=== PATIENT | female | born 1960 | race Caucasian/White ===

== ENCOUNTER 2024-12-27 10:45 | Outpatient (AMB) | payer BC, SELFPAY ==
--- NOTE | 2024-12-27 10:47 | A.OFFVIS_ITS ---
Vital Signs 12/27/24 10:51 Height 5 ft 3.86 in Weight 219 lb 9.286 oz BMI 37.9 BP 100/80 Blood Pressure Location Lt brachial Position Sitting Pulse 80 Pulse Source Pulse Oximeter Pulse Oximetry (%) 97 Oxygen Delivery Method Room Air Intake Visit Reasons: Pain on Rt side hip (referral scanned in) Intake Note: Patients presents today for arthritis and Pain in right hip, knee ankle and feet. Allergies semaglutide [From Rybelsus] Allergy (Intermediate, Verified 12/27/24 10:54) Nausea lisinopril Allergy (Mild, Verified 12/27/24 10:54) Cough morphine Allergy (Mild, Verified 12/27/24 10:54) vomitting perfume Allergy (Verified 12/27/24 10:54) Rash ethromycin Allergy (Mild, Uncoded 12/26/24 13:08) Nausea HPI HPI Pain on Rt side hip (referral scanned in): Details: Chronic pain localized to greater trochanter 6 months. Unable to sleep on right side. She is a side sleeper. She has a pain that radiates from right hip to posterior to IT band to knee then down christianson. Pelvic tilts helps to reduce hip pain. Changing position. Wakes up multiple times at night. In sitting position she has pain in right groin. Initially she had workup with lumbar spine MRI, which revealed mild degenerative changes of her discs without specific nerve root/nerve impingement due to concern of hip pain with radiation down right leg being referred from back. She was referred to PT. She has good function of her back. Able to arch back and touch toes. PT back helped reduce her pain but it is still affecting her function. Burning pain down side right leg reduced in frequency. She saw a early childhood associate teacher who gave her a cortisone injection right trochanteric bursa without benefit. She then did 8 weeks of physical therapy with benefit. She is unable to walk long distances and participate in leisure sports like cayaking (unable to lower herself in kayak) due to pain in right hip, knee and bilateral feet. She is now walking around the block instead of 2 miles. She has difficulty getting into car and going up and down stairs. She has reduced plantar flexion of right foot. She has pain in her ankle when she walks. Takes gabapentin 100mg AM and 200mg PM and advil 600mg qhs. PMx: DM on ozempic. CEBO PsO on Tremfya dx with scalp skin bx, HTN, HLD, hx of chronic transaminitis due to hepatic steotosis. Past surgical history; left rotator cuff repair, multiple LEEP procedures (BENNY 1, cIN2, cIN3 than normal), procedures for fertility Grandfather had arthritis. 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 Labs reviewed from patient's portal access from December 2024. She has normal creatinine with EGFR 96 and normal liver function tests. [facility] Medical History (Updated 12/27/24 @ 12:21 by Kam Barlow MD) BENSON (nonalcoholic steatohepatitis) delivery delivered FH: cholecystectomy History of endometrial biopsy Hx of mammogram Normal hysteroscopy Uterine polyp Diabetic retinopathy screening Pain of right hip joint Pain, joint, shoulder, left Lower back pain Neck pain Joint pain Seborrheic psoriasis Menometrorrhagia Steatosis of liver Chronic kidney disease Gastritis Gastro-esophageal reflux Intrinsic asthma Allergic rhinitis Hypertensive renal disease Insomnia Obesity with body mass index of 30.0-39.9 Hyperlipemia Vitamin D deficiency Type 2 diabetes mellitus Dermal mycosis Surgical History History of cervical LEEP biopsy affecting care of mother, antepartum H/O tubal ligation History of gynecologic surgery Hx of breast biopsy H/O colonoscopy History of liver biopsy History of orthopedic surgery H/O dilation and curettage Family History Paternal Grandmother ADHD (attention deficit hyperactivity disorder) Obesity Mother Liver problem Cirrhosis of liver Chronic obstructive pulmonary disease Esophageal varices Father Obesity Diabetes mellitus Sleep disorder Systemic hypertensive disorder complication AD (Alzheimer's disease) Maternal Grandmother Diabetes mellitus Arthritis Allergy Sister Malignant tumor of breast Paternal Grandfather Alcohol abuse Brother Acute Crohn's disease Review of Systems Const All systems reviewed & are unremarkable except as noted in HPI and below Physical Exam Vital Signs: Last Vital Signs Pulse 80 12/27/24 10:51 BP 100/80 12/27/24 10:51 Pulse Ox 97 12/27/24 10:51 Oxygen Delivery Method Room Air 12/27/24 10:51 BMI result Body Mass Index 37.9 Const Other: General: Comfortable CVS: RRR Respiratory: clear to auscultation bilaterally. Good respiratory effort Skin: No lesions seen MSK: No tenderness of upper joints. Hyperextension of bilateral thumbs. Normal range of motion of upper extremity. Tender to palpate right trochanteric bursa. No groin tenderness of bilateral groin region. Normal range of motion of left hip with limited full external rotation of right hip. No tenderness of knee. Normal bilateral knee flexion. She has mild valgus deformity of right knee. She has normal range of motion of bilateral ankles. Office Procedures AMB Joint Injection/Aspiration Joint Injection/Aspiration Details: Right trochanteric bursa Prep: site was prepped using aseptic technique Injected: 40 mg of, Kenalog, with 1 mL of and 1% plain lidocaine. 25 gauge 3- 1/2 inch needle was used. Procedure: The patient tolerated the procedure well. Postprocedure protocol was discussed with patient. Coding 29646 - Large joint Procedure code (CPT) selection complete Office Meds lidocaine (PF) 10 mg/mL (1 %) injection solution Performing Provider: Kam Barlow MD Performing Location: [facility] Administered by: Kam Barlow MD on 12/27/24 12:01 Dose Route Admin Location Dispensed Lot Number Expiration Date [facility] [employer] Systems Engineer 10 mg Infiltration 2 mL [id number] [facility] Kenalog 40 mg/mL suspension for injection Performing Provider: Kam Barlow MD Performing Location: [facility] [place] [facility] Administered by: Kam Barlow MD on 12/27/24 12:01 Dose Route Admin Location Dispensed Lot Number Expiration Date [facility] [employer] Systems Engineer 40 mg intrabursal 1 mL [id number] [employer] Results Reviewed Results Reviewed: 12/28/2024 CMP normal. KINJAL negative. Viewed on patient's portal. L-spine MRI results reviewed 11/27/2023. Assessment & Plan Assessment & Plan (1) Trochanteric bursitis, right hip: Comment: Chronic. She has had partial benefit with physical therapy with persistent symptoms. Right trochanteric bursa cortisone injection by early childhood associate teacher did not provide relief. We discussed conservative management. She agreed to try another cortisone injection. If pain does not improve, I will then start NSAID with continued PT exercises at home. She has had burning pain on her right side that radiates to her foot, improved with physical therapy and with gabapentin. L-spine MRI 11/2023 reviewed, which reveals multilevel mild degenerative disc disease with facet arthropathy, mild foraminal stenosis L3-L4, L4-L5 and mild spinal canal stenosis L4-L5. Lumbar Facet arthropathy, foraminal stenosis, mild spinal canal stenosis could have caused compression of nearby nerves likely contributed to her radicular symptom. Code(s): M70.61 - Trochanteric bursitis, right hip Category: Medical Plan: Patient received right trochanteric bursa cortisone injection Continue gabapentin per PCP Continue PT exercises at home daily Return to clinic 1-2 months to review results (2) Right ankle pain: Comment: With ambulation and limited subjective plantar flexion. Return to clinic in 1-2 months to review results Code(s): M25.571 - Pain in right ankle and joints of right foot Category: Medical Qualifiers: Chronicity: chronic Qualified Code(s): M25.571 - Pain in right ankle and joints of right foot; G89.29 - Other chronic pain Plan: X-ray ordered Return to clinic in 1-2 months to review results (3) Right hip pain: Comment: She has functional difficulties with her right hip joint and limited full external rotation. I am concerned she has hip joint pathology contributing to her functional difficulty. Code(s): M25.551 - Pain in right hip Category: Medical Plan: Right hip x-ray bilateral hips ordered. X-ray of left hip ordered for baseline and comparison Continued PT exercises at home Return to clinic in 1-2 months to review results (4) Right knee pain: Comment: She has mild clinical osteoarthritis on exam. Code(s): M25.561 - Pain in right knee Category: Medical Qualifiers: Chronicity: chronic Qualified Code(s): M25.561 - Pain in right knee; G89.29 - Other chronic pain Plan: X-ray bilateral knees ordered. Left knee x-ray has been ordered for baseline and comparison Return to clinic in 1-2 months to review results Orders: Orders XR ankle RT 2V Today G89.29 - Other chronic pain, M25.571 - Pain in right ankle and joints of right foot XR knee RT 2V Today M25.561 - Pain in right knee XR knee LT 1V Today M25.561 - Pain in right knee XR hips LEONORA min 3V Today M25.551 - Pain in right hip AMB Joint Injection/Aspiration Today M70.61 - Trochanteric bursitis, right hip Coding Level of Care Code New Pt Level 4 (38640) Diagnoses Trochanteric bursitis, right hip M70.61 Chronic pain of right ankle M25.571; G89.29 Chronicity: chronic Right hip pain M25.551 Chronic pain of right knee M25.561; G89.29 Chronicity: chronic CPT Codes Coding - 22232 Large joint: 06757 - Large joint ([id number])
[2024-12-27 10:51] VITALS: BP 100/80; PULSE 80; O2SAT 97; BMI 37.9
== END 2024-12-27 12:37 | disposition home or self-care (01) ==
LOC: HO.RHES 10:45
PROVIDERS: Visit Provider Internal Medicine Rheumatology
DX: M70.61 Trochanteric bursitis, right hip (principal); M25.571 Pain in right ankle and joints of right foot; G89.29 Other chronic pain; M25.551 Pain in right hip; M25.561 Pain in right knee
CPT/HCPCS: 20610; 99204

== ENCOUNTER 2024-12-27 10:45 | Outpatient (REF) | payer BC, SELFPAY ==
--- NOTE | ~2024-12-27 | XR_ITS ---
CLINICAL HISTORY: M25.571 - Pain in right ankle and joints of right foot 3 view right ankle Comparison: None Findings: There is a remote fracture of the anterior aspect of the distal tibia. Some heterotopic bone is seen along the dorsal aspect of the talus. There are significant degenerative changes at the tibiotalar and fibulotalar joints. No ankle effusion. No radiopaque foreign body. IMPRESSION: No acute abnormalities. There are significant degenerative changes at the tibiotalar and fibulotalar joints. This document has been electronically signed by: Arron Alexander MD on 12/29/2024 10:34:39
--- NOTE | ~2024-12-27 | XR_ITS ---
CLINICAL HISTORY: M25.551 - Pain in right hip 4 view bilateral hips Comparison: None Findings: No acute fracture or dislocation. There are small bilateral acetabular spurs with subchondral geodes [id number]-left. There are mild degenerative changes of the pubic symphysis. There are possible small erosions of the pubic symphysis. The soft tissues are unremarkable. IMPRESSION: Degenerative changes no acute fractures Degenerative changes of the pubic symphysis findings suspicious for osteitis pubis This document has been electronically signed by: Domingo Ewing MD on 12/29/2024 08:50:34
--- NOTE | ~2024-12-27 | XR_ITS ---
CLINICAL HISTORY: Pain in left knee. Two views of the left knee. COMPARISON: None FINDINGS: No appreciable suprapatellar joint effusion. Joint spaces are maintained. Osteophytes present along the lateral compartment. Visualized portions of the distal femur, proximal tibia and fibula and the patella appear intact. Fabella present. IMPRESSION: 1. No radiographic evidence of acute injury to the left knee. 2. Mild lateral compartment degenerative changes of the left knee. This document has been electronically signed by: Andres Valadez MD on 12/28/2024 17:00:47
--- NOTE | ~2024-12-27 | XR_ITS ---
CLINICAL HISTORY: M25.561 - Pain in right knee 2 view right knee Comparison: None Findings: No fractures or dislocations. There are small tricompartmental osteophytes. No acute fractures. There is a small suprapatellar effusion. No radiopaque foreign body. IMPRESSION: Mild tricompartmental osteoarthrosis Small suprapatellar effusion This document has been electronically signed by: Domingo Ewing MD on 12/29/2024 08:42:53
== END 2024-12-27 10:46 | disposition home or self-care (01) ==
LOC: HO.HMGCX 10:45
PROVIDERS: PCP Physician Assistant Medical; Visit Provider Internal Medicine Rheumatology
DX: M70.61 Trochanteric bursitis, right hip (principal); M25.571 Pain in right ankle and joints of right foot; G89.29 Other chronic pain; M25.561 Pain in right knee
CPT/HCPCS: 20610; 73522; 73560; 73610; J2003; J3300

== ENCOUNTER → 2024-12-27 13:03 | Outpatient (BNV) | payer BC, SELFPAY | PROVIDERS: PCP Physician Assistant Medical; Visit Provider Radiology Diagnostic Radiology | DX: M25.561 Pain in right knee (principal); M25.571 Pain in right ankle and joints of right foot; M25.551 Pain in right hip | CPT/HCPCS: 73522; 73560; 73610 ==

== ENCOUNTER 2025-01-03 09:45 | Outpatient (AMB) | payer BC, SELFPAY ==
[2025-01-03 10:03] VITALS: BP 110/58; PULSE 71; O2SAT 97; BMI 36.6
--- NOTE | 2025-01-03 10:03 | MHC.OFFVIS ---
Vital Signs 01/03/25 10:03 Height 5 ft 4.5 in Weight 216 lb 11.43 oz BMI 36.6 BP 110/58 L Blood Pressure Location Lt brachial Position Sitting Pulse 71 Pulse Source Pulse Oximeter Pulse Oximetry (%) 97 Oxygen Delivery Method Room Air Intake Visit Reasons: discuss xray results Intake Note: Patient presents for follow up on x-rays today. Allergies semaglutide [From Rybelsus] Allergy (Intermediate, Verified 01/03/25 10:08) Nausea lisinopril Allergy (Mild, Verified 01/03/25 10:08) Cough morphine Allergy (Mild, Verified 01/03/25 10:08) vomitting perfume Allergy (Verified 01/03/25 10:08) Rash ethromycin Allergy (Mild, Uncoded 01/03/25 10:08) Nausea HPI HPI discuss xray results: Details: She is accompanied with her during visit. She has had benefit with right trochanteric bursa cortisone injection. She has started walking. She is able to walk a few miles a day. [facility] Medical History (Updated 01/03/25 @ 13:33 by Kam Barlow MD) BENSON (nonalcoholic steatohepatitis) delivery delivered FH: cholecystectomy History of endometrial biopsy Hx of mammogram Normal hysteroscopy Uterine polyp Diabetic retinopathy screening Pain of right hip joint Pain, joint, shoulder, left Lower back pain Neck pain Joint pain Seborrheic psoriasis Menometrorrhagia Steatosis of liver Chronic kidney disease Gastritis Gastro-esophageal reflux Intrinsic asthma Allergic rhinitis Hypertensive renal disease Insomnia Obesity with body mass index of 30.0-39.9 Hyperlipemia Vitamin D deficiency Type 2 diabetes mellitus Dermal mycosis Surgical History History of cervical LEEP biopsy affecting care of mother, antepartum H/O tubal ligation History of gynecologic surgery Hx of breast biopsy H/O colonoscopy History of liver biopsy History of orthopedic surgery H/O dilation and curettage Family History Paternal Grandmother ADHD (attention deficit hyperactivity disorder) Obesity Mother Liver problem Cirrhosis of liver Chronic obstructive pulmonary disease Esophageal varices Father Obesity Diabetes mellitus Sleep disorder Systemic hypertensive disorder complication AD (Alzheimer's disease) Maternal Grandmother Diabetes mellitus Arthritis Allergy Sister Malignant tumor of breast Paternal Grandfather Alcohol abuse Brother Acute Crohn's disease Review of Systems Const All systems reviewed & are unremarkable except as noted in HPI and below Physical Exam Vital Signs: Last Vital Signs Pulse 71 01/03/25 10:03 BP 110/58 L 01/03/25 10:03 Pulse Ox 97 01/03/25 10:03 Oxygen Delivery Method Room Air 01/03/25 10:03 BMI result Body Mass Index 36.6 Const Other: General: Comfortable Skin: No lesions seen MSK: Tender to palpate right trochanteric bursa. No groin tenderness of bilateral groin region. Normal range of motion of left hip with limited full external rotation of right hip. No tenderness of knee. Normal bilateral knee flexion. She has mild valgus deformity of right knee. She has normal range of motion of bilateral ankles. Right ankle range of motion is little bit more restricted compared to left. Assessment & Plan Assessment & Plan (1) Osteoarthritis of right hip: Comment: Mild bilateral hip osteoarthritis right worse than left on x-ray. She is symptomatic with right groin pain. We discussed x-ray results, which also report degenerative changes of the pubic symphysis findings suspicious for osteitis pubis. At this time her pain is localized to the hip joint. We discussed conservative management. Answered patient's questions to her satisfaction. Code(s): M16.11 - Unilateral primary osteoarthritis, right hip Category: Medical Qualifiers: Osteoarthritis type: primary Qualified Code(s): M16.11 - Unilateral primary osteoarthritis, right hip Plan: PT ordered for hip strengthening. Patient prefers to have PT done local to her home. Encouraged weight loss. She is on Ozempic Return to clinic in 3 months (2) Bilateral primary osteoarthritis of knee: Comment: Mild on x-ray. Discussed diagnosis and conservative management. Answered patient's questions to her satisfaction. Code(s): M17.0 - Bilateral primary osteoarthritis of knee Category: Medical Plan: PT ordered for lower extremity strengthening. She will try TENs unit Encouraged weight loss. She is on Ozempic. Return to clinic in 3 months (3) Primary osteoarthritis, right ankle and foot: Comment: I personally reviewed x-ray results with patient, which reveal significant degenerative changes at the tibiotalar and fibulotalar joints of right ankle. We discussed diagnosis of osteoarthritis and management. Answered patient's questions to her satisfaction. Code(s): M19.071 - Primary osteoarthritis, right ankle and foot Category: Medical Plan: PT ordered for ankle strengthening Return to clinic in 3 months Orders: Orders PT Evaluation and Treatment Today M16.11 - Unilateral primary osteoarthritis, right hip, M17.0 - Bilateral primary osteoarthritis of knee, M19.071 - Primary osteoarthritis, right ankle and foot Coding Level of Care Code Est Pt Level 4 (12034) Complex EM visit Add On G2211 Diagnoses Primary osteoarthritis of right hip M16.11 Osteoarthritis type: primary Bilateral primary osteoarthritis of knee M17.0 Primary osteoarthritis, right ankle and foot M19.071
--- OUTSIDE RECORDS SUMMARY | 2025-01-03 11:13 | XMS_ITS | Encounter Summary ---
Author Organization [facility] Address [address] [place] [address] Care Team Providers Care Endocrinologist Name Role Phone Mesfin Parada Primary Care Provider + [phone] Reason for Referral * Imaging (Routine) - Pending Review Specialty Diagnoses / Procedures Referred By Contac t Referred To Contact Radiology Diagnoses Elevated liver enzymes Pancreas cyst Procedures MR Abdomen wo Contrast MRCP Von Henley MD [address] [address] Phone: tel: fax: [address] [address] Phone: tel: Referral ID Status Reason Start Date Expiration Date V isits Requested Visits Authorized [id number] Pending Review 12/21/2024 12/21/2025 1 1 Reason for Visit * Imaging (Routine) - Pending Review Specialty Diagnoses / Procedures Referred By Contac t Referred To Contact Radiology Diagnoses Elevated liver enzymes Pancreas cyst Procedures MR Abdomen wo Contrast MRCP Von Henley MD [address] [address] Phone: tel: fax: [facility] MRI [address] [place] [address] Phone: tel: Referral ID Status Reason Start Date Expiration Date V isits Requested Visits Authorized [id number] Pending Review 12/21/2024 12/21/2025 1 1 Encounter Details Date Type Department Care Team (Latest Contact Info) Description 12/31/2024 7:56 AM EDT - 12/31/2024 11:59 PM EDT Hospital Encounter [facility] MRI [address] [place] [address] Elevated liver enzymes; Pancreas cyst Discharge Disposition: Home or Self Care Social History Tobacco Use Types Packs/Day Years Used Date Smoking Tobacco: Former Cigarettes Q uit: 10/05/1989 Smokeless Tobacco: Never Alcohol Use Standard Drinks/Week Comments Yes 0 (1 standard drink = 0.6 oz pur e alcohol) 2 a month Comments Unknown Sex and Gender Information Value Date Recorded Sex Assigned at Not on file Legal Sex Female 6:24 PM EST Gender Identity Not on file Sexual Orientation Not on file documented as of this encounter Medications at Time of Discharge acetaminophen (TYLENOL) 500 mg tablet Take 1 tablet (500 mg total) by mouth every 8 (eight) hours if needed. aspirin 81 mg chewable tablet Chew 1 tablet (81 mg total) 1 (one) time each day. blood-glucose sensor (FreeStyle Becca 3 Plus Sensor) device USE DIRECTED. REPLACE EVERY 14 DAYS clobetasoL 0.05 % shampoo APPLY TO DRY, LEAVE ON FOR 15 MINUTES THEN WASH OFF IN SHOWER emollient combination no.43 (Promiseb) cream Apply 1 Dose topically 2 (two) times a day. 06/16/2019 fluconazole (DIFLUCAN) 200 mg tablet Take 1 tablet (200 mg total) by mouth 1 (one) time each day. fluocinolone and shower cap 0.01 % oil APPLY TO SCALP 3-4 TIMES WEEKLY ALTERNATING WITH CLOBETASOL SHAMPOO. gabapentin (NEURONTIN) 100 mg capsule Take 1 capsule (100 mg total) by mouth at bedtime. LEVONORGESTREL UTRN by intrauterine route. loratadine (Claritin) 10 mg tablet Take 1 tablet (10 mg total) by mouth 1 (one) time each day. losartan (COZAAR) 25 mg tablet Take 1 tablet (25 mg total) by mouth 1 (one) time each day. metFORMIN (GLUCOPHAGE) 1,000 mg tablet Take 1 tablet (1,000 mg total) by mouth 2 (two) times a day with meals. metformin HCl (METFORMIN ORAL) Take 750 mL by mouth. metoclopramide (REGLAN) 10 mg tablet Take 1 tablet (10 mg total) by mouth 1 (one) time each day if needed. milk thistle 500 mg capsule Take 2 capsules every day by oral route. ufomfjkv-hlt-mivg -FA-vit K-lut (Centrum Silver Women) 8 mg iron-400 mcg-50 mcg tablet Take 1 tablet by mouth 1 (one) time each day. olmesartan (BENICAR) 20 mg tablet Take 1 tablet (20 mg total) by mouth 1 (one) time each day. Half a tablet omeprazole (PriLOSEC) [address] capsule Take 1 capsule (40 mg total) by mouth 1 (one) time each day. Ozempic 0.25 mg or 0.5 mg (2 mg/3 mL) injection pen Inject 0.25 mg under the skin every 7 (seven) days. pantoprazole (PROTONIX) 40 mg EC tablet Take 1 tablet (40 mg total) by mouth 1 (one) time each day. 12/14/2024 rosuvastatin (CRESTOR) 20 mg tablet Take 1 tablet (20 mg total) by mouth 1 (one) time each day. ruxolitinib (Opzelura) 1.5 % cream Apply ONCE A DAY TO TWICE A DAY TO ALL LESIONS Tremfya 100 mg/mL injection Inject 1 mL (100 mg total) under the skin once every eight weeks. vitamin E mixed 400 unit capsule Take 2 capsules every day by oral route. Zoryve 0.3 % foam Apply to scalp once daily. documented as of this encounter Discharge Disposition Disposition Code Departure Means Destination Home or Self Care documented in this encounter Plan of Treatment Upcoming Encounters Date Type Department Care Team (Late st Contact Info) Description 03/01/2025 10:00 AM EDT Appointment [facility] Endoscopy [address] [place] [address] Von Henley MD [address] [facility] [address] [place] [address] Pending Results Name Type Priority Associated Diagnoses Date /Time MR Abdomen wo Contrast MRCP Imaging Routine Elevated liver enzymes Pancreas cyst 12/31/2024 9:11 AM EDT Scheduled Orders Name Type Priority Associated Diagnoses Orde r Schedule MR Abdomen wo Contrast MRCP Imaging Routine Elevated liver enzymes Pancreas cyst Once for 1 Occurrences starting 12/31/2024 until 12/31/2024 documented as of this encounter Visit Diagnoses Diagnosis Elevated liver enzymes Other nonspecific abnormal serum enzyme levels Pancreas cyst Cyst and pseudocyst of pancreas documented in this encounter Care Teams Endocrinologist Relationship Specialty Start Date End Date Mesfin Parada PA [address] [phone] PCP - General Internal Medicine 09/27/24 documented as of this encounter
--- OUTSIDE RECORDS SUMMARY | 2025-01-03 11:13 | XMS_ITS | Clinical Summary ---
Author Organization [facility] [address] Address [address] [place] [address] Phone Care Team Providers Care Risk Control Director Name Role Phone Mesfin Parada Primary Care Provider Allergies Active Allergy Reactions Criticality Noted Date Comments Erythromycin 07/19/2019 Morphine Nausea And Vomiting 07/19/2019 Medications LEVONORGESTREL UTRN by intrauterine route. Active metformin HCl (METFORMIN ORAL) Take 750 mL by mouth. Active aspirin 81 mg chewable tablet Chew 1 tablet (81 mg total) 1 (one) time each day. Active emollient combination no.43 (Promiseb) cream Apply 1 Dose topically 2 (two) times a day. 9 Active losartan (COZAAR) 25 mg tablet Take 1 tablet (25 mg total) by mouth 1 (one) time each day. Active metFORMIN (GLUCOPHAGE) 1,000 mg tablet Take 1 tablet (1,000 mg total) by mouth 2 (two) times a day with meals. Active omeprazole (PriLOSEC) [address] capsule Take 1 capsule (40 mg total) by mouth 1 (one) time each day. Active rvqusgxe-bjr-mx on-FA-vit K-lut (Centrum Silver Women) 8 mg iron-400 mcg-50 mcg tablet Take 1 tablet by mouth 1 (one) time each day. Active vitamin E mixed 400 unit capsule Take 2 capsules every day by oral route. Active clobetasoL 0.05 % shampoo APPLY TO DRY, LEAVE ON FOR 15 MINUTES THEN WASH OFF IN SHOWER Active fluocinolone and shower cap 0.01 % oil APPLY TO SCALP 3-4 TIMES WEEKLY ALTERNATING WITH CLOBETASOL SHAMPOO. Active blood-glucose sensor (FreeStyle Becca 3 Plus Sensor) device USE DIRECTED. REPLACE EVERY 14 DAYS Active milk thistle 500 mg capsule Take 2 capsules every day by oral route. Active loratadine (Claritin) 10 mg tablet Take 1 tablet (10 mg total) by mouth 1 (one) time each day. Active Tremfya 100 mg/mL injection Inject 1 mL (100 mg total) under the skin once every eight weeks. Active gabapentin (NEURONTIN) 100 mg capsule Take 1 capsule (100 mg total) by mouth at bedtime. Active fluconazole (DIFLUCAN) 200 mg tablet Take 1 tablet (200 mg total) by mouth 1 (one) time each day. Active acetaminophen (TYLENOL) 500 mg tablet Take 1 tablet (500 mg total) by mouth every 8 (eight) hours if needed. Active metoclopramide (REGLAN) 10 mg tablet Take 1 tablet (10 mg total) by mouth 1 (one) time each day if needed. Active olmesartan (BENICAR) 20 mg tablet Take 1 tablet (20 mg total) by mouth 1 (one) time each day. Half a tablet Active pantoprazole (PROTONIX) 40 mg EC tablet Take 1 tablet (40 mg total) by mouth 1 (one) time each day. Active Zoryve 0.3 % foam Apply to scalp once daily. Active rosuvastatin (CRESTOR) 20 mg tablet Take 1 tablet (20 mg total) by mouth 1 (one) time each day. Active ruxolitinib (Opzelura) 1.5 % cream Apply ONCE A DAY TO TWICE A DAY TO ALL LESIONS Active Ozempic 0.25 mg or 0.5 mg (2 mg/3 mL) injection pen Inject 0.25 mg under the skin every 7 (seven) days. Active Active Problems Problem Noted Date Diagnosed Date BENSON (nonalcoholic steatohepatitis) 12/21/2024 Elevated liver enzymes 12/21/2024 Pancreas cyst 12/21/2024 Gastroesophageal reflux disease without esophagi tis 12/21/2024 Obesity (BMI 30-39.9) 12/21/2024 Neuropathic pruritus 12/21/2024 Intrinsic asthma 12/21/2024 Low back pain 05/09/2023 Type 2 diabetes mellitus without complication Stage 2 chronic kidney disease 09/18/2022 COVID-19 09/01/2022 Seborrheic psoriasis 08/21/2022 Overview (12/21/2024): fol by derm Mixed hyperlipidemia 10/01/2019 Overview (12/21/2024): 1.20 - ascvd risk 6.7% Essential hypertension 05/01/2018 Neck pain 09/07/2012 Overview (12/21/2024): RECORDED 09/07/2012 2:03PM BY ANDRES ANGELES MA, ANNOTATION/ADDENDUM Migraine 09/07/2012 Overview (12/21/2024): RECORDED 09/07/2012 2:03PM BY ANDRES ANGELES MA, ANNOTATION/ADDENDUM Encounters Date Type Department Care Team Description 12/31/2024 7:56 AM EDT - 12/31/2024 11:59 PM EDT Hospital Encounter [facility] MRI [address] [place] [phone] Elevated liver enzymes; Pancreas cyst Discharge Disposition: Home or Self Care 12/28/2024 Telephone Gastroenterology - [address] [phone] Kayla Dickson MA Results 12/21/2024 10:20 AM EDT Office Visit Gastroenterology - [address] [phone] Von Henley MD BENSON (nonalcoholic steatohepatitis) (Primary Dx); Elevated liver enzymes; Pancreas cyst; Gastroesophageal reflux disease without esophagitis; Stage 2 chronic kidney disease 10/06/2024 Telephone Gastroenterology - [address] [phone] Von Henley MD from Last 3 Months Immunizations Name Administration Dates Next Due Moderna SARS-CoV-2 COVID-19, mRNA, LNP-S, preservative free 11/10/2020,10/09/2020 Social History Tobacco Use Types Packs/Day Years [...] on file Sexual Orientation Not on file Obstetrics History Last Filed Vital Signs Vital Sign Reading Time Taken Comments Blood Pressure - - Pulse - - Temperature - - Respiratory Rate - - Oxygen Saturation - - Inhaled Oxygen Concentration - - Weight 97.1 kg (214 lb) 12/21/2024 10:28 AM EDT Height 160 cm (5' 3 ) 12/21/2024 10:28 AM EDT Body Mass Index 37.91 12/21/2024 10:28 AM EDT Plan of Treatment Upcoming Encounters Date Type Department Care Team (Late st Contact Info) Description 03/01/2025 10:00 AM EDT Appointment [facility] Endoscopy [address] [place] [phone] Von Henley MD [address] [facility] [address] [place] [address] Health Maintenance Due Date Last Done Comments Diabetes: Annual Foot Exam 1971 Diabetes: Annual Retina Eye Exam 1971 Hepatitis A Vaccines (1 of 2 - Risk 2-dose series) 1980 Cervical Cancer Screening: Pap Smear 1982 Breast Cancer Screening 04/19/2020 04/19/2018 Cholesterol Screening (Lipid Panel) 09/06/2022 Depression Screening 09/06/2022 HIV Screening 09/06/2022 Social Influencers of Health Screening 09/06/2022 Diabetes: Annual Urine Albumin-Creatinine Ratio (uACR) 12/21/2024 Diabetes: Blood Sugar Control Test (HGBA1C) 12/21/2024 Colorectal Cancer Screening: Colonoscopy 09/21/2025 09/21/2015 Diabetes: Annual GFR (Glomerular Filtration Rate) 12/21/2025 12/21/2024 Hypertension/CHF/CAD Annual BMP Blood Test 12/21/2025 12/21/2024 DTaP,Tdap,and Td Vaccines (6 - Td or Tdap) 11/18/2032 11/18/2022, 01/01/2021, 06/30/2020, Additional history exists Varicella Vaccines Aged Out 05/15/1997 No longer eligible based on patient's age to complete this topic Hepatitis B Vaccines Completed 06/17/2009, 08/21/1993, 04/17/1993, Additional history exists MMR Vaccines Aged Out 06/16/2011, 05/28/2004 No lo nger eligible based on patient's age to complete this topic Zoster Vaccines Completed 08/16/2021, 04/2021, 05/15/1997 Pneumococcal Vaccine: 50+ Years Completed 08/22/2022 Pneumococcal Vaccine: Pediatrics (0 to 5 Years) and At-Risk Patients (6 to 64 Years) Completed 08/22/2022 RSV Immunization Patients 60+ Years Old Completed 01/31/2024 COVID-19 Vaccine Completed 07/01/2024, , 08/22/2022, Additional history exists Influenza Vaccine Completed 07/01/2024, , 08/08/2022, Additional history exists Hepatitis C Screening Completed 12/21/2024 HIB Vaccines Aged Out No longer eligi ble based on patient's age to complete this topic HPV Vaccines Aged Out No longer eligi ble based on patient's age to complete this topic IPV Vaccines Aged Out No longer eligi ble based on patient's age to complete this topic Meningococcal ACWY Vaccine Aged Out N o longer eligible based on patient's age to complete this topic Meningococcal B Vacine Aged Out No lo nger eligible based on patient's age to complete this topic RSV Immunization Patients Under 20 months Aged Out No longer eligible based on patient's age to complete this topic Procedures Procedure Name Priority Date/Time Associated Diagnosis Comments HEPATITIS A ANTIBODY TOTAL WITH REFLEX IGM Routine 12/21/2024 12:17 PM EDT Elevated liver enzymes Pancreas cyst BENSON (nonalcoholic steatohepatitis) Chronic kidney disease, stage II (mild) GERD (gastroesophageal reflux disease) ANTIMITOCHONDRIAL ANTIBODY Routine 12/21/2024 12:17 PM EDT Elevated liver enzymes Pancreas cyst BENSON (nonalcoholic steatohepatitis) Chronic kidney disease, stage II (mild) GERD (gastroesophageal reflux disease) SMOOTH MUSCLE ANTIBODY IGG Routine 12/21/2024 12:17 PM EDT Elevated liver enzymes Pancreas cyst BENSON (nonalcoholic steatohepatitis) Chronic kidney disease, stage II (mild) GERD (gastroesophageal reflux disease) C-REACTIVE PROTEIN Routine 12/21/2024 12 :17 PM EDT Elevated liver enzymes Pancreas cyst BENSON (nonalcoholic steatohepatitis) Stage 2 chronic kidney disease Gastroesophageal reflux disease without esophagitis KINJAL IFA WITH TITER AND PATTERN Routine 12/21/2024 12:17 PM EDT Elevated liver enzymes Pancreas cyst BENSON (nonalcoholic steatohepatitis) Stage 2 chronic kidney disease Gastroesophageal reflux disease without esophagitis HEPATITIS C VIRUS QUANTITATIVE PCR Routine 12/21/2024 12:17 PM EDT Elevated liver enzymes Pancreas cyst BENSON (nonalcoholic steatohepatitis) Stage 2 chronic kidney disease Gastroesophageal reflux disease without esophagitis HEPATITIS B SURFACE ANTIGEN WITH CONFIRMATION Routine 12/21/2024 12:17 PM EDT Elevated liver enzymes Pancreas cyst BENSON (nonalcoholic steatohepatitis) Stage 2 chronic kidney disease Gastroesophageal reflux disease without esophagitis HEPATITIS B SURFACE ANTIBODY Routine 12/21/2024 12:17 PM EDT Elevated liver enzymes Pancreas cyst BENSON (nonalcoholic steatohepatitis) Stage 2 chronic kidney disease Gastroesophageal reflux disease without esophagitis COMPREHENSIVE METABOLIC PANEL Routine 12/21/2024 12:17 PM EDT Elevated liver enzymes Pancreas cyst BENSON (nonalcoholic steatohepatitis) Stage 2 chronic kidney disease Gastroesophageal reflux disease without esophagitis EXTERNAL COLONOSCOPY REPORT Routine 09/21/2015 9:31 AM EST from Last 3 Months or Most Recently Relevant to Health Maintenance Results * Hepatitis B surface antigen with reflex to confirmation (12/21/2024 12:17 PM EDT) Hepatitis B Surface Ag Negative Negative LAB CHEMISTRY METHOD 12/21/2024 4:22 PM EDT [facility] Blood Venous blood specimen / Unknown Venipuncture / Unknown 12/21/2024 12:17 PM EDT 12/21/2024 1:30 PM EDT Narrative [facility] - 12/21/2024 4:22 PM EDT Over the counter supplements containing high doses of biotin may interfere with this assay. ??If interference is suspected, patients shoud be retested after refraining from biotin supplements for 72 hours. Von Henley MD LAB BLOOD ORDERABLES Final Result Performing Organization Address [facility] Co de Phone Number [facility] [address] [place] [address], * Hepatitis A antibody total with reflex IgM (12/21/2024 12:17 PM EDT) Pathologist [facility] [place] Hep A Total Ab Negative Negative LAB CHEMISTRY METHOD 12/21/2024 4:50 PM EDT [facility] Blood Venous blood specimen / Unknown Venipuncture / Unknown 12/21/2024 12:17 PM EDT 12/21/2024 1:30 PM EDT Narrative [facility] - 12/21/2024 4:50 PM EDT Over the counter supplements containing high doses of biotin may interfere with this assay. ??If interference is suspected, patients shoud be retested after refraining from biotin supplements for 72 hours. Von Henley MD LAB BLOOD ORDERABLES Final Result Performing Organization Address City/[facility]/ZIP Co de Phone Number [facility] [address] [place] [address], [place] [phone] * KINJAL IFA with titer and pattern (12/21/2024 12:17 PM EDT) KINJAL Negative Negative 12/22/2024 10:44 AM EDT [facility] Blood Venous blood specimen / Unknown Venipuncture / Unknown 12/21/2024 12:17 PM EDT 12/21/2024 1:30 PM EDT us Von Henley MD LAB BLOOD ORDERABLES Final Result [facility] [address] [place] [address], [place] [phone] * Hepatitis C virus quantitative molecular study (12/21/2024 12:17 PM EDT) [facility] HCV Qual Interp Not Detected Not Detected LAB MOLECULAR DIAGNOSTICS METHOD 12/22/2024 11:00 AM EDT [facility] Comment:HCV RNA not detected , unable to report quantitative results. Blood Venous blood specimen / Unknown Venipuncture / Unknown 12/21/2024 12:17 PM EDT 12/21/2024 1:32 PM EDT Von Henley MD LAB BLOOD ORDERABLES Final Result Performing Organization Address [facility] Co de Phone Number [facility] [address] [place] [address], [place] [phone] * Smooth muscle antibody IgG (12/21/2024 12:17 PM EDT) [facility] Smooth Muscle (F-Actin) IgG Ab 2 <20 UNITS 12/26/2024 1:12 PM EDT [facility] Comment: Interpretation: Negative Test performed at [facility], [address], [place], [place] ??[address] ? [phone] Gabriela Lancaster MD, PhD - [employer] Blood Venous blood specimen / Unknown Venipuncture / Unknown 12/21/2024 12:17 PM EDT 12/21/2024 1:32 PM EDT us Von Henley MD LAB BLOOD ORDERABLES Final Result [facility] [address] [place] [address] * Antimitochondrial antibody (12/21/2024 12:17 PM EDT) Pathologist [facility] [place] Mitochondrial Antibody Quantitative 2.0 <=20.0 units LAB CHEMISTRY METHOD 12/28/2024 1:30 PM EDT [facility] Mitochondrial Antibody Qualitative Negative Negative LAB CHEMISTRY METHOD 12/28/2024 1:30 PM EDT [facility] Blood Venous blood specimen / Unknown Venipuncture / Unknown 12/21/2024 12:17 PM EDT 12/21/2024 1:30 PM EDT Von Henley MD LAB BLOOD ORDERABLES Final Result Performing Organization Address [facility]/ZIP Co de Phone Number [facility] [address] [place] [address], [place] [phone] * (ABNORMAL) Hepatitis B surface antibody (12/21/2024 12:17 PM EDT) [facility] Hepatitis B Surface Ab Positive (A) Negative LAB CHEMISTRY METHOD 12/21/2024 4:11 PM EDT [facility] Hepatitis B Surface Ab Quantitative 51.0 mIU/mL LAB CHEMISTRY METHOD 12/21/2024 4:11 PM EDT [facility] Blood Venous blood specimen / Unknown Venipuncture / Unknown 12/21/2024 12:17 PM EDT 12/21/2024 1:30 PM EDT Narrative [facility] - 12/21/2024 4:11 PM EDT >=10 mIU/mL is considered to be consistent with immunity. us Von Henley MD LAB BLOOD ORDERABLES Final Result Performing Organization Address [facility]/ZIP Co de Phone Number [facility] [address] [place] [address], [place] [phone] * C-reactive protein (12/21/2024 12:17 PM EDT) Pathologist [facility] [place] C-Reactive Protein 0.34 <=0.50 mg/dL LAB CHEMISTRY METHOD 12/21/2024 4:02 PM [facility] Blood Venous blood specimen / Unknown Venipuncture / Unknown 12/21/2024 12:17 PM EDT 12/21/2024 1:30 PM EDT us Von Henley MD LAB BLOOD ORDERABLES Final Result [facility] [address] [place] [address], [place] [phone] * (ABNORMAL) Comprehensive metabolic panel (12/21/2024 12:17 PM EDT) [facility] Sodium 140 133 - 145 mmol/L LAB CHEMISTRY METHOD 12/21/2024 4:05 PM [facility] Potassium 4.0 3.5 - 5.5 mmol/L LAB CHEMISTRY METHOD 12/21/2024 4:05 PM [facility] Chloride 108 96 - 110 mmol/L LAB CHEMISTRY METHOD 12/21/2024 4:05 PM [facility] CO2 24 21 - 32 mmol/L LAB CHEMISTRY METHOD 12/21/2024 4:05 PM [facility] Anion Gap 8 3 - 11 LAB CHEMISTRY METHOD 12/21/2024 4:05 PM [facility] Glucose 109(H) 70 - 100 mg/dL LAB CHEMISTRY METHOD 12/21/2024 4:05 PM [facility] BUN 17 5 - 25 mg/dL LAB CHEMISTRY METHOD 12/21/2024 4:05 PM [facility] Creatinine 0.72 0.50 - 1.10 mg/dL LAB CHEMISTRY METHOD 12/21/2024 4:05 PM [facility] eGFR 94 >=60 mL/min/1. 73m2 LAB CHEMISTRY METHOD 12/21/2024 4:05 PM T [facility] Comment:Calculation based on the??Chronic Kidney Disease Epidemiology Collaboration (CKD-EPI) equation refit??without adjustment for race. BUN/Creatinine Ratio 23.6 LAB CHEMISTRY METHOD 12/21/2024 4:05 PM [facility] Calcium 9.2 8.5 - 10.5 mg/dL LAB CHEMISTRY METHOD 12/21/2024 4:05 PM [facility] AST (SGOT) 27 10 - 42 unit/L LAB CHEMISTRY METHOD 12/21/2024 4:05 PM [facility] ALT (SGPT) 43 10 - 60 unit/L LAB CHEMISTRY METHOD 12/21/2024 4:05 PM [facility] Alkaline Phosphatase 151(H) 42 - 121 unit/L LAB CHEMISTRY METHOD 12/21/2024 4:05 PM [facility] Total Protein 7.3 6.0 - 8.0 g/dL LAB CHEMISTRY METHOD 12/21/2024 4:05 PM [facility] Albumin 3.9 3.2 - 5.0 g/dL LAB CHEMISTRY METHOD 12/21/2024 4:05 PM [facility] Total Bilirubin 0.5 0.0 - 1.4 mg/dL LAB CHEMISTRY METHOD 12/21/2024 4:05 PM [facility] Blood Venous blood specimen / Unknown Venipuncture / Unknown 12/21/2024 12:17 PM EDT 12/21/2024 1:30 PM EDT us Von Henley MD LAB BLOOD ORDERABLES Final Result [facility] [address] [place] [address], * External Colonoscopy Report (09/21/2015 9:31 AM EST) Anatomical Region Laterality Modality Endoscopy us Historical Provider MD WREN~PROCEDURE ORDERABLES F inal Result from Last 3 Months or Most Recently Relevant to Health Maintenance Insurance [facility] Care Teams Risk Control Director Relationship Specialty Start Date End Date Mesfin Parada PA [address] [phone] PCP - General Internal Medicine 09/27/24
--- OUTSIDE RECORDS SUMMARY | 2025-01-03 11:13 | XMS_ITS | Data Portability ---
Author Organization [facility], Main Office Address [address] [facility] [address] [place] [address] Care Team Providers Care Political Theory Professor Name Role Phone LEELA MAHAN Packaging Sales Representative RANDI GRIER Time Piece Repairer LUX HARRIS Primary Care Provider [phone] TAHMINA MOROCHO Dean Of Student Services YUSEF HENLEY Iron Pellet Tester [phone] GISSELLE GORDON Shoe Cutter [phone] General Surgeon ASHLEY CESPEDES Porcelain Slusher [phone] MIGUEL GONZALES Orthopedic Surgeon Assessment Encounter Date Assessment Date Assessment LastModified by Organization Details LastModified Time 12/24/2024 12/24/2024 This service was provided using telemedicine. Patient consented to video & audio visit Patient was located in the [facility]. Provider was located in the office. No other persons participated in the telemedicine visit except for the patient unless otherwise indicated here. {{}} Total time of visit was 15 minutes. [email or web address] Not available 12/24/2024 11:28:24 Plan of Treatment Reminders Order Date Submit Date Provider Last Modified By Organization Details Last Modified Time Details Appointments BILLING ONLY 2024 09:15A M JUN SCHEDULE Not available Not available Not available Follow Up DM 30 2024 09:30A M Priscila Harris PACristinaC Not available Not available Not available Lab urinalysi s, complete 2024 025 [facility], [address], [address], [place], [address], 12/26/2024 12:05:49 culture, urine 2024 025 [facility], [address], [address], [place], [address], 12/26/2024 12:05:50 hemoglobi n A1C, fingersti ck 2024 025 In-Office Order, Internal Use Only DO Not Attach Compendium DO Not Attach Compendium, Do Not Delete/merge, [id number] 11/15/2024 09:23:03 Referral None recorded. Procedures None recorded. Surgeries None recorded. Imaging None recorded. Medication Orders Macrobid 100 mg capsule 2024 025 [id number], [address] [place], [address], 12/24/2024 11:20:41 Ozempic 0.25 mg or 0.5 mg (2 mg/3 mL) subcutane ous pen injector 2024 025 [email or web address], [facility] [place], [address], 12/24/2024 10:58:28 Patient TargetsNo targets recorded. Patient Instructions Encounter Date Encounter Id Patient Instructions Last Modified By Organization Details Last Modified Time 11/15/2024 [id number] medicines to avoid with kidney disease: care instructions Not available 11/15/2024 10:04:32 back care and preventing injuries: care instructions Not available 11/15/2024 10:04:31 getting back to normal after low back pain: care instructions Not available 11/15/2024 10:04:32 learning about relief for back pain Not available 11/15/2024 10:04:32 type 2 diabetes: care instructions Not available 11/15/2024 10:04:32 body mass index: care instructions Not available 11/15/2024 10:04:32 learning about healthy weight Not available 11/15/2024 10:04:32 12/24/2024 [id number] To call or retur n for worsening or concerns [email or web address] Not available 12/24/2024 11:20:58 Reason for Referral None Reported. Results Created Date Observation Date Name Description Value Unit Range Abnormal Flag Note LastModifiedBy Organization Detail LastModifiedTime 12/22/1912/21/2024 C-NELLIE CTIVE PROTE IN C-reactive protein 0.34 mg/dL <=0.50 Not Available [address], [address], 12/21/2024 16:06:34 12/22/19 25 12/21/2024 C-NELLIE CTIVE PROTE IN note See Report [facility], [address], [place], [place] [id number] Not Available [address], [address], 12/21/2024 16:06:34 12/22/19 25 12/21/2024 COMPR EHENS RIKKI METAB OLIC PANEL sodium 140 mmol/ L 133-14 5 Not Available [address], [address], 12/21/2024 16:07:58 12/22/19 25 12/21/2024 COMPR EHENS RIKKI METAB OLIC PANEL potassium 4.0 mmol/ L 3.5-5. 5 Not Available [address], [address], 12/21/2024 16:07:58 12/22/19 25 12/21/2024 COMPR EHENS RIKKI METAB OLIC PANEL chloride 108 mmol/ L 96-110 Not Available [address], [address], 12/21/2024 16:07:58 12/22/19 25 12/21/2024 COMPR EHENS RIKKI METAB OLIC PANEL CO2 24 mmol/ L 21-32 Not Available [address], [address], 12/21/2024 16:07:58 12/22/19 25 12/21/2024 COMPR EHENS RIKKI METAB OLIC PANEL anion gap 8 3-11 Not Available [address], [address], 12/21/2024 16:07:58 12/22/19 25 12/21/2024 COMPR EHENS RIKKI METAB OLIC PANEL glucose 109 mg/dL 70-100 high Not Available [address], [address], 12/21/2024 16:07:58 12/22/19 25 12/21/2024 COMPR EHENS RIKKI METAB OLIC PANEL BUN 17 mg/dL 5-25 Not Available [address], [address], 12/21/2024 16:07:58 12/22/19 25 12/21/2024 COMPR EHENS RIKKI METAB OLIC PANEL creatinine 0.72 mg/dL 0.50-1 .10 Not Available [address], [address], 12/21/2024 16:07:58 12/22/19 25 12/21/2024 COMPR EHENS RIKKI METAB OLIC PANEL eGFR 94 mL/mi n/1.7 3m2 >=60 Calcu latio n based on the?? ?Digital Operations Analyst tan Kidne y Disea se Epide miolo gy Colla borat ion (CKD- EPI) equat ion refit ???wi thout adjus tment for race. Not Available [address], [address], 12/21/2024 16:07:58 12/22/19 25 12/21/2024 COMPR EHENS RIKKI METAB OLIC PANEL BUN/creatini ne ratio 23.6 Not Available [address] [place], [address], 12/21/2024 16:07:58 12/22/19 25 12/21/2024 COMPR EHENS RIKKI METAB OLIC PANEL calcium 9.2 mg/dL 8.5-10 .5 Not Available [address], [address], 12/21/2024 16:07:58 12/22/19 25 12/21/2024 COMPR EHENS RIKKI METAB OLIC PANEL AST (SGOT) 27 unit/ L 10-42 Not Available [address], [address], 12/21/2024 16:07:58 12/22/19 25 12/21/2024 COMPR EHENS RIKKI METAB OLIC PANEL ALT (SGPT) 43 unit/ L 10-60 Not Available [address], [address], 12/21/2024 16:07:58 12/22/19 25 12/21/2024 COMPR EHENS RIKKI METAB OLIC PANEL alkaline phosphatase 151 unit/ L 42-121 high Not Available [address], [address], 12/21/2024 16:07:58 12/22/19 25 12/21/2024 COMPR EHENS RIKKI METAB OLIC PANEL total protein 7.3 g/dL 6.0-8. 0 Not Available [address], [address], 12/21/2024 16:07:58 12/22/19 25 12/21/2024 COMPR EHENS RIKKI METAB OLIC PANEL albumin 3.9 g/dL 3.2-5. 0 Not Available [address], [address], 12/21/2024 16:07:58 12/22/19 25 12/21/2024 COMPR EHENS RIKKI METAB OLIC PANEL total bilirubin 0.5 mg/dL 0.0-1. 4 Not Available [address], [address], 12/21/2024 16:07:58 12/22/19 25 12/21/2024 COMPR EHENS RIKKI METAB OLIC PANEL note See Report [facility], [address], [place], [facility] [address] Not Available [address], [address], 12/21/2024 16:07:58 12/22/19 25 12/21/2024 HEPAT ITIS B SURFA CE ANTIB KEVIN hepatitis B surface Ab Positi ve negati ve abnormal Not Available [address], [address], 12/21/2024 16:15:39 12/22/19 25 12/21/2024 HEPAT ITIS B SURFA CE ANTIB KEVIN hepatitis B surface Ab quantitative 51.0 mIU/m L Not Available [address], [address], 12/21/2024 16:15:39 12/22/19 25 12/21/2024 HEPAT ITIS B SURFA CE ANTIB KEVIN note See Report [facility], [address], [place], [facility] [address] Not Available [address], [address], 12/21/2024 16:15:39 12/22/19 25 12/21/2024 HEPAT ITIS B SURFA CE ANTIG EN WITH REFLE X TO CONFI RMATI ON hepatitis B surface Ag Negati ve negati ve Not Available [address], [address], 12/21/2024 16:24:52 12/22/19 25 12/21/2024 HEPAT ITIS B SURFA CE ANTIG EN WITH REFLE X TO CONFI RMATI ON note See Report [facility], [address], [place], [facility] [address] Not Available [address], [address], 12/21/2024 16:24:52 12/23/19 25 12/21/2024 KINJAL IFA WITH TITER AND PATTE RN KINJAL Negati ve negati ve Not Available [address], [address], 12/22/2024 10:46:20 12/23/19 25 12/21/2024 KINJAL IFA WITH TITER AND PATTE RN note See Report [facility], [address], [place], [facility] [address] Not Available [address], [address], 12/22/2024 10:46:20 12/23/19 25 12/21/2024 HEPAT ITIS C VIRUS QUANT ITATI VE MOLEC ULAR STUDY HCV qual interp Not Detect ed not detect ed HCV RNA not detec flaco, unabl e to repor t quant itati ve resul ts. Not Available [address], [address], 12/22/2024 11:05:46 12/23/19 25 12/21/2024 HEPAT ITIS C VIRUS QUANT ITATI VE MOLEC ULAR STUDY note See Report [facility], [address], [place], [facility] [address] Not Available [address], [address], 12/22/2024 11:05:46 11/15/19 25 11/15/2024 hemog lobin A1C, finge rstic k A1C 5.9 % 4-6 normal Not Available In-Office Order Internal Use Only DO Not Attach Compendium DO Not Attach Compendium, Do Not Delete/merge, [id number] 11/15/2024 09:04:51 12/22/19 25 12/21/2024 HEPAT ITIS A ANTIB KEVIN TOTAL WITH REFLE X IGM hep A total Ab Negati ve negati ve Not Available [facility] [address] [place], [address], 12/21/2024 16:51:46 12/22/19 25 12/21/2024 HEPAT ITIS A ANTIB KEVIN TOTAL WITH REFLE X IGM note See Report [facility], [address], [place], [place] [address] Not Available [address], [address], 12/21/2024 16:51:46 12/22/19 25 12/22/2024 COMP. METAB OLIC PANEL (14) glucose 98 mg/dL 70-99 normal Not Available [facility] ([facility]) [address] [place], [address], 12/22/2024 06:08:05 12/22/19 25 12/22/2024 COMP. METAB OLIC PANEL (14) BUN 17 mg/dL 8-27 normal Not Available [facility] ([facility]) [address] [place], [address], 12/22/2024 06:08:05 12/22/19 25 12/22/2024 COMP. METAB OLIC PANEL (14) creatinine 0.68 mg/dL 0.57-1 .00 normal Not Available [facility] ([facility]) [address] [place], [address], 12/22/2024 06:08:05 12/22/19 25 12/22/2024 COMP. METAB OLIC PANEL (14) eGFR 98 mL/mi n/1.7 3 >59 normal Not Available [facility] ([facility]) [address] [place], [address], 12/22/2024 06:08:05 12/22/19 25 12/22/2024 COMP. METAB OLIC PANEL (14) BUN/creatini ne ratio 25 12-28 normal Not Available [facility] ([facility]) [address] [facility] [place], [address], 12/22/2024 06:08:05 12/22/19 25 12/22/2024 COMP. METAB OLIC PANEL (14) sodium 140 mmol/ L 134-14 4 normal Not Available [facility] ([facility]) [address] [facility] [place], [address], 12/22/2024 06:08:05 12/22/19 25 12/22/2024 COMP. METAB OLIC PANEL (14) potassium 4.1 mmol/ L 3.5-5. 2 normal Not Available [facility] ([facility]) [address] [facility] [place], [address], 12/22/2024 06:08:05 12/22/19 25 12/22/2024 COMP. METAB OLIC PANEL (14) chloride 105 mmol/ L 96-106 normal Not Available [facility] ([facility]) [address] [facility] [place], [address], 12/22/2024 06:08:05 12/22/19 25 12/22/2024 COMP. METAB OLIC PANEL (14) carbon dioxide, total 20 mmol/ L 20-29 normal Not Available [facility] ([facility]) [address] [facility] [place], [address], 12/22/2024 06:08:05 12/22/19 25 12/22/2024 COMP. METAB OLIC PANEL (14) calcium 9.3 mg/dL 8.7-10 .3 normal Not Available [facility] ([facility]) [address] [facility] [place], [address], 12/22/2024 06:08:05 12/22/19 25 12/22/2024 COMP. METAB OLIC PANEL (14) protein, total 7.0 g/dL 6.0-8. 5 normal Not Available [facility] ([facility]) [address] [facility] [place], [address], 12/22/2024 06:08:05 12/22/19 25 12/22/2024 COMP. METAB OLIC PANEL (14) albumin 4.3 g/dL 3.9-4. 9 normal Not Available [facility] ([facility]) [address] [facility] [place], [address], 12/22/2024 06:08:05 12/22/19 25 12/22/2024 COMP. METAB OLIC PANEL (14) globulin, total 2.7 g/dL 1.5-4. 5 Not Available [facility] ([facility]) [address] [facility] [place], [address], 12/22/2024 06:08:05 12/22/19 25 12/22/2024 COMP. METAB OLIC PANEL (14) bilirubin, total 0.4 mg/dL 0.0-1. 2 normal Not Available [facility] ([facility]) [address] [facility] [place], [address], 12/22/2024 06:08:05 12/22/19 25 12/22/2024 COMP. METAB OLIC PANEL (14) alkaline phosphatase 149 IU/L 44-121 above high normal Not Available [facility] ([facility]) [address] [facility] [place], [address], 12/22/2024 06:08:05 12/22/19 25 12/22/2024 COMP. METAB OLIC PANEL (14) AST (SGOT) 27 IU/L 0-40 normal Not Available [facility] ([facility]) [address] [facility] [place], [address], 12/22/2024 06:08:05 12/22/19 25 12/22/2024 COMP. METAB OLIC PANEL (14) ALT (SGPT) 32 IU/L 0-32 normal Not Available [facility] ([facility]) [address] [place], [address], 12/22/2024 06:08:05 12/22/19 25 12/21/2024 ALBUM IN/CR EAT RATIO , RANDO M UR creatinine, urine COMMEN T mg/dL Test not perfo rmed. Patie nt was unabl e to provi de a self- colle cted speci men for the reque sted testi ng. The follo wing test( s) were not perfo rmed: Not Available [facility] ([facility]) [address] [place], [address], 12/22/2024 06:08:05 12/22/19 25 12/21/2024 ALBUM IN/CR EAT RATIO , RANDO M UR albumin, urine TNP Test not perfo rmed Not Available [facility] ([facility]) [address] [place], [address], 12/22/2024 06:08:05 12/22/19 25 12/21/2024 ALBUM IN/CR EAT RATIO , RANDO M UR alb/creat ratio ICT MANAGERS Not Available [facility] ([facility]) [address] [place], [address], 12/22/2024 06:08:05 12/22/19 25 12/22/2024 HEMOG LOBIN A1C hemoglobin A1C 6.1 % 4.8-5. 6 above high normal Predi abete s: 5.7 - 6.4 Diabe kirk: >6.4 Glyce elizabeth contr ol for adult s with diabe kirk: <7.0 Not Available [facility] ([facility]) [address] [place], [address], 12/22/2024 06:08:06 12/22/19 25 12/21/[address] PROBL EM request problem COMMEN T Test not perfo rmed. Patie nt was unabl e to provi de a self- colle cted speci men for the reque sted testi ng. The follo wing test( s) were not perfo rmed: TEST: [id number] 7 Album in/Cr eat Ratio , Rando m Ur Not Available [facility] ([facility]) [address] [facility] [place], [address], 12/22/2024 06:08:06 12/22/19 25 12/21/2024 DANTE H MUSCL E ANTIB KEVIN IGG smooth muscle (F-actin) IgG Ab 2 units <20 Inter preta tion: Negat rikki Test perfo rmed at [facility] , [address], [place] [address] [phone] Gabriela blanchard MD, PhD - Medic al Direc tor Not Available [address], [address], 12/26/2024 13:18:20 12/22/19 25 12/21/2024 DANTE H MUSCL E ANTIB KEVIN IGG note See Report [facility], [address], [place], [place] [address] Not Available [address], [address], 12/26/2024 13:18:20 12/29/19 25 12/27/2024 XR, knee No observ ation record ed. [facility] [address] [place], [address], 12/28/2024 17:40:56 12/30/19 25 12/27/2024 XR, knee, 1 or 2 view No observ ation record ed. [address], [address], 12/30/2024 09:48:25 12/30/19 25 12/27/2024 XR, hip, bilat eral No observ ation record ed. [address] [place], [address], 12/30/2024 09:51:37 12/30/1912/27/2024 XR, ankle , 3 or more view No observ ation record ed. [email or web address] [facility] [address] [facility], [place], [address], 12/30/2024 09:58:47 Result Notes None recorded. Problems Name Problem SNOMED Code Status Onset Date Resolution Date Notes Provider Name and Address Organization Details Recorded Time Allergic rhinitis 00241724 Active Not Available [facility] 3 12:19:24 Allergic urticari a 17480600 Completed 201104/25/2014 RECORDED 09/07/20 12 2:02PM BY ANDRES BANERJEE MA, ANNOTATI ON/ADDEN DUM Briseyda Yost, [facility] [address] [address], [place], [address] , [facility] 6 13:17:25 Joint pain 42430703 Active Not Available [facility] 3 12:19:24 Intrinsi c asthma 851684391 Active Not Available [facility] 3 12:19:23 Bleeding 043251992 Completed 201104/25/2014 RECORDED 09/07/20 12 2:03PM BY ANDRES BANERJEE MA, ANNOTATI ON/ADDEN DUM Briseyda Yost [facility] [address] [facility] [address], [place], [address] , [facility] 6 13:17:25 Screenin g for malignan t neoplasm of breast Completed 201104/25/2014 RECORDED 09/07/20 12 2:01PM BY ANDRES BANERJEE MA, ANNOTATI ON/ADDEN DUM Sandy carrillo, [facility] 8 15:18:50 Screenin g for malignan t neoplasm of breast Completed 2018 Sandy carrillo, [place] [facility] 8 15:18:50 Screenin g for malignan t neoplasm of cervix Completed 201104/25/2014 RECORDED 09/07/20 12 2:01PM BY ANDRES BANERJEE MA, URSTY ON/ADDEN YVES Yost, [facility] [address], [place], [address] , [facility] 6 13:17:26 Chest pain 15322377 Completed 201104/25/2014 RECORDED 09/07/20 12 2:02PM BY ANDRES BANERJEE MA, RUSTY JIMENEZ/ADDEN YVES Yost, [facility] [address], [place], [address] , [facility] 6 13:17:26 Contact dermatit is caused by food in contact with skin 56658775 Completed 201104/25/2014 RECORDED 09/07/20 12 2:01PM BY ANDRES BANERJEE MA, RUSTY ON/KALEIGHEN DUM [facility]da Yost, [facility] [address] [facility] [address], [place], [address] , [facility] 6 13:17:25 Risk of exposure to communic able disease 806432404 Completed 201104/25/2014 RECORDED 09/07/20 12 2:03PM BY ANDRES BANERJEE MA, RUSTY JIMENEZ/OSWALD Yost, [facility] [address] [facility] [address], [place], [address] , [facility] 6 13:17:26 Degenera tion of interver tebral disc 98880658 Completed 201104/25/2014 RECORDED 09/07/20 12 2:03PM BY ANDRES BANERJEE MA, RUSTY JIMENEZ/OSWALD Yost, [facility] [address] [facility] [address], [place], [address] , [facility] 6 13:17:26 Disorder of breast 68199953 Completed 201104/25/2014 RECORDED 09/07/20 12 2:02PM BY ANDRES BANERJEE MA, ALEXAATI ON/ADDEN YVES Yost, [facility] [address] [facility] [address], [place], [address] , [facility] 6 13:17:25 Edema 527464493 Completed 201104/25/2014 RECORDED 09/07/20 12 2:01PM BY ANDRES BANERJEE MA, ALEXAATI ON/ADDEN YVES Hastings MA null, [facility] 8 15:18:53 Elevated level of transami nase and lactic acid dehydrog enase 147930041 Completed 01/01/2021 Priscila Harris PA-C [address] [address], [place], [address] , [facility] 1 10:33:18 Pain in limb 15629579 Completed 201104/25/2014 RECORDED 09/07/20 12 2:03PM BY ANDRES BANERJEE MA, RUSTY ON/ADDCHARLOTTE Yost, [address] [address], [place], [address] , [facility] 6 13:17:25 Adult health examinat ion Completed 09/16/2016 Maria Elena Samayoa MA null, [facility] 6 14:10:36 General examinat ion of patient Completed 200804/25/2014 RECORDED 06/26/20 09 9:11AM BY RUSTY HUGHES ON/OSWALD Yost, [address] [facility] [address], [place], [address] , [facility] 6 13:17:26 Gastroes ophageal reflux disease 036247140 Active Not Available [facility] 3 12:19:23 Joint pain in ankle and foot Completed 201104/25/2014 IMPRESSI ON: DOES NOT LOOK LIKE GOUT, INFECTIO N NO TRAUMA, WILL GET XRAY AND DO ICE, REST ELEVATIO N. MAY NEED TO MISS WORK; RECORDED 09/07/20 12 2:01PM BY ANDRES BANERJEE MA, RUSTY ON/ADDEN YVES Yost, [facility] [address], [place], [address] , [facility] 6 13:17:25 Lesion of ulnar nerve 330253392 Completed 201104/25/2014 RECORDED 09/07/20 12 2:02PM BY ANDRES BANERJEE MA, RUSTY ON/ADDEN YVES Yost, [facility] [address] [facility] [address], [place], [address] , [facility] 6 13:17:25 Lumbar sprain 139826871 Completed 201104/25/2014 IMPRESSI ON: MOSTLY RESOLVED , GIVEN NOTE TO RTC WITH LIMITATI ONS-LIGH T DUTY/NO HEAVY LIFTING UNTIL RELEASED FROM PT, WILL ALSO BE SEEN BY [facility] [employer]; RECORDED 09/07/20 12 2:01PM BY ANDRES BANERJEE MA, RUSTY ON/OSWALD Yost, [facility] [address] [facility] [address], [place], [address] , [facility] 6 13:17:26 Menopaus al and postmeno pausal disorder s 297902932 Completed 201104/25/2014 RECORDED 09/07/20 12 2:03PM BY ANDRES BANERJEE MA, RUSTY ON/OSWALD Yost, [facility] [address] [facility] [address], [place], [address] , [facility] 6 13:17:25 Migraine 03418612 Completed 201104/25/2014 RECORDED 09/07/20 12 2:03PM BY ANDRES BANERJEE MA, ANNOTATI ON/ADDEN DUM Briseyda Yost, [facility] [address] [facility] [address], [place], [address] , [facility] 6 13:17:25 Neck pain 93528844 Active Not Available [facility] 3 12:19:24 Neck pain 11168963 Completed 201104/25/2014 RECORDED 09/07/20 12 2:03PM BY ANDRES BANERJEE MA, ANNOTATI ON/ADDEN DUM Briseyda Yost, [facility] [address] [facility] [address], [place], [address] , [facility] 6 13:17:25 Influenz a vaccine needed [id number] 06 Completed 201104/25/2014 RECORDED 09/07/20 12 2:01PM BY ANDRES BANERJEE MA, ANNOTATI ON/ADD Briseyda Yost, [facility] [address] [facility] [address], [place], [address] , [facility] 6 13:17:26 Infectiv e hepatiti s immuniza tion Completed 201004/25/2014 RECORDED 06/17/20 11 8:43AM BY DIOR GONGORA, MURRAYIC AL SUMMARY Briseyda Yost, [facility] [address] [facility] [address], [place], [address] , [facility] 6 13:17:26 Administ ration of bacteria l and viral vaccine Completed 201004/25/2014 RECORDED 06/17/20 11 8:45AM BY DIOR GONGORA, MURRAYIC AL SUMMARY Briseyda Yost, [facility] [address] [facility] [address], [place], [address] , [facility] 6 13:17:26 Administ ration of measles and mumps and rubella vaccine Completed 201004/25/2014 RECORDED 06/17/20 11 8:44AM BY DIOR GONGORA, HISTORIC AL SUMMARY Briseyda Yost, [facility] [address] [facility] [address], [place], [address] , [facility] 6 13:17:26 Varicell a vaccinat ion Completed 201004/25/2014 RECORDED 06/17/20 11 8:44AM BY DIOR GONGORA, HISTORIC AL SUMMARY Briseyda Yost, [facility] [address] [facility] [address], [place], [address] , [facility] 6 13:17:26 Shoulder joint pain 251715107 Completed 201104/25/2014 RECORDED 09/07/20 12 2:02PM BY ANDRES BANERJEE MA, ALEXAATI ON/ADDEN DUM Briseyda Yost, [facility] [address] [facility] [address], [place], [address] , [facility] 6 13:17:25 Eruption 692461551 Completed 200804/25/2014 RECORDED 06/26/20 09 9:11AM BY RUSTY HUGHES ON/ADDEN DUM Briseyda Yost, [facility] [address] [address], [place], [address] , [facility] 6 13:17:25 Adult health examinat ion Completed 201104/25/2014 RECORDED 09/07/20 12 2:01PM BY ANDRES BANERJEE MA, ALEXAATI ON/ADDEN DUM Maria Elena Samayoa MA [facility] 6 14:10:36 Inflamma tion of sacroili ac joint [id number] Completed 201104/25/2014 RECORDED 09/07/20 12 2:02PM BY ANDRES BANERJEE MA, ALEXAATI ON/ADDEN DUM Briseyda Yost, [facility] [address] [facility] [address], [place], [phone] , [facility] 6 13:17:25 Sleep disorder [id number] Completed 201104/25/2014 STORY: NONRESTO RATIVE SLEEP/MU LTIFACTO RIAL; RECORDED 09/07/20 12 2:02PM BY ANDRES BANERJEE MA, RUSTY ON/ADDEN YVES Yost, [facility] [address] [facility] [address], [place], [phone] , [facility] 6 13:17:25 Urticari a [id number] Completed 201104/25/2014 RECORDED 09/07/20 12 2:03PM BY ANDRES BANERJEE MA, RUSTY ON/ADDEN YVES Yost, [facility] [address] [facility] [address], [place], [address] , [facility] 6 13:17:25 Difficul ty speaking Completed 01/01/2021 Priscila Harris PA-C [address] [facility] [address], [place], [address] , [facility] 1 10:33:14 Allergic urticari a [id number] Completed 201105/15/2014 RECORDED 09/07/20 12 2:02PM BY ANDRES BANERJEE MA, RUSTY ON/ADDEN YVES Yost, [facility] [address] [facility] [address], [place], [address] , [facility] 6 13:17:25 Bleeding [id number] Completed 201105/15/2014 RECORDED 09/07/20 12 2:03PM BY ANDRES BANERJEE MA, RUSTY ON/ADDEN YVES Yost, [facility] [address] [facility] [address], [place], [address] , [facility] 6 13:17:25 Screenin g for malignan t neoplasm of breast Completed 201105/15/2014 RECORDED 09/07/20 12 2:01PM BY ANDRES BANERJEE MA, RUSTY ON/ADDEN DUM [facility] 8 15:18:50 Screenin g for malignan t neoplasm of cervix Completed 201105/15/2014 RECORDED 09/07/20 12 2:01PM BY ANDRES BANERJEE MA, RUSTY ON/ADDEN DUM Briseyda Yost, [facility] [address], [place], [address] , [facility] 6 13:17:26 Chest pain [id number] Completed 201105/15/2014 RECORDED 09/07/20 12 2:02PM BY ANDRES BANERJEE MA, RUSTY ON/ADDEN DUM Briseyda Yost, [facility] [address], [place], [address] , [facility] 6 13:17:26 Contact dermatit is caused by food in contact with skin 10087100 Completed 201105/15/2014 RECORDED 09/07/20 12 2:01PM BY ANDRES BANERJEE MA, RUSTY ON/ADDEN DUM Briseyda Yost, [facility] [address] [facility] [address], [place], [address] , [facility] 6 13:17:25 Risk of exposure to communic able disease [id number] Completed 201105/15/2014 RECORDED 09/07/20 12 2:03PM BY ANDRES BANERJEE MA, RUSTY JIMENEZ/ADDEN DUM Briseyda Yost, [facility] [address], [place], [address] , [facility] 6 13:17:26 Degenera tion of interver tebral disc [id number] Completed 201105/15/2014 RECORDED 09/07/20 12 2:03PM BY ANDRES BANERJEE MA, RUSTY ON/ADDEN DUM Briseyda Yost, [facility] [address] [facility] [address], [place], [address] , [facility] 6 13:17:26 Disorder of breast 79713596 Completed 201105/15/2014 RECORDED 09/07/20 12 2:02PM BY ANDRES BANERJEE MA, RUSTY ON/ADDEN DUM Briseyda Yost, [facility] [address] [facility] [address], [place], [address] , [facility] 6 13:17:25 Edema [id number] Completed 201105/15/2014 RECORDED 09/07/20 12 2:01PM BY ANDRES BANERJEE MA, RUSTY ON/ADDEN DUM Sandy Hastings [facility] 8 15:18:53 Pain in limb 27599323 Completed 201105/15/2014 RECORDED 09/07/20 12 2:03PM BY ANDRES BANERJEE MA, RUSTY ON/ADDEN DUM Briseyda Yost, [facility] [address] [facility] [address] [facility], [place], [address] , [facility] 6 13:17:25 General examinat ion of patient Completed 200805/15/2014 RECORDED 06/26/20 09 9:11AM BY RUSTY HUGHES ON/ADDEN DUM Briseyda Yost, [facility] [address] [facility] [address], [place], [address] , [facility] 6 13:17:26 Joint pain in ankle and foot Completed 201105/15/2014 IMPRESSI ON: DOES NOT LOOK LIKE GOUT, INFECTIO N NO TRAUMA, WILL GET XRAY AND DO ICE, REST ELEVATIO N. MAY NEED TO MISS WORK; RECORDED 09/07/20 12 2:01PM BY ANDRES BANERJEE MA, RUSTY ON/ADDEN DUM Briseyda Yost, [facility] [address], [place], [address] , [facility] 6 13:17:25 Lesion of ulnar nerve 585085335 Completed 201105/15/2014 RECORDED 09/07/20 12 2:02PM BY ANDRES BANERJEE MA, RUSTY ON/ADDEN DUM Briseyda Yost, [facility] [address] [facility] [address], [place], [address] , [facility] 6 13:17:25 Lumbar sprain [id number] Completed 201105/15/2014 IMPRESSI ON: MOSTLY RESOLVED , GIVEN NOTE TO RTC WITH LIMITATI ONS-LIGH T DUTY/NO HEAVY LIFTING UNTIL RELEASED FROM PT, WILL ALSO BE SEEN BY [facility] [employer]; RECORDED 09/07/20 12 2:01PM BY ANDRES BANERJEE MA, RUSTY ON/ADDEN DUM Briseyda Yost, [facility] [address] [facility] [address], [place], [address] , [facility] 6 13:17:26 Menopaus al and postmeno pausal disorder s [id number] Completed 201105/15/2014 RECORDED 09/07/20 12 2:03PM BY ANDRES BANERJEE MA, RUSTY ON/ADDEN DUM Briseyda Yost, [facility] [address] [facility] [address], [place], [address] , [facility] 6 13:17:25 Migraine [id number] Completed 201105/15/2014 RECORDED 09/07/20 12 2:03PM BY ANDRES BANERJEE MA, RUSTY ON/ADDEN DUM Briseyda Yost, [facility] [address] [facility] [address], [place], [address] , [facility] 6 13:17:25 Influenz a vaccine needed [id number] 06 Completed 201105/15/2014 RECORDED 09/07/20 12 2:01PM BY ANDRES BANERJEE MA, ANNOTATI ON/ADDEN YVES Yost, [facility] [address] [facility] [address], [place], [address] , [facility] 6 13:17:26 Infectiv e hepatiti s immuniza tion Completed 201005/15/2014 RECORDED 06/17/20 11 8:43AM BY DIOR GONGORA, HISTORIC AL SUMMARY Briseyda Yost, [facility] [address] [facility] [address], [place], [address] , [facility] 6 13:17:26 Administ ration of bacteria l and viral vaccine Completed 201005/15/2014 RECORDED 06/17/20 11 8:45AM BY DIOR GONGORA, HISTORIC AL SUMMARY Briseyda Yost, [facility] [address] [facility] [address], [place], [address] , [facility] 6 13:17:26 Administ ration of measles and mumps and rubella vaccine Completed 201005/15/2014 RECORDED 06/17/20 11 8:44AM BY DIOR GONGORA, HISTORIC AL SUMMARY [facility]iseyda Yost, [facility] [address] [facility] [address], [place], [address] , [facility] 6 13:17:26 Varicell a vaccinat ion Completed 201005/15/2014 RECORDED 06/17/20 11 8:44AM BY DIOR GONGORA, HISTORIC AL SUMMARY Briseyda Yost, [facility] [address] [facility] [address], [place], [address] , [facility] 6 13:17:26 Shoulder joint pain 684141035 Completed 201105/15/2014 RECORDED 09/07/20 12 2:02PM BY ANDRES BANERJEE MA, RUSTY ON/ADDEN DUM Briseyda Yost, [facility] [address] [address], [place], [address] , [facility] 6 13:17:25 Eruption [id number] Completed 200805/15/2014 RECORDED 06/26/20 09 9:11AM BY RUSTY HUGHES ON/ADDEN DUM Briseyda Yost, [facility] [address] [address], [place], [address] , [facility] 6 13:17:25 Adult health examinat ion Completed 201105/15/2014 RECORDED 09/07/20 12 2:01PM BY ANDRES BANERJEE MA, RUSTY ON/ADDEN DUM Maria Elena Samayoa MA [facility], [facility] 6 14:10:36 Inflamma tion of sacroili ac joint 55672049 Completed 201105/15/2014 RECORDED 09/07/20 12 2:02PM BY ANDRES BANERJEE MA, RUSTY ON/ADDEN DUM Briseyda Yost, [facility] [address] [address], [place], [address] , [facility] 6 13:17:25 Sleep disorder 08443141 Completed 201105/15/2014 STORY: NONRESTO RATIVE SLEEP/MU LTIFACTO RIAL; RECORDED 09/07/20 12 2:02PM BY ANDRES BANERJEE MA, RUSTY ON/ADDEN DUM Briseyda Yost, [facility] [address] [address], [place], [address] , [facility] 6 13:17:25 Urticari a [id number] Completed 201105/15/2014 RECORDED 09/07/20 12 2:03PM BY ANDRES BANERJEE MA, [facility] [address], [place], [address] , [facility] 6 13:17:25 Respirat ory symptom 781011486 Completed 09/16/2016 JUN Hughes, [facility] 6 14:10:28 Edema 436649125 Completed 2018 Sandy carrillo, [facility] 8 15:18:53 Cough 42353589 Completed 09/16/2016 JUN Hughes, [facility] 6 14:10:53 Acute pharyngi tis 416931340 Completed 09/16/2016 JUN Hughes, [facility] 6 14:10:43 Anemia 070828917 Completed 01/01/2021 Priscila Harris PA-C [address], [place], [address] , [facility] 1 10:33:08 Menorrha anna [id number] Active Not Available [facility] 3 12:19:24 Acute sinusiti s 64617625 Completed 09/16/2016 JUN Hughes, [facility] 6 14:10:24 Iron deficien cy anemia 95687543 Completed 06/19/2022 Lux Harris PA-C [address] [facility] [address], [place], [address] , [facility] 2 13:33:32 Body mass index 30+ - obesity 124756488 Completed 08/30/2019 [facility] 5 09:50:24 Hypergly cemia 87115232 Completed 01/01/2021 Priscila Harris PA-C [address], [place], [address] , [facility] 1 10:33:28 Increase d liver function 16312141 Active Not Available [facility] 3 12:19:24 Dyspnea 957142534 Completed 10/27/2019 JUN Vernon, [facility] 0 09:33:10 Essgrant l hyperten sari 89733407 Completed 201709/18/2022 Lux Harris PA-C [address], [place], [address] , [facility] 2 11:02:33 Uncontro lled type 2 diabetes mellitus 641871364 Completed 201811/06/2020 Ying carrillo, [facility] 5 16:46:15 Liver function tests outside referenc e range 181404854 Completed 201806/19/2022 Lux Harris PA-C [address], [place], [address] , [facility] 2 13:34:32 Diarrhea 41962370 Completed 201810/27/2019 JUN Vernon, [facility] 0 09:33:12 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 2018 Not Available [facility] 3 12:19:23 Mixed hyperlip idemia 646748473 Completed 201801/01/2021 1.20 - ascvd risk 6.7% Priscila Harris PA-C [address], [place], [address] , [facility] 1 10:30:48 Bereavem ent 37138310 Completed 201906/19/2022 Lux Harris PA-C [address], [place], [address] , [facility] 2 13:37:20 Pain of left shoulder joint 05254914668 384973 Active 2019 Not Available [facility] 3 12:19:23 Liver enzymes level above referenc e range 237376071 Completed 201906/19/2022 Lux Harris PA-C [address] [facility] [address], [place], [address] , [facility] 2 13:37:55 Exposure to SARS-CoV -2 Completed 11/15/2020 Removal Reason: Problem added by user shantel taylor from the COVID-19 watch flag JUN Vernon, [facility] 1 15:37:10 Steatosi s of liver 478966620 Active 2020 Not Available [facility] 3 12:19:23 Vitamin D deficien cy 52817001 Active 2020 Not Available [facility] 3 12:19:23 Hyperlip idemia 12538641 Active 2020 Not Available [facility] 3 12:19:24 Insomnia 587974986 Active 2021 Not Available [facility] 3 12:19:23 Seborrhe ic psoriasi s 86005063 Active 2021 fol by derm Not Available [facility] 3 12:19:23 COVID-19 778691068 Completed 202111/17/2023 JUN Vernon, [facility] 4 14:16:58 Hyperten sive renal disease 92802869 Active 2021 Not Available [facility] 3 12:19:24 Chronic kidney disease stage 2 952523684 Active 2021 Not Available [facility] 3 12:19:24 Low back pain 521942169 Active 2022 Not Available [facility] 3 12:19:23 Pain in right hip joint 27340696309 9102 Active 2022 Not Available [facility] 3 12:19:23 Gastriti s 5730492 Active 2023 Priscila Harris PA-C [address] [facility] [address], [place], [address] , [facility] 4 15:43:07 Body mass index 30+ - obesity 787945841 Active 2024 Guera Pritchett lorena, [facility] 5 09:50:24 Uncontro lled type 2 diabetes mellitus 798558825 Active 2018 Ying Bell lorena, [facility] 5 16:46:15 Urinary tract infectio us disease 73571762 Active 2024 KELSEY Kim [address] [facility] [address], [facility] [place], [address] , [facility] 5 11:20:11 Dysuria 65940088 Active 2024 KELSEY Kim [address] [address], [facility] [place], [address] , [facility] 5 11:26:28 Problem Notes None recorded. Procedures Surgical History Date Name Laterality Status Provider Name and Address Organization Details Recorded Time 024 diabetic retinopathy screening completed Patricia Walker [facility] 09/21/2024 08:41:44 024 Diabetic Foot Exam (Monofilament) completed Lux Harris PA-C [address] [address], [place], [address], [facility] 07/04/2024 11:18:30 023 Hysteroscopy completed Patricia Walker [facility] 09/30/2023 10:46:59 023 excision of uterine polyp completed Patricia Walker [facility] 09/30/2023 10:47:17 023 Dilation and Curettage completed Patricia Walker [facility] 09/30/2023 10:47:26 023 Date of Last Pap Smear completed Patricia Walker [facility] 06/01/2023 12:33:22 022 repair of musculotendinous cuff of shoulder completed Tiffany Gongora [facility] 02/13/2022 14:01:22 022 Orthopedic Surgery completed Ashley Earl MA [facility] 06/19/2022 09:40:33 021 Diabetic Foot Exam (Monofilament) completed Priscila Harris PA-C [address] [facility], [place], [address], [facility] 01/01/2021 13:06:23 019 biopsy of liver completed Ana Luisa woods MA [facility] 10/27/2019 09:36:27 019 Diabetic Foot Exam (Monofilament) completed Lux Harris PA-C [address], [place], [address], [facility] 08/29/2019 16:57:47 018 Most Recent Mammogram completed Rhoda Kendrick [facility] 04/20/2018 09:37:45 018 Mammogram screening completed Rhoda Kendrick [facility] 04/20/2018 09:38:27 018 endometrial biopsy completed Ana Luisa woods MA [facility] 12/13/2020 09:29:43 016 Cholecystectomy completed Enedina Donis [facility] 06/25/2017 10:21:04 015 Date of Last Colonoscopy completed Enedina Donis [facility] 05/22/2016 16:09:56 015 Colonoscopy completed Lux THAO-C [address] [facility] [place], [address], [facility] 10/20/2018 09:21:03 015 Most Recent Bone Density completed Sandy Hastings MA [facility] 02/15/2015 09:07:01 011 Breast Biopsy completed Ashley Earl MA [facility] 06/19/2022 09:40:33 007 Egd diagnostic brush wash completed Sandy Hastings MA [facility] 07/07/2017 16:02:55 992 Caesarean Section completed Ashley Earl MA [facility] 06/19/2022 09:40:33 992 Staffing Administrator Surgery completed Ashley Earl MA [facility] 06/19/2022 09:40:33 992 Tubal Ligation completed Ashley Earl MA [facility] 06/19/2022 09:40:33 987 loop electrosurgical excision procedure of cervix completed Ana Luisa woods MA [facility] 12/13/2020 09:30:54 Imaging Results Imaging Date Name Status LastModified by Organiz ation Details LastModified Time 12/27/2024 XR, knee completed [facility] [address] [place], [address], 12/28/2024 17:40:56 12/27/2024 XR, knee, 1 or [address], [address], 12/30/2024 09:48:25 12/27/2024 XR, hip, bilateral completed [address], [address], 12/30/2024 09:51:37 12/27/2024 XR, ankle, 3 or more view completed [address] [place], [address], 12/30/2024 09:58:47 Procedure Notes None recorded. Medical Equipment None Reported. Allergies Allergen ID Allergen Name Allergen Category Reaction Reaction Severity Criticality Documentation Date Start Date Code Code System Note Provider Name and Address Organization Details Recorded Time 42577 lisinopri l medicatio n cough moderate Not available 05/01/2018 80923 RxNorm Lux Tal SHANE [address], [place], [address], [facility] 8 22:06:09 58945 morphine medicatio n vomiting Not available Not available 02/13/2022 7052 RxNorm Not Available [facility] 2 13:14:06 86589 perfume environme nt rash Not available Not available 09/18/[address] derma titis Ana Luisa ascencio [place] null, [facility] 2 10:20:00 94174 Rybelsus medicatio n nausea moderate Not available 10/29/2022 38142 45 RxNorm Priscilabernard Harris PA-C [address], [place], [address], [facility] 3 13:28:09 9774 erythromy stephanie medicatio n nausea Not available Not available 04/18/2014 4053 RxNorm Not Available [facility] 3 12:19:25 Medications Name Sig Start Date Stop Date Status Note LastModified by Organization Details LastModified Time Prescript ion - Clarifica tion 12/24 completed Not Available Not Available Not Available Prescript ion - New 12/24 completed Not Available Not Available Not Available Prescript ion - Prior Authoriza tion Request 05/17 completed Not Available Not Available Not Available celecoxib 200 mg capsule QD 08/29 completed Not Available Not Available Not Available cyclobenz aprine 10 mg tablet AT BEDTIME 06/16 completed RECORDED 07/26/20 12 1:09PM BY ANDRES BANERJEE MA, MEDICATI ON AUTO-EULA CTIVATIO N; Not Available Not Available Not Available fluconazo le 100 mg tablet Take 1 tablet every week by oral route as directed . 11/01 completed to prevent yeast infectio ns Not Available Not Available Not Available metformin 500 mg tablet TAKE 1 TABLET DAILY (DOSE ADJUSTME NT) active Not Available Not Available No t Available potassium chloride ER 10 mEq capsule,e xtended release 01/06 completed Not Available Not Available Not Available ketoconaz ole 2 % shampoo USE A SHAMPOO 2-3 X WEEKLY active Not Available Not Available No t Available Klor-Con 10 mEq tablet,ex tended release 01/06 completed Not Available Not Available Not Available azithromy stephanie 250 mg tablet TAKE 2 TABLETS (500 MG) BY ORAL ROUTE ONCE DAILY FOR 1 DAY THEN 1 TABLET (250 MG) BY ORAL ROUTE ONCE DAILY FOR 4 DAYS 05/15 completed Not Available Not Available Not Available fluconazo le 150 mg tablet TAKE 1 TABLET BY MOUTH EVERY DAY FOR 7 DAYS *INSURAN CE ONLY ALLOW 2 TABS PER FILL 12/27 completed Not Available Not Available Not Available benzonata te 200 mg capsule Take 1 capsule 3 times a day by oral route as directed for 10 days. 05/22 completed Not Available Not Available Not Available milk thistle 500 mg capsule Take 2 capsules every day by oral route. active Not Available Not Available No t Available sumatript an 100 mg tablet BID/PRN 07/20 completed RECORDED 09/03/20 10 11:02AM BY FRIDA KENT ON AUTO-EULA CTIVATIO N; Not Available Not Available Not Available fluticaso ne propionat e 0.05 % topical cream Apply 1 applicat ion twice a day by topical route as needed for 30 days. 09/16 completed Not Available Not Available Not Available Claritin 10 mg tablet Take 1 tablet every other day by oral route. active alternat es with Zyrtec Not Available Not Available Not Available Kike Mora 28 gauge 12/12 completed Not Available Not Available Not Available prednison e 20 mg tablet TAKE 4 TABS IN AM X 3 DAYS , 3 TABS X 4 DAYS, 2 TABS X 4 DAYS THEN 1 TAB X 4 DAYS 06/19 completed Not Available Not Available Not Available alclometa sone 0.05 % topical cream APPLY TO AFFECTED AREA TWICE A DAY FOR 3-5 DAYS 01/06 completed prn Not Available Not Available Not Available clobetaso l 0.05 % topical cream APPLY TWICE DAILY TO RASH UP TO 2 WEEKS/MO NTH NEEDED. 06/19 completed Not Available Not Available Not Available Zyrtec 10 mg tablet Take 1 tablet every other day by oral route. active alternat es with Claritin Not Available Not Available Not Available chlorthal idone 25 mg tablet Take by oral route for 30 days. 01/06 completed Not Available Not Available Not Available ciproflox acin 250 mg tablet Take 1 tablet every 12 hours by oral route for 7 days. 10/20 completed Not Available Not Available Not Available Westcort 0.2 % topical cream BID 09/05 completed RECORDED 09/07/20 07 3:59PM BY LIT Yañez NP, MEDICATI ON AUTO-EULA CTIVATIO N; Not Available Not Available Not Available omeprazol e 40 mg capsule,d elayed release TAKE 1 CAPSULE BY MOUTH EVERY DAY 01/06 completed Not Available Not Available Not Available aspirin 81 mg tablet,de layed release Take 1 tablet every day by oral route as directed for 30 days. active Not Available Not Available No t Available acetamino phen 500 mg tablet Take 2 tablets every 8 hours by oral route as needed. active Not Available Not Available No t Available triamcino lone acetonide 0.1 % topical cream APPLY TO AFFECTED AREA TWICE A DAY FOR 2 WEEKS 06/19 completed Not Available Not Available Not Available oxycodone -acetamin ophen 5 mg-325 mg tablet 06/25 completed Not Available Not Available Not Available milk thistle 150 mg capsule Take 3 capsules every day by oral route. 05/17 completed Not Available Not Available Not Available Fluticaso ne Propionat e (Inhal) 50 mcg/BLIST inhl powd DAILY 2010 active RECORDED 06/27/20 11 5:25PM BY HOA KING MD, REFILL REQUEST; Not Available Not Available Not Available aspirin 325 mg tablet,de layed release TAKE 1 TABLET BY MOUTH EVERY DAY FOR 14 DAYS STARTING THE DAY AFTER SURGERY DIRECTED 02/13 completed Not Available Not Available Not Available amitripty line 10 mg tablet TAKE 2 TABLETS EVERY DAY BY ORAL ROUTE DIRECTED FOR 30 DAYS. active Not Available Not Available No t Available deslorata dine 5 mg tablet DAILY 05/17 completed RECORDED 05/17/20 12 2:31PM BY MARIA ELENA SAMAYOA, OFFICE VISIT; Not Available Not Available Not Available econazole nitrate 1 % topical cream APPLY 1 APPLICAT ION EVERY DAY BY TOPICAL ROUTE FOR 14 DAYS. 06/19 completed Not Available Not Available Not Available cephalexi n 500 mg capsule TAKE 1 CAPSULE BY MOUTH THREE TIMES A DAY 12/12 completed Not Available Not Available Not Available pantopraz ole 40 mg tablet,de layed release TAKE 1 TABLET DAILY 2024 active Not Available Not Available Not Avai lable erythromy stephanie 5 mg/gram (0.5 %) eye ointment APPLY LIBERALL Y TO BOTH EYES AT BEDTIME 06/19 completed Not Available Not Available Not Available ranitidin e 150 mg tablet TWO TIMES DAILY 2010 active RECORDED 09/07/20 12 2:04PM BY ANDRES BANERJEE MA, OFFICE VISIT;CO N Not Available Not Available Not Available clotrimaz ole-betam ethasone 1 %-0.05 % topical cream Apply 1 applicat ion twice a day by topical route as needed for 10 days. 06/25 completed Not Available Not Available Not Available indometha stephanie 50 mg capsule TAKE 1 CAPSULE 3 TIMES A DAY BY ORAL ROUTE DIRECTED FOR 5 DAYS. 01/01 completed Not Available Not Available Not Available hydrochlo rothiazid e 12.5 mg capsule daily as directed 2014 active Not Available Not Available Not Avai lable betametha sone dipropion ate 0.05 % topical cream TWO TIMES DAILY 01/07 completed RECORDED 06/06/20 09 11:17AM BY LIT Yañez NP, MEDICATI ON AUTO-EULA CTIVATIO N; Not Available Not Available Not Available docusate sodium 100 mg capsule TAKE 1 CAPSULE BY MOUTH UP TO TWO TIMES A DAY NEEDED FOR CONSTIPA TION WHILE TAKING NARCOTIC MEDICATI ONS DIRECTED 06/19 completed Not Available Not Available Not Available omeprazol e 20 mg capsule,d elayed release TAKE ONE CAPSULE BY MOUTH TWICE A DAY 06/01 completed Not Available Not Available Not Available mont[address] st 10 mg tablet DAILY 10/07 completed RECORDED 04/24/20 13 7:58AM BY HOA KING MD, MEDICATI ON AUTO-EULA CTIVATIO N; Not Available Not Available Not Available hydroxyzi ne HCl 25 mg tablet TAKE 1-2 TABS BY MOUTH EVERY 4-6 HOURS FOR ITCH 09/01 completed Not Available Not Available Not Available hydrocodo ne 5 mg-acetam inophen 500 mg tablet FOUR TIMES DAILY, NEEDED 2011 active RECORDED 09/07/20 12 2:04PM BY ANDRES BANERJEE MA, OFFICE VISIT; Not Available Not Available Not Available lisinopri l 5 mg tablet Take 1 tablet every day by oral route for 30 days. 05/01 completed Not Available Not Available Not Available hydrochlo rothiazid e 25 mg tablet QD 06/20 completed RECORDED 06/20/20 10 11:52AM BY JAVED MUHAMMAD, ANNOTATI ON/OSWALD MARINELLI; Not Available Not Available Not Available mupirocin 2 % topical ointment APPLY TO AFFECTED AREA TWICE A DAY 05/17 completed Not Available Not Available Not Available gabapenti n 100 mg capsule Take 1 capsule 3 times a day by oral route as directed for 90 days. active Not Available Not Available No t Available Diflucan 200 mg tablet Take 1 tablet every week by oral route. active Not Available Not Available No t Available doxycycli ne hyclate 100 mg tablet Take 1 tablet every day by oral route for 30 days. 05/22 completed Not Available Not Available Not Available naproxen 500 mg tablet TAKE 1 TABLET BY MOUTH TWICE A DAY FOR 5 DAYS BEGINNIN G THE AFTERNOO N/HANNAH G YOU GET HOME FROM SURGERY. TAKE WITH FOOD, STOP IF STOMACH DISCOMFO RT. 06/19 completed Not Available Not Available Not Available mometason e 0.1 % topical cream 01/06 completed Not Available Not Available Not Available metoclopr amide 10 mg tablet Take 1 tablet as needed by oral route as directed for 30 days. active prn nausea Not Available Not Available Not Available amoxicill in 875 mg-potass ium clavulana te 125 mg tablet TAKE 1 TABLET EVERY 12 HOURS BY ORAL ROUTE FOR 10 DAYS. 12/12 completed Not Available Not Available Not Available oxycodone 5 mg tablet TAKE 1 TABLET BY MOUTH EVERY 4 HOURS NEEDED FOR PAIN DIRECTED (DO NOT DRIVE WHILE ON THIS MEDICATI ON) 02/13 completed Not Available Not Available Not Available Bactrim DS 800 mg-160 mg tablet Take 1 tablet twice a day by oral route for 7 days. 06/27 completed Not Available Not Available Not Available olmesarta n 20 mg tablet Take 0.5 tablets every day by oral route for 90 days. active Not Available Not Available No t Available glipizide 2.5 mg-metfor min 500 mg tablet TAKE 1 TABLET BY MOUTH TWICE A DAY 08/29 completed Not Available Not Available Not Available cyclobenz aprine 5 mg tablet Take 1 tablet as needed by oral route at bedtime for 10 days. 05/26 completed Not Available Not Available Not Available ciclopiro x 1 % shampoo USE A SHAMPOO. 3 X WEEKLY AND A FACE WASH EVERY DAY 09/01 completed Not Available Not Available Not Available metformin ER 750 mg tablet,ex tended release 24 hr TAKE 1 TABLET BY MOUTH EVERY DAY FOR 30 DAYS active Not Available Not Available No t Available rosuvasta tin 20 mg tablet TAKE 1 TABLET DAILY active Not Available Not Available No t Available topiramat e 50 mg tablet Take 1 tablet twice a day by oral route. 02/13 completed Not Available Not Available Not Available clobetaso l 0.05 % shampoo APPLY TO DRY, LEAVE ON FOR 15 MINUTES THEN WASH OFF IN SHOWER active Not Available Not Available No t Available nitrofura ntoin monohydra te/macroc rystals 100 mg capsule TAKE 1 CAPSULE BY MOUTH TWICE A DAY DIRECTED FOR 7 DAYS active Not Available Not Available No t Available fluocinol one 0.01 % scalp oil and shower cap APPLY TO SCALP 3-4 TIMES WEEKLY ALTERNAT ING WITH CLOBETAS OL SHAMPOO. active Not Available Not Available No t Available Lyrica 50 mg capsule Take 1 capsule twice a day by oral route for 30 days. 09/03 completed Not Available Not Available Not Available omeprazol e TWO TIMES DAILY 2012 active RECORDED 04/24/20 13 7:58AM BY HOA KING MD, REFILL REQUEST; Not Available Not Available Not Available Nasonex 11/01 completed Not Available Not Available Not Available Vitamin D take 1 tab daily po 05/26 completed Not Available Not Available Not Available Zyrtec take 1 tab twice a day po 05/26 completed Not Available Not Available Not Available Larue 3 1 capsule po daily 01/06 completed Not Available Not Available Not Available ProAir HFA 90 mcg/actua tion aerosol inhaler TAKE 2 PUFFS BY MOUTH EVERY 4 HOURS NEEDED 12/12 completed Not Available Not Available Not Available MoviPrep 100 gram-7.5 gram-2.69 1 gram oral powder packet active Not Available Not Available Not Available hydrochlo rothiazid e 12.5 mg tablet Take 1 tablet as needed by oral route as directed . 01/06 completed for edema Not Available Not Available Not Available Promiseb topical cream Apply 1 g every day by topical route as needed for 30 days. 05/15 completed Not Available Not Available Not Available krill oil qd 11/15 completed Not Available Not Available Not Available vitamin E mixed 400 unit capsule Take 2 capsules every day by oral route. active Not Available Not Available No t Available Agnes Chewable Low Dose Aspirin 81 mg tablet 1 tab po qd 11/17 completed Not Available Not Available Not Available Otezla 30 mg tablet Take 1 tablet twice a day by oral route for 30 days. 11/17 completed not as efficien t Not Available Not Available Not Available Centrum Silver Women 8 mg iron-400 mcg-50 mcg tablet Take 1 tablet every day by oral route. active Not Available Not Available No t Available FreeStyle Precision Gilles Strips Take 1 strip twice a day by miscell. route for 30 days. 2018 active Not Available Not Available Not Avai lable Ozempic 0.25 mg or 0.5 mg (2 mg/1.5 mL) subcutane ous pen injector INJECT 0.25 MG EVERY WEEK BY SUBCUTAN EOUS ROUTE FOR 30 DAYS. 01/06 completed Not Available Not Available Not Available Dexcom G6 Sheriff Officer 09/01 completed Not Available Not Available Not Available Dexcom G6 Transmitt er device USE WITH SENSORS, REPLACE EVERY 90 DAYS 09/01 completed Not Available Not Available Not Available Dexcom G6 Transmitt er change every 90 days 09/01 completed Not Available Not Available Not Available Dexcom G6 Sensor change every 10 days 09/01 completed reaction to adhesive Not Available Not Available Not Available FreeStyle Romeo 14 Day [place] USE DIRECTED . 06/19 completed Not Available Not Available Not Available FreeStyle Romeo 14 Day Sensor kit USE DIRECTED TO CHECK BLOOD SUGAR. REPLACE EVERY 14 DAYS. 06/19 completed Not Available Not Available Not Available Tremfya 100 mg/mL subcutane ous auto-inje ctor Inject 1 mL every 2 months by subcutan eous route. active Not Available Not Available No t Available Rybelsus 3 mg tablet TAKE 1 TABLET BY MOUTH EVERY DAY FOR 30 DAYS 07/28 completed gi side effects Not Available Not Available Not Available Ozempic 1 mg/dose (4 mg/3 mL) subcutane ous pen injector INJECT 1 MG UNDER THE SKIN EVERY WEEK active Not Available Not Available No t Available Opzelura 1.5 % topical cream Apply ONCE A DAY TO TWICE A DAY TO ALL LESIONS active Not Available Not Available No t Available Flowflex COVID-19 Antigen Home Test kit 07/04 completed Not Available Not Available Not Available Paxlovid 300 mg (150 mg x 2)-100 mg tablets in a dose pack TAKE 3 TABLETS TWICE A DAY BY ORAL ROUTE FOR 5 DAYS. 09/18 completed Not Available Not Available Not Available Ozempic 0.25 mg or 0.5 mg (2 mg/3 mL) subcutane ous pen injector INJECT 0.5 MG UNDER THE SKIN EVERY WEEK 12/24 completed Not Available Not Available Not Available Zoryve 0.3 % topical foam Apply to scalp once daily. active Not Available Not Available No t Available FreeStyle Romeo 3 Plus Sensor device USE DIRECTED . REPLACE EVERY 14 DAYS active Not Available Not Available No t Available Vitals Date Recorded Body height Body mass index (BMI) Body weight Heart rate Oxygen saturation Oxygen saturation in Arterial blood by Pulse oximetry Systolic blood pressure Diastolic blood pressure Provider Name and Address Organization Details Last Updated DateTime 5 163.83 cm 36.7 kg/m2 45377.5 4 g 75 /min 96 % 96 % 97 mm[Hg] 64 mm[Hg] Erica pop MA [facility] 5 09:13:00 Date Recorded Body height Provider Name an d Address Organization Details Last Updated DateTime 12/24/2024 163.83 cm Ana Luisa Archer MA [facility] 12/24/2024 10:54:36 Date Recorded Body height Body mass index (BMI) Body weight Heart rate Oxygen saturation Oxygen saturation in Arterial blood by Pulse oximetry Body temperature Systolic blood pressure Diastolic blood pressure Provider Name and Address Organization Details Last Updated DateTime 163.83 cm 37 kg/m2 72137.7 3 g 73 /min 96 % 96 % 98.3 [degF] 102 mm[Hg] 68 mm[Hg] Erica pop MA [facility] 5 10:11:58 Social History Question Answer Notes LastModified by Organizat ion Details LastModified Time Tobacco Smoking Status Former Smoker quit in 1989 Ana Luisa Archer MA [facility] 10/27/2019 09:34:43 Do You Have An Advance Directive? Yes Information not available 06/19/2022 What Is Your Level Of Alcohol Consumption? Occasional Approx.. 3 Drinks Monthly Information not available 06/19/2022 Animal Exposure? Yes Information not available 06/19/2022 Do You Wear A Helmet When Biking? Yes Information not available 06/19/2022 Is Blood Transfusion Acceptable In An Emergency? Yes Information not available 02/15/2015 What Is Your Level Of Caffeine Consumption? Occasional Information not available 02/15/2015 How Much Tobacco Do You Chew? None Information not available 06/19/2022 Are You Currently Employed? Yes Information not available 02/15/2015 What Type Of Diet Are You Following? REGULAR Information not available 02/15/2015 Which Illicit Or Recreational Drugs Have You Used? None Information not available 11/08/2015 Do You Or Have You Ever Used E-cigarettes Or Vape? 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 No Information not available 06/19/2022 When Did You Quit Smoking? 16+yearssincel ofeette Information not available 11/15/2020 How Many Days In The Past Year Have You Had A Heavy Drinking Consumption (4+ Female, 5+ Male)? 0 Information not available 02/15/2015 Are There Any Guns Present In Your Home? No Information not available 06/19/2022 What Is Your Home Situation? Other Information not available 06/19/2022 Legally Blind In One Or Both Eyes? No Information not available 06/19/2022 Live Alone Or With Others? With Others (Nitin) Information not available 06/19/2022 Do You Take Precautions To Prevent Distracted Driving? Yes Information not available 11/08/2015 How Often Do You Need To Have Someone Help You When You Read Instructions, Pamphlets, Or Other Written Material From Your Doctor Or Pharmacy? Never Information not available 11/08/2015 Have You Served In The ? No Information not available 06/25/2017 *[facility] ONLY* Are You Presently Prescribed Opioid Medication By PCP Or Specialist? If YES -Provider Assess The Benefit For Other, Non-opioid Pain Therapies Instead, Even If The Patient Does Not Have OUD But Is Possibly At Risk. No Information not available 11/15/2020 Marital Status Informa tion not available 06/19/2022 What Was The Date Of Your Most Recent Tobacco Screening? 12/24/2024 Information not available 12/24/2024 Total Number Of Stairs In Home 15 Information not available 06/19/2022 How Many Children Do You Have? 4 Daughter In 2019 Information not available 11/06/2020 What Is Your Current Pack Years? 10-19packyears Information not available 06/19/2022 Do You Use Protection During Sex? No Information not available 02/15/2015 Difficulty Reading? No Information not available 06/19/2022 What Is Your Relationship Status? Information not available 06/19/2022 Do You Use Your Seat Belt Or Car Seat Routinely? Yes Information not available 06/19/2022 Seat Belts Used Routinely Yes Information not available 06/19/2022 Are You Sexually Active? Yes Information not available 02/15/2015 Smoke Alarm In Home Yes Information not available 06/19/2022 Do You Have Smoke And Carbon Monoxide Detectors In Your Home? Yes Information not available 06/19/2022 At What Age Did You Start Smoking Tobacco? 14 Started In 1973 Information not available 10/27/2019 Are You Passively Exposed To Smoke? No Information not available 06/25/2017 Do You Or Have You Ever Used Smokeless Tobacco? Never Used Smokeless Tobacco Information not available 10/27/2019 How Much Tobacco Do You Smoke? 1 PPD Information not available 01/15/2023 Do You Use Any Illicit Or Recreational Drugs? No Information not available 06/19/2022 Do You Use Sunscreen Routinely? Yes Information not available 02/15/2015 How Many Years Have You Smoked Tobacco? 16 Information not available 10/27/2019 Do You Or Have You Ever Used Any Other Forms Of Tobacco Or Nicotine? No Information not available 01/15/2023 Sex: Unknown Functional Status Question Answer Note LastModified by Organizat ion Details LastModified Time Do you have difficulty walking or climbing stairs? No Information not available 06/19/2022 [address]iculty driving at night? No Information no t available 06/19/2022 Are you able to walk? YESWOREST Information not available 06/19/2022 Are you able to care for yourself? Yes Information not available 02/15/2015 Do you have difficulty dressing or bathing? No Information not available 06/19/2022 What is your exercise level? Occasional Information not available 02/15/2015 Mental Status Question Answer Note LastModified by Organization D etails LastModified Time Do you have difficulty concentrating, remembering or making decisions? No Information no t available 06/19/2022 Family History Relationship Description Onset Age of this Age Resolved Age Notes LastModified by Organization Details LastModified Time Paternal Grandmother Depressive disorder [email or web address] Not available 2015 17:05:59 Paternal Grandmother Malignant tumor of breast [email or web address] Not available 07/04 10:38:37 Son Attention deficit hyperactivit y disorder [email or web address] Not available 05/22 17:05:59 Mother Obesity [email or web address] Not available 0 05/22/2016 17:05:59 Mother Cirrhosis of liver d/t fatty liver dz [email or web address] Not available 06/19/2022 09:40:04 Mother Liver problem [email or web address] Not available 01/01 09:37:03 Mother Disease of liver [email or web address] Not available 01/01 09:37:03 Mother Chronic obstructive pulmonary disease [email or web address] Not available 01/01 09:37:03 Mother Esophageal varices 83 [email or web address] Not available 07/04 10:38:13 Father Obesity [email or web address] Not available 0 05/22/2016 17:05:59 Father Diabetes mellitus [email or web address] Not available 2015 17:05:59 Father Sleep disorder [email or web address] Not available 01/01 09:37:03 Father Hypertensive disorder [email or web address] Not available 01/01 09:37:03 Father Alzheimer's disease 76 [email or web address] Not available 2022 09:55:31 Maternal Grandfather Diabetes mellitus [email or web address] Not available 09:40:04 Maternal Grandfather Arthritis pmadden Not available 05/05 17:05:59 Sister Malignant tumor of breast [email or web address] Not available 09:40:04 Paternal Grandfather Alcohol abuse [email or web address] Not available 09:40:04 Unspecified Relation Allergy [email or web address] Not available 09:40:04 Brother Crohn's disease 38 [email or web address] Not available 07/04 10:39:06 Medical History Condition Response Gout N Other N Kidney Stones N Blood Diseases N Hyperthyroidism N Breast Cancer N Hypothyroidism N Lung Disease N Depression N COPD N Defects or Inherited Disease N Anesthesia Complications N Headaches/Migraines Y Anxiety Disorder N Varicose Veins Y Obesity Y Vision or Eye Problems N Arthritis N Head Injury/Concussion N Infertility Y Polyps N Congenital Anomalies N Acid Reflux (GERD) Y Cancer N Stroke N ADHD N Endometriosis N High Cholesterol N Liver Disease N Fibromyalgia N Kidney Disease N Heart Problems N Ear or Hearing Problems N Hospitalizations Y Thyroid Problems N GI Problems N Acne N Eating Disorder N Skin Problems Y Anemia Y Constipation N Bladder Problems N Mental Illness N Diabetes Y Ovarian Cancer N Blood Transfusions Y Seizures/Epilepsy N Tuberculosis N AIDS/HIV N Congestive Heart Failure (CHF) N Eczema N Abuse/Domestic Violence N Diverticulitis N Asthma N Allergies Y Reflux/GERD Y Hepatitis N Pulmonary Embolism N Hypertension Y Chicken Pox N Autism Spectrum Disorder (ASD) N Osteoporosis N Gynecological History Statement/Question Response Abnormal Pap N Flow Moderate 01/29/2015 STIs/STDs N HPV Vaccine N Duration of Flow (days) 7 Age at Menarche 16 Current Control Method IUD Most Recent Mammogram 04/19/2018 Age at First Child 19 Date of Last Colonoscopy 09/21/2015 Most Recent Bone Density 10/18/2014 Sexually Active? Y Menses Monthly Yes Date of Last Pap Smear 05/19/2023 Sexual Problems? N LMP Approximate Obstetrics History GPAL:G 7 P 4 0 0 0 Type Value Full Term 4 Total 7 Immunizations Vaccine Type Date Status Note Provider Nam e and Address Organization Details Recorded Time TST-PPD wilson test 5 completed Not Available [facility] 11/20/2023 09:46:52 Influenza, split virus, trivalent, preservative 4 completed Patricia Walker null, [facility] 07/24/2023 12:41:34 Influenza, split virus, quadrivalent, preservative 6 completed Patricia L Walker null, [facility] 07/24/2023 12:41:34 COVID-19, mRNA, LNP-S, PF, 100 mcg/0.5mL dose or 50 mcg/0.25mL dose 1 completed Patricia Shanda EdouardWalker null, [facility] 07/24/2023 12:41:34 zoster recombinant 1 completed Patricia L Walker null, [facility] 07/24/2023 12:41:34 Influenza, split virus, quadrivalent, PF 7 completed Patricia L Walker null, [facility] 07/24/2023 12:41:34 Influenza, split virus, quadrivalent, PF 8 completed Patricia Edouardnett null, [facility] 07/24/2023 12:41:34 COVID-19, mRNA, LNP-S, PF, 100 mcg/0.5mL dose or 50 mcg/0.25mL dose 1 completed Patricia Edouardnett null, [facility] 07/24/2023 12:41:34 Td (adult), 2 Lf tetanus toxoid, preservative free, adsorbed 0 completed Patricia Shanda EdouardWalker null, [facility] 07/24/2023 12:41:34 zoster recombinant 1 completed Patricia L Walker null, [facility] 07/24/2023 12:41:34 Influenza, split virus, quadrivalent, PF 1 completed Patricia L Walker null, [facility] 07/24/2023 12:41:34 Influenza, split virus, quadrivalent, PF 9 completed Patricia L Walker null, [facility] 07/24/2023 12:41:34 Tdap 1 completed Patricia L Walker null, [facility] 07/24/2023 12:41:34 COVID-19, mRNA, LNP-S, bivalent, PF, 50 mcg/0.5 mL or 25mcg/0.25 mL dose 2 completed Patricia Walker null, [facility] 07/24/2023 12:41:34 Pneumococcal conjugate PCV20, polysaccharide [id number] conjugate, adjuvant, PF 2 completed Patricia Walker null, [facility] 07/24/2023 12:41:34 Influenza, split virus, quadrivalent, preservative 2 completed Patricia Walker null, [facility] 07/24/2023 12:41:34 Tdap 3 completed Patricia carrillo, [facility] 07/24/2023 12:41:34 COVID-19, mRNA, LNP-S, PF, 50 mcg/0.5 mL 3 completed Patricia Walker null, [facility] 07/24/2023 12:41:34 Influenza, split virus, quadrivalent, PF 3 completed JUN Stewart, [facility] 11/17/2023 14:13:46 RSV, recombinant, protein subunit RSVpreF, adjuvant reconstituted, 0.5 mL, PF 4 completed JUN Stewart, [facility] 12/24/2024 10:54:46 COVID-19, mRNA, LNP-S, PF, 50 mcg/0.5 mL 4 completed JUN Stewart, [facility] 12/24/2024 10:54:46 Influenza, split virus, trivalent, PF 4 completed JUN Stewart, [facility] 12/24/2024 10:54:47 MMR 4 completed Patricia carrillo, [facility] 07/24/2023 12:41:34 Td (adult), 2 Lf tetanus toxoid, preservative free, adsorbed 7 completed Patricia L Walker null, [facility] 07/24/2023 12:41:34 Influenza, split virus, trivalent, preservative 7 completed Patricia L Walker null, [facility] 07/24/2023 12:41:34 Influenza, split virus, trivalent, preservative 0 completed Patricia L Walker null, [facility] 07/24/2023 12:41:34 Hep B, adult 3 completed Patricia L Walker null, [facility] 07/24/2023 12:41:34 Hep B, adult 3 completed Patricia L Walker null, [facility] 07/24/2023 12:41:34 Hep B, adult 3 completed Patricia L Walker null, [facility] 07/24/2023 12:41:34 MMR 1 completed Patricia L Walker null, [facility] 07/24/2023 12:41:34 varicella 7 completed Patricia L Walker null, [facility] 07/24/2023 12:41:34 Tdap 1 completed Patricia L Walker null, [facility] 07/24/2023 12:41:34 Influenza, split virus, trivalent, preservative 2 completed Patricia L Walker null, [facility] 07/24/2023 12:41:34 Past Encounters Encounter ID Performer Location Encounter Start Date Encounter Closed Date Diagnosis/Indication Diagnosis SNOMED-CT Code Diagnosis ICD10 Code Diagnosis [id number] [address] [facility] [address] [facility] [place] [address] 02/11/2007 00:00:00 [id number] [facility] [address] [place] [address] 05/29/2004 00:00:00 [id number] [facility] er[facility] [address] [place] [address] 03/01/2004 00:00:00 [id number] [facility] [address] [place] [address] 05/01/2003 00:00:00 [id number] [facility] er[facility] [address] [place] [address] 04/16/2007 00:00:00 [id number] [facility] [address] [place] [address] 05/04/2007 00:00:00 [id number] [facility] er[facility] [address] [facility],[address] [place] [address] 06/09/2007 00:00:00 [id number] [facility] [address] [facility],[address] [place] [address] 07/09/2007 00:00:00 [id number] [facility] [address] [facility],[address] [place] [address] 08/06/2007 00:00:00 [id number] [facility] [address] [facility],[address] [place] [address] 12/08/2008 00:00:00 [id number] [facility] [address] [facility] [place] [address] 06/26/2009 00:00:00 [id number] [facility] er[facility] [address] [facility],[address] [place] [address] 07/01/2010 00:00:00 [id number] [facility] er[facility] [address] [facility] [place] [address] 10/01/2010 00:00:00 [id number] [facility] er[facility] [address] [facility] [address] [place] [address] 06/28/2011 00:00:00 [id number] [facility] [address] [place] [address] 10/14/2011 00:00:00 [id number] [facility] [address] [place] [address] 05/17/2012 00:00:00 [id number] [facility] [address] [place] [address] 05/27/2012 00:00:00 [id number] [facility] er[facility] [address] [place] [address] 09/07/2012 00:00:00 [id number] Hoa marcos Main [address] [place] [address] 02/15/2015 08:57:33 02/15/2015 10:06:58 Adult health examination [id number] Will update immunizati on status and screen based on risk factors. Regular dental care, periodic eye examinatio ns, and safety measures advised. Distracted driving discussed. Has colonoscop y scheduled in March with Dr. Henley Gastroesop hageal reflux disease [id number] Followed by Dr. Henley, on omeprazole and reglan. Allergic rhinitis [id number] treating symptomati bekah as needed. Intrinsic asthma [id number] Edema [id number] C/O melo ma to lower extremitie s, non- pitting, she has been sitting a lot for school. Likely sx are due to poor venous return/ combinatio n of hot weather, sitting for long periods, weight and varicose veins. She is also concerned about her BP and is interested in starting something to help with swelling/ BP. Recommend lots of fluids, frequent breaks for walking/ moving legs, compressio n stockings when sitting for long periods. Hyperlipid emia screening 211865191 Anemia screening 012865964 [id number] Geneva Hudson Main Office [address] [place] [address] 11/01/2015 11:26:44 11/01/2015 13:20:56 Acute pharyngitis 349385848 J02.9 Edema 926345771 R60.9 pt has HCTZ to use from past PE/see record. 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 [id number] Jv Braga MD Main Office [address] [facility] [address] [place] [address] 11/08/2015 12:46:32 11/08/2015 13:31:44 Acute sinusitis 65844069 J01.90 Symptomati c treatment- lots of fluids, rest, tea with honey, OTC cough drops/ cough med as needed, humidifier , nasal sinus rinses as needed. Augmentin BID as prescribed , tessalon perles as needed for cough [id number] Hoa marcos Main Office [address] [place] [address] 05/22/2016 15:42:55 05/23/2016 09:29:29 Adult health examination 352026270 Z00.00 sister dx'd c breast ca, pt is overdue for mammogram - next biomedical engineering aide apptmt not until 09/19 Examinatio n for suspected mental disorder 062122956 Z00.00 Edema 238601742 R60.9 chronic ? CVI vs other (chf) -- cont comp stockings Iron defic iency anemia 49122909 D50.9 no heavy menses - technicall y not anemic but clearly is iron deficient, no use of iron supp, apparently NL egd/colon x gerd -- rec. f/u c GI - ? needs pillcam study Gastroesop hageal reflux disease 995269248 K21.9 pt uses reglan infrequent ly Body mass index 30+ - obesity 598089512 Z68.39 Hyperglycemia 15206886 R 73.9 Increased liver function 34994031 R94.5 ? d/t fatty liver vs other Dyspnea 482736267 R06.00 normal spirometry , no cp/palp - has been chronic, can exercise okay - r/o chf - ? d/t body habitus/en durance [id number] Marylou ackerman Main Office [address] [facility] [address] [place] [address] 06/25/2016 09:04:12 06/25/2016 10:23:52 Edema 181066487 R60.9 better lately - chronic ? CVI vs other (chf - less likely) -- cont comp stockings prn Gastroesop hageal reflux disease 591366332 K21.9 pt uses reglan infrequent ly Steatosis of liver 1007 K76.0 encouraged continued wt loss, has pending labs to r/o other etiology, encouraged f/u c GI Cholelithi asis without obstruction 64862730 K80.20 Dyspnea 920225536 R06.[address] Mahan on 07.10 -- normal spirometry , no cp/palp - has been chronic, can exercise okay - r/o chf (has pending BNP) - ? d/t body habitus/en durance Iron defic iency anemia 92771186 D50.9 no heavy menses - technicall y not anemic but clearly is iron deficient, no use of iron supp, apparently NL egd/colon x gerd -- rec. f/u c GI - ? needs pillcam study Body mass index 30+ - obesity 778184188 Z68.37 pt has lost 7 lbs and bp is down - congrats! [id number] Hoa marcos Main Office [address] [facility] [address] [place] [address] 09/16/2016 14:07:15 09/16/2016 14:59:16 Pre-surgery evaluation 035466133 Z01.818 Patient is ASA classifica tion 1 and low risk based on Curry risk calculator from cardiac stand point. Her EKG has no acute changes. I will order basic labs. send clearance forms back to the surgeon. Anemia 495032069 D64.9 Impaired f asting glycemia 703300496 R73.01 Iron defic iency anemia 11140587 D50.9 [id number] Hoa marcos Main Office [address] [facility] [address] [place] [address] 06/25/2017 10:03:14 06/25/2017 10:53:50 Adult health examination 338576561 Z00.00 Screening for malignant neoplasm of breast 497459309 Z12.39 Impaired f asting glycemia 116747171 R73.01 Tachycardia 8983210 R00. 0 [id number] Jv Braga MD Main Office [address] [place] [address] 01/06/2018 08:41:51 01/06/2018 09:43:44 Essential hypertension 01758862 I10 stable, cont med as dir Type 2 augusta betes mellitus without complication 431761441 E11.9 last a1c 6.6 back in 06.21 - will recheck - strongly encouraged pt to lose more wt and to dramatical ly reduce chocolate intake and stop drinking soda - rather drink more water Body mass index 30+ - obesity 845603719 Z68.38 Gastroesop hageal reflux disease 892040413 K21.9 cont ppi as dir, pt uses reglan infrequent ly -- cont f/u c gi Pruritus of vulva 551841 00 L29.2 cont f/u c derm, cont lyrica as dir [id number] Jv Braga MD Main Office [address] [place] [address] 2018 15:12:50 2018 16:08:15 Essential hypertension 82129286 I10 stable, cont med as dir, cr stable in january, recheck again in a few mos does use prn hctz 12.5 if edema gets too much, wears comp stockings, prn elevation has pe in 18 Acute cystitis 97752437 N30.00 finish abx as dir, consider probiotics Prediabetes 450500175 R7 3.03 last A1c 6.0 - rec cont avoid concentrat ed sweets / soda, rec increase aerobic ex to help decrease wt. Edema of l ower extremity 831206767 R60.0 no h/o chf, nl probnp 9.16 does use prn hctz 12.5 if edema gets too much, wears comp stockings, prn elevation Body mass index 30+ - obesity 559073514 Z68.39 [id number] Donell Hanna MD Main Office [address] [place] [address] 09/03/2018 10:49:13 09/03/2018 12:01:47 Dysuria 41845988 R30.0 Possible recurrence vs inadequate ly treated. Will use a different abx. Also could be interstiti al cystitis. She was given a urology referral and will make an appointmen t if her culture is negative or if she doesn't improve or gets more symptoms after treatment. [id number] Lux Harris PA-C Main Office [address] [address] [place] [address] 10/20/2018 08:54:19 10/20/2018 09:56:43 Adult health examination 807690615 Z00.00 encouraged pt to call biomedical engineering aide for pap Body mass index 30+ - obesity 493591057 Z68.39 Intrinsic asthma 7531213 08 J45.20 on no inhalers - seen by pulm in past Gastroesop hageal reflux disease 219682809 K21.9 cont ppi as dir, pt uses reglan infrequent ly -- cont f/u c gi Essential hypertension 74575776 I10 stable, cont med as dir, cr stable in january, recheck again in a few mos does use prn hctz 12.5 if edema gets too much, wears comp stockings, prn elevation Vitamin D deficiency 347 83592 E55.9 Seasonal a llergic rhinitis 017825833 J30.2 Prediabetes 798504040 R7 3.03 last A1c 6.0 - rec cont avoid concentrat ed sweets / soda, rec increase aerobic ex to help decrease wt. [id number] Ying Bell Main Office [address] [address] [place] [address] 03/31/2019 15:46:50 03/31/2019 16:44:44 Lesion of tongue 209599891 K14.9 Low back strain 93597232 1 S39.012A R lower thoracic/u pper lumbar strain - cont nsaids, hep/massag er ball, consider prn m. relaxer Body mass index 30+ - obesity 988896295 Z68.37 pt has lost 8 lbs - congratula flaco pt - encouraged to continue Essential hypertension 59720876 I10 mildly elevated today, but has been having back pain and pt admits to not taking hctz regularly ----- does use prn hctz 12.5 if edema gets too much, wears comp stockings, prn elevation -- wants to avoid daily hctz since dehydrates her too much/dry mouth trial c arb Obesity 628313495 E66.9 [id number] Ying Deshpandevedo Main Office [address] [place] [address] 05/26/2019 16:00:23 05/27/2019 12:58:08 Hyperglycemia 11814864 R73.9 pt requested recheck of sugars, wonders if had false elevations --- fsbs 301, a1c again 11.8 - confirmed - see below Dysuria 04854104 R30.0 see below Uncontroll ed type 2 diabetes mellitus 847221944 E11.65 new dx - see below rec low carb diet, cont plenty of aerobic ex., and eat less sugar - cookies, soda, juice - which overall does not appear to be a daily occurence c her rec titrate up med as gi zack Liver func tion tests outside reference range 807410406 R94.5 likely d/t fatty liver dz - rec wt loss as above - will check labs, u/s r/o PBC, celiac Diarrhea 85066480 R19.7 rec add citrucel check for celiac and check stool studies no recent abx and not 100% watery Body mass index 30+ - obesity 662585671 Z68.[address] eval Urinary tr act infectious disease 98994202 N39.0 rec probiotic supplement while on abx Obesity 962600075 E66.9 [id number] Lux Harris PA-C Main Office [address] [place] [address] 06/27/2019 08:56:11 06/27/2019 09:52:43 Uncontrolled type 2 diabetes mellitus 144131871 E11.65 congratula flaco pt a1c down to 8.3 from 11.8!!! rec cont low carb diet, cont plenty of aerobic ex., and eat less sugar - cookies, soda, juice - which overall does not appear to be a daily occurence c her (she admits to a lot of pepsi and chocolate in the past) rec titrate up med as gi zack fsbs 108 - congrats - stopped pepsi & chocolate, cont meds as dir will get glucometer - try for romeo seen by eye - had exam - cont f/u c eye Obesity 937671939 E66.9 pt interested in seeing nutritioni [facility] Body mass index 30+ - obesity 909986855 Z68.34 Liver func tion tests outside reference range 437001424 R94.5 had ruq u/s - likely d/t fatty liver dz - rec wt loss as above r/o PBC, and recheck lft's Essential hypertension 89608905 I10 stable bp today, cont arb as dir - does use prn hctz 12.5 if edema gets too much, wears comp stockings, prn elevation -- wants to avoid daily hctz since dehydrates her too much/dry mouth [id number] Ying Bell Main Office [address] [facility] [address] [place] [address] 08/29/2019 16:04:03 08/29/2019 17:11:34 Uncontrolled type 2 diabetes mellitus 154804905 E11.65 see below - under much better control now Essential hypertension 99424470 I10 bp a little low today, but she admits to accidental ly taking 2 tabs today - no orthostasi s - if get dizzy then rec cut 20mg olmesartan in 1/2 Needs infl uenza immunization 333942218 Z23 Type 2 augusta betes mellitus without complication 963070669 E11.9 congratula flaco pt a1c down to 6.0 rec cont low carb diet, cont plenty of aerobic ex. -- pt stopped pepsi!!! 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 - managed ok lately c powder 1-2x/day Body mass index 30+ - obesity 524529910 Z68.32 has lost ~30 lbs eating ~1200 inna diet, walking 10K steps / qd, dances wkly -- continue, consider strength training as well Liver func tion tests outside reference range 666107608 R94.5 had ruq u/s - likely d/t fatty liver dz - rec wt loss as above cont f/u c GI - pending liver bx to r/o PBC Cervical radiculitis 110 22409 M54.12 BUE - C7-C8 distributi on int x yrs, a little worse past few wks - will get cspine - used to take gabapentin & lyrica in past for neuropathi c pruritus as per derm - pt defers at this time, if worse then consider PSSP Chronic low back pain 27 1014332 M54.5 int x yrs - see above rec HEP Obesity 665188028 E66.9 pt interested in seeing nutritioni [facility] [id number] Lux Harris PA-C Main Office [address] [facility] [address] [place] [address] 09/27/2019 14:00:22 09/27/2019 15:12:05 Type 2 diabetes mellitus 03957169 E11.649 pt has had hypoglycem ia but has essentiall y been asymptomat ic, recently lowered metformin 1000mg bid to 500mg bid, and low sugars persist she has been averaging ~ 1500 calories / day, and is exercising daily advised her to stop metformin now she is a diet & exercise controlled diabetic - will cont. to monitor her bs via romeo system and will check her a1c before PE next month pt requested strips to verify her blood sugars when romeo records low readings (to confirm) - pt acknowledg es this may not be covered by her health insurance Hypoglycemia 252141000 E 16.2 fsbs 108 now [id number] Lux Harris PA-C Main Office [address] [facility] [address] [place] [address] 10/27/2019 09:09:49 10/27/2019 11:03:55 Adult health examination 950094425 Z00.00 Up to date on vaccinatio ns-needs pneumococc al. Essential hypertension 84771400 I10 Stable.con t meds as dir Mixed hyperlipidemia 267 222688 E78.2 Last lipid panel 05/20/19 with elevated triglyceri raj at 168. Will recheck lipid panel. Type 2 augusta betes mellitus without complication 261930119 E11.9 Hemoglobin A1C 5.5% today. Stable - diet / ex control Persistent cough 7557159 02 R05 Question of pneumonia in R lower lobe. Will obtain chest x-ray. Low back pain 178609078 M54.5 F/u with lumbar x-rays as planned. Bilateral tinnitus 10390 52418 102 H93.13 Discussed option of ENT referral. Patient declined. Will continue to monitor if worsens or develops any hearing loss. Pneumonia 554459614 J18. 9 suspect early pna - abx, probiotics , f/u prn Wheezing 18077274 R06.2 Diffuse wheezing-w ill initiate albuterol inhaler 2 puffs Q4 hrs PRN. [id number] Lux Harris PA-C Telehe[facility] [address] [facility] [address] [place] [address] 05/15/2020 06:16:15 05/15/2020 12:07:01 Type 2 diabetes mellitus without complication 143285974 E11.9 typically diet / ex control, but has gained wt d/t grief, recent junk food, etc Essential hypertension 06543461 I10 mild bp elevation likely d/t stress/gri ef and that she has forgotten them occ - but had nl bp earlier today - cont meds as dir, check bmp, cont monitor bp's Mixed hyperlipidemia 267 130636 E78.2 Will recheck lipid panel. Bereavement 96387504 Z63 .4 pt declines medication , but somewhat reluctantl y agreed to trial of counsellin g - will arrange bhn eval Pain of le ft shoulder joint 1650894861 7936905 M25.512 s/p injury 1.20, got better now worse - concerned about possible RTC injury, and affecting sleep too - see above, will get ortho eval Counseling 219751695 Z71 .9 Referral for counseling with N / YANY Hernandez. 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 check a1c and microalbum in ac pe in 1.21 Liver enzy mes level above reference range 379618774 R74.8 + FH cirrhosis d/t fatty liver dz, had recent mrcp, cont f/u c gi - ? annual surveillan ce ruq u/s? cont vit e as per gi cc: cmp to gi Mixed hyperlipidemia 267 023022 E78.2 stable [id number] [facility] [address] [facility] [address] [place] [address] 11/06/2020 14:01:42 11/07/2020 10:58:20 Counseling 375189150 Z71.9 Health advice, education or counseling done for COVID 19 pt just went for covid test earlier this afternoon - results pending Essential hypertension 84886297 I10 cont arb as dir - bp did come down to wnl earlier today - if bp rises again she does have prn hctz available to help c this (and edema as well) - call if bp persists elevated - consider add ccb Bereavement 97503709 Z63 .4 cont f/u c bhn pt declines meds she had returned to work 3 days /wk (advised her to stay oow pending covid results) Acute sinusitis 42084949 J01.90 recommend probiotics while on abx [id number] Y[facility] Bell [facility] [address] [facility] [address] [place] [address] 11/15/2020 14:50:41 11/16/2020 11:45:09 Adverse reaction to viral vaccine 979426572 T50.B95A had SEs from 2nd covid vaccine - they have resolved - able to rtw in person tomorrow - see below Muscle pain 87201542 M79 .10 [id number] [facility] [facility] [address] [place] [address] 12/13/2020 08:20:02 12/13/2020 10:32:18 Prolonged grief disorder 218034718 F43.29 Her 26 yo daughter last March- was a violent deemed a suicide and police could not find evidence otherwise. Migraine 66029363 G43.90 9 amitriptyl ine daily at bedtime to help with sleep and headaches. take 1 hour before bed. may take 20mg if needed. F/U at PE 01/01. Headache 50426881 R51.9 will rx indomethac in to try to break VERDUZCO. tid x 5 days. [id number] Ying Bell Main Office [address] [facility] [address] [place] [address] 01/01/2021 09:33:58 01/01/2021 10:50:52 Adult health examination 735084952 Z00.00 update Tdap. refer for mammogram. Essential hypertension 14719562 I10 stable on meds. Screening for malignant neoplasm of breast 800610753 Z12.39 Administra tion of viral vaccine 86592550 Z23 Bereavement 02437504 Z63 .4 continue counseling . Pt. has mild depression by PHQ score. SSRI was offered , but pt. declined trial. Type 2 augusta betes mellitus without complication 769857323 E11.9 Repeat all labs. Continue diabetic diet. Due to sign. weight gain,. pt. might need to be restarted on metformin. Steatosis of liver 1007 K76.0 abnormal LFTs. WE will repeat labs . PT. is followed by the GI. Weight gain 8593302 R63. 5 check for hypothyroi d. Pt. is encouraged to lower total calories and carbs, lower processed foods and exercise as tolerated daily. Vitamin D deficiency 347 64990 E55.9 Headache 85537886 R51.9 continue amitripyli ne and f/u with PCP in the next couple of weeks. Hyperlipidemia 83693264 E78.5 recheck lipids Intrinsic asthma 3415767 08 J45.909 Body mass index 30+ - obesity 083123940 E66.01 Z68.35 [id number] Lux Harris PA-C [facility] [address] [facility] [address] [place] [address] 01/08/2021 09:15:40 01/08/2021 14:27:59 Headache 99410402 R51.9 no sig help c elavil - ? has migraine variant - trial of topamax, may help c wt loss too - if no sig help then consider neuro eval Chronic insomnia 2155930 04 F51.04 pt states has had home sleep study in past - negative result? - but she declines inpt sleep study at this time - will revisit in near future, states is not likely to wear cpap anyways (her wears it) Pain in left knee 521555 0409 36493 M25.562 x one month - walks ~ 2 miles/day - no direct trauma - no sig help c advil, cannot kneel on it, aggrav by going downstairs /bending > slow paced walking, no pain to touch ? PFS - advised pt to consider neoprene sleeve or prn ice, and will get ortho eval [id number] Lux Harris PA-C Main Office [address] [facility] [address] [place] [address] 02/13/2022 13:30:36 02/13/2022 14:59:30 Type 2 diabetes mellitus without complication 346427298 E11.9 typically diet / ex control, but has gained wt d/t grief, recent junk food, etc check A1c now and ac PE in a few months Essential hypertension 58023591 I10 stable, cont meds as dir Pain of le ft shoulder joint 1026628034 6906878 M25.512 s/p L sh sx 4.28.22 - pending f/u c neos tomorrow, cont oow/fmla/s td thru ortho Contact de rmatitis caused by urushiol from [employer] poison rishabh 689737745 L25.5 fol by derm - better lately, cont pred taper as dir, hydroxyzin e prn, consider use prn calamine, trial c zyrtec -- if no better and insomnia persists, then trial of gbn - see below Insomnia 618503275 G47.0 0 gbn hs as dir Hyperlipidemia 71744989 E78.5 Tinea corporis 08794072 B35.4 [id number] Lux Harris PA-C Main Office [address] 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 Cespedes to schedule appt. Essential hypertension 85030519 I10 stable, cont meds as dir (arb qd)pt states she only takes Hydrochlor othiazide prn only for edema (rarely uses) Gastroesop hageal reflux disease 692323621 K21.9 cont ppi as dir, pt uses reglan infrequent ly -- cont f/u c gi Hyperlipidemia 58340697 E78.5 D/t elevated Triglyceri de - recommend patient Statin but she wants to defer it for now. Would like to work on behavioral and life style changes first. She has started walking and eating better since she receive the lab results. when run out of omega 3, consider changing to krill oil to lower trigs Pain of le ft shoulder joint 6610304413 5116865 M25.512 Improved s/p surgery -- Follow up with Ortho at the end of this month. Go to PT twice a week. Type 2 augusta betes mellitus without complication 932592556 E11.9 Patient does not want to see DM specialist (ESTEPHANIE) at the moment. Eye exam with Edson Morocho - yearly - will attempt get last DM eye exam from Dr. Morocho Self check feet regularly 9.22 - see below - A1c elevated to 9.5 - cont metformin, baby asa as dir - pt requests trial of rybelsus and change to dexcom since romeo falls off too easily - trial of 3mg qd x 1 month - notify us if wish to cont this dose vs increase to 7mg (depending on gi tolerance and fsbs response), and pt states is motivated to exercise more and eat better to lose weight Screening for malignant neoplasm of breast 420729071 Z12.39 Mammo- Needs referral to [facility] at [address] [place] Insomnia 377954893 G47.0 0 She snores.Wou ld like to consider Sleep Study Screening for malignant neoplasm of cervix 227960863 Z12.4 Body mass index 30+ - obesity 663720170 E66.9 Z68.38 has lost ~30 lbs eating ~1200 inna diet, walking 10K steps / qd, dances wkly -- continue, consider strength training as well Uncontroll ed type 2 diabetes mellitus 869273268 E11.65 see above - cannot change icd-10 p orders put in Steatosis of liver 1007 K76.0 cont f/u c GI - had liver bx, rec wt loss, cont vit E as dir, pending surveillan ce mrcp to r/o psc [id number] Priscila Harris PA-C [facility] [address] [facility] [place] [address] 09/01/2022 10:19:05 09/05/2022 11:28:46 COVID-19 501779602 U07.1 Type 2 augusta betes mellitus without complication 974372802 E11.9 Repeat all labs. Continue diabetic diet. Due to sign. weight gain,. pt. might need to be restarted on metformin. Essential hypertension 84042761 I10 stable on meds. [id number] Lux Harris PA-C Main Office [address] [facility] [address] [facility] [place] [address] 09/18/2022 10:06:30 09/18/2022 11:16:43 Type 2 diabetes mellitus without complication 949101235 E11.9 Eye exam with Edson Morocho - yearly - will attempt get last DM eye exam from Dr. Morocho Self check feet regularly 9.22 - see below - A1c elevated to 9.5 - cont metformin, baby asa as dir - pt requests trial of rybelsus and change to dexcom since romeo falls off too easily - trial of 3mg qd x 1 month - notify us if wish to cont this dose vs increase to 7mg (depending on gi tolerance and fsbs response), and pt states is motivated to exercise more and eat better to lose weight 12.22 - a1c down to 6.4, doing better c freestyle 3 (it's staying on better) - but considerin g using mounjaro - f/u c VM Body mass index 30+ - obesity 754790402 E66.01 Z68.35 has lost ~30 lbs eating low inna diet, walking 10K steps / qd, dances wkly -- continue, consider strength training as well Hypertensi ve renal disease 73231917 I12.9 stable, cont meds as dir (arb qd)pt states she only takes Hydrochlor othiazide prn only for edema (rarely uses)asymp tomatic - if get orthostati c, then rec cut arb in 1/2 Hyperlipidemia 06850858 E78.5 D/t elevated Triglyceri de - recommend patient Statin but she wants to defer it for now. Would like to work on behavioral and life style changes first. She has started walking and eating better since she receive the lab results. when run out of omega 3, consider changing to krill oil to lower trigs Pain of le ft shoulder joint 7341663880 8524829 M25.512 Improved s/p surgery -- Follow up with Ortho at the end of this month. finished > 6 months of PT Chronic ki dney disease stage 2 927725874 N18.2 [id number] Priscila Harris PA-C Main Office [address] [address] [place] [address] 10/29/2022 12:40:29 10/29/2022 13:50:43 Type 2 diabetes mellitus without complication [id number] E11.9 Stable diabetic control but BMI is 0ver 35 and pt. has difficulty loosing weight. WE will try GLP-1 Ozempic at 0.25 mg weekly for 4 weeks. If tolerated well after 4 weeks pt. will increase to 0.5 mg weekly. F/u 2 m. [id number] Tiffany Gongora Main Office [address] [address] [place] [address] 12/10/2022 11:51:23 12/10/2022 11:53:43 [id number] Priscila Harris PA-C Main Office [address] [place] [address] [place] [address] 01/06/2023 09:54:31 01/06/2023 10:32:39 Type 2 diabetes mellitus without complication 710720952 E11.9 Excellent diabetic control currently. Recommend to reduce metfromin to 500 mg daily. Continue ozempic 0.5 mg weekly, diet and exercise. Replace omeprazole with pantoprazo le 40. Gastroesop hageal reflux disease 637460339 K21.9 [id number] Ying Bell Main Office [address] [address] [place] [address] 01/15/2023 09:33:22 01/15/2023 10:29:20 Hypertensive renal disease 50047877 I12.9 stable, cont meds as dir (arb qd)pt states she only takes Hydrochlor othiazide prn only for edema (rarely uses) - taken off med listasympt omatic - but to prevent orthostasi s - cut arb in 1/2, and rec increase water intake Body mass index 30+ - obesity 740260887 E66.01 Z68.33 has lost ~30 lbs eating low inna diet, walking 10K steps / qd, consider strength training as well and resuming dance lessons again Hyperlipidemia 87283216 E78.5 D/t elevated Triglyceri de - recommend patient Statin but she wants to defer it for now. Would like to work on behavioral and life style changes first. She has started walking and eating better since she receive the lab results. when run out of omega 3, consider changing to krill oil to lower trigs 4.23 - last lipids done yesterday weren't fasting - will recheck fasting Chronic ki dney disease stage 2 577086982 N18.2 stable Renal diso rder due to type 2 diabetes mellitus 073963897 E11.22 Eye exam with Edson Morocho - yearly - will attempt get last DM eye exam from Dr. Morocho Self check feet regularly 9.22 - see below - A1c elevated to 9.5 - cont metformin, baby asa as dir - pt requests trial of rybelsus and change to dexcom since romeo falls off too easily - trial of 3mg qd x 1 month - notify us if wish to cont this dose vs increase to 7mg (depending on gi tolerance and fsbs response), and pt states is motivated to exercise more and eat better to lose weight 12.22 - a1c down to 6.4, doing better c freestyle 3 (it's staying on better) - but considerin g using mounjaro - f/u c VM 4.23 - a1c down to 5.6 - congratula flaco pt! - f/u c VM prn if a1c sig increases [id number] Tiffany Gongora Main Office [address] [facility] [address] [place] [address] 01/21/2023 11:39:26 01/21/2023 11:48:39 [id number] Tiffany Gongora Main Office [address] [facility] [address] [place] [address] 03/11/2023 13:14:54 03/11/2023 13:18:01 [id number] Lux Harris PA-C Main Office [address] [address] [place] [address] 05/07/2023 13:37:40 05/07/2023 14:30:37 Pain in right hip joint [id number] 61458 M25.551 believe her hip pain is radiating from her back, but will check xray to r/o advanced djd - consider ortho eval if advanced djd Low back pain 873194516 M54.50 lbp c ? radiculopa thy RLE (L3/L4?) - check xrayis already on gbn for insomnia - 200mg hs, consider slowly uptitrate if need be (see below)cons ider alt ice/heatwi ll get PMR Type 2 augusta betes mellitus without complication 837665604 E11.9 Eye exam with Edson Morocho - yearly - will attempt get last DM eye exam from Dr. Morocho Self check feet regularly 9.22 - see below - A1c elevated to 9.5 - cont metformin, baby asa as dir - pt requests trial of rybelsus and change to dexcom since romeo falls off too easily - trial of 3mg qd x 1 month - notify us if wish to cont this dose vs increase to 7mg (depending on gi tolerance and fsbs response), and pt states is motivated to exercise more and eat better to lose weight 12.22 - a1c down to 6.4, doing better c freestyle 3 (it's staying on better) - but considerin g using mounjaro - f/u c VM Hyperlipidemia 15321997 E78.5 D/t elevated Triglyceri de - recommend patient Statin but she wants to defer it for now. Would like to work on behavioral and life style changes first. She has started walking and eating better since she receive the lab results. when run out of omega 3, consider changing to krill oil to lower trigs 4.23 - last lipids done yesterday weren't fasting - will recheck fasting [id number] Lux Harris PA-C Main Office [address] [address] [place] [address] 06/25/2023 09:41:21 06/25/2023 10:42:01 Adult health examination [id number] Z00.00 Up to date on vaccinatio ns-needs pneumococc al, defers for now Last colonoscop y in 2014 - due in 2024 pap utd Pain in ri ght hip joint [id number] 43790 M25.551 believe her hip pain is radiating from her back, but will check xray to r/o advanced djd - consider ortho eval if advanced djd 9. - mild degenerati ve changes R hip - likely referred pain, see below Low back pain 709504155 M54.50 lbp c ? radiculopa thy RLE (L3/L4?) - check xrayis already on gbn for insomnia - 200mg hs, consider slowly uptitrate if need be (see below)cons ider alt ice/heatwi ll get PMR eval 9. - rec increase gbn a little, encouraged pt to call PMR, cont yoga (just started recently) Type 2 augusta betes mellitus without complication 436357004 E11.9 Eye exam with Edson Morocho - yearly - will attempt get last DM eye exam from Dr. Morocho Self check feet regularly 9. - see below - A1c elevated to 9.5 - cont metformin, baby asa as dir - pt requests trial of rybelsus and change to dexcom since romeo falls off too easily - trial of 3mg qd x 1 month - notify us if wish to cont this dose vs increase to 7mg (depending on gi tolerance and fsbs response), and pt states is motivated to exercise more and eat better to lose weight 12.22 - a1c down to 6.4, doing better c freestyle 3 (it's staying on better) - but considerin g using mounjaro - f/u c VM 9.23 - pending A1c, but has not been losing wt - so rec increase ozempic - has been on 0.5mg x several months - just got a 3 month shipment, so rec slowly titrate up to 1mg Hyperlipidemia 90017281 E78.5 D/t elevated Triglyceri de - recommend patient Statin but she wants to defer it for now. Would like to work on behavioral and life style changes first. She has started walking and eating better since she receive the lab results. when run out of omega 3, consider changing to krill oil to lower trigs 4.23 - last lipids done yesterday weren't fasting - will recheck fasting 9.23 - encouraged pt to check outstandin g labs as directed Screening for malignant neoplasm of breast 868025671 Z12.39 Mammo- Needs referral to [facility] at [address] in [facility] Body mass index 30+ - obesity 754228883 E66.9 Z68.32 had lost ~30 lbs eating low inna diet, walking 10K steps / qd, consider strength training as well and resuming dance lessons again Seborrheic psoriasis 258 92813 L40.8 stable, cont med, f/u c derm Vitamin D deficiency 347 44919 E55.9 Chronic ki dney disease stage 2 465153258 N18.2 stable Hypertensi ve renal disease 96994704 I12.9 stable, cont meds as dir (arb qd)pt states she only takes Hydrochlor othiazide prn only for edema (rarely uses) - taken off med listasympt omatic - but to prevent orthostasi s - cut arb in 1/2, and rec increase water intake 9.23 - bp stable Steatosis of liver 1007 K76.0 cont f/u c GI - had liver bx, rec wt loss, cont vit E as dir, pending surveillan ce liver [place]ri from gi [id number] Tiffany Gongora Main Office [address] [address] [place] [address] 07/15/2023 13:31:14 07/15/2023 13:32:51 [id number] Priscila Harris PA-C Main Office [address] [facility] [address] [place] [address] 08/28/2023 08:51:10 08/28/2023 09:05:13 [id number] Tiffany Gongora Main Office [address] [address] [place] [address] 10/09/2023 09:14:11 10/09/2023 09:16:27 [id number] Priscila Harris PA-C Main Office [address] [address] [place] [address] 11/17/2023 13:53:54 11/17/2023 14:59:05 Type 2 diabetes mellitus without complication 697540890 E11.9 Excellent diabetic control currently. Continue ozempic 1 mg, pt did not want to decrease the dose despite having GERD symptoms. Will stop fluids and food 2 hrs before bed , continue PPI and reduce chocolate. F/u 6 m. Gastritis 7058277 K29.70 continue PPI and Tums Gastroesop hageal reflux disease 345776366 K21.9 [id number] Tiffany Gongora Main Office [address] [address] [place] [address] 11/20/2023 09:45:41 11/20/2023 09:53:31 [id number] Priscila Harris PA-C Main Office [address] [address] [place] [address] 01/01/2024 09:42:29 01/01/2024 09:44:53 [id number] Priscila Harris PA-C Main Office [address] [address] [place] [address] 02/15/2024 08:48:08 02/15/2024 08:52:40 [id number] Priscila Garciaden PA-C Main Office [address] [address] [place] [address] 05/10/2024 08:42:03 05/10/2024 08:48:50 [id number] Priscila Harris PA-C Main Office [address] [address] [place] [address] 05/17/2024 08:49:23 05/17/2024 09:44:28 Type 2 diabetes mellitus without complication 803759495 E11.9 Excellent diabetic control currently, but side effects of constipati on and reflux with 1 mg dose of Ozempic. WE will lower to 0.5 mg weekly and pt agrees to lower calories by eliminatin g sweets and snacking and beginning to exercise. WE will repeat fasting labs. F/u 3 m. Chronic ki dney disease stage 2 389005236 N18.2 continue ARB. repeat microalbum in. Hypertensi ve renal disease 36703211 I12.9 stable hypertensi on control. Continue low sodium diet adn current medication s. Hyperlipidemia 07175735 E78.5 Begin rosuvastat in 20 mg daily and repeat lipids in 6-8 weeks. [id number] Lux Harris PA-C Main Office [address] [facility] [address] [facility] [place] [address] 07/04/2024 10:25:14 07/04/2024 11:44:04 Adult health examination 585136721 Z00.00 Up to date on vaccinatio ns-needs pneumococc al, defers for now Last colonoscop y in 2014 - due in 2024 pap, mammo - seeing biomedical engineering aide next month for both Chronic ki dney disease stage 2 194150132 N18.2 stable Hyperlipidemia 20014151 E78.5 D/t elevated Triglyceri de - recommend patient Statin but she wants to defer it for now. Would like to work on behavioral and life style changes first. She has started walking and eating better since she receive the lab results. when run out of omega 3, consider changing to krill oil to lower trigs 4.23 - last lipids done yesterday weren't fasting - will recheck fasting 9. - encouraged pt to check outstandin g labs as directed 9.24 - sig reduction in ldl on crestor, cont med as dir Hypertensi ve renal disease 74952252 I12.9 stable, cont meds as dir (arb qd)pt states she only takes Hydrochlor othiazide prn only for edema (rarely uses) - taken off med listasympt omatic - but to prevent orthostasi s - cut arb in 1/2, and rec increase water intake 9.24 - bp stable Increased liver function 07251131 R94.5 ? d/t fatty liver vs other 9.24 - seen by [facility] in past, has had liver bx, mri - rec f/u c [facility] Type 2 augusta betes mellitus without complication 396508804 E11.9 Eye exam with Edson Morocho - yearly - will attempt get last DM eye exam from Dr. Morocho Self check feet regularly . - see below - A1c elevated to 9.5 - cont metformin, baby asa as dir - pt requests trial of rybelsus and change to dexcom since romeo falls off too easily - trial of 3mg qd x 1 month - notify us if wish to cont this dose vs increase to 7mg (depending on gi tolerance and fsbs response), and pt states is motivated to exercise more and eat better to lose weight 12.22 - a1c down to 6.4, doing better c freestyle 3 (it's staying on better) - but considerlois g using mounjaro - f/u c VM 9.23 - pending A1c, but has not been losing wt - so rec increase ozempic - has been on 0.5mg x several months - just got a 3 month shipment, so rec slowly titrate up to 1mg 9.24 - a1c down to 5.7, cont meds, f/u c VM as dir Body mass index 30+ - obesity 254650682 E66.9 Z68.35 had lost ~30 lbs eating low inna diet, walking 10K steps / qd, consider strength training as well and resuming dance lessons again 9.24 - on ozempic - cont as dir Seborrheic psoriasis 258 77262 L40.8 stable, cont med, f/u c derm Gastroesop hageal reflux disease 294421141 K21.9 cont ppi as dir, pt uses reglan infrequent ly -- cont f/u c gi Low back pain 314954472 M54.50 lbp c ? radiculopa thy RLE (L3/L4?) - check xrayis already on gbn for insomnia - 200mg hs, consider slowly uptitrate if need be (see below)cons ider alt ice/heatwi ll get PMR eval 9.23 - rec increase gbn a little, encouraged pt to call PMR, cont yoga (just started recently) 9.24 - better lately, but occ gets RLE radicular sxs - cont gbn as dir - 3 tabs qhs, but consider increasing by day, consider f/u c pmr, cont hep - see above - ? related to psoriasis --- if persists/w orse, then consider rheum eval (pending see them 09.29.24 - set up by elham) [id number] Priscila Harris PA-C Main Office [address] [place] [address] 09/21/2024 12:51:10 09/21/2024 12:55:12 [id number] Priscila Harris PA-C Main Office [address] [place] [address] 11/02/2024 08:56:19 11/02/2024 09:10:23 [id number] Priscila Harris PA-C Main Office [address] [address] [place] [address] 11/15/2024 08:53:38 11/15/2024 10:09:46 Type 2 diabetes mellitus without complication 567855361 E11.9 Excellent diabetic control currently, but side effects of constipati on and reflux with 1 mg dose of Ozempic. Still taking 1 mg Sub Q weekly, we will adjust dose to 0.5 mg Sub Q, and pt agrees to lower calories by eliminatin g sweets and snacking and beginning to exercise. WE will repeat fasting labs. F/u 3 m. Chronic ki dney disease stage 2 530763741 N18.2 continue ARB. repeat microalbum in. Low back pain 696692940 M54.50 states that she is has been in PT/seeing Ortho for treatment of multiple bulging discs. Had MRI done previously . Body mass index 30+ - obesity 394065001 E66.01 Z68.35 Current BMI 36.7. Patient was educated to decrease her sugar intake and implement healthier snack options to satisfy her cravings. [id number] Priscila Harris PA-C Main Office [address] [place] [address] 12/14/2024 09:42:06 12/14/2024 09:45:33 [id number] KELSEY Kim Main Office [address] [place] [address] 12/24/2024 09:21:23 12/24/2024 11:31:52 Dysuria 29247236 R30.0 SYMPTOMS:b urning with urination? {{yes* no} }frequency ? {{yes no*} }hematuria ? {{yes no*} }lower abdominal pain? {{yes no*} }symptoms similar to previous UTI? {{yes* no NA}} POSSIBLE CONTRAINDI CATIONS TO TELEPHONE TREATMENT: > 65 years of age? {{yes no*} }fevers? {{yes no*} }recent UTI (within 1 month)? {{yes no*} }new low back pain? {{yes no*} }nausea or vomiting? {{yes no*} }? {{yes no*} }history of interstiti al cystitis? {{yes no*} } PROVIDER ACTION: Reviewed nursing notes? {{yes* no} }Recommend ed action {{appropri ate for telephone treatment needs appointmen t must drop off urine for culture*}} Antibiotic treatment {{Bactrim DS x 3 days Bactr im DS x 7 days Macro bid x 7 days* Cipr o x 3 days Cipro x 7days anot her medication (provider will prescribe) NA}} Urinary tr act infectious disease 98006333 N39.0 Push fluids, wipe front to back, do not hold urine for extended periods of time, urinate before and after intercours e. Pyridium 3 times daily as needed for the next day or so, abx as directed twice daily for 7 days. If sx not better or if any worsening, fever, chills, N/V please call/ return. Health Concerns Section Related Observation LastModified by Organization Detai ls LastModified Time None Recorded Concern Status LastModified by Organization Details LastModified Time None Recorded Advance Directives Directive Y: Payers Encounter Date Sequence Insurance Name Policy Number Policy Linn Covered Member ID Linn Member ID Guarantor Name 09/21/2024 1 [place] [id number] Nitin Duarte [id number] Claudia Duarte 11/02/2024 1 [place] [id number] Nitin Duarte [id number] Claudia Duarte 11/15/2024 1 [place] [id number] Nitin Duarte [id number] Claudia Duarte 12/14/2024 1 [place] [id number] Nitin Duarte [id number] Claudia Duarte 12/24/2024 1 [place] [id number] Nitin Duarte [id number] Claudia Duarte Notes Date Note Type Note Provider Name and Address Organization Details Recorded Time 5 text/html Diabetes F/UReported bypatient.Context:normal range of home blood sugars (in the low 100s); seeing eye doctor regularly; checking feet regularly; not missing doses of medications;side effects from medications; acid reflux Associated Symptoms:no dizziness; no sweats; no headaches; no confusion; no increased thirst; no increased appetite; no increased urination; no blurred vision; no numbness of feet; no calluses on feet;weight gain (10 lbs); reports increased craving for sweats and more reflux particularly at night despite the PPI.Notes:A1c is 5.9%. today, last appointment 5.7%. CGM upload on 11/02 showed 97% of readings on target w/o hypoglycemia episode. Average glucose is 132 over the last 90 days; data is inaccurate due to Romeo falling off often (37/90 days) Weight: 10 lb gain since last visit last year 06/2024. Pt. reports increased cravings for sweets and pm snacks. No regular exercise activity. Current BMI is 36.7. CKD stg 2. Last LDL was 165 in June of 2023. Pt. is not on statin. NO microalbuminuria. Not exercising regularly due to recent low back pain radiating down her right leg. Currently seeing ortho and has been in 8 weeks of PT with minimal relief. No other concerns at this time. UTD on diabetic eye exam - 09-19-24; no retinopathyNo neuropathy - does not see a podiatristHypertension F/UReported bypatient.Associated Symptoms:no dizziness; no lightheadedness; no chest pain; no shortness of breath; no palpitations; no edema; no calf pain with exertion Lifestyle:regular exercise; limiting/avoiding salt Medications:taking medications as directed; no side effects from medicationNotes:BP is low in office today; 97/64. Not measuring at home, stable. Taking 0.5 of 20 mg olmesartan. Priscila Harris PA-C [address] [address], [place], [address], [facility] 11/15/2024 12:58:49 5 text/html Generic HPI TemplateReported bypatient.Notes:Video visit:2-3 days of urgency with urination- this mornign woke up with urgency, foul odor, painful urination. is emptying completely- large amounts, no blood in urine, no back pain, no fever, chills, N/V/D. Briseyda Yost [address] [address], [place], [address], [facility] 12/24/2024 11:29:05 OBGyn Episode No OBEpisode recorded.
--- OUTSIDE RECORDS SUMMARY | 2025-01-03 11:14 | XMS_ITS | Clinical Summary ---
Author Organization [facility] Address [address] [place] [address] Care Team Providers Care Police Dispatcher Name Role Phone Mesfin Parada PA-C Primary Care Provider [phone] Immunizations Name Administration Dates Next Due Covid-19 (Moderna 12+) 100mcg/0.5mL dosage 11/10,10/09/2020 Social History Tobacco Use Types Packs/Day Years Used Date Smoking Tobacco: Never Assessed Sex and Gender Information Value Date Recorded Sex Assigned at Female 10/09/2020 8:46 AM EST Gender Identity Not on file Sexual Orientation Not on file Plan of Treatment Health Maintenance Due Date Last Done Comments Hepatitis C Screening 1961 Depression Screening 1973 Preventative Health Evaluation 1979 DTap / Tdap / Td (1 - Tdap) 1980 Cervical Cancer Screening (Pap Smear) 1982 Colon Cancer Screening (Colonoscopy) 2006 Breast Cancer Screening (Mammogram) 2011 Shingrix-Zoster Vaccine (1 o f 2) 2011 COVID-19 Vaccine (2023-2 5 season) 2024 11/10/2020, 10/09/2020 Influenza Vaccine (#1) 2024 RSV Adult > 60+ Yrs or (1 - 1-dose 75+ series) 2036 Hepatitis B Vaccines Aged Out No long er eligible based on patient's age to complete this topic Pneumococcal Vaccine Aged Out No long er eligible based on patient's age to complete this topic RSV Ped < 20 months Aged Out No longe r eligible based on patient's age to complete this topic Care Teams Police Dispatcher Relationship Specialty Start Date End Date Mesfin Parada PA-C [address] [phone] PCP - General Medical Services 11/10/20
== END 2025-01-03 11:04 | disposition home or self-care (01) ==
LOC: HO.RHES 09:46
PROVIDERS: PCP Physician Assistant Medical; Visit Provider Internal Medicine Rheumatology
DX: M16.11 Unilateral primary osteoarthritis, right hip (principal); M17.0 Bilateral primary osteoarthritis of knee; M19.071 Primary osteoarthritis, right ankle and foot
CPT/HCPCS: 99214

== ENCOUNTER 2025-04-18 09:35 | Outpatient (AMB) | payer BC, SELFPAY ==
--- NOTE | 2025-04-18 09:38 | MHC.OFFVIS ---
Vital Signs 04/18/25 09:49 Height 5 ft 4.5 in Weight 221 lb BMI 37.3 BP 100/64 Blood Pressure Location Lt brachial Position Sitting Pulse 71 Pulse Source Pulse Oximeter Pulse Oximetry (%) 98 Oxygen Delivery Method Room Air Intake Visit Reasons: 3 Months Intake Note: Patients presents today for arthritis and Pain in right hip, knee ankle and feet. Allergies semaglutide (From Rybelsus) Allergy (Intermediate, Verified 04/18/25 09:54) Nausea lisinopril Allergy (Mild, Verified 04/18/25 09:54) Cough morphine Allergy (Mild, Verified 04/18/25 09:54) vomitting perfume Allergy (Verified 04/18/25 09:54) Rash ethromycin Allergy (Mild, Uncoded 01/03/25 10:08) Nausea HPI HPI 3 Months: Details: She was unable to go to . She received gym membership from near her home. Gained weight. R hip pain is tolerable. She has sleep on right side after 12/2024 cortisone injection. A1c 5.9. off of ozempic. She is seeing ortho for back pain. Right radicular pain resolved with cortisone injection from yesterday. She recieved L4-L5 cortisone injeciton. She continues to have right groin pain. [facility] Medical History BENSON (nonalcoholic steatohepatitis) delivery delivered FH: cholecystectomy History of endometrial biopsy Hx of mammogram Normal hysteroscopy Uterine polyp Diabetic retinopathy screening Pain of right hip joint Pain, joint, shoulder, left Lower back pain Neck pain Joint pain Seborrheic psoriasis Menometrorrhagia Steatosis of liver Chronic kidney disease Gastritis Gastro-esophageal reflux Intrinsic asthma Allergic rhinitis Hypertensive renal disease Insomnia Obesity with body mass index of 30.0-39.9 Hyperlipemia Vitamin D deficiency Type 2 diabetes mellitus Dermal mycosis Surgical History History of cervical LEEP biopsy affecting care of mother, antepartum H/O tubal ligation History of gynecologic surgery Hx of breast biopsy H/O colonoscopy History of liver biopsy History of orthopedic surgery H/O dilation and curettage Family History Paternal Grandmother ADHD (attention deficit hyperactivity disorder) Obesity Mother Liver problem Cirrhosis of liver Chronic obstructive pulmonary disease Esophageal varices Father Obesity Diabetes mellitus Sleep disorder Systemic hypertensive disorder complication AD (Alzheimer's disease) Maternal Grandmother Diabetes mellitus Arthritis Allergy Sister Malignant tumor of breast Paternal Grandfather Alcohol abuse Brother Acute Crohn's disease Physical Exam Vital Signs: Last Vital Signs Pulse 71 04/18/25 09:49 BP 100/64 04/18/25 09:49 Pulse Ox 98 04/18/25 09:49 Oxygen Delivery Method Room Air 04/18/25 09:49 BMI result Body Mass Index 37.3 Const Other: General: Comfortable Skin: No lesions seen MSK: Tender to palpate right trochanteric bursa. No groin tenderness of bilateral groin region. Normal range of motion of left hip with limited full external rotation of right hip. No tenderness of knee. Normal bilateral knee flexion. She has mild valgus deformity of right knee. She has normal range of motion of bilateral ankles. Right ankle range of motion is little bit more restricted compared to left. Right ankle clicks right with [id number] testing (rotation). Assessment & Plan Assessment & Plan (1) Osteoarthritis of right hip: Comment: Mild bilateral hip osteoarthritis right worse than left on x-ray. She is symptomatic with right groin pain. We discussed x-ray results, which also report degenerative changes of the pubic symphysis findings suspicious for osteitis pubis. Groin pain is tolerable. We discussed conservative management. Answered patient's questions to her satisfaction. Code(s): M16.11 - Unilateral primary osteoarthritis, right hip Category: Medical Qualifiers: Osteoarthritis type: primary Qualified Code(s): M16.11 - Unilateral primary osteoarthritis, right hip Plan: PT ordered for hip strengthening. Patient prefers to have PT done local to her home. Encouraged weight loss. She is on Manjaro. Return to clinic in 3 months (2) Bilateral primary osteoarthritis of knee: Comment: Mild on x-ray. Discussed diagnosis and conservative management. Answered patient's questions to her satisfaction. Code(s): M17.0 - Bilateral primary osteoarthritis of knee Category: Medical Plan: PT ordered for lower extremity strengthening. Encouraged weight loss. Return to clinic in 3 months (3) Primary osteoarthritis, right ankle and foot: Comment: Right ankle x-ray reveal significant degenerative changes at the tibiotalar and fibulotalar joints of right ankle. We discussed diagnosis of osteoarthritis and management. Exacerbated with recent activity. Code(s): M19.071 - Primary osteoarthritis, right ankle and foot Category: Medical Plan: PT ordered for ankle strengthening Return to clinic in 3 months (4) Trochanteric bursitis, right hip: Comment: Chronic. She has had partial benefit with physical therapy with persistent symptoms. Right trochanteric bursa cortisone injection 12/2024 provided benefit.. We discussed conservative management. Her pain is tolerable. She recently received lumbar spine cortisone injection yesterday. If pain does not improve or progresses, she will call office for an appointment for right trochanteric bursa cortisone injection. Code(s): M70.61 - Trochanteric bursitis, right hip Category: Medical Plan: Monitor clinically. (5) Right ankle pain: Comment: With ambulation and limited subjective plantar flexion. Due to osteoarthritis Code(s): M25.571 - Pain in right ankle and joints of right foot Category: Medical Qualifiers: Chronicity: chronic Qualified Code(s): M25.571 - Pain in right ankle and joints of right foot; G89.29 - Other chronic pain Plan: PT ordered for strengthening Coding Level of Care Code Est Pt Level 3 (42131) Complex EM visit Add On G2211 Diagnoses Primary osteoarthritis of right hip M16.11 Osteoarthritis type: primary Bilateral primary osteoarthritis of knee M17.0 Primary osteoarthritis, right ankle and foot M19.071 Trochanteric bursitis, right hip M70.61 Chronic pain of right ankle M25.571; G89.29 Chronicity: chronic
[2025-04-18 09:49] VITALS: BP 100/64; PULSE 71; O2SAT 98; BMI 37.3
--- OUTSIDE RECORDS SUMMARY | 2025-04-18 10:13 | XMS_ITS | Clinical Summary ---
Author Organization [facility] Address [address] [place] [address] Care Team Providers Care Horse Identifier Name Role Phone Mesfin Parada PA-C Primary Care Provider [phone]- [phone] Immunizations Name Administration Dates Next Due Covid-19 [...] (1 o f 2) 2011 COVID-19 Vaccine (3 - 2023-2 5 season) 2024 11/10/2020, 10/09/2020 Influenza Vaccine (#1) 2025 Pneumococcal Vaccine (1 of 1 - PCV) 2026 RSV Adult > 60+ Yrs or (1 [...] age to complete this topic Care Teams Horse Identifier Relationship Specialty Start Date End Date Mesfin Parada PA-C [id number] [id number] PCP - General Medical Services 11/10/20
--- OUTSIDE RECORDS SUMMARY | 2025-04-18 10:14 | XMS_ITS | Data Portability ---
Author Organization [facility], Main Office Address [address] [facility] [address] [place] [id number] Care Team Providers Care Supervisor Painting Department Name Role Phone LEELA MAHAN Public Health Staff Nurse RANDI GRIER Lime Plant Operator LUX HARRIS Primary Care Provider TAHMINA GONZALEZ Menswear Salesperson YUSEF MENDOZA Pneumatic Tube Fitter [phone] [address] Sister [address] General Surgeon ASHLEY CESPEDES Drag Sawyer MIGUEL GONZALES Orthopedic Surgeon Assessment Encounter Date Assessment Date Assessment LastModified by Organization Details LastModified Time 12/24/2024 12/24/2024 This service was provided using telemedicine. Patient consented to video & audio visit Patient was located in the [facility]. Provider was located in the office. No other persons participated in the telemedicine visit except for the patient unless otherwise indicated here. Total time of visit was 15 minutes. [email or web address] Not available 12/24/2024 11:28:24 Plan of Treatment Reminders Order Date Submit Date Provider Last Modified By Organization Details Last Modified Time Details Appointments BILLING ONLY 2024 09:45A M JUN SCHEDULE Not available Not available Not available FOLLOW UP 2024 10:45A M Priscila Harris PA-C Not available Not available Not available PE EST 2024 11:00A M Lux Harris PA-C Not available Not available Not available Lab hemoglobi n A1C, fingersti ck 2024 025 In-Office Order, Internal Use Only DO Not Attach Compendium DO Not Attach Compendium, Do Not Delete/merge, [id number] 03/21/2025 11:22:33 microalbu min/creat inine, mass ratio, urine 2024 025 [facility] (Centralized Electronic Ordering - All Locations), Patient Can Go To The Location Of Their Choice, [id number] 03/22/2025 20:05:49 urinalysi s, complete 2024 025 [facility], [address], [address], [place], [address], 12/26/2024 12:05:49 culture, urine 2024 025 [facility], [address], [address], [place], [address], 12/26/2024 12:05:50 Referral sleep medicine referral - Snoring and apneas, BMI 37.7. 2024 025 [facility], [address] [place], [address], 04/13/2025 13:38:32 Procedures None recorded. Surgeries None recorded. Imaging None recorded. Medication Orders Mounjaro 5 mg/0.5 mL subcutane ous pen injector 2024 025 [email or web address] [facility]acy #[id number], [address] [place], [address], 03/21/2025 12:51:37 Macrobid 100 mg capsule 2024 025 [facility]acy #[id number], [address] [place], [address], 01/07/2025 05:01:14 Patient TargetsNo targets recorded. Patient Instructions Encounter Date Encounter Id Patient Instructions Last Modified By Organization Details Last Modified Time 12/24/2024 [id number] To call or retur n for worsening or concerns [email or web address] Not available 12/24/2024 11:20:58 03/21/2025 [id number] learning about type 2 diabetes Not available 03/21/2025 11:22:31 type 2 diabetes: care instructions Not available 03/21/2025 11:22:31 snoring: care instructions Not available 03/21/2025 11:22:32 high blood pressure: care instructions Not available 03/21/2025 11:22:32 learning about high blood pressure Not available 03/21/2025 11:22:32 Reason for Referral Sleep Medicine Referral for Snoring Snoring and apneas, BMI 37.7. Referring Physician: Priscila Harris, Internal Medicine, Encounter Date: 03/21/2025 Results Created Date Observation Date Name Description Value Unit Range Abnormal Flag Note LastModifiedBy Organization Detail LastModifiedTime 12/22/19 25 12/21/2024 C-NELLIE CTIVE PROTE IN C-reactive protein 0.34 mg/dL <=0.50 Not Available [address], [address], 12/21/2024 16:06:34 12/22/19 25 12/21/2024 C-NELLIE CTIVE PROTE IN note See Report [facility], [address], [place], [facility] [place] [address] Not Available [address], [address], 12/21/2024 16:06:34 12/22/19 25 12/21/2024 COMPR EHENS RIKKI METAB OLIC PANEL sodium 140 mmol/ L 133-14 5 Not Available [address], [address], 12/21/2024 16:07:58 12/22/19 25 12/21/2024 COMPR EHENS RIKKI METAB OLIC PANEL potassium 4.0 mmol/ L 3.5-5. 5 Not Available [address] [place], [address], 12/21/2024 16:07:58 12/22/19 25 12/21/2024 COMPR EHENS RIKKI METAB OLIC PANEL chloride 108 mmol/ L 96-110 Not Available [address], [address], 12/21/2024 16:07:58 12/22/19 25 12/21/2024 COMPR EHENS RIKKI METAB OLIC PANEL CO2 24 mmol/ L 21-32 Not Available [address], [address], 12/21/2024 16:07:58 12/22/19 25 12/21/2024 COMPR EHENS RIKKI METAB OLIC PANEL anion gap 8 3-11 Not Available [address], [address], 12/21/2024 16:07:58 12/22/19 25 12/21/2024 COMPR EHENS RIKKI METAB OLIC PANEL glucose 109 mg/dL 70-100 high Not Available [address], [address], 12/21/2024 16:07:58 12/22/19 25 12/21/2024 COMPR EHENS RIKKI METAB OLIC PANEL BUN 17 mg/dL 5-25 Not Available [address], [address], 12/21/2024 16:07:58 12/22/19 25 12/21/2024 COMPR EHENS RIKKI METAB OLIC PANEL creatinine 0.72 mg/dL 0.50-1 .10 Not Available [address], [address], 12/21/2024 16:07:58 12/22/19 25 12/21/2024 COMPR EHENS RIKKI METAB OLIC PANEL eGFR 94 mL/mi n/1.7 3m2 >=60 Calcu latio n based on the Chron ic Kidne y Disea se Epide miolo gy Colla borat ion (CKD- EPI) equat ion refit witho ut adjus tment for race. Not Available [address], [address], 12/21/2024 16:07:58 12/22/19 25 12/21/2024 COMPR EHENS RIKKI METAB OLIC PANEL BUN/creatini ne ratio 23.6 Not Available [address], [address], 12/21/2024 16:07:58 12/22/19 25 12/21/2024 COMPR EHENS RIKKI METAB OLIC PANEL calcium 9.2 mg/dL 8.5-10 .5 Not Available [address], [address], 12/21/2024 16:07:58 12/22/19 25 12/21/2024 COMPR EHENS RIKKI METAB OLIC PANEL AST (SGOT) 27 unit/ L 10-42 Not Available [address], [address], 12/21/2024 16:07:58 12/22/19 25 12/21/2024 COMPR EHENS RIKKI METAB OLIC PANEL ALT (SGPT) 43 unit/ L 10-60 Not Available [address], [address], 12/21/2024 16:07:58 12/22/19 25 12/21/2024 COMPR EHENS RIKKI METAB OLIC PANEL alkaline phosphatase 151 unit/ L 42-121 high Not Available [address], [address], 12/21/2024 16:07:58 12/22/19 25 12/21/2024 COMPR EHENS RIKKI METAB OLIC PANEL total protein 7.3 g/dL 6.0-8. 0 Not Available [address], [address], 12/21/2024 16:07:58 12/22/19 25 12/21/2024 COMPR EHENS RIKKI METAB OLIC PANEL albumin 3.9 g/dL 3.2-5. 0 Not Available [address], [address], 12/21/2024 16:07:58 12/22/19 25 12/21/2024 COMPR EHENS RIKKI METAB OLIC PANEL total bilirubin 0.5 mg/dL 0.0-1. 4 Not Available [address], [address], 12/21/2024 16:07:58 12/22/19 25 12/21/2024 COMPR EHENS RIKKI METAB OLIC PANEL note See Report [facility], [address], [place], [facility] [place] [address] Not Available [address], [address], 12/21/2024 16:07:58 12/22/19 25 12/21/2024 HEPAT ITIS B SURFA CE ANTIB KEVIN hepatitis B surface Ab Positi ve negati ve abnormal Not Available [address], [address], 12/21/2024 16:15:39 12/22/19 25 12/21/2024 HEPAT ITIS B SURFA CE ANTIB KEVIN hepatitis B surface Ab quantitative 51.0 mIU/m L Not Available [address], [address], 12/21/2024 16:15:39 12/22/19 25 12/21/2024 HEPAT ITIS B SURFA CE ANTIB KEVIN note See Report [facility], [address], [place], [place] [address] Not Available [address], [address], 12/21/2024 16:15:39 12/22/19 25 12/21/2024 HEPAT ITIS B SURFA CE ANTIG EN WITH REFLE X TO CONFI RMATI ON hepatitis B surface Ag Negati ve negati ve Not Available [address], [address], 12/21/2024 16:24:52 12/22/19 25 12/21/2024 HEPAT ITIS B SURFA CE ANTIG EN WITH REFLE X TO CONFI RMATI ON note See Report [facility], [address], [place], [facility] [place] [address] Not Available [address], [address], 12/21/2024 16:24:52 12/23/19 25 12/21/2024 KINJAL IFA WITH TITER AND PATTE RN KINJAL Negati ve negati ve Not Available [address], [address], 12/22/2024 10:46:20 12/23/19 25 12/21/2024 KINJAL IFA WITH TITER AND PATTE RN note See Report [facility], [address], [place], [facility] [place] [address] Not Available [address], [address], 12/22/2024 10:46:20 12/23/19 25 12/21/2024 HEPAT ITIS C VIRUS QUANT ITATI VE MOLEC ULAR STUDY HCV qual interp Not Detect ed not detect ed HCV RNA not detec flaco, unabl e to repor t quant itati ve resul ts. Not Available [address], [address], 12/22/2024 11:05:46 12/23/19 25 12/21/2024 HEPAT ITIS C VIRUS QUANT ITATI VE MOLEC ULAR STUDY note See Report [facility], [address], [place], [facility] [place] [address] Not Available [address], [address], 12/22/2024 11:05:46 12/22/19 25 12/21/2024 HEPAT ITIS A ANTIB KEVIN TOTAL WITH REFLE X IGM hep A total Ab Negati ve negati ve Not Available [address], [address], 12/21/2024 16:51:46 12/22/19 25 12/21/2024 HEPAT ITIS A ANTIB KEVIN TOTAL WITH REFLE X IGM note See Report [facility], [address] [facility], [place], [facility] [place] [address] Not Available [address], [address], 12/21/2024 16:51:46 12/22/19 25 12/22/2024 COMP. METAB OLIC PANEL (14) glucose 98 mg/dL 70-99 normal Not Available [facility] ([facility]) [address] [place], [address], 12/22/2024 06:08:05 12/22/19 25 12/22/2024 COMP. METAB OLIC PANEL (14) BUN 17 mg/dL 8-27 normal Not Available [facility] ([facility]) [address] [place], [address], 12/22/2024 06:08:05 12/22/19 25 12/22/2024 COMP. METAB OLIC PANEL (14) creatinine 0.68 mg/dL 0.57-1 .00 normal Not Available [facility] ([facility]) [address] [place], [address], 12/22/2024 06:08:05 12/22/19 25 12/22/2024 COMP. METAB OLIC PANEL (14) eGFR 98 mL/mi n/1.7 3 >59 normal Not Available [facility] ([facility]) [address] [place], [address], 12/22/2024 06:08:05 12/22/19 25 12/22/2024 COMP. METAB OLIC PANEL (14) BUN/creatini ne ratio 25 12-28 normal Not Available [facility] ([facility]) [address] [place], [address], 12/22/2024 06:08:05 12/22/19 25 12/22/2024 COMP. METAB OLIC PANEL (14) sodium 140 mmol/ L 134-14 4 normal Not Available [facility] ([facility]) [address] [place], [address], 12/22/2024 06:08:05 12/22/19 25 12/22/2024 COMP. METAB OLIC PANEL (14) potassium 4.1 mmol/ L 3.5-5. 2 normal Not Available [facility] ([facility]) [address] [facility] [place], [address], 12/22/2024 06:08:05 12/22/19 25 12/22/2024 COMP. METAB OLIC PANEL (14) chloride 105 mmol/ L 96-106 normal Not Available [facility] ([facility]) [address] [facility] [place], [address], 12/22/2024 06:08:05 12/22/19 25 12/22/2024 COMP. METAB OLIC PANEL (14) carbon dioxide, total 20 mmol/ L 20-29 normal Not Available [facility] ([facility]) [address] [facility] [place], [address], 12/22/2024 06:08:05 12/22/19 25 12/22/2024 COMP. METAB OLIC PANEL (14) calcium 9.3 mg/dL 8.7-10 .3 normal Not Available [facility] ([place] [facility]) [address] [facility] [place], [address], 12/22/2024 06:08:05 12/22/19 25 12/22/2024 COMP. METAB OLIC PANEL (14) protein, total 7.0 g/dL 6.0-8. 5 normal Not Available [facility] ([facility]) [address] [place], [address], 12/22/2024 06:08:05 12/22/19 25 12/22/2024 COMP. METAB OLIC PANEL (14) albumin 4.3 g/dL 3.9-4. 9 normal Not Available [facility] ([facility]) [address] [place], [address], 12/22/2024 06:08:05 12/22/19 25 12/22/2024 COMP. METAB OLIC PANEL (14) globulin, total 2.7 g/dL 1.5-4. 5 Not Available [facility] ([facility]) [address] [place], [address], 12/22/2024 06:08:05 12/22/19 25 12/22/2024 COMP. METAB OLIC PANEL (14) bilirubin, total 0.4 mg/dL 0.0-1. 2 normal Not Available [facility] ([facility]) [address] [place], [address], 12/22/2024 06:08:05 12/22/19 25 12/22/2024 COMP. METAB OLIC PANEL (14) alkaline phosphatase 149 IU/L 44-121 above high normal Not Available [facility] ([facility]) [address] [facility] [place], [address], 12/22/2024 06:08:05 12/22/19 25 12/22/2024 COMP. METAB OLIC PANEL (14) AST (SGOT) 27 IU/L 0-40 normal Not Available [facility] ([facility]) [address] [facility] [place], [address], 12/22/2024 06:08:05 12/22/19 25 12/22/2024 COMP. METAB OLIC PANEL (14) ALT (SGPT) 32 IU/L 0-32 normal Not Available [facility] ([facility]) [address] [place], [address], 12/22/2024 06:08:05 12/22/19 25 12/21/2024 ALBUM IN/CR EAT RATIO , RANDO M UR creatinine, urine COMMEN T mg/dL Test not perfo rmed. Patie nt was unabl e to provi de a self- colle cted speci men for the reque sted testi ng. The follo wing test( s) were not perfo rmed: Not Available [facility] ([facility]) [address] [place], [address], 12/22/2024 06:08:05 12/22/19 25 12/21/2024 ALBUM IN/CR EAT RATIO , RANDO M UR albumin, urine TNP Test not perfo rmed Not Available [facility] ([facility]) [address] [place], [address], 12/22/2024 06:08:05 12/22/19 25 12/21/2024 ALBUM IN/CR EAT RATIO , RANDO M UR alb/creat ratio FLAKE CUTTER OPERATOR Not Available [facility] ([facility]) [address] [place], [address], 12/22/2024 06:08:05 12/22/19 25 12/22/2024 HEMOG LOBIN A1C hemoglobin A1C 6.1 % 4.8-5. 6 above high normal Predi abete s: 5.7 - 6.4 Diabe kirk: >6.4 Glyce juan contr ol for adult s with diabe kirk: <7.0 Not Available [facility] ([facility]) [address] [place], [address], 12/22/2024 06:08:06 12/22/19 25 12/21/[address] PROBL EM request problem COMMEN T Test not perfo rmed. Patie nt was unabl e to provi de a self- colle cted speci men for the reque sted testi ng. The follo wing test( s) were not perfo rmed: TEST: 31131 7 Album in/Cr eat Ratio , Rando m Ur Not Available [facility] ([facility]) [address] [facility], [place], [address], 12/22/2024 06:08:06 12/22/19 25 12/21/2024 DANTE H MUSCL E ANTIB KEVIN IGG smooth muscle (F-actin) IgG Ab 2 units <20 Inter preta tion: Negat rikki Test perfo rmed at [facility] , [address], [place] [address] [phone] Gabriela blanchard MD, PhD - Medic al Dire tor Not Available [address], [address], 12/26/2024 13:18:20 12/22/19 25 12/21/2024 DANTE H MUSCL E ANTIB KEVIN IGG note See Report [facility], [address], [place], [facility] [place] [address] Not Available [address], [address], 12/26/2024 13:18:20 12/22/19 25 12/21/2024 ANTIM ITOCH ONDRI AL ANTIB KEVIN mitochondria l antibody quantitative 2.0 units <=20.0 Not Available Jose R [address], [address], 12/28/2024 13:32:19 12/22/19 25 12/21/2024 ANTIM ITOCH ONDRI AL ANTIB KEVIN mitochondria l antibody qualitative Negati ve negati ve Not Available [address], [address], 12/28/2024 13:32:19 12/22/19 25 12/21/2024 ANTIM ITOCH ONDRI AL ANTIB KEVIN note See Report [facility], [address], [place], [place] [address] Not Available [facility] [address] [facility], [place], [address], 12/28/2024 13:32:19 12/25/19 25 12/25/2024 URINA LYSIS , COMPL ETE specific gravity >=1.03 0 1.005- 1.030 abnormal Not Available [facility] ([facility]) [address] [place], [address], 12/26/2024 12:05:49 12/25/19 25 12/25/2024 URINA LYSIS , COMPL ETE pH 5.5 5.0-7. 5 normal Not Available [facility] ([facility]) [address] [place], [address], 12/26/2024 12:05:49 12/25/19 25 12/25/2024 URINA LYSIS , COMPL ETE urine-color Yellow yellow Not Available [facility] ([facility]) [address] [place], [address], 12/26/2024 12:05:49 12/25/19 25 12/25/2024 URINA LYSIS , COMPL ETE appearance Cloudy clear abnormal Not Available [facility] ([facility]) [address] [place], [address], 12/26/2024 12:05:49 12/25/19 25 12/25/2024 URINA LYSIS , COMPL ETE WBC esterase 2+ negati ve abnormal Not Available [facility] ([facility]) [address] [place], [address], 12/26/2024 12:05:49 12/25/19 25 12/25/2024 URINA LYSIS , COMPL ETE protein Trace negati ve/tra ce Not Available [facility] ([facility]) [address] [place], [address], 12/26/2024 12:05:49 12/25/19 25 12/25/2024 URINA LYSIS , COMPL ETE glucose Negati ve negati ve Not Available [facility] ([facility]) [address] [place], [address], 12/26/2024 12:05:49 12/25/19 25 12/25/2024 URINA LYSIS , COMPL ETE ketones Negati ve negati ve Not Available [facility] ([facility]) [address] [place], [address], 12/26/2024 12:05:49 12/25/19 25 12/25/2024 URINA LYSIS , COMPL ETE occult blood Trace negati ve abnormal Not Available [facility] ([facility]) [address] [place], [address], 12/26/2024 12:05:49 12/25/19 25 12/25/2024 URINA LYSIS , COMPL ETE bilirubin Negati ve negati ve Not Available [facility] ([facility]) [address] [place], [address], 12/26/2024 12:05:49 12/25/19 25 12/25/2024 URINA LYSIS , COMPL ETE urobilinogen ,semi-qn 0.2 mg/dL 0.2-1. 0 normal Not Available [facility] ([facility]) [address] [place], [address], 12/26/2024 12:05:49 12/25/19 25 12/25/2024 URINA LYSIS , COMPL ETE nitrite, urine Positi ve negati ve abnormal Not Available [facility] ([facility]) [address] [place], [address], 12/26/2024 12:05:49 12/25/19 12/25/2024 URINA LYSIS , COMPL ETE microscopic examination See below: Micro scopi c was indic ated and was perfo rmed. Not Available [facility] ([facility]) [address] [facility], [place], [address], 12/26/2024 12:05:49 12/25/19 25 12/25/2024 URINA LYSIS , COMPL ETE WBC >30 /hpf 0 - 5 abnormal Not Available [facility] ([facility]) [address] [facility], [place], [address], 12/26/2024 12:05:49 12/25/19 25 12/25/2024 URINA LYSIS , COMPL ETE RBC 3-10 /hpf 0 - 2 abnormal Not Available [facility] ([facility]) [address] [facility], [place], [address], 12/26/2024 12:05:49 12/25/19 25 12/25/2024 URINA LYSIS , COMPL ETE epithelial cells (non renal) >10 /hpf 0 - 10 abnormal Not Available [facility] ([facility]) [address] [facility], [place], [address], 12/26/2024 12:05:49 12/25/19 25 12/25/2024 URINA LYSIS , COMPL ETE epithelial cells (renal) FLAKE CUTTER OPERATOR Not Available [facility] ([facility]) [address] [facility], [place], [address], 12/26/2024 12:05:49 12/25/19 25 12/25/2024 URINA LYSIS , COMPL ETE casts None seen /lpf none seen Not Available [facility] ([facility]) [address] [place], [address], 12/26/2024 12:05:49 12/25/19 25 12/25/2024 URINA LYSIS , COMPL ETE cast type FLAKE CUTTER OPERATOR Not Available [facility] ([facility]) [address] [place], [address], 12/26/2024 12:05:49 12/25/19 25 12/25/2024 URINA LYSIS , COMPL ETE crystals Presen t n/a abnormal Not Available [facility] ([facility]) [address] [facility], [place], [address], 12/26/2024 12:05:49 12/25/19 25 12/25/2024 URINA LYSIS , COMPL ETE crystal type Calciu m Oxalat e n/a Not Available [facility] ([facility]) [address] [facility], [place], [address], 12/26/2024 12:05:49 12/25/19 25 12/25/2024 URINA LYSIS , COMPL ETE mucus threads FLAKE CUTTER OPERATOR Not Available [facility] ([facility]) [address] [facility], [place], [address], 12/26/2024 12:05:49 12/25/19 25 12/25/2024 URINA LYSIS , COMPL ETE bacteria Many none seen/f ew abnormal Not Available [facility] ([facility]) [address] [facility], [place], [address], 12/26/2024 12:05:49 12/25/19 25 12/25/2024 URINA LYSIS , COMPL ETE yeast FLAKE CUTTER OPERATOR Not Available [facility] ([facility]) [address] [place], [address], 12/26/2024 12:05:49 12/25/19 25 12/25/2024 URINA LYSIS , COMPL ETE trichomonas FLAKE CUTTER OPERATOR Not Available [facility] ([facility]) [address] [place], [address], 12/26/2024 12:05:49 12/25/19 25 12/25/2024 URINA LYSIS , COMPL ETE comment FLAKE CUTTER OPERATOR Not Available [facility] ([facility]) [address] [place], [address], 12/26/2024 12:05:49 12/25/19 25 12/25/2024 URINA LYSIS , COMPL ETE microscopic examination FLAKE CUTTER OPERATOR Not Available [facility]) [address] [facility], [place], [address], 12/26/2024 12:05:49 12/25/19 25 12/26/2024 URINE CULTU RE,CO MPREH ENSIV E urine culture,comp rehensive Final report abnormal Not Available [facility] ([facility]) [address] [facility], [place], [address], 12/26/2024 12:05:50 12/25/1912/26/2024 URINE CULTU RE,CO MPREH ENSIV E result 1 Escher ichia coli abnormal Cefaz clem with an JUAN <=16 predi cts susce ptibi lity to the oral agent s cefac hemalatha, cefdi duy, cefpo doxim e, cefpr ozil, cefur oxime , cepha lexin , and lorac arbef when used for thera py of uncom plica flaco urina ry tract infec tions due to E. coli, Klebs iella pneum oniae , and Prote us mirab ilis. Great er than 100,0 00 colon y formi ng units per mL Not Available [facility] ([facility]) [address] [facility], [place], [address], 12/26/2024 12:05:50 12/25/19 25 12/26/2024 URINE CULTU RE,CO MPREH ENSIV E antimicrobia l susceptibili ty Commen t S = Susce ptibl e; I = Inter media te; R = Resis tant P = Posit rikki; N = Negat rikki MICS are expre ssed in micro grams per mL Antib iotic RSLT# 1 RSLT# 2 RSLT# 3 RSLT# 4 Amoxi cilli n/Cla vulan ic Acid S Ampic illin S Cefaz clem S Cefep rocio S Cefox itin S Cefpo doxim e S Ceftr iaxon e S Cipro floxa stephanie S Ertap enem S Genta micin S Levof loxac in S Merop enem S Nitro furan toin S Piper acill in/Ta zobac gupta S Tetra cycli ne S Tobra mycin S Trime thopr im/Moulton lfa S Not Available [facility] ([facility]) [address] [facility], [place], [address], 12/26/2024 12:05:50 03/21/20 25 03/22/2025 ALBUM IN/CR EAT RATIO , RANDO M UR creatinine, urine 243.8 mg/dL not estab. normal Not Available [facility] ([facility]) [address] [facility], [place], [address], 03/22/2025 20:05:48 03/21/20 25 03/22/2025 ALBUM IN/CR EAT RATIO , RANDO M UR albumin, urine 17.7 ug/mL not estab. Not Available [facility] ([facility]) [address] [facility], [place], [address], 03/22/2025 20:05:48 03/21/20 25 03/22/2025 ALBUM IN/CR EAT RATIO , RANDO M UR alb/creat ratio 7 mg/g_ creat 0-29 Sarah l: 0 - 29 Moder ately incre ased: 30 - 300 Sever bethany incre ased: >300 Not Available [facility] ([facility]) [address] [facility], [place], [address], 03/22/2025 20:05:48 03/21/20 25 03/21/2025 hemog lobin A1C, finge rstic k A1C 5.9 % 4-6 normal Not Available In-Office Order Internal Use Only DO Not Attach Compendium DO Not Attach Compendium, Do Not Delete/merge, [id number] 03/21/2025 09:31:38 12/29/19 25 12/27/2024 XR, knee No observ [facility]ion [facility] ed[facility] [address] [place], [address], 12/28/2024 17:40:56 12/30/1912/27/2024 XR, knee, 1 or 2 view No observ ation record ed. [address], [address], 12/30/2024 09:48:25 12/30/1912/27/2024 XR, hip, bilat eral No observ ation record ed. [address], [address], 12/30/2024 09:51:37 12/30/1912/27/2024 XR, ankle , 3 or more view No observ ation record ed. [address], [address], 12/30/2024 09:58:47 01/05/2012/31/2024 MR abdom en wo contr ast MRCP See Note [facility] , a member of [employer] [facility] Name: CLAUDIA RAY Date of : 1959 Reason for Exam: Pancre atic cyst/p seudoc yst Exam Date: 2024 [id number] EST Report Status : Final Orderi ng Provid er: YUSEF CASTRO PCP: EVY HARRIS PROCED URE: MRI abdome n with MRCP. 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 TECHNI QUE: Multip lanar multis equenc e MRI of the abdome n withou t intrav enous contra st admini strati on. MRCP was also perfor med, with multip le reform ats. COMPAR HARRISON: None availa ble. FINDIN GS: Liver: Normal size and contou r. No focal lesion . No eviden ce of steato sis on out of phase imagin g. Biliar y: Cholec ystect darius. No biliar y ductal dilata tion or fillin g defect . Pancre as: There are severa l fluid signal lesion s in the pancre as. The 2 larges t lesion s are locate d in the pancre atic head and are best visual ized on the MRCP images . These measur e 11 and 8 mm in wilfrido l diamet er. None of the lesion s demons trates an apprec iable commun icatio n with the main duct. Spleen : Normal . Kidney s: Normal . Visibl e portio ns of the ureter s are normal . Adrena l glands : Normal . Retrop eriton eum: No mass or lympha denopa thy. Bowel/ mesent diann: Visual ized bowel and mesent idann are normal . Abdomi nal wall: Visual ized portio ns of the abdomi nal wall are normal . Bones: Mild degene rative change s of the spine. No suspic ious bony lesion . Pressi on: 1. No biliar y ductal strict ure is eviden t. 2. Severa l small fluid signal lesion s in the pancre as, measur ing up to 11 mm in diamet er. These are probab ly small IPMNs. None demons trates an apprec iable commun icatio n with the main pancre atic duct. Guidel araceli recomm end annual follow -up of these lesion s for 5 years, follow ed by digna ramirez follow up for four additi onal years. ------ -- FINAL REPORT ------ -- Dictat ed By: Brian Wheat Dictat ed Date: 2024 13:27 ET Assign ed Physic seble: Brian Wheat Review ed and Electr onical ly Signed By: Brian Wheat Signed Date: 2024 13:37 ET Workst ation ID: [id number] Transc ribed By: Self Edit Transc ribed Date: 2024 13:27 ET [facility] [address] [facility], [place], [address], 01/04/2025 17:20:01 03/01/20 25 colon oscop y scree elena (PROC ) No observ ation record ed. [email or web address] [facility] [address] [place], [address], 03/01/2025 13:01:42 03/01/20 25 EGD No observ ation record ed. [email or web address] [facility] [address] [place], [address], 03/01/2025 13:01:41 Result Notes None recorded. Problems Name Problem SNOMED Code Status Onset Date Resolution Date Notes Provider Name and Address Organization Details Recorded Time Allergic rhinitis 06593388 Active Not Available [facility] 3 12:19:24 Allergic urticari a 88546787 Completed 201104/25/2014 RECORDED 09/07/20 12 2:02PM BY ANDRES BANERJEE MA, ANNOTATI ON/ADDEN YVES Yost, [facility] [address] [facility] [address], [place], [address] , [facility] [place] 6 13:17:25 Pain of joint 08092429 Active Not Available [facility] 3 12:19:24 Intrinsi c asthma 394598285 Active CLARITA Sharma, [facility] [place] 5 09:41:42 Bleeding 392689280 Completed 201104/25/2014 RECORDED 09/07/20 12 2:03PM BY ANDRES BANERJEE MA, ALEXAATI ON/ADDEN YVES Yost, [facility] [address], [place], [address] , [facility] [place] 6 13:17:25 Screenin g for malignan t neoplasm of breast Completed 201104/25/2014 RECORDED 09/07/20 12 2:01PM BY ANDRES BANERJEE MA, ANNOTATI ON/ADDEN DUM Sandy carrillo, [facility] [place] 8 15:18:50 Screenin g for malignan t neoplasm of breast Completed 2018 [facility] 8 15:18:50 Screenin g for malignan t neoplasm of cervix Completed 201104/25/2014 RECORDED 09/07/20 12 2:01PM BY ANDRES BANERJEE MA, RUSTY ON/ADDEN YVES Yost, [facility] [address], [place], [address] , [facility] 6 13:17:26 Chest pain 98586505 Completed 201104/25/2014 RECORDED 09/07/20 12 2:02PM BY ANDRES BANERJEE MA, RUSTY ON/ADDEN DUM Briseyda Yost, [facility] [address] [facility] [address], [place], [address] , [facility] 6 13:17:26 Contact dermatit is caused by food in contact with skin 03041214 Completed 201104/25/2014 RECORDED 09/07/20 12 2:01PM BY ANDRES BANERJEE MA, RUSTY JIMENEZ/KALEIGHEN YVES Yost, [facility] [address] [facility] [address], [place], [address] , [facility] 6 13:17:25 Risk of exposure to communic able disease 784387152 Completed 201104/25/2014 RECORDED 09/07/20 12 2:03PM BY ANDRES BANERJEE MA, RUSTY ON/ADDEN YVES Yost, [facility] [address] [facility] [address], [place], [address] , [facility] 6 13:17:26 Degenera tion of interver tebral disc 49446220 Completed 201104/25/2014 RECORDED 09/07/20 12 2:03PM BY ANDRES BANERJEE MA, RUSTY ON/ADDCHARLOTTE Yost, [facility] [address], [place], [address] , [facility] 6 13:17:26 Disorder of breast 29733292 Completed 201104/25/2014 RECORDED 09/07/20 12 2:02PM BY ANDRES BANERJEE MA, ANNOTATI ON/ADDEN YVES Yost, [facility] [address] [facility] [address], [place], [address] , [facility] 6 13:17:25 Edema 218175991 Completed 201104/25/2014 RECORDED 09/07/20 12 2:01PM BY ANDRES BANERJEE MA, ALEXAATI ON/ADDEN YVES carrillo, [facility] 8 15:18:53 Elevated level of transami nase and lactic acid dehydrog enase 669534983 Completed 01/01/2021 Priscila Harris PA-C [address] [facility] [address], [place], [address] , [facility] 1 10:33:18 Pain in limb 26777066 Completed 201104/25/2014 RECORDED 09/07/20 12 2:03PM BY ANDRES BANERJEE MA, ANNOTRITIKA ON/OSWALD Yost, [facility] [address] [facility] [address], [place], [address] , [facility] 6 13:17:25 Adult health examinat ion Completed 09/16/2016 Maria Elena Samayoa MA null, [facility] 6 14:10:36 General examinat ion of patient Completed 200804/25/2014 RECORDED 06/26/20 09 9:11AM BY RUSTY HUGHES ON/OSWALD Yost, [facility] [address] [facility] [address], [place], [address] , [facility] 6 13:17:26 Gastroes ophageal reflux disease 106174546 Active Not Available [facility] 3 12:19:23 Joint pain in ankle and foot Completed 201104/25/2014 IMPRESSI ON: DOES NOT LOOK LIKE GOUT, INFECTIO N NO TRAUMA, WILL GET XRAY AND DO ICE, REST ELEVATIO N. MAY NEED TO MISS WORK; RECORDED 09/07/20 12 2:01PM BY ANDRES BANERJEE MA, ALEXAATI ON/ADDEN YVES Yost, [facility] [address], [place], [address] , [facility] 6 13:17:25 Lesion of ulnar nerve 587669437 Completed 201104/25/2014 RECORDED 09/07/20 12 2:02PM BY ANDRES BANERJEE MA, RUSTY ON/OSWALD Yost, [facility] [address], [place], [address] , [facility] 6 13:17:25 Lumbar sprain 873309071 Completed 201104/25/2014 IMPRESSI ON: MOSTLY RESOLVED , GIVEN NOTE TO RTC WITH LIMITATI ONS-LIGH T DUTY/NO HEAVY LIFTING UNTIL RELEASED FROM PT, WILL ALSO BE SEEN BY [facility] [employer]; RECORDED 09/07/20 12 2:01PM BY ANDRES BANERJEE MA, RUSTY ON/OSWALD Yost, [facility] [address], [place], [address] , [facility] 6 13:17:26 Menopaus al and postmeno pausal disorder s 761068983 Completed 201104/25/2014 RECORDED 09/07/20 12 2:03PM BY ANDRES BANERJEE MA, RUSTY ON/OSWALD Yost, [facility] [address], [place], [address] , [facility] 6 13:17:25 Migraine 94337712 Completed 201104/25/2014 RECORDED 09/07/20 12 2:03PM BY ANDRES BANERJEE MA, ANNOTATI ON/ADDEN DUM Briseyda Yost, [facility] [address] [facility] [address], [place], [address] , [facility] 6 13:17:25 Neck pain 08407913 Active Nancy Adrian LPN null, [facility] 5 09:41:42 Neck pain 76439095 Completed 201104/25/2014 RECORDED 09/07/20 12 2:03PM BY ANDRES BANERJEE MA, ANNOTATI ON/ADDEN DUM Briseyda Yost, [facility] [address] [facility] [address], [place], [address] , [facility] 6 13:17:25 Influenz a vaccine needed [id number] 06 Completed 201104/25/2014 RECORDED 09/07/20 12 2:01PM BY ANDRES BANERJEE MA, ANNOTATI ON/ADD DUM Briseyda Yost, [facility] [address] [facility] [address], [place], [address] , [facility] 6 13:17:26 Infectiv e hepatiti s immuniza tion Completed 201004/25/2014 RECORDED 06/17/20 11 8:43AM BY DIOR GONGORA, HISTORIC AL SUMMARY Briseyda Yost, [facility] [address] [facility] [address], [place], [address] , [facility] 6 13:17:26 Administ ration of bacteria l and viral vaccine Completed 201004/25/2014 RECORDED 06/17/20 11 8:45AM BY DIOR GONGORA, HISTORIC AL SUMMARY Briseyda Yost, [facility] [address] [facility] [address], [place], [address] , [facility] 6 13:17:26 Administ ration of measles and mumps and rubella vaccine Completed 201004/25/2014 RECORDED 06/17/20 11 8:44AM BY DIOR GONGORA, HISTORIC AL SUMMARY Briseyda Yost, [facility] [address] [facility] [address], [place], [address] , [facility] 6 13:17:26 Varicell a vaccinat ion Completed 201004/25/2014 RECORDED 06/17/20 11 8:44AM BY DIOR GONGORA, HISTORIC AL SUMMARY Briseyda Yost, [place] [address] [facility] [address], [place], [address] , [facility] 6 13:17:26 Shoulder joint pain 688205511 Completed 201104/25/2014 RECORDED 09/07/20 12 2:02PM BY ANDRES BANERJEE MA, ALEXAATI ON/ADDEN DUM Briseyda Yost, [address] [address], [place], [address] , [facility] 6 13:17:25 Eruption 677217010 Completed 200804/25/2014 RECORDED 06/26/20 09 9:11AM BY RUSTY HUGHES ON/ADDEN DUM Briseyda Yost, [address] [place] [address], [place], [address] , [facility] 6 13:17:25 Adult health examinat ion Completed 201104/25/2014 RECORDED 09/07/20 12 2:01PM BY ANDRES BANERJEE MA, ANNOTATI ON/ADDEN DUM Maria Elena Samayoa MA [facility] 6 14:10:36 Inflamma tion of sacroili ac joint 02585460 Completed 201104/25/2014 RECORDED 09/07/20 12 2:02PM BY ANDRES BANERJEE MA, ANNOTATI ON/ADDEN DUM Briseyda Yost, [facility] [address] [facility] [address], [place], [address] , [facility] 6 13:17:25 Sleep disorder 92479426 Completed 201104/25/2014 STORY: NONRESTO RATIVE SLEEP/MU LTIFACTO RIAL; RECORDED 09/07/20 12 2:02PM BY ANDRES BANERJEE MA, RUSTY ON/ADDEN DUM Briseyda Yost, [facility] [address] [facility] [address], [place], [address] , [facility] 6 13:17:25 Urticari a 710714886 Completed 201104/25/2014 RECORDED 09/07/20 12 2:03PM BY ANDRES BANERJEE MA, RUSTY ON/ADDEN DUM Briseyda Yost, [facility] [address] [facility] [address], [place], [address] , [facility] 6 13:17:25 Difficul ty speaking Completed 01/01/2021 Priscila Harris PA-C [address] [facility] [address], [place], [address] , [facility] 1 10:33:14 Allergic urticari a 81264802 Completed 201105/15/2014 RECORDED 09/07/20 12 2:02PM BY ANDRES BANERJEE MA, RUSTY ON/ADDEN DUM Briseyda Yost, [facility] [address] [facility] [address], [place], [address] , [facility] 6 13:17:25 Bleeding 754451289 Completed 201105/15/2014 RECORDED 09/07/20 12 2:03PM BY ANDRES BANERJEE MA, ANNOTRITIKA ON/ADDEN DUM Briseyda Yost, [facility] [address] [facility] [address], [place], [address] , [facility] 6 13:17:25 Screenin g for malignan t neoplasm of breast Completed 201105/15/2014 RECORDED 09/07/20 12 2:01PM BY ANDRES BANERJEE MA, ALEXAATI ON/ADDEN DUM Sandy Hastings [facility] 8 15:18:50 Screenin g for malignan t neoplasm of cervix Completed 201105/15/2014 RECORDED 09/07/20 12 2:01PM BY ANDRES BANERJEE MA, RUSTY ON/ADDEN DUM Briseyda Yost, [facility] [address] [facility] [address], [place], [address] , [facility] 6 13:17:26 Chest pain 05353205 Completed 201105/15/2014 RECORDED 09/07/20 12 2:02PM BY ANDRES BANERJEE MA, RUSTY ON/ADDEN DUM Briseyda Yost, [facility] [address] [facility] [address], [place], [address] , [facility] 6 13:17:26 Contact dermatit is caused by food in contact with skin 02410762 Completed 201105/15/2014 RECORDED 09/07/20 12 2:01PM BY ANDRES BANERJEE MA, RUSTY ON/ADDEN DUM Briseyda Yost, [facility] [address] [facility] [address], [place], [address] , [facility] 6 13:17:25 Risk of exposure to communic able disease 902103314 Completed 201105/15/2014 RECORDED 09/07/20 12 2:03PM BY ANDRES BANERJEE MA, RUSTY JIMENEZ/ADDEN DUM Briseyda Yost, [facility] [address] [facility] [address], [place], [address] , [facility] 6 13:17:26 Degenera tion of interver tebral disc 86207823 Completed 201105/15/2014 RECORDED 09/07/20 12 2:03PM BY ANDRES BANERJEE MA, RUSTY ON/ADDEN DUM Briseyda Yost, [facility] [address] [address], [place], [address] , [facility] 6 13:17:26 Disorder of breast 00283432 Completed 201105/15/2014 RECORDED 09/07/20 12 2:02PM BY ANDRES BANERJEE MA, RUSTY ON/ADDEN DUM Briseyda Yost, [facility] [address] [address], [place], [address] , [facility] 6 13:17:25 Edema 484920579 Completed 201105/15/2014 RECORDED 09/07/20 12 2:01PM BY ANDRES BANERJEE MA, RUSTY ON/ADDEN DUM Sandy Hastings MA [facility] 8 15:18:53 Pain in limb 07960743 Completed 201105/15/2014 RECORDED 09/07/20 12 2:03PM BY ANDRES BANERJEE MA, RUSTY ON/ADDEN DUM Briseyda Yost, [facility] [address] [address], [place], [address] , [facility] 6 13:17:25 General examinat ion of patient Completed 200805/15/2014 RECORDED 06/26/20 09 9:11AM BY RUSTY HUGHES ON/ADDEN DUM Briseyda Yost, [facility] [address] [address], [place], [address] , [facility] 6 13:17:26 Joint pain in ankle and foot Completed 201105/15/2014 IMPRESSI ON: DOES NOT LOOK LIKE GOUT, INFECTIO N NO TRAUMA, WILL GET XRAY AND DO ICE, REST ELEVATIO N. MAY NEED TO MISS WORK; RECORDED 09/07/20 12 2:01PM BY ANDRES BANERJEE MA, RUSTY ON/ADDEN DUM Briseyda Yost, [facility] [address], [place], [address] , [facility] 6 13:17:25 Lesion of ulnar nerve 458162903 Completed 201105/15/2014 RECORDED 09/07/20 12 2:02PM BY ANDRES BANERJEE MA, RUSTY ON/ADDEN DUM Briseyda Yost, [facility] [address] [facility] [address], [place], [address] , [facility] 6 13:17:25 Lumbar sprain 760111673 Completed 201105/15/2014 IMPRESSI ON: MOSTLY RESOLVED , GIVEN NOTE TO RTC WITH LIMITATI ONS-LIGH T DUTY/NO HEAVY LIFTING UNTIL RELEASED FROM PT, WILL ALSO BE SEEN BY [facility]; RECORDED 09/07/20 12 2:01PM BY ANDRES BANERJEE MA, RUSTY ON/ADDEN DUM Briseyda Yost, [facility] [address] [facility] [address], [place], [address] , [facility] 6 13:17:26 Menopaus al and postmeno pausal disorder s 449858520 Completed 201105/15/2014 RECORDED 09/07/20 12 2:03PM BY ANDRES BANERJEE MA, RUSTY ON/KALEIGHEN DUM Briseyda Yost, [facility] [address], [place], [address] , [facility] 6 13:17:25 Migraine 02127026 Completed 201105/15/2014 RECORDED 09/07/20 12 2:03PM BY ANDRES BANERJEE MA, RUSTY ON/ADDEN DUM Briseyda Yost, [facility] [address], [place], [address] , [facility] 6 13:17:25 Influenz a vaccine needed 87066045134 06 Completed 201105/15/2014 RECORDED 09/07/20 12 2:01PM BY ANDRES BANERJEE MA, ANNOTATI ON/ADDEN DUM Briseyda Yost, [facility] [address] [facility] [address], [place], [address] , [facility] 6 13:17:26 Infectiv e hepatiti s immuniza tion Completed 201005/15/2014 RECORDED 06/17/20 11 8:43AM BY DIOR GONGORA, HISTORIC AL SUMMARY Briseyda Yost, [facility] [address] [facility] [address], [place], [address] , [facility] 6 13:17:26 Administ ration of bacteria l and viral vaccine Completed 201005/15/2014 RECORDED 06/17/20 11 8:45AM BY DIOR GONGORA, HISTORIC AL SUMMARY Briseyda Yost, [facility] [address] [facility] [address], [place], [address] , [facility] 6 13:17:26 Administ ration of measles and mumps and rubella vaccine Completed 201005/15/2014 RECORDED 06/17/20 11 8:44AM BY DIOR GONGORA, HISTORIC AL SUMMARY Briseyda Yost, [facility] [address] [facility] [address], [place], [address] , [facility] 6 13:17:26 Varicell a vaccinat ion Completed 201005/15/2014 RECORDED 06/17/20 11 8:44AM BY DIOR GONGORA, HISTORIC AL SUMMARY Briseyda Yost, [facility] [address] [address], [place], [address] , [facility] 6 13:17:26 Shoulder joint pain 718404187 Completed 201105/15/2014 RECORDED 09/07/20 12 2:02PM BY ANDRES BANERJEE MA, ALEXAATI ON/ADDEN DUM Briseyda Yost, [facility] [address] [address], [place], [address] , [facility] 6 13:17:25 Eruption 325443760 Completed 200805/15/2014 RECORDED 06/26/20 09 9:11AM BY RUSTY HUGHES ON/ADDEN DUM Briseyda Yost, [facility] [address] [address], [place], [address] , [facility] 6 13:17:25 Adult health examinat ion Completed 201105/15/2014 RECORDED 09/07/20 12 2:01PM BY ANDRES BANERJEE MA, RUSTY ON/ADDEN DUM Maria Elena Samayoa MA [facility] 6 14:10:36 Inflamma tion of sacroili ac joint 26100734 Completed 201105/15/2014 RECORDED 09/07/20 12 2:02PM BY ANDRES BANERJEE MA, RUSTY ON/ADDEN DUM Briseyda Yost, [facility] [address] [address], [place], [address] , [facility] 6 13:17:25 Sleep disorder 90228638 Completed 201105/15/2014 STORY: NONRESTO RATIVE SLEEP/MU LTIFACTO RIAL; RECORDED 09/07/20 12 2:02PM BY ANDRES BANERJEE MA, RUSTY ON/ADDEN DUM Briseyda Yost, [facility] [address] [address], [place], [address] , [facility] 6 13:17:25 Urticari a 399367020 Completed 201105/15/2014 RECORDED 09/07/20 12 2:03PM BY ANDRES BANERJEE MA, ANNOTATI ON/KELSEY Vallejo [address] [facility] [address], [place], [address] , [facility] 6 13:17:25 Respirat ory symptom 835401180 Completed 09/16/2016 JUN Hughes, [facility] 6 14:10:28 Edema 385945170 Completed 2018 Sandy carrillo, [facility] 8 15:18:53 Cough 73873410 Completed 09/16/2016 JUN Hughes, [facility] 6 14:10:53 Acute pharyngi tis 976048184 Completed 09/16/2016 JUN Hughes, [facility] 6 14:10:43 Anemia 493683960 Completed 01/01/2021 Priscila Harris PA-C [address] [facility] [address], [place], [address] , [facility] 1 10:33:08 Menorrha anna 098045005 Active Not Available [facility] 3 12:19:24 Acute sinusiti s 50140916 Completed 09/16/2016 JUN Hughes, [facility] 6 14:10:24 Iron deficien cy anemia 82488833 Completed 06/19/2022 Lux Harris PA-C [address] [facility] [address], [place], [address] , [facility] 2 13:33:32 Body mass index 30+ - obesity 641869174 Completed 08/30/2019 Guera carrillo, [facility] 5 09:50:24 Hypergly cemia 95275940 Completed 01/01/2021 Priscila Harris PA-C [address], [place], [address] , [facility] 1 10:33:28 Increase d liver function 10993319 Active Not Available [facility] 3 12:19:24 Dyspnea 176937487 Completed 10/27/2019 JUN Vernon, [facility] 0 09:33:10 Essentia l hyperten sari 31032338 Completed 201709/18/2022 Priscila THAO-Clover [address], [place], [address] , [facility] 5 11:23:00 Uncontro lled type 2 diabetes mellitus 198673187 Completed 201811/06/2020 Priscila Harris PA-C [address], [place], [address] , [facility] 5 09:55:16 Liver function tests outside referenc e range 453455683 Completed 201806/19/2022 Lux Harris PA-C [address], [place], [address] , [facility] 2 13:34:32 Diarrhea 63291289 Completed 201810/27/2019 JUN Vernon, 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 2018 Not Available [facility] 3 12:19:23 Mixed hyperlip idemia 904721186 Completed 201801/01/2021 1.20 - ascvd risk 6.7% Priscila Harris PA-C [address], [place], [address] , [facility] 1 10:30:48 Bereavem ent 19819892 Completed 201906/19/2022 Lux Harris PA-C [address], [place], [address] , [facility] 2 13:37:20 Pain of left shoulder joint 39926164348 345766 Active 2019 Not Available [facility] 3 12:19:23 Liver enzymes level above referenc e range 595579003 Completed 201906/19/2022 Lux Harris PA-C [address], [place], [address] , [facility] 2 13:37:55 Exposure to SARS-CoV -2 Completed 11/15/2020 Removal Reason: Problem added by user shantel taylor from the COVID-19 watch flag JUN Vernon, [facility] 1 15:37:10 Steatoti c liver disease 179751635 Active 2020 Not Available [facility] 3 12:19:23 Vitamin D deficien cy 94528021 Active 2020 Not Available [facility] 3 12:19:23 Hyperlip idemia 33651730 Active 2020 Not Available [facility] 3 12:19:24 Insomnia 810691975 Active 2021 Not Available [facility] 3 12:19:23 Seborrhe ic psoriasi s 99372845 Active 2021 fol by derm Not Available [facility] 3 12:19:23 COVID-19 [id number] Completed 202111/17/2023 JUN Vernon, [facility] 4 14:16:58 Low back pain 946372876 Active 2022 Not Available [facility] 3 12:19:23 Pain of right hip joint [id number] 9102 Active 2022 Not Available [facility] 3 12:19:23 Gastriti s 0962628 Active 2023 Priscila Harris PA-C [address], [place], [address] , [facility] 4 15:43:07 Body mass index 30+ - obesity 843030610 Active 2024 Nancy Nguyễn, PANEL INSTALLER null, [facility] 5 09:41:42 Dysuria 00514657 Active 2024 KELSEY Kim [address], [place], [address] , [facility] 5 11:26:28 Snoring 69739517 Active 2024 Priscila Harris PA-C [address] [facility] [address], [place], [address] , [facility] 5 10:19:27 Type 2 diabetes mellitus 63971534 Active 2024 Priscila Harris PA-C [address], [place], [address] , [facility] 5 10:23:49 [place] l hyperten sari 74001988 Active 2024 Priscila Harris PA-C [address] [facility] [address], [place], [address] , [facility] 5 11:23:00 Problem Notes None recorded. Procedures Surgical History Date Name Laterality Status Provider Name and Address Organization Details Recorded Time 525 Date of Last Colonoscopy completed Ely Mcdermott [facility] 03/01/2025 13:01:22 025 Diabetic Foot Exam (Monofilament) completed Priscila Harris PA-C [address] [facility] [address], [place], [address], [facility] 03/21/2025 11:21:30 025 Colonoscopy completed Ely Mcdermott [facility] 03/01/2025 12:59:07 025 Endoscopic us exam esoph completed Patricia Walker [facility] 03/01/2025 13:01:37 024 diabetic retinopathy screening completed Patricia Walker [facility] 09/21/2024 08:41:44 024 Diabetic Foot Exam (Monofilament) completed Lux Harris PA-C [address] [facility], [place], [address], [facility] 07/04/2024 11:18:30 023 Hysteroscopy completed Patricia Walker [facility] 09/30/2023 10:46:59 023 excision of uterine polyp completed Patricia Walker [facility] 09/30/2023 10:47:17 023 Dilation and Curettage completed Patricia Walker [facility] 09/30/2023 10:47:26 023 Date of Last Pap Smear completed Patricia Walker [facility] 06/01/2023 12:33:22 022 repair of musculotendinous cuff of shoulder completed Tiffany Gongora [facility] 02/13/2022 14:01:22 022 Orthopedic Surgery completed Ashley Earl [facility] 06/19/2022 09:40:33 021 Diabetic Foot Exam (Monofilament) completed Priscila Harris PA-C [address] [facility] [address] [facility], [place], [address], [facility] 01/01/2021 13:06:23 019 biopsy of liver completed Ana Luisa woods [facility] 10/27/2019 09:36:27 019 Diabetic Foot Exam (Monofilament) completed Lux Harris PA-C [address] [facility], [place], [address], [facility] 08/29/2019 16:57:47 07/16/2 018 Most Recent Mammogram completed Rhoda Kendrick [facility] 04/20/2018 09:37:45 018 Mammogram screening completed Rhoda Kendrick [facility] 04/20/2018 09:38:27 018 endometrial biopsy completed Ana Luisa woods [place] [facility] 12/13/2020 09:29:43 016 Cholecystectomy completed Enedina Donis [facility] 06/25/2017 10:21:04 015 Most Recent Bone Density completed Sandy Hastings MA [facility] 02/15/2015 09:07:01 011 Breast Biopsy completed Ashley Earl MA [facility] 06/19/2022 09:40:33 007 Egd diagnostic brush wash completed Sandy Hastings MA [facility] 07/07/2017 16:02:55 992 Caesarean Section completed Ashley Earl MA [facility] 06/19/2022 09:40:33 992 A P Supervisor Surgery completed Ashley Earl MA [facility] 06/19/2022 09:40:33 992 Tubal Ligation completed Ashley Earl MA [facility] 06/19/2022 09:40:33 987 loop electrosurgical excision procedure of cervix completed Ana Luisa woods [place] [facility] 12/13/2020 09:30:54 Imaging Results None recorded. Procedure Notes None recorded. Medical Equipment None Reported. Allergies Allergen ID Allergen Name Allergen Category Reaction Reaction Severity Criticality Documentation Date Start Date Code Code System Note Provider Name and Address Organization Details Recorded Time 21194 lisinopri l medicatio n cough moderate Not available 05/01/2018 22103 RxNorm Lux Harris PA-C [address] [facility] [address], [facility] [place], [address], [facility] 8 22:06:09 72996 morphine medicatio n vomiting Not available Not available 02/13/2022 7052 RxNorm Not Available [facility] 2 13:14:06 28313 perfume environme nt rash Not available Not available 09/18/[address] derma titis Ana Luisa Ant ascencio [place] null, [facility] 2 10:20:00 67194 Rybelsus medicatio n nausea moderate Not available 10/29/2022 01315 45 RxNorm Priscila Tal SHANE [address] [facility] [address], [facility] [place], [address], [facility] 3 13:28:09 9774 erythromy stephanie medicatio n nausea Not available Not available 04/18/2014 4053 RxNorm Not Available [facility] 3 12:19:25 Medications Name Sig Start [...] shampoo USE A SHAMPOO 2-3 X WEEKLY 03/21 completed Not Available Not Available Not Available Klor-Con 10 mEq tablet,ex tended release [...] 07/20 completed RECORDED 09/03/20 10 11:02AM BY OSWALDO KENTATI ON AUTO-EULA CTIVATIO N; Not Available Not [...] Zyrtec Not Available Not Available Not Available FreeStyle Lancets 28 gauge 12/12 completed Not Available Not [...] Available aspirin 81 mg tablet,de layed release TAKE 1 TABLET DAILY DIRECTED 2024 active Not Available Not Available Not Avai lable acetamino phen 500 mg tablet Take 2 tablets every 8 hours by oral route as needed. active Not Available Not Available No t Available triamcino lone acetonide 0.1 % topical cream APPLY TO AFFECTED AREA TWICE A DAY FOR 2 WEEKS 06/19 completed Not Available Not Available Not Available Macrobid 100 mg capsule Take 1 capsule twice a day by oral route as directed for 7 days. 01/07 completed Not Available Not Available Not Available oxycodone -acetamin ophen 5 mg-325 mg tablet 06/25 completed Not Available Not Available Not Available milk thistle 150 mg capsule Take 3 capsules every day by oral route. 05/17 completed Not Available Not Available Not Available Fluticaso ne Propionat e (Inhal) 50 mcg/BLIST inhl powd DAILY 2010 active RECORDED 06/27/20 11 5:25PM BY HOA IKNG MD, REFILL REQUEST; Not Available Not Available [...] 12 2:04PM BY ANDRES BANERJEE MA, OFFICE VISIT;SC N Not Available Not Available Not Available [...] Available Not Available Not Available gabapenti n 300 mg capsule Take 1 capsule every day by oral route at bedtime for 90 days. 02/14 completed 02/14/25 d/c by Dr. Hoa Zamorano changed to Lyrica Not Available Not Available Not Available omeprazol [...] VISIT; Not Available Not Available Not Available bisacodyl 5 mg tablet,de layed release TAKE 2 TABLETS BY MOUTH RIGHT BEFORE BEGINNIN G BOWEL PREP. SEE INSTRUCT IONS PROVIDED BY THE OFFICE 03/21 completed Not Available Not Available Not Available lisinopri [...] oral route as directed for 90 days. 02/14 completed 02/14/25 d/c by Dr. Hoa Zamorano changed to Lyrica Not Available Not Available Not Available Diflucan 200 mg tablet Take 1 [...] FOR 5 DAYS BEGINNIN G THE AFTERNOO N/EVENIN G YOU GET HOME FROM SURGERY. TAKE [...] completed Not Available Not Available Not Available moxifloxa stephanie 0.5 % eye drops INSTILL 1 DROP INTO BOTH EYES 3 TIMES A DAY FOR 5 DAYS 03/21 completed Not Available Not Available Not Available metformin ER 750 mg tablet,ex tended release 24 hr TAKE 1 TABLET BY MOUTH EVERY DAY 06/19 completed Not Available Not Available Not Available rosuvasta tin 20 mg tablet TAKE 1 TABLET DAILY 2024 active Not Available Not Available Not Avai lable topiramat e 50 mg tablet Take 1 tablet twice a day by oral route. 02/13 completed Not Available Not Available Not Available clobetaso l 0.05 % shampoo APPLY TO DRY, LEAVE ON FOR 15 MINUTES THEN WASH OFF IN SHOWER 06/17 /2025 completed Not Available Not Available Not Available fluocinol one 0.01 % scalp oil and shower cap APPLY TO SCALP 3-4 TIMES WEEKLY ALTERNAT ING WITH CLOBETAS OL SHAMPOO. 03/21 completed Not Available Not Available Not Available pregabali n 75 mg capsule Take 2 capsules twice a day by oral route. active Not Available [...] completed Not Available Not Available Not Available [place] 3 1 capsule po daily 01/06 completed [...] completed Not Available Not Available Not Available GaviLyte- G 236 gram-22.7 4 gram-6.74 gram-5.86 gram oral solution PLEASE SEE ATTACHED FOR DETAILED DIRECTIO NS 03/21 completed Not Available Not Available Not Available [...] Available Not Available Not Available Dexcom G6 Wig Sales Consultant use as directed 09/01 completed Not Available Not Available Not [...] Available Not Available FreeStyle Romeo 14 Day [place] USE DIRECTED . 06/19 completed Not Available [...] 1 MG UNDER THE SKIN EVERY WEEK 03/21 completed Not Available Not Available Not Available Opzelura 1.5 % topical cream Apply [...] completed Not Available Not Available Not Available Mounjaro 5 mg/0.5 mL subcutane ous pen injector INJECT 5 MG SUBCUTAN EOUSLY WEEKLY active Not Available Not Available No t Available Zoryve 0.3 % topical cream APPLY TO THE AFFECTED AREA(S) BY TOPICAL ROUTE ONCE DAILY active Not Available Not Available No t Available Ozempic 0.25 mg or 0.5 mg (2 mg/3 mL) subcutane ous pen injector Inject 0.5 mg every week by subcutan eous route. 03/21 completed Not Available Not Available Not Available Zoryve 0.3 % topical foam Apply to scalp once daily. 03/21 completed Not Available Not Available Not Available Seva Search Romeo 3 Plus Sensor device USE DIRECTED . REPLACE EVERY 14 DAYS active Not Available Not Available No t Available Vitals Date Recorded Body height Provider Name an d Address Organization Details Last Updated DateTime 12/24/2024 163.83 cm Ana Luisa Archer MA [facility] 12/24/2024 10:54:36 Date Recorded Body height Body mass index (BMI) Body weight Heart rate Oxygen saturation Oxygen saturation in Arterial blood by Pulse oximetry Body temperature Systolic And Diastolic Provider Name and Address Organization Details Last Updated DateTime 5 163.83 cm 37 kg/m2 27549.7 3 g 73 /min 96 % 96 % 98.3 [degF] 102/68 mm[Hg] Erica pop MA [facility] 5 10:11:58 Date Recorded Body height Body mass index (BMI) Body weight Heart rate Oxygen saturation Oxygen saturation in Arterial blood by Pulse oximetry Body temperature Systolic And Diastolic Provider Name and Address Organization Details Last Updated DateTime 5 163.83 cm 37.7 kg/m2 968442. 2 g 68 /min 97 % 97 % 98 [degF] 100/64 mm[Hg] Nancy Adrian LPN [facility] 5 09:41:09 Social History Question Answer Notes LastModified by Organizat ion Details LastModified Time Tobacco Smoking Status Former Smoker quit in 1989 Ana Luisa Concepcion-Fawad, [place] null, [facility] 10/27/2019 09:34:43 Do You Have An Advance Directive? Yes Information not available 06/19/2022 Animal Exposure? Yes Information not available 06/19/2022 Do You Wear A Helmet When Biking? Yes Information not available 06/19/2022 Is Blood Transfusion Acceptable In An Emergency? Yes Information not available 02/15/2015 What Is Your Level Of Caffeine Consumption? Occasional Information not available 02/15/2015 How Much Tobacco Do You Chew? None Information not available 06/19/2022 What Type Of Diet Are You Following? REGULAR Information not available 02/15/2015 Which Illicit Or Recreational Drugs Have You Used? None Information not available 11/08/2015 Education 4 Year College Information not available 06/19/2022 Have There Been Any Changes To Your Family Or Social Situation? No Information not available 06/19/2022 When Did You Quit Smoking? 16+yearssince lastcigarette Information not available 11/15/2020 How Many Days [...] No Information not available 11/15/2020 Marital Status [email or web address] Informa tion not available 06/19/2022 What Was The Date Of Your Most Recent Tobacco Screening? 12/24/2024 Information not available 12/24/2024 Total Number Of Stairs In Home 15 Information not available 06/19/2022 How Many Children Do You Have? 4 Daughter In 2019 Information not available 11/06/2020 What Is Your Current Pack Years? 10-19packyear s Information not available 06/19/2022 Do You Use [...] You Start Smoking Tobacco? 13 Started In 1974 Information not available 10/27/2019 Are You Passively Exposed To Smoke? No Information not available 06/25/2017 How Much Tobacco Do You Smoke? 1 PPD Information not available 01/15/2023 Do You Use Sunscreen Routinely? Yes Information not available 02/15/2015 How Many Years Have You Smoked Tobacco? 16 Information not available 10/27/2019 Do You Have Difficulty Walking Or Climbing Stairs? No Information not available 06/19/2022 Sex: Unknown Functional Status Question Answer Note LastModified by Organizat ion Details LastModified Time Do you use any illicit or recreational drugs? No Information not available 06/19/2022 Do you or have you ever used any other forms of tobacco or nicotine? No Information not available 01/15/2023 What is your level of alcohol consumption? Occasional approx.. 3 drinks monthly Information not available 06/19/2022 Do you or have you ever used smokeless tobacco? Never used smokeless tobacco Information not available 10/27/2019 Are you currently employed? Yes Information not available 02/15/2015 [address]iculty [address] at night? No Information not available 06/19/2022 Are you able to walk? YESWOREST Information not available 06/19/2022 Are you able to care for yourself? 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 No Information not available 06/19/2022 Do you or have you ever used e-cigarettes or vape? Never used electronic cigarettes Information not available 06/19/2022 What is your [...] Not available 06/19/2022 09:40:04 Mother Liver problem [email or web address] Not available 01/01 09:37:03 Mother Disease of liver Not available 01/01 09:37:03 Mother Chronic obstructive pulmonary disease Not available 01/01 09:37:03 Mother Esophageal varices 83 [email or web address] Not available 07/04 10:38:13 Father Obesity [email or web address] Not available 0 05/22/2016 17:05:59 Father Diabetes mellitus [email or web address] Not available 2015 17:05:59 Father Sleep disorder [email or web address] Not available 01/01 09:37:03 Father Hypertensive disorder [email or web address] Not available 01/01 09:37:03 Father Alzheimer's disease 76 [email or web address] Not available 2022 09:55:31 Maternal Grandfather Diabetes mellitus [email or web address] Not available 09:40:04 Maternal Grandfather Arthritis pmadden Not available 05/05 17:05:59 Sister Malignant tumor of breast [email or web address] Not available 09:40:04 Paternal Grandfather Harmful pattern of use of alcohol [email or web address] Not available 09:40:04 Unspecified Relation Allergy [email or web address] Not available 09:40:04 Brother Crohn's disease 38 [email or web address] Not available 07/04 10:39:06 Medical History Condition Response Other N Gout N Blood Diseases N Kidney Stones N Hyperthyroidism N Breast Cancer N Lung Disease N COPD N Depression N Hypothyroidism N Defects or Inherited Disease N Anesthesia Complications N Headaches/Migraines Y Varicose Veins Y Anxiety Disorder N Obesity Y Vision or Eye Problems N Arthritis N Head Injury/Concussion N Polyps N Infertility Y Congenital Anomalies N Acid Reflux (GERD) Y Cancer N Stroke N ADHD N Endometriosis N High Cholesterol N Liver Disease N Fibromyalgia N Kidney Disease N Heart Problems N Ear or Hearing Problems N Hospitalizations Y Thyroid Problems N GI Problems N Acne N Skin Problems Y Eating Disorder N Anemia Y Constipation N Bladder Problems N Mental Illness N Ovarian Cancer N Diabetes Y Blood Transfusions Y Seizures/Epilepsy N Tuberculosis N AIDS/HIV N Congestive Heart Failure (CHF) N Eczema N Diverticulitis N Abuse/Domestic Violence N Allergies Y Asthma N Reflux/GERD Y Hepatitis N Pulmonary Embolism N Hypertension Y Osteoporosis N Chicken Pox N Autism Spectrum Disorder (ASD) N Gynecological History Statement/Question Response Abnormal Pap N Flow Moderate 01/29/2015 STIs/STDs N HPV Vaccine N Duration of Flow (days) 7 Age at Menarche 16 Current Control Method IUD Most Recent Mammogram 04/19/2018 Age at First Child 19 Date of Last Colonoscopy 03/01/2525 Most Recent Bone Density 10/18/2014 Sexually Active? Y Menses Monthly Yes Date of Last Pap Smear 05/19/2023 Sexual Problems? N LMP Approximate Obstetrics History GPAL:G 7 P 4 0 0 0 Type Value Full Term 4 Total 7 Immunizations Vaccine Type Date Status Note Provider Nam e and Address Organization Details Recorded Time TST-PPD wilson test 5 completed Not Available [facility] 11/20/2023 09:46:52 Influenza, split virus, trivalent, preservative [address] [facility] 07/24/2023 12:41:34 Influenza, split virus, quadrivalent, preservative [address] [facility] 07/24/2023 12:41:34 COVID-19, mRNA, LNP-S, PF, 100 mcg/0.5mL dose or 50 mcg/0.25mL dose [address] [facility] 07/24/2023 12:41:34 zoster recombinant [address] [facility] 07/24/2023 12:41:34 Influenza, split virus, quadrivalent, PF [address] [facility] 07/24/2023 12:41:34 Influenza, split virus, quadrivalent, PF [address] [facility] 07/24/2023 12:41:34 COVID-19, mRNA, LNP-S, PF, 100 mcg/0.5mL dose or 50 mcg/0.25mL dose 1 completed Patriciasamuel Edouardnett null, [facility] 07/24/2023 12:41:34 Td (adult), 2 Lf tetanus toxoid, preservative free, adsorbed 0 completed Patriciasamuel Edouardnett null, [facility] 07/24/2023 12:41:34 zoster recombinant 1 completed Patricia Walker null, [facility] 07/24/2023 12:41:34 Influenza, split virus, quadrivalent, PF 1 completed Patriciasamuel Edouardnett null, [facility] 07/24/2023 12:41:34 Influenza, split virus, quadrivalent, PF 9 completed Patricia Walker null, [facility] 07/24/2023 12:41:34 Tdap 1 completed Patriciasamuel Edouardnett null, [facility] 07/24/2023 12:41:34 COVID-19, mRNA, LNP-S, bivalent, PF, 50 mcg/0.5 mL or 25mcg/0.25 mL dose 2 completed Patricia Walker null, [facility] 07/24/2023 12:41:34 Pneumococcal conjugate PCV20, polysaccharide HDO025 conjugate, adjuvant, PF 2 completed Patricia Walker null, [facility] 07/24/2023 12:41:34 Influenza, split virus, quadrivalent, preservative 2 completed Patriciasamuel Edouardnett null, [facility] 07/24/2023 12:41:34 Tdap 3 completed Patricia Walker null, [facility] 07/24/2023 12:41:34 COVID-19, mRNA, LNP-S, PF, 50 mcg/0.5 mL 3 completed Patriciasamuel Edouardnett null, [facility] 07/24/2023 12:41:34 Influenza, split virus, quadrivalent, PF 3 completed JUN Stewart, [facility] 11/17/2023 14:13:46 RSV, recombinant, protein subunit RSVpreF, adjuvant reconstituted, 0.5 mL, PF 4 completed JUN Stewart, [facility] 12/24/2024 10:54:46 COVID-19, mRNA, LNP-S, PF, 50 mcg/0.5 mL 4 completed JUN Stewart, [facility] 12/24/2024 10:54:46 Influenza, split virus, trivalent, PF 4 completed JUN Stewart, [facility] 12/24/2024 10:54:47 MMR 4 completed Patricia carrillo, [facility] 07/24/2023 12:41:34 Td (adult), 2 Lf tetanus toxoid, preservative free, adsorbed 7 completed Patricia carrillo, [facility] 07/24/2023 12:41:34 Influenza, split virus, trivalent, preservative 7 completed Patricia carrillo, [facility] 07/24/2023 12:41:34 Influenza, split virus, trivalent, preservative 0 completed Patricia carrillo, [facility] 07/24/2023 12:41:34 Hep B, adult 3 completed Patricia carrillo, [facility] 07/24/2023 12:41:34 Hep B, adult 3 completed Patricia carrillo, [facility] 07/24/2023 12:41:34 Hep B, adult 3 completed Patricia carrillo, [facility] 07/24/2023 12:41:34 MMR 1 completed Patricia Walker lorena, [facility] 07/24/2023 12:41:34 varicella 7 completed Patricia Walker lorena, [facility] 07/24/2023 12:41:34 Tdap 1 completed Patricia Walker lorena, [facility] 07/24/2023 12:41:34 Influenza, split virus, trivalent, preservative 2 completed Patricia Walker lorena, [facility] 07/24/2023 12:41:34 Past Encounters Encounter ID Performer Location Encounter Start Date Encounter Closed Date Diagnosis/Indication Diagnosis SNOMED-CT Code Diagnosis ICD10 Code Diagnosis Note [id number] autoEComm erce [address] [facility] [place] [address] 02/11/2007 00:00:00 [id number] autoEComm erce [address] [facility] [place] [address] 05/29/2004 00:00:00 [id number] autoEComm erce [address] [facility] [place] [address] 03/01/2004 00:00:00 [id number] autoEComm erce [address] [facility] [place] [address] 05/01/2003 00:00:00 [id number] autoEComm erce [address] [facility] [place] [address] 04/16/2007 00:00:00 [id number] autoEComm erce [address] [facility] [place] [address] 05/04/2007 00:00:00 [id number] autoEComm erce [address] [facility] [place] [address] 06/09/2007 00:00:00 [id number] autoEComm erce [address] [facility] [place] [address] 07/09/2007 00:00:00 [id number] autoEComm erce [address] [place] [address] 08/06/2007 00:00:00 [id number] autoEComm erce [address] [place] [address] 12/08/2008 00:00:00 [id number] autoEComm erce [address] [place] [address] 06/26/2009 00:00:00 [id number] autoEComm erce [address] [place] [address] 07/01/2010 00:00:00 [id number] autoEComm erce [address] [place] [address] 10/01/2010 00:00:00 [id number] autoEComm erce [address] [place] [address] 06/28/2011 00:00:00 [id number] autoEComm erce [address] [place] [address] 10/14/2011 00:00:00 [id number] autoEComm erce [address] [place] [address] 05/17/2012 00:00:00 [id number] autoEComm erce [address] [place] [address] 05/27/2012 00:00:00 [id number] autoEComm erce [address] [place] [address] 09/07/2012 00:00:00 [id number] KELSEY Kim Main Office [address] [place] [address] 02/15/2015 08:57:33 02/15/2015 10:06:58 Adult health examination [id number] Will update immunizati on status and screen based on risk factors. Regular dental care, periodic eye examinatio ns, and safety measures advised. Distracted driving discussed. Has colonoscop y scheduled in March with Dr. Mendoza Gastroesop hageal reflux disease [id number] Followed by Dr. Mendoza, on omeprazole and reglan. Allergic rhinitis [id number] treating symptomati bekah as needed. Intrinsic asthma [id number] Edema [id number] C/O melo ma to lower extremitie s, [...] sitting for long periods. Hyperlipid emia screening [id number] Anemia screening [id number] Hoa marcos MD Main Office [address] [place] [address] 11/01/2015 11:26:44 11/01/2015 13:20:56 Acute pharyngitis 668582154 J02.9 Edema 536927890 R60.9 pt has HCTZ to use from past PE/see record. she admits she is NOT using it at this time due to the success she has had w/ elevation/ wearing stockings etc...(she will work on low salt diet) Anemia 573436055 D64.9 Menorrhagia [address]9 [address]0 [address] Cespedes is obstetrics gynecology md/BOGG/ pt now on IUD which reduces menses until pt in menopause is plan that seems to be working. [id number] KELSEY Kim Main Office [address] [place] [address] 11/08/2015 12:46:32 11/08/2015 13:31:44 Acute sinusitis 55642528 J01.90 Symptomati c treatment- lots of fluids, rest, tea with honey, OTC cough drops/ cough med as needed, humidifier , nasal sinus rinses as needed. Augmentin BID as prescribed , tessalon perles as needed for cough [id number] Lux Harris PA-C Main Office [address] [place] [address] 05/22/2016 15:42:55 05/23/2016 09:29:29 Adult health examination 952131894 Z00.00 sister dx'd c breast ca, pt is overdue for mammogram - next obstetrics gynecology md apptmt not until 09/19 Examinatio n for suspected mental disorder 570198681 Z00.00 Edema 256822388 R60.9 chronic ? CVI vs other (chf) -- cont comp stockings Iron defic iency anemia 38427260 D50.9 no heavy menses - technicall y not anemic but clearly is iron deficient, no use of iron supp, apparently NL egd/colon x gerd -- rec. f/u c GI - ? needs pillcam study Gastroesop hageal reflux disease 370650989 K21.9 pt uses reglan infrequent ly Body mass index 30+ - obesity 633172873 Z68.39 Hyperglycemia 57994297 R 73.9 Increased liver function 57801052 R94.5 ? d/t fatty liver vs other Dyspnea 072973951 R06.00 normal spirometry , no cp/palp - has been chronic, can exercise okay - r/o chf - ? d/t body habitus/en durance [id number] Lux Harris PA-C Main Office [address] [facility] [address] [place] [address] 06/25/2016 09:04:12 06/25/2016 10:23:52 Edema 295145466 R60.9 better lately - chronic ? CVI vs other (chf - less likely) -- cont comp stockings prn Gastroesop hageal reflux disease 037556253 K21.9 pt uses reglan infrequent ly Steatotic liver disease 837109207 K76.0 encouraged continued wt loss, has pending labs to r/o other etiology, encouraged f/u c GI Cholelithi asis without obstruction 71682287 K80.20 Dyspnea 137094802 R06.[address] Mahan on .6 -- normal spirometry , no cp/palp - has been chronic, can exercise okay - r/o chf (has pending BNP) - ? d/t body habitus/en durance Iron defic iency anemia 75908066 D50.9 no heavy menses - technicall y not anemic but clearly is iron deficient, no use of iron supp, apparently NL egd/colon x gerd -- rec. f/u c GI - ? needs pillcam study Body mass index 30+ - obesity 002776422 Z68.37 pt has lost 7 lbs and bp is down - congrats! [id number] Priscila Harris PA-C Main Office [address] [place] [address] 09/16/2016 14:07:15 09/16/2016 14:59:16 Pre-surgery evaluation 250150035 Z01.818 Patient is ASA classifica tion 1 and low risk based on Curry risk calculator from cardiac stand point. Her EKG has no acute changes. I will order basic labs. send clearance forms back to the surgeon. Anemia 373584949 D64.9 Impaired f asting glycemia 074544036 R73.01 Iron defic iency anemia 48845098 D50.9 [id number] Hoa marcos MD Main Office [address] [place] [address] 06/25/2017 10:03:14 06/25/2017 10:53:50 Adult health examination 962523957 Z00.00 Screening for malignant neoplasm of breast 040780246 Z12.39 Impaired f asting glycemia 599168040 R73.01 Tachycardia 0054389 R00. 0 [id number] Lux Harris PA-C Main Office [address] [place] [address] 01/06/2018 08:41:51 01/06/2018 09:43:44 Essential hypertension 13032908 I10 stable, cont med as dir Type 2 augusta betes mellitus without complication 832822204 E11.9 last a1c 6.6 back in 06.21 - will recheck - strongly encouraged pt to lose more wt and to dramatical ly reduce chocolate intake and stop drinking soda - rather drink more water Body mass index 30+ - obesity 832915934 Z68.38 Gastroesop hageal reflux disease 612418798 K21.9 cont ppi as dir, pt uses reglan infrequent ly -- cont f/u c gi Pruritus of vulva 933670 00 L29.2 cont f/u c derm, cont lyrica as dir [id number] Lux Harris PA-C Main Office [address] [place] [address] 2018 15:12:50 2018 16:08:15 Essential hypertension 42588698 I10 stable, cont med as dir, cr stable in january, recheck again in a few mos does use prn hctz 12.5 if edema gets too much, wears comp stockings, prn elevation has pe in 9.18 Acute cystitis 56445591 N30.00 finish abx as dir, consider probiotics Prediabetes 590746753 R7 3.03 last A1c 6.0 - rec cont avoid concentrat ed sweets / soda, rec increase aerobic ex to help decrease wt. Edema of l ower extremity 549717889 R60.0 no h/o chf, nl probnp 9.16 does use prn hctz 12.5 if edema gets too much, wears comp stockings, prn elevation Body mass index 30+ - obesity 740105844 Z68.39 [id number] Donell Hanna MD Main Office [address] [place] [address] 09/03/2018 10:49:13 09/03/2018 12:01:47 Dysuria 17083051 R30.0 Possible recurrence vs inadequate ly treated. Will use a different abx. Also could be interstiti al cystitis. She was given a urology referral and will make an appointmen t if her culture is negative or if she doesn't improve or gets more symptoms after treatment. [id number] Lux Harris PA-C Main Office [address] [place] [address] 10/20/2018 08:54:19 10/20/2018 09:56:43 Adult health examination 492953071 Z00.00 encouraged pt to call obstetrics gynecology md for pap Body mass index 30+ - obesity 557012596 Z68.39 Intrinsic asthma 5518016 08 J45.20 on no inhalers - seen by pulm in past Gastroesop hageal reflux disease 000040979 K21.9 cont ppi as dir, pt uses reglan infrequent ly -- cont f/u c gi Essential hypertension 16443802 I10 stable, cont med as dir, cr stable in january, recheck again in a few mos does use prn hctz 12.5 if edema gets too much, wears comp stockings, prn elevation Vitamin D deficiency 347 78303 E55.9 Seasonal a llergic rhinitis 241267962 J30.2 Prediabetes 501510317 R7 3.03 last A1c 6.0 - rec cont avoid concentrat ed sweets / soda, rec increase aerobic ex to help decrease wt. [id number] Jv Braga MD Main Office [address] [facility] [address] [place] [address] 03/31/2019 15:46:50 03/31/2019 16:44:44 Lesion of tongue 064231940 K14.9 Low back strain 62179744 1 S39.012A R lower thoracic/u pper lumbar strain - cont nsaids, hep/massag er ball, consider prn m. relaxer Body mass index 30+ - obesity 764882324 Z68.37 pt has lost 8 lbs - congratula flaco pt - encouraged to continue Essential hypertension 65033551 I10 mildly elevated today, but has been having back pain and pt admits to not taking hctz regularly ----- does use prn hctz 12.5 if edema gets too much, wears comp stockings, prn elevation -- wants to avoid daily hctz since dehydrates her too much/dry mouth trial c arb Obesity 957310643 E66.9 [id number] Jv Braga MD Main Office [address] [place] [address] 05/26/2019 16:00:23 05/27/2019 12:58:08 Hyperglycemia 25522774 R73.9 pt requested recheck of sugars, wonders if had false elevations --- fsbs 301, a1c again 11.8 - confirmed - see below Dysuria 35547063 R30.0 see below Uncontroll ed type 2 diabetes mellitus 035785792 E11.65 new dx - see below rec low carb diet, cont plenty of aerobic ex., and eat less sugar - cookies, soda, juice - which overall does not appear to be a daily occurence c her rec titrate up med as gi zack Liver func tion tests outside reference range 364822018 R94.5 likely d/t fatty liver dz - rec wt loss as above - will check labs, u/s r/o PBC, celiac Diarrhea 33943540 R19.7 rec add citrucel check for celiac and check stool studies no recent abx and not 100% watery Body mass index 30+ - obesity 299183708 Z68.[address] bartal Urinary tr act infectious disease 01861741 N39.0 rec probiotic supplement while on abx Obesity 139127379 E66.9 [id number] Randolph Louie MD Main Office [address] [facility] [address] [facility] [place] [place] [address] 06/27/2019 08:56:11 06/27/2019 09:52:43 Uncontrolled type 2 diabetes mellitus 284498218 E11.65 congratula flaco pt a1c down to [...] - try for romeo seen by eye md - had exam - cont f/u c eye md Obesity 190607072 E66.9 pt interested in seeing nutritioni st bartal Body mass index 30+ - obesity 910855294 Z68.34 Liver func tion tests outside reference range 441939079 R94.5 had ruq u/s - likely d/t fatty liver dz - rec wt loss as above r/o PBC, and recheck lft's Essential hypertension 92355623 I10 stable bp today, cont arb as dir - does use prn hctz 12.5 if edema gets too much, wears comp stockings, prn elevation -- wants to avoid daily hctz since dehydrates her too much/dry mouth [id number] Jv Braga MD Main Office [address] [place] [address] 08/29/2019 16:04:03 08/29/2019 17:11:34 Uncontrolled type 2 diabetes mellitus 194299602 E11.65 see below - under much better control now Essential hypertension 55835863 I10 bp a little low today, but she admits to accidental ly taking 2 tabs today - no orthostasi s - if get dizzy then rec cut 20mg olmesartan in 1/2 Needs infl uenza immunization 600730743 Z23 Type 2 augusta betes mellitus without complication 352935992 E11.9 congratula flaco pt a1c down to 6.0 rec cont low carb diet, cont plenty of aerobic ex. -- pt stopped pepsi!!! 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 - managed ok lately c powder 1-2x/day Body mass index 30+ - obesity 576743155 Z68.32 has lost ~30 lbs eating ~1200 inna diet, walking 10K steps / qd, dances wkly -- continue, consider strength training as well Liver func tion tests outside reference range 969003009 R94.5 had ruq u/s - likely d/t fatty liver dz - rec wt loss as above cont f/u c GI - pending liver bx to r/o PBC Cervical radiculitis 110 33837 M54.12 BUE - C7-C8 distributi on int x yrs, a little worse past few wks - will get cspine - used to take gabapentin & lyrica in past for neuropathi c pruritus as per derm - pt defers at this time, if worse then consider PSSP Chronic low back pain 27 2713977 M54.5 int x yrs - see above rec HEP Obesity 291637935 E66.9 pt interested in seeing nutritioni [facility] [id number] Jv Braga MD Main Office [address] [facility] [address] [facility] [place] [address] 09/27/2019 14:00:22 09/27/2019 15:12:05 Type 2 diabetes mellitus 39978438 E11.649 pt has had hypoglycem ia but [...] be covered by her health insurance Hypoglycemia 026711250 E 16.2 fsbs 108 now [id number] Jv Braga MD Main Office 36[address] [facility] [address] [place] [address] 10/27/2019 09:09:49 10/27/2019 11:03:55 Adult health examination 153873237 Z00.00 Up to date on vaccinatio ns-needs pneumococc al. Essential hypertension 79745478 I10 Stable.con t meds as dir Mixed hyperlipidemia 267 609292 E78.2 Last lipid panel 05/20/19 with elevated triglyceri raj at 168. Will recheck lipid panel. Type 2 augusta betes mellitus without complication 551188949 E11.9 Hemoglobin A1C 5.5% today. Stable - diet / ex control Persistent cough 4438320 02 R05 Question of pneumonia in R lower lobe. Will obtain chest x-ray. Low back pain 800288515 M54.5 F/u with lumbar x-rays as planned. Bilateral tinnitus 76324 07333 102 H93.13 Discussed option of ENT referral. Patient declined. Will continue to monitor if worsens or develops any hearing loss. Pneumonia 430232117 J18. 9 suspect early pna - abx, probiotics , f/u prn Wheezing 24512729 R06.2 Diffuse wheezing-w ill initiate albuterol inhaler 2 puffs Q4 hrs PRN. [id number] Jv Braga MD Telehealt h 36[address] [facility] [address] [place] [address] 05/15/2020 06:16:15 05/15/2020 12:07:01 Type 2 diabetes mellitus without complication 683422328 E11.9 typically diet / ex control, but has gained wt d/t grief, recent junk food, etc Essential hypertension 05920311 I10 mild bp elevation likely d/t stress/gri ef and that she has forgotten them occ - but had nl bp earlier today - cont meds as dir, check bmp, cont monitor bp's Mixed hyperlipidemia 267 760180 E78.2 Will recheck lipid panel. Bereavement 98911728 Z63 .4 pt declines medication , but somewhat reluctantl y agreed to trial of counsellin g - will arrange bhn eval Pain of le ft shoulder joint 5029567067 4575516 M25.512 s/p injury 1.20, got better now worse - concerned about possible RTC injury, and affecting sleep too - see above, will get ortho eval Counseling 898894214 Z71 .9 Referral for counseling with [facility] / YANY Hernandez. 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 check a1c and microalbum in ac pe in 1.21 Liver enzy mes level above reference range 001860057 R74.8 + FH cirrhosis d/t fatty liver dz, had recent mrcp, cont f/u c gi - ? annual surveillan ce ruq u/s? cont vit e as per gi cc: cmp to gi Mixed hyperlipidemia 267 427432 E78.2 stable [id number] Jv Braga MD Telehealt h [address] [place] [address] 11/06/2020 14:01:42 11/07/2020 10:58:20 Counseling 895488858 Z71.9 Health advice, education or counseling done for COVID 19 pt just went for covid test earlier this afternoon - results pending Essential hypertension 31897317 I10 cont arb as dir - bp did come down to wnl earlier today - if bp rises again she does have prn hctz available to help c this (and edema as well) - call if bp persists elevated - consider add ccb Bereavement 06807444 Z63 .4 cont f/u c bhn pt declines meds she had returned to work 3 days /wk (advised her to stay oow pending covid results) Acute sinusitis 51569988 J01.90 recommend probiotics while on abx [id number] [facility] 3640 [facility] 207 [facility] [address] 11/15/2020 14:50:41 11/16/2020 11:45:09 Adverse reaction to viral vaccine 518293074 T50.B95A had SEs from 2nd covid vaccine - they have resolved - able to rtw in person tomorrow - see below Muscle pain 25775855 M79 .10 [id number] Donell Hanna MD [facility] 3640 [facility] 207 [facility] [address] 12/13/2020 08:20:02 12/13/2020 10:32:18 Prolonged grief disorder 796371935 F43.29 Her 26 yo daughter last March- was a violent deemed a suicide and police could not find evidence otherwise. Migraine 23606615 G43.90 9 amitriptyl ine daily at bedtime to help with sleep and headaches. take 1 hour before bed. may take 20mg if needed. F/U at PE 01/01. Headache 99079282 R51.9 will rx indomethac in to try to break VERDUZCO. tid x 5 days. [id number] Priscila Harris PA-C Main Office 36[address] [facility] [address] [place] [address] 01/01/2021 09:33:58 01/01/2021 10:50:52 Adult health examination 238280590 Z00.00 update Tdap. refer for mammogram. Essential hypertension 65387124 I10 stable on meds. Screening for malignant neoplasm of breast 034738730 Z12.39 Administra tion of viral vaccine 61080680 Z23 Bereavement 78184584 Z63 .4 continue counseling . Pt. has mild depression by PHQ score. SSRI was offered , but pt. declined trial. Type 2 augusta betes mellitus without complication 486974800 E11.9 Repeat all labs. Continue diabetic diet. Due to sign. weight gain,. pt. might need to be restarted on metformin. Steatotic liver disease 512198999 K76.0 abnormal LFTs. WE will repeat labs . PT. is followed by the GI. Weight gain 9949360 R63. 5 check for hypothyroi d. Pt. is encouraged to lower total calories and carbs, lower processed foods and exercise as tolerated daily. Vitamin D deficiency 347 53772 E55.9 Headache 51812725 R51.9 continue amitripyli ne and f/u with PCP in the next couple of weeks. Hyperlipidemia 23696957 E78.5 recheck lipids Intrinsic asthma 7956545 08 J45.909 Body mass index 30+ - obesity 886624538 E66.01 Z68.35 [id number] Jv Braga MD Telehealt h 36[address] [facility] 207 [facility] [place] [address] 01/08/2021 09:15:40 01/08/2021 14:27:59 Headache 90809884 R51.9 no sig help c elavil - ? has migraine variant - trial of topamax, may help c wt loss too - if no sig help then consider neuro eval Chronic insomnia 0060269 04 F51.04 pt states has had home sleep study in past - negative result? - but she declines inpt sleep study at this time - will revisit in near future, states is not likely to wear cpap anyways (her wears it) Pain in left knee 542563 3817 12387 M25.562 x one month - walks ~ 2 miles/day - no direct trauma - no sig help c advil, cannot kneel on it, aggrav by going downstairs /bending > slow paced walking, no pain to touch ? PFS - advised pt to consider neoprene sleeve or prn ice, and will get ortho eval [id number] Jv Braga MD Main Office 36[address] [facility] [address] [facility] [place] [address] 02/13/2022 13:30:36 02/13/2022 14:59:30 Type 2 diabetes mellitus without complication 668752019 E11.9 typically diet / ex control, but has gained wt d/t grief, recent junk food, etc check A1c now and ac PE in a few months Essential hypertension 61549806 I10 stable, cont meds as dir Pain of le ft shoulder joint 0893339996 5837724 M25.512 s/p L sh sx 4.22 - pending f/u c neos tomorrow, cont oow/fmla/s td thru ortho Contact de rmatitis caused by urushiol from [employer] poison rishabh 411213595 L25.5 fol by derm - better lately, cont pred taper as dir, hydroxyzin e prn, consider use prn calamine, trial c zyrtec -- if no better and insomnia persists, then trial of gbn - see below Insomnia 866284064 G47.0 0 gbn hs as dir Hyperlipidemia 50624541 E78.5 Tinea corporis 38147477 B35.4 [id number] Jv Braga MD Main Office [address] [place] [address] 06/19/2022 09:37:34 06/19/2022 11:27:11 Adult health examination 149919159 Z00.00 Up to date on vaccinatio ns-needs pneumococc al, defers for now Last colonoscop y in 2014 - due in 2024 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 Cespedes to schedule appt. Essential hypertension 90205726 I10 stable, cont meds as dir (arb qd)pt states she only takes Hydrochlor othiazide prn only for edema (rarely uses) Gastroesop hageal reflux disease 977919512 K21.9 cont ppi as dir, pt uses reglan infrequent ly -- cont f/u c gi Hyperlipidemia 69605950 E78.5 D/t elevated Triglyceri de - recommend patient Statin but she wants to defer it for now. Would like to work on behavioral and life style changes first. She has started walking and eating better since she receive the lab results. when run out of omega 3, consider changing to krill oil to lower trigs Pain of le ft shoulder joint 6369551896 0701399 M25.512 Improved s/p surgery -- Follow up with Ortho at the end of this month. Go to PT twice a week. Type 2 augusta betes mellitus without complication 752353347 E11.9 Patient does not want to see DM specialist () at the moment. Eye exam with Edson Gonzalez - yearly - will attempt get last DM eye exam from Dr. Gonzalez Self check feet regularly 9. - see [...] weight Screening for malignant neoplasm of breast 726833777 Z12.39 Mammo- Needs referral to [facility] at [address] [place] [address] rd. in [facility] Insomnia 411708835 G47.0 0 She snores.Wou ld like to consider Sleep Study Screening for malignant neoplasm of cervix 316607094 Z12.4 Body mass index 30+ - obesity 257000627 E66.9 Z68.38 has lost ~30 lbs eating ~1200 inna diet, walking 10K steps / qd, dances wkly -- continue, consider strength training as well Uncontroll ed type 2 diabetes mellitus 934357339 E11.65 see above - cannot change icd-10 p orders put in Steatotic liver disease 854288210 K76.0 cont f/u c GI - had liver bx, rec wt loss, cont vit E as dir, pending surveillan ce mrcp to r/o psc [id number] Trista Brown MD Telehealt h 3640 [facility] 207 [facility] [place] [address] 09/01/2022 10:19:05 09/05/2022 11:28:46 COVID-19 614908068 U07.1 Type 2 augusta betes mellitus without complication 321343485 E11.9 Repeat all labs. Continue diabetic diet. Due to sign. weight gain,. pt. might need to be restarted on metformin. Essential hypertension 05933489 I10 stable on meds. [id number] Jv Braga MD Main Office 3640 [facility] [address] [place] [address] 09/18/2022 10:06:30 09/18/2022 11:16:43 Type 2 diabetes mellitus without complication 895384353 E11.9 Eye exam with Edson Gonzalez - yearly - will attempt get last DM eye exam from Dr. Gonzalez Self check feet regularly 9.22 - see [...] VM Body mass index 30+ - obesity 057733723 E66.01 Z68.35 has lost ~30 lbs eating low inna diet, walking 10K steps / qd, dances wkly -- continue, consider strength training as well Hypertensi ve renal disease 66573533 I12.9 stable, cont meds as dir (arb qd)pt states she only takes Hydrochlor othiazide prn only for edema (rarely uses)asymp tomatic - if get orthostati c, then rec cut arb in 1/2 Hyperlipidemia 79507157 E78.5 D/t elevated Triglyceri de - recommend patient Statin but she wants to defer it for now. Would like to work on behavioral and life style changes first. She has started walking and eating better since she receive the lab results. when run out of omega 3, consider changing to krill oil to lower trigs Pain of le ft shoulder joint 9699415303 2380620 M25.512 Improved s/p surgery -- Follow up with Ortho at the end of this month. finished > 6 months of PT Chronic ki dney disease stage 2 023087917 N18.2 [id number] Trista Brown MD Main Office 36[address] [facility] [address] [facility] [place] [address] 10/29/2022 12:40:29 10/29/2022 13:50:43 Type 2 diabetes mellitus without complication 230644883 E11.9 Stable diabetic control but BMI is 0ver 35 and pt. has difficulty loosing weight. WE will try GLP-1 Ozempic at 0.25 mg weekly for 4 weeks. If tolerated well after 4 weeks pt. will increase to 0.5 mg weekly. F/u 2 m. [id number] Trista Brown MD Main Office [address] [place] [address] [place] [address] 12/10/2022 11:51:23 12/10/2022 11:53:43 [id number] Trista Brown MD Main Office [address] [place] [address] [place] [address] 01/06/2023 09:54:31 01/06/2023 10:32:39 Type 2 diabetes mellitus without complication 345162080 E11.9 Excellent diabetic control currently. Recommend to reduce metfromin to 500 mg daily. Continue ozempic 0.5 mg weekly, diet and exercise. Replace omeprazole with pantoprazo le 40. Gastroesop hageal reflux disease 698832101 K21.9 601343 Jv Braga MD Main Office [address] [place] [address] 01/15/2023 09:33:22 01/15/2023 10:29:20 Hypertensive renal disease 52369831 I12.9 stable, cont meds as dir (arb qd)pt states she only takes Hydrochlor othiazide prn only for edema (rarely uses) - taken off med listasympt omatic - but to prevent orthostasi s - cut arb in 1/2, and rec increase water intake Body mass index 30+ - obesity 228266391 E66.01 Z68.33 has lost ~30 lbs eating low inna diet, walking 10K steps / qd, consider strength training as well and resuming dance lessons again Hyperlipidemia 82441714 E78.5 D/t elevated Triglyceri de - recommend [...] fasting Chronic ki dney disease stage 2 360740425 N18.2 stable Renal diso rder due to type 2 diabetes mellitus 763031082 E11.22 Eye exam with Edson Gonzalez - yearly - will attempt get last DM eye exam from Dr. Rashawn Mcdonald check feet regularly 9.22 - see below [...] c VM prn if a1c sig increases [id number] Trista Brown MD Main Office [address] [place] [address] 01/21/2023 11:39:26 01/21/2023 11:48:39 [id number] Trista Brown MD Main Office [address] [facility] [address] [facility] [address] 03/11/2023 13:14:54 03/11/2023 13:18:01 [id number] Jv Braga MD Main Office [address] [facility] [address] [facility] [address] 05/07/2023 13:37:40 05/07/2023 14:30:37 Pain of right hip joint [id number] 94730 M25.551 believe her hip pain is radiating from her back, but will check xray to r/o advanced djd - consider ortho eval if advanced djd Low back pain 406849321 M54.50 lbp c ? radiculopa thy RLE (L3/L4?) - check xrayis already on gbn for insomnia - 200mg hs, consider slowly uptitrate if need be (see below)cons ider alt ice/heatwi ll get PMR Type 2 augusta betes mellitus without complication [id number] E11.9 Eye exam with Edson Gonzalez - yearly - will attempt get last DM eye exam from Dr. Rashawn Self check feet regularly . - see [...] more and eat better to lose weight 12. - a1c down to 6.4, doing better c freestyle 3 (it's staying on better) - but considerin g using mounjaro - f/u c VM Hyperlipidemia 36582260 E78.5 D/t elevated Triglyceri de - recommend [...] yesterday weren't fasting - will recheck fasting [id number] Jv Braga MD Main Office [address] [place] [address] 06/25/2023 09:41:21 06/25/2023 10:42:01 Adult health examination [id number] Z00.00 Up to date on vaccinatio ns-needs pneumococc al, defers for now Last colonoscop y in 2014 - due in 2024 pap utd Pain of ri ght hip joint [id number] 51912 M25.551 believe her hip pain is radiating from her back, but will check xray to r/o advanced djd - consider ortho eval if advanced djd 9. - mild degenerati ve changes R hip - likely referred pain, see below Low back pain 101658716 M54.50 lbp c ? radiculopa thy RLE (L3/L4?) - check xrayis already on gbn for insomnia - 200mg hs, consider slowly uptitrate if need be (see below)cons ider alt ice/heatwi ll get PMR eval 9. - rec increase gbn a little, encouraged pt to call PMR, cont yoga (just started recently) Type 2 augusta betes mellitus without complication 346332264 E11.9 Eye exam with Edson Gonzalez - yearly - will attempt get last DM eye exam from Dr. Gonzalez Self check feet regularly 9. - see [...] g using mounjaro - f/u c VM 9. - pending A1c, but has not been losing wt - so rec increase ozempic - has been on 0.5mg x several months - just got a 3 month shipment, so rec slowly titrate up to 1mg Hyperlipidemia 81546472 E78.5 D/t elevated Triglyceri de - recommend [...] directed Screening for malignant neoplasm of breast 320530741 Z12.39 Mammo- Needs referral to [facility] at [address] [place] [address] rd. in [facility] Body mass index 30+ - obesity 812689199 E66.9 Z68.32 had lost ~30 lbs eating low inna diet, walking 10K steps / qd, consider strength training as well and resuming dance lessons again Seborrheic psoriasis 258 82603 L40.8 stable, cont med, f/u c derm Vitamin D deficiency 347 31130 E55.9 Chronic ki dney disease stage 2 074450969 N18.2 stable Hypertensi ve renal disease 92927491 I12.9 stable, cont meds as dir (arb qd)pt states she only takes Hydrochlor othiazide prn only for edema (rarely uses) - taken off med listasympt omatic - but to prevent orthostasi s - cut arb in 1/2, and rec increase water intake 9.23 - bp stable Steatotic liver disease 748838323 K76.0 cont f/u c GI - had liver bx, rec wt loss, cont vit E as dir, pending surveillan ce liver mri from gi [id number] Trista Brown MD Main Office [address] [address] [place] [address] 07/15/2023 13:31:14 07/15/2023 13:32:51 [id number] Trista Brown MD Main Office [address] [address] [place] [address] 08/28/2023 08:51:10 08/28/2023 09:05:13 [id number] Trista Brown MD Main Office [address] [address] [place] [address] 10/09/2023 09:14:11 10/09/2023 09:16:27 [id number] Trista Brown MD Main Office [address] [address] [place] [address] 11/17/2023 13:53:54 11/17/2023 14:59:05 Type 2 diabetes mellitus without complication 339826205 E11.9 Excellent diabetic control currently. Continue ozempic 1 mg, pt did not want to decrease the dose despite having GERD symptoms. Will stop fluids and food 2 hrs before bed , continue PPI and reduce chocolate. F/u 6 m. Gastritis 4941408 K29.70 continue PPI and Tums Gastroesop hageal reflux disease 400000767 K21.9 [id number] Trista Brown MD Main Office [address] [address] [place] [address] 11/20/2023 09:45:41 11/20/2023 09:53:31 [id number] ANGEL LUO MD Main Office [address] [address] [place] [address] 01/01/2024 09:42:29 01/01/2024 09:44:53 [id number] Trista Brown MD Main Office [facility] [address] [place] [address] 02/15/2024 08:48:08 02/15/2024 08:52:40 [id number] Jv Braga MD Main Office [address] [address] [place] [address] 05/10/2024 08:42:03 05/10/2024 08:48:50 [id number] Jv Braga MD Main Office [address] [address] [place] [address] 05/17/2024 08:49:23 05/17/2024 09:44:28 Type 2 diabetes mellitus without complication 902011128 E11.9 Excellent diabetic control currently, but side effects of constipati on and reflux with 1 mg dose of Ozempic. WE will lower to 0.5 mg weekly and pt agrees to lower calories by eliminatin g sweets and snacking and beginning to exercise. WE will repeat fasting labs. F/u 3 m. Chronic ki dney disease stage 2 292973929 N18.2 continue ARB. repeat microalbum in. Hypertensi ve renal disease 17816445 I12.9 stable hypertensi on control. Continue low sodium diet adn current medication s. Hyperlipidemia 18095285 E78.5 Begin rosuvastat in 20 mg daily and repeat lipids in 6-8 weeks. [id number] Jv Braga MD Main Office [address] [address] [place] [address] 07/04/2024 10:25:14 07/04/2024 11:44:04 Adult health examination 533859599 Z00.00 Up to date on vaccinatio ns-needs pneumococc al, defers for now Last colonoscop y in 2014 - due in 2024 pap, mammo - seeing obstetrics gynecology md next month for both Chronic ki dney disease stage 2 858406939 N18.2 stable Hyperlipidemia 39471852 E78.5 D/t elevated Triglyceri de - recommend [...] med as dir Hypertensi ve renal disease 79544388 I12.9 stable, cont meds as dir (arb qd)pt states she only takes Hydrochlor othiazide prn only for edema (rarely uses) - taken off med listasympt omatic - but to prevent orthostasi s - cut arb in 1/2, and rec increase water intake 9.24 - bp stable Increased liver function 08158151 R94.5 ? d/t fatty liver vs other 9.24 - seen by [facility] in past, has had liver bx, mri - rec f/u c [facility] Type 2 augusta betes mellitus without complication 434946618 E11.9 Eye exam with Edson Gonzalez - yearly - will attempt get last DM eye exam from Dr. Gonzalez Self check feet regularly 9.22 - see [...] dir Body mass index 30+ - obesity 059507887 E66.9 Z68.35 had lost ~30 lbs eating low inna diet, walking 10K steps / qd, consider strength training as well and resuming dance lessons again 9.24 - on ozempic - cont as dir Seborrheic psoriasis 258 77456 L40.8 stable, cont med, f/u c derm Gastroesop hageal reflux disease 420731470 K21.9 cont ppi as dir, pt uses reglan infrequent ly -- cont f/u c gi Low back pain 842577460 M54.50 lbp c ? radiculopa thy RLE [...] see them 09.29.24 - set up by derm) [id number] Jv Braga MD Main Office [address] [place] [address] 09/21/2024 12:51:10 09/21/2024 12:55:12 [id number] Donell Hanna MD Main Office [address] [place], [place] [address] [address] 11/02/2024 08:56:19 11/02/2024 09:10:23 [id number] Donell Hanna MD Main Office [address] [place] [address] [place] [address] 11/15/2024 08:53:38 11/15/2024 10:09:46 Type 2 diabetes mellitus without complication 700863442 E11.9 Excellent diabetic control currently, but side [...] m. Chronic ki dney disease stage 2 721150288 N18.2 continue ARB. repeat microalbum in. Low back pain 602062296 M54.50 states that she is has been in PT/seeing Ortho for treatment of multiple bulging discs. Had MRI done previously . Body mass index 30+ - obesity 544829471 E66.01 Z68.35 Current BMI 36.7. Patient was educated to decrease her sugar intake and implement healthier snack options to satisfy her cravings. [id number] Donell Hanna MD Main Office [address] [address] [place] [address] 12/14/2024 09:42:06 12/14/2024 09:45:33 [id number] Donell Hanna MD Main Office [address] [address] [place] [address] 12/24/2024 09:21:23 12/24/2024 11:31:52 Dysuria 25320697 R30.0 SYMPTOMS:b urning with urination? yesfrequen cy? nohematuri a? nolower abdominal pain? nosymptoms similar to previous UTI? yes POSSIBLE CONTRAINDI CATIONS TO TELEPHONE TREATMENT: > 65 years of age? nofevers? norecent UTI (within 1 month)? nonew low back pain? nonausea or vomiting? no ? nohistory of interstiti al cystitis? no PROVIDER ACTION: Reviewed nursing notes? yesRecomme nded action must drop off urine for culture Antibiotic treatment Macrobid x 7 days Urinary tr act infectious disease 57390759 N39.0 Push fluids, wipe front to back, do not hold urine for extended periods of time, urinate before and after intercours e. Pyridium 3 times daily as needed for the next day or so, abx as directed twice daily for 7 days. If sx not better or if any worsening, fever, chills, N/V please call/ return. [id number] Donell Hanna MD Main Office [address] [address] [place] [address] 01/25/2025 14:51:52 01/25/2025 14:52:49 [id number] Donell Hanna MD Main Office [address] [address] [place] [address] 03/08/2025 14:07:56 03/08/2025 14:09:18 [id number] Jv Braga MD Main Office [address] [facility] [address] [facility] [place] [address] 03/21/2025 09:27:06 03/21/2025 10:42:03 Type 2 diabetes mellitus 58541754 E11.9 Excellent diabetic control currently, but side effects of constipati on and reflux with 1 mg dose of Ozempic. Now on 0.5 mg dose and better o GERD but gained weight. Current BMI is 37.7 with worsening demonstrat ed in her R. hip OA.recomme nd to try mounjaro in place of Ozempic. It has better GI tolerance and also better outcomes with weight loss. WE will start at 2.5 mg weekly for 4 weeks, then 5 mg weekly. F/u 2 m. Continue working on improving diet . Physical activity daily, but time as tolerated. Total time with pt teaching , counseling , coordinati ng care 45 minutes. CGM reviewed and discussed as well as recent labs. Snoring 97574073 R06.83 recommend referral to sleep medicine. Pt agreed. Essential hypertension 36568156 I10 stable on meds. continue olmesartan 20 mg and DASH diet. F/u 4 m. Health Concerns Section Related Observation LastModified by Organization Detai ls LastModified Time None Recorded Concern Status LastModified by Organization Details LastModified Time None Recorded Advance Directives Directive Y: Payers Insurance Date Sequence Insurance Name Policy Number Policy Linn Covered Member ID Linn Member ID Guarantor Name 09/06/2018 1 [employer] [id number] Nitin Ray [id number] Claudia Ray 04/18/2025 1 [place] [id number] Nitin Ray [id number] Claudia Ray 01/05/2018 1 [facility] [id number] Nitin Ray [id number] Claudia Ray 02/15/2015 1 [facility] Nitin Ray [id number] Claudia Ray Notes Date Note Type Note Provider Name and Address Organization Details Recorded Time 5 text/html Generic HPI TemplateReported bypatient.Notes:Video visit:2-3 days of urgency with urination- this mornign woke up with urgency, foul odor, painful urination. is emptying completely- large amounts, no blood in urine, no back pain, no fever, chills, N/V/D. [facility] [address] [address], [place], [address], [facility] 12/24/2024 11:29:05 5 text/html Diabetes F/UReported bypatient.Associated Symptoms:no dizziness; no sweats; no headaches; no confusion; no increased thirst; no increased appetite; no increased urination; no blurred vision; no numbness of feet; no calluses on feet;weight gain (6 lbs)Notes:A1c is 5.9%. today.CGM upload on 03/08 showed 96% of readings on target w/o hypoglycemia.Weight: Pt. reports increased cravings for sweets and pm snacks. No regular exercise activity. Current BMI is 37.7.CKD stg 2.Last LDL was 73 in June of 2024.Not exercising regularly due to low back pain radiating down her right leg. Currently seeing ortho and scheduled for cortisone shots in April. UTD on diabetic eye exam - 09-19-24; no retinopathyNo neuropathy - does not see a podiatristHypertension F/UReported bypatient.Associated Symptoms:no dizziness; no chest pain; no shortness of breath; no palpitations; no edema; no calf pain with exertion;lightheadedness(in termittent 2-3x month when turning quickly) Lifestyle:limiting/avoiding salt;not exercising regularly(musculoskeletal and joint pain) Medications:taking medications as directed; no side effects from medicationNotes:BP is low in office today; 100/64. Not measuring at home, stable. Taking 0.5 of 20 mg olmesartan.ObesityReported bypatient.Diagnosis Summary:diagnosis: obesity; additional diagnosis: metabolic syndrome; MASH, DM type II, hyperlipidemia. Context:no inhaled steroids; no oral steroids Associated Symptoms:no depression; no Prader-Willi Syndrome; no hypothyroidism; chronic R hip arthritis followed by allocation analyst. Co-morbidities:obstructive sleep symptoms; never tested in the past due to refusal. Now interested in being tested. Lifestyle changes:few constitutional symptoms related to diagnosis; snoring, hip pain Nutrition:doesn't follow any kind of diet plan Physical Activity:reported frequency of moderate level of physical activity per week: sedentary Medication Education:understands potential side effects; understands administration; understands role of diet as primary therapyNotes:Currently on Ozempic at smaller dose of 0.5 mg. 1 mg dose caused worsening of GERD symptoms. Current BMI is 37.7 with 4 lb weight gain in the last 4 m. Priscila Harris PA-C [address], [address], [facility] 03/21/2025 11:26:50 OBGyn Episode No OBEpisode recorded.
--- OUTSIDE RECORDS SUMMARY | 2025-04-18 10:15 | XMS_ITS | Clinical Summary ---
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 Active aspirin 81 mg chewable tablet Chew 1 tablet (81 mg total) 1 (one) time each day. Active emollient combination no.43 (Promiseb) cream Apply 1 Dose topically 2 (two) times a day. 9 Active losartan (COZAAR) 25 mg tablet Take 1 tablet (25 mg total) by mouth 1 (one) time each day. Active vxupnams-dhe-dg on-FA-vit K-lut (Centrum Silver Women) 8 mg [...] by mouth 1 (one) time each day. 5 Active Zoryve 0.3 % foam Apply to [...] the skin every 7 (seven) days. Active bisacodyL (DULCOLAX) 5 mg EC tablet Take 2 tablets by mouth right before beginning bowel prep. See instructions provided by the office 2 tablet 5 Active aqvwctzp-dtx-it on-FA-vit K-lut (Centrum Silver Women) 8 mg iron-400 mcg-50 mcg tablet Take 1 tablet by mouth 1 (one) time each day. Active Active Problems Problem Noted Date Diagnosed Date BENSON (nonalcoholic steatohepatitis) 12/21/2024 Elevated liver enzymes 12/21/2024 Pancreas cyst 12/21/2024 Gastroesophageal reflux disease without esophagi tis 12/21/2024 Obesity (BMI 30-39.9) 12/21/2024 Neuropathic pruritus 12/21/2024 Intrinsic asthma 12/21/2024 Low back pain 05/09/2023 Type 2 diabetes mellitus wit hout complication ([facility]/HCC V24, [facility] V28) 02/13/2023 Stage 2 chronic kidney disease 09/18/2022 COVID-19 09/01/2022 Seborrheic psoriasis 08/21/2022 Overview (12/21/2024): fol by derm Mixed hyperlipidemia 10/01/2019 Overview (12/21/2024): 1.20 - ascvd risk 6.7% Essential hypertension 05/01/2018 Neck pain 09/07/2012 Overview (12/21/2024): RECORDED 09/07/2012 2:03PM BY ANDRES ANGELES MA, ANNOTATION/ADDENDUM Migraine 09/07/2012 Overview (12/21/2024): RECORDED 09/07/2012 2:03PM BY ANDRES ANGELES MA, ANNOTATION/ADDENDUM Encounters Date Type Department Care Team Description 03/01/2025 10:47 AM EDT Anesthesia Event [facility] Endoscopy [address] [place] [address] Carlos Lozada DO 03/01/2025 9:26 AM EDT - 03/01/2025 11:59 PM EDT Hospital Encounter [facility] Endoscopy [address] [place] [address] Von Henley MD Elliott, Barbara J, CRNA BENSON (nonalcoholic steatohepatitis); Elevated liver enzymes; Gastroesophageal reflux disease without esophagitis; Colon cancer screening Discharge Disposition: Home or Self Care from Last 3 Months Immunizations Name Administration Dates Next Due Moderna SARS-CoV-2 COVID-19, mRNA, LNP-S, preservative free 11/10/2020,10/09/2020 Surgical History Surgery Date Site/Laterality Comments CHOLECYSTECTOMY SECTION, LOW TRANSVERSE ESOPHAGOGASTRODUODENOSCOPY LIVER BIOPSY Medical History Medical History Date Comments Diabetes mellitus ([facility]/HCC V24, [facility]/HCC V28) Hypertension Hyperlipidemia GERD (gastroesophageal reflux disease) Family History Medical History Relation Name Comments colectomy Brother No Known Problems Daughter Skin cancer Father No Known Problems Father's Brother No Known Problems Father's Sister No Known Problems Maternal Grandfather No Known Problems Maternal Grandmother No Known Problems Mother No Known Problems Mother's Brother No Known Problems Mother's Sister No Known Problems Other No Known Problems Paternal Grandfather No Known Problems Paternal Grandmother Breast cancer Sister No Known Problems Son Relation Name Status Comments Brother Daughter Father Father's Brother Father's Sister Maternal Grandfather Maternal Grandmother Mother Mother's Brother Mother's Sister Other Paternal Grandfather Paternal Grandmother Sister Son Social History Tobacco Use Types Packs/Day Years Used Date Smoking Tobacco: Former Cigarettes Q uit: 10/05/1989 Smokeless Tobacco: Never Alcohol Use Standard Drinks/Week Comments Yes 0 (1 standard drink = 0.6 oz pur e alcohol) 2 a month Interpersonal Safety Answer Date Record ed Physical Abuse 03/01/2025 Verbal Abuse 03/01/2025 Comments Unknown Sex and Gender Information Value Date Recorded Sex Assigned at Not on file Legal Sex Female 6:24 PM EST Gender Identity Not on file Sexual Orientation Not on file Obstetrics History Last Filed Vital Signs Vital Sign Reading Time Taken Comments Blood Pressure 111/74 03/01/2025 11:33 AM EDT Pulse 65 03/01/2025 11:33 AM EDT Temperature 36.8 C (98.2 F) 03/01/2025 11:13 AM EDT Respiratory Rate 17 03/01/2025 11:33 AM EDT Oxygen Saturation 96% 03/01/2025 11:33 AM EDT Inhaled Oxygen Concentration - - Weight 98.4 kg (217 lb) 03/01/2025 9:51 AM EDT Height 162.6 cm (5' 4 ) 03/01/2025 9:51 AM EDT Body Mass Index 37.25 03/01/2025 9:51 AM EDT Plan of Treatment Health Maintenance Due Date [...] Diabetes: Blood Sugar Control Test (HGBA1C) 12/21/2024 COVID-19 Vaccine (7 - Moderna risk season) 2024 07/01/2024, 07/22/2023, 08/22/2022, Additional history exists Influenza Vaccine (#1) 2025 , 07/22/2023, 08/08/2022, Additional history exists Diabetes: Annual GFR (Glomerular Filtration Rate) 12/21/2025 12/21/2024 Hypertension/CHF/CAD Annual BMP Blood Test 12/21/2025 12/21/2024 DTaP,Tdap,and Td Vaccines (6 - Td or Tdap) 11/18/2032 11/18/2022, 01/01/2021, 06/30/2020, Additional history exists Colorectal Cancer Screening: Colonoscopy 03/01/2035 03/01/2025, 09/21/2015 Varicella Vaccines Aged Out 05/15/1997 No longer eligible based on patient's age to complete this topic Hepatitis B Vaccines Completed 06/17/2009, 08/21/1993, 04/17/1993, Additional history exists MMR Vaccines Aged Out 06/16/2011, 05/28/2004 No lo nger eligible based on patient's age to complete this topic Zoster Vaccines Completed 08/16/2021, 04/2021, 05/15/1997 Pneumococcal Vaccine: 50+ Years Completed 08/22/2022 RSV Immunization Adult Patients Completed 01/31/2024 Hepatitis C Screening Completed 12/21/2024 HIB Vaccines [...] age to complete this topic Meningococcal B Vaccine Aged Out No l onger eligible based on patient's age to complete this topic RSV Immunization Patients Under 20 months Aged Out No longer eligible based on patient's age to complete this topic Procedures Procedure Name Priority Date/Time Associated Diagnosis Comments COLONOSCOPY Routine 03/01/2025 11:12 AM EDT BENSON (nonalcoholic steatohepatitis) Elevated liver enzymes Gastroesophageal reflux disease without esophagitis Colon cancer screening EGD Routine 03/01/2025 11:12 AM EDT BENSON (nonalcoholic steatohepatitis) Elevated liver enzymes Gastroesophageal reflux disease without esophagitis Colon cancer screening HEPATITIS C VIRUS QUANTITATIVE PCR Routine 12/21/2024 12:17 PM EDT Elevated liver enzymes Pancreas cyst BENSON (nonalcoholic steatohepatitis) Stage 2 chronic kidney disease Gastroesophageal reflux disease without esophagitis COMPREHENSIVE METABOLIC PANEL Routine 12/21/2024 12:17 PM EDT Elevated liver enzymes Pancreas cyst BENSON (nonalcoholic steatohepatitis) Stage 2 chronic kidney disease Gastroesophageal reflux disease without esophagitis from Last 3 Months or Most Recently Relevant to Health Maintenance Results * COLONOSCOPY Anesthesia - MAC; [facility] ENDOSCOPY (03/01/2025 11:12 AM EDT) Anatomical Region Laterality Modality Endoscopy 03/01/2025 11:0 5 AM EDT Impressions 03/01/2025 11:07 AM EDT - Diverticulosis in the sigmoid colon. - The examination was otherwise normal on direct and retroflexion views. - No specimens collected. Recommendation: - Repeat colonoscopy in 10 years for screening purposes. Narrative 03/01/2025 11:07 AM EDT [facility] GI Patient Name: Claudia Duarte Procedure Date: 03/01/2025 11:05 AM Date of : 1960 Age: 64 Room: ROOM 15 Gender: Female Note Status: Finalized Attending MD: Von Henley MD, Procedure Date No Time: 03/01/2025 Procedure: Colonoscopy Indications: Screening for colorectal malignant neoplasm Providers: Von Henley MD Referring MD: Von Henley MD Medicines: Propofol per Anesthesia Complications: No immediate complications. Estimated Blood Loss: Estimated blood loss: none. Procedure: Pre-Anesthesia Assessment: - ASA Grade Assessment: II - A patient with mild systemic disease. After I obtained informed consent, the scope was passed under direct vision. Throughout the procedure, the patient's blood pressure, pulse, and oxygen saturations were monitored continuously. The Olympus Pediatric Colonosocpe was introduced through the anus and advanced to the cecum, identified by appendiceal orifice and ileocecal valve. The colonoscopy was performed without difficulty. The patient tolerated the procedure well. The quality of the bowel preparation was good. Findings: The perianal and digital rectal examinations were normal. Multiple small-mouthed diverticula were found in the sigmoid colon. The exam was otherwise without abnormality on direct and retroflexion views. Procedure Code(s): --- Professional --- G0121, Colorectal cancer screening; colonoscopy on individual not meeting criteria for high risk Diagnosis Code(s): --- Professional --- Z12.11, Encounter for screening for malignant neoplasm of colon K57.30, Diverticulosis of large intestine without perforation or abscess without bleeding CPT copyright 2021 [employer]. All rights reserved. The codes documented in this report are preliminary and upon area director of home health sales review may be revised to meet current compliance requirements. Von Henley MD 03/01/2025 11:07:24 AM This report has been signed electronically.Von Henley MD Number of Addenda: 0 Note Initiated On: 03/01/2025 11:05 AM Endoscopy Department at [facility] - [address] [place] [id number] Procedure Note Von Henley MD - 03/01/2025 [facility] GI Patient Name: Claudia Duarte Procedure Date: 03/01/2025 11:05 AM Date of : 1960 Age: 64 Room: ROOM 15 Gender: Female Note Status: Finalized Attending MD: Von Henley MD, Procedure Date No Time: 03/01/2025 Procedure: Colonoscopy Indications: Screening for colorectal malignant neoplasm Providers: Von Henley MD Referring MD: Von Henley MD Medicines: Propofol per Anesthesia Complications: No immediate complications. Estimated Blood Loss: Estimated blood loss: none. Procedure: Pre-Anesthesia Assessment: - ASA Grade Assessment: II - A patient with mild systemic disease. After I obtained informed consent, the scope was passed under direct vision. Throughout theprocedure, the patient's blood pressure, pulse, and oxygen saturations were monitored continuously. TheOlympus Pediatric Colonosocpe was introduced through theanus and advanced to the cecum, identified byappendiceal orifice and ileocecal valve. The colonoscopy was performed without difficulty. The patient tolerated the procedure well. The quality of the bowel preparation was good. Findings: The perianal and digital rectal examinations were normal. Multiple small-mouthed diverticula were found inthe sigmoid colon. The exam was otherwise without abnormality ondirect and retroflexion views. Procedure Code(s): --- Professional --- G0121, Colorectal cancer screening; colonoscopy on individual not meeting criteria for high risk Diagnosis Code(s): --- Professional --- Z12.11, Encounter for screening for malignantneoplasm of colon K57.30, Diverticulosis of large intestine without perforation or abscess without bleeding CPT copyright 2020 [employer]. All rights reserved. The codes documented in this report are preliminary and upon area director of home health sales reviewmay be revised to meet current compliance requirements. Von Henley MD 03/01/2025 11:07:24 AM This report has been signed electronically.Von Henley MD Number of Addenda: 0 Note Initiated On: 03/01/2025 11:05 AM Endoscopy Department at [facility] - [address] [place] [phone] IMPRESSION: - Diverticulosis in the sigmoid colon. - The examination was otherwise normal on directand retroflexion views. - No specimens collected. Recommendation: - Repeat colonoscopy in 10 years for screening purposes. us Von Henley MD GI~PROCEDURE ORDERABLES Fin al Result * EGD Anesthesia - MAC; [facility] ENDOSCOPY (03/01/2025 11:12 AM EDT) Anatomical Region Laterality Modality Endoscopy 03/01/2025 10:5 2 AM EDT Impressions 03/01/2025 11:12 AM EDT - Normal esophagus. - Small hiatal hernia. - Normal examined duodenum. - No specimens collected. Recommendation: - Continue present medications. Narrative 03/01/2025 11:12 AM EDT [facility] GI Patient Name: Claudia Duarte Procedure Date: 03/01/2025 10:52 AM Date of : 1960 Age: 64 Room: ROOM 15 Gender: Female Note Status: Finalized Attending MD: Von Henley MD, Procedure Date No Time: 03/01/2025 Procedure: Upper GI endoscopy Indications: Heartburn, Gastro-esophageal reflux disease Providers: Von Henley MD Referring MD: Von Henley MD Medicines: Propofol per Anesthesia Complications: No immediate complications. Estimated Blood Loss: Estimated blood loss: none. Procedure: Pre-Anesthesia Assessment: - ASA Grade Assessment: II - A patient with mild systemic disease. After obtaining informed consent, the endoscope was passed under direct vision. Throughout the procedure, the patient's blood pressure, pulse, and oxygen saturations were monitored continuously.The Endoscope was introduced through the mouth, and advanced to the second part of duodenum. The upper GI endoscopy was accomplished without difficulty. The patient tolerated the procedure well. Findings: The esophagus was normal. A small hiatal hernia was present. The exam of the stomach was otherwise normal. The examined duodenum was normal. Procedure Code(s): --- Professional --- 63251, Esophagogastroduodenoscopy, flexible, transoral; diagnostic, including collection of specimen(s) by brushing or washing, when performed (separate procedure) Diagnosis Code(s): --- Professional --- K44.9, Diaphragmatic hernia without obstruction or gangrene R12, Heartburn K21.9, Gastro-esophageal reflux disease without esophagitis CPT copyright 2020 [employer]. All rights reserved. The codes documented in this report are preliminary and upon area director of home health sales review may be revised to meet current compliance requirements. Von Henley MD 03/01/2025 11:12:24 AM This report has been signed electronically.Von Henley MD Number of Addenda: 0 Note Initiated On: 03/01/2025 10:52 AM Scope In: Scope Out: Endoscopy Department at [facility] - [address] [place] [phone] Procedure Note Von Henley MD - 03/01/2025 [facility] GI Patient Name: Claudia Duarte Procedure Date: 03/01/2025 10:52 AM Date of : 1960 Age: 64 Room: ROOM 15 Gender: Female Note Status: Finalized Attending MD: Von Henley MD, Procedure Date No Time: 03/01/2025 Procedure: Upper GI endoscopy Indications: Heartburn, Gastro-esophageal reflux disease Providers: oVn Henley MD Referring MD: Von Henley MD Medicines: Propofol per Anesthesia Complications: No immediate complications. Estimated Blood Loss: Estimated blood loss: none. Procedure: Pre-Anesthesia Assessment: - ASA Grade Assessment: II - A patient with mild systemic disease. After obtaining informed consent, the endoscope was passed under direct vision. Throughout theprocedure, the patient's blood pressure, pulse, and oxygen saturations were monitored continuously.TheEndoscope was introduced through the mouth, and advanced tothe second part of duodenum. The upper GI endoscopy was accomplished without difficulty. The patienttolerated the procedure well. Findings: The esophagus was normal. A small hiatal hernia was present. The exam of the stomach was otherwise normal. The examined duodenum was normal. Procedure Code(s): --- Professional --- 49289, Esophagogastroduodenoscopy, flexible, transoral; diagnostic, including collection of specimen(s) by brushing or washing, when performed (separate procedure) Diagnosis Code(s): --- Professional --- K44.9, Diaphragmatic hernia without obstruction or gangrene R12, Heartburn K21.9, Gastro-esophageal reflux disease without esophagitis CPT copyright 2020 [employer]. All rights reserved. The codes documented in this report are preliminary and upon area director of home health sales reviewmay be revised to meet current compliance requirements. Von Henley MD 03/01/2025 11:12:24 AM This report has been signed electronically.Von Henley MD Number of Addenda: 0 Note Initiated On: 03/01/2025 10:52 AM Scope In: Scope Out: Endoscopy Department at [facility] - [address] [place] [phone] IMPRESSION: - Normal esophagus. - Small hiatal hernia. - Normal examined duodenum. - No specimens collected. Recommendation: - Continue present medications. Von Henley MD GI~PROCEDURE ORDERABLES Fin al Result * Hepatitis C virus quantitative molecular study (12/21/2024 12:17 PM EDT) [facility] HCV Qual Interp Not Detected Not Detected LAB MOLECULAR DIAGNOSTICS METHOD 12/22/2024 11:00 AM EDT [facility] Comment:HCV RNA not detected , unable to report quantitative results. Blood Venous blood specimen / Unknown Venipuncture / Unknown 12/21/2024 12:17 PM EDT 12/21/2024 1:32 PM EDT Von Henley MD LAB BLOOD ORDERABLES Final Result [facility] [address] [place] [address], [place] [phone] * (ABNORMAL) Comprehensive metabolic panel (12/21/2024 12:17 PM EDT) [facility] Sodium 140 133 - 145 mmol/L LAB CHEMISTRY METHOD 12/21/2024 4:05 PM EDT [facility] Potassium 4.0 3.5 - 5.5 mmol/L LAB CHEMISTRY METHOD 12/21/2024 4:05 PM EDT [facility] Chloride 108 96 - 110 mmol/L LAB CHEMISTRY METHOD 12/21/2024 4:05 PM EDT [facility] CO2 24 21 - 32 mmol/L LAB CHEMISTRY METHOD 12/21/2024 4:05 PM EDT [facility] Anion Gap 8 3 - 11 LAB CHEMISTRY METHOD 12/21/2024 4:05 PM EDT [facility] Glucose 109(H) 70 - 100 mg/dL LAB CHEMISTRY METHOD 12/21/2024 4:05 PM [facility] BUN 17 5 - 25 mg/dL LAB CHEMISTRY METHOD 12/21/2024 4:05 PM [facility] Creatinine 0.72 0.50 - 1.10 mg/dL LAB CHEMISTRY METHOD 12/21/2024 4:05 PM [facility] eGFR 94 >=60 mL/min/1. 73m2 LAB CHEMISTRY METHOD 12/21/2024 4:05 PM [facility] Comment:Calculation based on the Chronic Kidney Disease Epidemiology Collaboration (CKD-EPI) equation refit without adjustment for race. BUN/Creatinine Ratio 23.6 LAB CHEMISTRY METHOD 12/21/2024 4:05 PM [facility] Calcium 9.2 8.5 - 10.5 mg/dL LAB CHEMISTRY METHOD 12/21/2024 4:05 PM [facility] AST (SGOT) 27 10 - 42 unit/L LAB CHEMISTRY METHOD 12/21/2024 4:05 PM [facility] ALT (SGPT) 43 10 - 60 unit/L LAB CHEMISTRY METHOD 12/21/2024 4:05 PM [facility] Alkaline Phosphatase 151(H) 42 - 121 unit/L LAB CHEMISTRY METHOD 12/21/2024 4:05 PM [facility] Total Protein 7.3 6.0 - 8.0 g/dL LAB CHEMISTRY METHOD 12/21/2024 4:05 PM [facility] Albumin 3.9 3.2 - 5.0 g/dL LAB CHEMISTRY METHOD 12/21/2024 4:05 PM [facility] Total Bilirubin 0.5 0.0 - 1.4 mg/dL LAB CHEMISTRY METHOD 12/21/2024 4:05 PM [facility] Blood Venous blood specimen / Unknown Venipuncture / Unknown 12/21/2024 12:17 PM EDT 12/21/2024 1:30 PM EDT us Von Henley MD LAB BLOOD ORDERABLES Final Result [facility] [address] [place] [address], from Last 3 Months or Most Recently Relevant to Health Maintenance Insurance [facility] Care Teams 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
== END 2025-04-18 10:47 | disposition home or self-care (01) ==
PROVIDERS: PCP Physician Assistant Medical; Visit Provider Internal Medicine Rheumatology
DX: M16.11 Unilateral primary osteoarthritis, right hip (principal); M17.0 Bilateral primary osteoarthritis of knee; M19.071 Primary osteoarthritis, right ankle and foot; M70.61 Trochanteric bursitis, right hip; M25.571 Pain in right ankle and joints of right foot; G89.29 Other chronic pain
CPT/HCPCS: 99213

== ENCOUNTER 2025-05-11 11:35 | Emergency (ER) | payer BC, SELFPAY ==
--- NOTE | ~2025-05-11 | XR_ITS ---
EXAMINATION: XR CHEST 2 VIEWS HISTORY: chest pain COMPARISON: There are no prior studies available for comparison. FINDINGS: PA and lateral views of the chest are submitted. The lungs are expanded and clear. There is no pleural effusion, pneumothorax, or pulmonary vascular congestion. The heart is normal in size. There is degenerative disc disease of the spine. XR/XR chest 2V IMPRESSION: Clear lungs. Electronically signed by: Domingo Romo MD 05/11/2025 12:36 PM EDT
--- NOTE | 2025-05-11 11:38 | ECG_ITS ---
Test Reason : CP Blood Pressure : */* mmHG Vent. Rate : 68 BPM Atrial Rate : 68 BPM P-R Int : 174 ms QRS Dur : 82 ms QT Int : 390 ms P-R-T Axes : 29 39 40 degrees QTcB Int : 414 ms Normal sinus rhythm Cannot rule out Anterior infarct , age undetermined Abnormal ECG No previous ECGs available Referred By: Generic ED Physician Electronically Signed By: BECK KEATING
[2025-05-11 11:44] VITALS: BP 117/64; PULSE 72; RESP 16; TEMP 36.1; O2SAT 97; BMI 38.1
--- NOTE | 2025-05-11 11:44 | ED.GENADULT ---
HPI - General Adult General Chief complaint: Chest Pain Stated complaint: chest pain Related Data Home Medications ?Medication ?Instructions ?Recorded ?Confirmed acetaminophen 500 mg tablet 500 mg PO Q6H PRN 12/26/24 aspirin 81 mg tablet,delayed 81 mg PO DAILY 12/26/24 release cetirizine 10 mg tablet (Zyrtec) 10 mg PO DAILY PRN 12/26/24 clobetasol 0.05 % shampoo 1 appl topical BEDTIME 12/26/24 fluocinolone 0.01 % scalp oil and 1 appl topical BEDTIME 12/26/24 shower cap gabapentin 100 mg capsule 100 mg PO TID 12/26/24 guselkumab 100 mg/mL subcutaneous 100 mg subcut Q8W 12/26/24 auto-injector (Fermin) ketoconazole 2 % topical cream 1 appl topical DAILY 12/26/24 loratadine 10 mg tablet (Claritin) 10 mg PO DAILY 12/26/24 metoclopramide HCl 10 mg tablet 10 mg PO Q6H PRN 12/26/24 milk thistle 500 mg capsule 1,000 mg PO DAILY 12/26/24 avnezxcd-adal-bxit 8 mg-folic 400 1 tab PO DAILY 12/26/24 mcg-K 50 mcg-lutein 300 mcg tablet (Centrum Silver Women) pantoprazole 40 mg tablet,delayed 40 mg PO DAILY 12/26/24 release roflumilast 0.3 % topical foam 1 appl topical DAILY 12/26/24 (Zoryve) rosuvastatin 20 mg tablet 20 mg PO DAILY 12/26/24 ruxolitinib 1.5 % topical cream 1 appl topical BID 12/26/24 (Opzelura) vitamin E mixed 400 unit tablet unit PO 12/26/24 ibuprofen 200 mg tablet (Advil) 400 mg PO Q6H 01/03/25 fluconazole 150 mg tablet 200 mg PO QWEEK 04/18/25 olmesartan 20 mg tablet 10 mg PO DAILY 04/18/25 pregabalin 75 mg capsule 150 mg PO BID 04/18/25 tirzepatide 5 mg/0.5 mL 5 mg subcut QWEEK 04/18/25 subcutaneous pen injector (Oscar) Allergies Allergy/AdvReac Type Severity Reaction Status Date / Time semaglutide (From [facility]) Allergy Intermediate Nausea Verified 05/11/25 11:46 lisinopril Allergy Mild Cough Verified 05/11/25 11:46 morphine Allergy Mild vomitting Verified 05/11/25 11:46 perfume Allergy Rash Verified 05/11/25 11:46 ethromycin Allergy Mild Nausea Uncoded 05/11/25 11:46 PMFSH Past Medical History Medical History BENSON (nonalcoholic steatohepatitis) delivery delivered FH: cholecystectomy History of endometrial biopsy Hx of mammogram Normal hysteroscopy Uterine polyp Diabetic retinopathy screening Pain of right hip joint Pain, joint, shoulder, left Lower back pain Neck pain Joint pain Seborrheic psoriasis Menometrorrhagia Steatosis of liver Chronic kidney disease Gastritis Gastro-esophageal reflux Intrinsic asthma Allergic rhinitis Hypertensive renal disease Insomnia Obesity with body mass index of 30.0-39.9 Hyperlipemia Vitamin D deficiency Type 2 diabetes mellitus Dermal mycosis Surgical History History of cervical LEEP biopsy affecting care of mother, antepartum H/O tubal ligation History of gynecologic surgery Hx of breast biopsy H/O colonoscopy History of liver biopsy History of orthopedic surgery H/O dilation and curettage Family History Family History Paternal Grandmother ADHD (attention deficit hyperactivity disorder) Obesity Mother Liver problem Cirrhosis of liver Chronic obstructive pulmonary disease Esophageal varices Father Obesity Diabetes mellitus Sleep disorder Systemic hypertensive disorder complication AD (Alzheimer's disease) Maternal Grandmother Diabetes mellitus Arthritis Allergy Sister Malignant tumor of breast Paternal Grandfather Alcohol abuse Brother Acute Crohn's disease Social History Social History Advance Directives: No Advance Directives Information Provided: No Physical Exam ED Vital Signs: BMI result Body Mass Index 38.1 Course Course Course Narrative: This is a rapid medical exam performed by Johnnie Nelson NP: Additional HPI, ROS, PE not included below will be deferred to primary provider. Patient is a 65-year-old female presenting with complaining of sharp, tight sternal pain which began while sitting in her car and lasted about 15 minutes. Associated tightness to neck and left side of jaw. States pain is gone but still has a slight tightness to chest/jaw area. Denies diaphoresis, nausea, vomiting. Plan: EKG, labs, CXR Patient left the emergency department before myself or any of the other clinicians could review or explain physical exam findings, test results, need or lack there of for additional testing, treatment options, or a treatment plan. Medical Decision Making Lab Data 05/11/25 13:25 05/11/25 13:25 Labs: Lab Results 05/11/25 Range/Units 13:25 WBC 7.2 (4.8-10.8) X10*3/uL RBC 4.13 L (4.20-5.50) X10*6/uL Hgb 13.2 (12.0-16.0) g/dl Hct 37.8 (37.0-47.0) % MCV 91.5 (80.0-98.0) fL MCH 32.0 (27.0-33.0) pg MCHC 34.9 (31.0-35.0) g/dl RDW 13.3 (11.0-16.0) % Plt Count 174 (160-400) X10*3/uL MPV 10.2 (9.4-12.3) fL Immature Gran % (Auto) 0.1 (0.0-0.4) % Neut % (Auto) 57.8 (45-73) % Lymph % (Auto) 30.5 (20-40) % [place] % (Auto) 7.9 (2-11) % Eos % (Auto) 3.1 (0-4) % Baso % (Auto) 0.6 (0-2) % Lymph # (Auto) 2.2 (1.2-4.9) X10*3/uL [place] # (Auto) 0.6 (0.1-1.2) X10*3/uL Eos # (Auto) 0.2 (0.0-0.4) X10*3/uL Baso # (Auto) 0.0 (0.0-0.2) X10*3/uL Abs Immat Gran (auto) 0.01 (0.00-0.03) X10*3/uL Absolute Neuts (auto) 4.2 (2.0-8.3) x10*3/uL Absolute Nucleated RBC 0.000 (0.0-0.012) X10*3/uL Nucleated RBC % (auto) 0.0 (0.0-0.2) /100WBC Sodium 142 (135-145) mmol/L Potassium 4.0 (3.3-5.1) mmol/L Chloride 107 (96-108) mmol/L Carbon Dioxide 28 (22-29) mmol/L Anion Gap 11 L (12-20) BUN 22 H (9-16) mg/dL Creatinine 0.75 (0.5-1.4) mg/dL Estim Creat Clear Calc 87.5 Estimated GFR > 60 Random Glucose 110 (60-115) mg/dL Calcium 9.1 (8.4-10.2) mg/dL Total Bilirubin 0.3 (0.0-1.0) mg/dL AST 28 (5-31) U/L ALT 34 H (0-31) U/L Alkaline Phosphatase 124 H (39-117) U/L Troponin I High Sens < 2.7 (<3.5-17.0) ng/L Total Protein 7.2 (6.5-8.0) g/dL Albumin 4.3 (3.5-5.0) g/dL Discharge Plan Discharge Clinical Impression: Diagnosis unknown Patient Disposition: Left W/O Completing Treatment Prescriptions: No Action ibuprofen [Advil] 200 mg tablet 400 mg PO Q6H pregabalin 75 mg capsule 150 mg PO BID Mounjaro 5 mg/0.5 mL pen injector 5 mg subcut QWEEK acetaminophen 500 mg tablet 500 mg PO Q6H PRN aspirin 81 mg tablet,delayed release (DR/EC) 81 mg PO DAILY Centrum Silver Women 8 mg iron-400 mcg-50 mcg tablet 1 tab PO DAILY loratadine [Claritin] 10 mg tablet 10 mg PO DAILY clobetasol 0.05 % shampoo 1 appl topical BEDTIME fluocinolone and shower cap 0.01 % oil 1 appl topical BEDTIME Rx Instructions: apply a thin film onto wet scalp and massage in, cover with shower cap, leave in overnight or a minimum of 4 hours before washing off with shampoo gabapentin 100 mg capsule 100 mg PO TID ketoconazole 2 % cream 1 appl topical DAILY metoclopramide HCl 10 mg tablet 10 mg PO Q6H PRN milk thistle 500 mg capsule 1,000 mg PO DAILY Rx Instructions: give with meal/snack Opzelura 1.5 % cream 1 appl topical BID pantoprazole 40 mg tablet,delayed release (DR/EC) 40 mg PO DAILY rosuvastatin 20 mg tablet 20 mg PO DAILY Tremfya 100 mg/mL auto-injector 100 mg subcut Q8W vitamin E mixed 400 unit tablet PO Zoryve 0.3 % foam 1 appl topical DAILY cetirizine [Zyrtec] 10 mg tablet 10 mg PO DAILY PRN fluconazole 150 mg tablet 200 mg PO QWEEK olmesartan 20 mg tablet 10 mg PO DAILY Discharge Date/Time: 05/11/25 15:15
[2025-05-11 13:29] LABS: MANUAL DIFF FLAG NO
[2025-05-11 13:35] LABS: Hematocrit 37.8 % (37.0-47.0); Hemoglobin 13.2 g/dl (12.0-16.0); Imm Gran Abs Auto 0.01 X10*3/uL (0.00-0.03); Imm Gran Pct Auto 0.1 % (0.0-0.4); Lymphocytes Absolute Auto 2.2 X10*3/uL (1.2-4.9); Mean Corpuscular HGB Conc 34.9 g/dl (31.0-35.0); Mean Corpuscular Hemoglobin 32.0 pg (27.0-33.0); Mean Corpuscular Volume 91.5 fL (80.0-98.0); NRBC Abs Auto 0.000 X10*3/uL (0.0-0.012); NRBC Pct Auto 0.0 /100WBC (0.0-0.2); Platelet Count 174 X10*3/uL (160-400); Red Blood Count 4.13 X10*6/uL (4.20-5.50); White Blood Count 7.2 X10*3/uL (4.8-10.8)
[2025-05-11 13:45] LABS: Alanine Aminotransferase 34 U/L (0-31); Albumin Level 4.3 g/dL (3.5-5.0); Alkaline Phosphatase 124 U/L (39-117); Anion Gap 11 (12-20); Aspartate Amino Transferase 28 U/L (5-31); Blood Urea Nitrogen 22 mg/dL (9-16); Calcium 9.1 mg/dL (8.4-10.2); Carbon Dioxide 28 mmol/L (22-29); Chloride 107 mmol/L (96-108); Creatinine Clr Calc Pharmacy 87.5; Estimated Glomerular Filt Rate > 60; Potassium 4.0 mmol/L (3.3-5.1); Sodium 142 mmol/L (135-145); Total Protein 7.2 g/dL (6.5-8.0)
[2025-05-11 13:58] LABS: Troponin-I High Sensitivity < 2.7 ng/L (<3.5-17.0)
--- OUTSIDE RECORDS SUMMARY | 2025-05-11 14:34 | XMS_ITS | Clinical Summary ---
Author Organization [facility] Address [address] [place] [address] Care Team Providers Care Fish Bait Picker Name Role Phone Mesfin Parada PA-C Primary Care Provider [phone]- [phone] Immunizations Name Administration Dates Next Due Covid-19 [...] age to complete this topic Care Teams Fish Bait Picker Relationship Specialty Start Date End Date Mesfin Parada PA-C [address] [id number] PCP - General Medical Services 11/10/20
--- OUTSIDE RECORDS SUMMARY | 2025-05-11 14:34 | XMS_ITS | Clinical Summary ---
Author Organization [facility] Address [address] [place] [address] Phone Care Team Providers Care Asphalt Distributor Operator Name Role Phone Mesfin Parada Primary Care [...] mouth 1 (one) time each day. Active ysdoyjrc-syh-bp on-FA-vit K-lut (Centrum Silver Women) 8 mg [...] by the office 2 tablet 5 Active cevrupke-hxi-gk on-FA-vit K-lut (Centrum Silver Women) 8 mg [...] Type 2 diabetes mellitus wit hout complication ([facility]/HCC V24, [facility] V28) 02/13/2023 Stage 2 chronic kidney disease [...] Description 03/01/2025 10:47 AM EDT Anesthesia Event [facility] [address] [place] [address] Carlos Lozada DO 03/01/2025 9:26 AM EDT - 03/01/2025 11:59 PM EDT Hospital Encounter [facility] [address] [place] [address] Von Henley MD Elliott, Barbara J, CRNA [...] History Medical History Date Comments Diabetes mellitus ([facility]/HCC V24, [facility]/HCC V28) Hypertension Hyperlipidemia GERD (gastroesophageal reflux disease) [...] 04/19/2020 04/19/2018 Cholesterol Screening (Lipid Panel) 09/06/2022 HIV Screening 09/06/2022 Social Influencers of Health Screening 09/06/2022 Depression Screening 10/05/2024 Diabetes: Annual Urine Albumin-Creatinine Ratio (uACR) 12/21/2024 [...] Maintenance Results * COLONOSCOPY Anesthesia - MAC; [facility] ENDOSCOPY (03/01/2025 11:12 AM EDT) Anatomical Region Laterality Modality Endoscopy 03/01/2025 11:0 5 AM EDT Impressions 03/01/2025 11:07 AM EDT - Diverticulosis in the sigmoid colon. - The examination was otherwise normal on direct and retroflexion views. - No specimens collected. Recommendation: - Repeat colonoscopy in 10 years for screening purposes. Narrative 03/01/2025 11:07 AM EDT [facility] Patient Name: Claudia Duarte Procedure Date: [...] or abscess without bleeding CPT copyright 2021 [employer]. All rights reserved. The codes documented in this report are preliminary and upon powdered metal supervisor review may be revised to meet current compliance requirements. Von Henley MD 03/01/2025 11:07:24 AM This report has been signed electronically.Von Henley MD Number of Addenda: 0 Note Initiated On: 03/01/2025 11:05 AM Endoscopy Department at [facility] - [address] [place] [phone] Procedure Note Von Henley MD - 03/01/2025 [facility] Patient Name: Claudia Duarte Procedure Date: [...] or abscess without bleeding CPT copyright 2020 [employer]. All rights reserved. The codes documented in this report are preliminary and upon powdered metal supervisor reviewmay be revised to meet current compliance requirements. Von eHnley MD 03/01/2025 11:07:24 AM This report has been signed electronically.Von Henley MD Number of Addenda: 0 Note Initiated On: 03/01/2025 11:05 AM Endoscopy Department at [facility] - [address] [place] [phone] IMPRESSION: - Diverticulosis in the sigmoid colon. - The examination was otherwise normal on directand retroflexion views. - No specimens collected. Recommendation: - Repeat colonoscopy in 10 years for screening purposes. us Von Henley MD GI~PROCEDURE ORDERABLES Fin al Result * EGD Anesthesia - MAC; [facility] ENDOSCOPY (03/01/2025 11:12 AM EDT) Anatomical Region Laterality Modality Endoscopy 03/01/2025 10:5 2 AM EDT Impressions 03/01/2025 11:12 AM EDT - Normal esophagus. - Small hiatal hernia. - Normal examined duodenum. - No specimens collected. Recommendation: - Continue present medications. Narrative 03/01/2025 11:12 AM EDT [facility] Patient Name: Claudia Duarte Procedure Date: [...] was normal. Procedure Code(s): --- Professional --- 14326, Esophagogastroduodenoscopy, flexible, transoral; diagnostic, including collection of specimen(s) by brushing or washing, when performed (separate procedure) Diagnosis Code(s): --- Professional --- K44.9, Diaphragmatic hernia without obstruction or gangrene R12, Heartburn K21.9, Gastro-esophageal reflux disease without esophagitis CPT copyright 2020 [employer]. All rights reserved. The codes documented in this report are preliminary and upon powdered metal supervisor review may be revised to meet current compliance requirements. Von Henley MD 03/01/2025 11:12:24 AM This report has been signed electronically.Von Henley MD Number of Addenda: 0 Note Initiated On: 03/01/2025 10:52 AM Scope In: Scope Out: Endoscopy Department at [facility] - [address] [place] [phone] Procedure Note Von Henley MD - 03/01/2025 [facility] Patient Name: Claudia Duarte Procedure Date: [...] was normal. Procedure Code(s): --- Professional --- 54582, Esophagogastroduodenoscopy, flexible, transoral; diagnostic, including collection of specimen(s) by brushing or washing, when performed (separate procedure) Diagnosis Code(s): --- Professional --- K44.9, Diaphragmatic hernia without obstruction or gangrene R12, Heartburn K21.9, Gastro-esophageal reflux disease without esophagitis CPT copyright 2020 [employer]. All rights reserved. The codes documented in this report are preliminary and upon powdered metal supervisor reviewmay be revised to meet current compliance requirements. Von Henley MD 03/01/2025 11:12:24 AM This report has been signed electronically.Von Henley MD Number of Addenda: 0 Note Initiated On: 03/01/2025 10:52 AM Scope In: Scope Out: Endoscopy Department at [facility] - [address] [place] [phone] IMPRESSION: - Normal esophagus. - Small hiatal hernia. - Normal examined duodenum. - No specimens collected. Recommendation: - Continue present medications. Von Henley MD GI~PROCEDURE ORDERABLES Fin al Result * Hepatitis C virus quantitative molecular study (12/21/2024 12:17 PM EDT) [facility] HCV Qual Interp Not Detected Not Detected LAB MOLECULAR DIAGNOSTICS METHOD 12/22/2024 11:00 AM EDT [facility] Comment:HCV RNA not detected , unable to report quantitative results. Blood Venous blood specimen / Unknown Venipuncture / Unknown 12/21/2024 12:17 PM EDT 12/21/2024 1:32 PM EDT Von Henley MD LAB BLOOD ORDERABLES Final Result [facility] [address] [place] [address], [place] [phone] * (ABNORMAL) Comprehensive metabolic panel (12/21/2024 12:17 PM EDT) [facility] Sodium 140 133 - 145 mmol/L [...] mg/dL LAB CHEMISTRY METHOD 12/21/2024 4:05 PM [facility] BUN 17 5 - 25 mg/dL LAB CHEMISTRY METHOD 12/21/2024 4:05 PM [facility] Creatinine 0.72 0.50 - 1.10 mg/dL LAB CHEMISTRY METHOD 12/21/2024 4:05 PM [facility] eGFR 94 >=60 mL/min/1. 73m2 LAB CHEMISTRY METHOD 12/21/2024 4:05 PM [facility] Comment:Calculation based on the Chronic Kidney Disease Epidemiology Collaboration (CKD-EPI) equation refit without adjustment for race. BUN/Creatinine Ratio 23.6 LAB CHEMISTRY METHOD 12/21/2024 4:05 PM [facility] Calcium 9.2 8.5 - 10.5 mg/dL LAB CHEMISTRY METHOD 12/21/2024 4:05 PM [facility] AST (SGOT) 27 10 - 42 unit/L LAB CHEMISTRY METHOD 12/21/2024 4:05 PM [facility] ALT (SGPT) 43 10 - 60 unit/L LAB CHEMISTRY METHOD 12/21/2024 4:05 PM [facility] Alkaline Phosphatase 151(H) 42 - 121 unit/L LAB CHEMISTRY METHOD 12/21/2024 4:05 PM [facility] Total Protein 7.3 6.0 - 8.0 g/dL LAB CHEMISTRY METHOD 12/21/2024 4:05 PM [facility] Albumin 3.9 3.2 - 5.0 g/dL LAB CHEMISTRY METHOD 12/21/2024 4:05 PM [facility] Total Bilirubin 0.5 0.0 - 1.4 mg/dL LAB CHEMISTRY METHOD 12/21/2024 4:05 PM [facility] Blood Venous blood specimen / Unknown Venipuncture / Unknown 12/21/2024 12:17 PM EDT 12/21/2024 1:30 PM EDT us Von Henley MD LAB BLOOD ORDERABLES Final Result [facility] [address] [place] [address], from Last 3 Months or Most Recently Relevant to Health Maintenance Insurance [facility] Care Teams Asphalt Distributor Operator Relationship Specialty Start Date End Date Mesfin Parada PA [address] [phone] PCP - General Internal Medicine 09/27/24
== END 2025-05-11 15:15 | disposition left against medical advice (07) ==
PROVIDERS: Registered Nurse Emergency; Emergency Provider Emergency Medicine; PCP Physician Assistant Medical
DX: R07.9 Chest pain, unspecified (principal); Z53.21 Procedure and treatment not carried out due to patient leaving prior to being seen by health care provider
CPT/HCPCS: 36415; 71046; 80053; 84484; 85025; 93005; 99283

== ENCOUNTER → 2025-05-11 11:38 | Outpatient (BNV) | payer BC, SELFPAY | PROVIDERS: Emergency Provider Emergency Medicine; PCP Physician Assistant Medical; Visit Provider Internal Medicine | DX: R07.9 Chest pain, unspecified (principal) | CPT/HCPCS: 93010 ==

== ENCOUNTER → 2025-05-11 11:46 | Outpatient (BNV) | payer BC, SELFPAY | PROVIDERS: PCP Physician Assistant Medical; Visit Provider Radiology Diagnostic Radiology | DX: R07.9 Chest pain, unspecified (principal) | CPT/HCPCS: 71046 ==

== ENCOUNTER 2025-08-23 10:24 | Outpatient (AMB) | payer BC, SELFPAY ==
--- NOTE | 2025-08-23 10:34 | A.OFFVIS_ITS ---
Vital Signs 08/23/25 10:35 Height 5 ft 4 in Weight 214 lb 11.684 oz BMI 36.9 BP 100/80 Blood Pressure Location Rt brachial Position Sitting Pulse 80 Pulse Source Pulse Oximeter Pulse Oximetry (%) 98 Oxygen Delivery Method Room Air Intake Visit Reasons: rt hip Pain/cortisone inj Intake Note: Rihgt hip pain and cortisone inj Accompanied by: Self / Same As Patient Allergies semaglutide (From [facility]) Allergy (Intermediate, Verified 08/23/25 10:35) Nausea lisinopril Allergy (Mild, Verified 08/23/25 10:35) Cough morphine Allergy (Mild, Verified 08/23/25 10:35) vomitting perfume Allergy (Verified 08/23/25 10:35) Rash ethromycin Allergy (Mild, Uncoded 05/11/25 11:46) Nausea HPI HPI rt hip Pain/cortisone inj: Details: She saw orthopedic surgery and reports that right hip osteoarthritis is severe. She had x-rays done. She also had x-rays performed at an urgent care that was concerned about potential fracture. The 2nd x-ray performed at the orthopedic surgeon's office did not show any fracture. She has been experiencing right trochanteric bursa pain for a few weeks. She had a fall prior to worsening hip pain. She is also experiencing groin pain. She has been using ibuprofen, Lyrica and Tylenol. She continues with PT with 1 last session next week. She recently had an x-ray of her right echo and was told she had severe arthritis in her ankle. [facility] Medical History BENSON (nonalcoholic steatohepatitis) delivery delivered FH: cholecystectomy Hx of mammogram Normal hysteroscopy Uterine polyp Diabetic retinopathy screening Pain of right hip joint Pain, joint, shoulder, left Lower back pain Neck pain Joint pain Seborrheic psoriasis Menometrorrhagia Steatosis of liver Chronic kidney disease Gastritis Gastro-esophageal reflux Intrinsic asthma Allergic rhinitis Hypertensive renal disease Insomnia Obesity with body mass index of 30.0-39.9 Hyperlipemia Vitamin D deficiency Type 2 diabetes mellitus Dermal mycosis Surgical History History of endometrial biopsy History of cervical LEEP biopsy affecting care of mother, antepartum H/O tubal ligation History of gynecologic surgery Hx of breast biopsy H/O colonoscopy History of liver biopsy History of orthopedic surgery H/O dilation and curettage Family History Paternal Grandmother ADHD (attention deficit hyperactivity disorder) Obesity Mother Liver problem Cirrhosis of liver Chronic obstructive pulmonary disease Esophageal varices Father Obesity Diabetes mellitus Sleep disorder Systemic hypertensive disorder complication AD (Alzheimer's disease) Maternal Grandmother Diabetes mellitus Arthritis Allergy Sister Malignant tumor of breast Paternal Grandfather Alcohol abuse Brother Acute Crohn's disease Physical Exam Vital Signs: Last Vital Signs Pulse 80 08/23/25 10:35 BP 100/80 08/23/25 10:35 Pulse Ox 98 08/23/25 10:35 Oxygen Delivery Method Room Air 08/23/25 10:35 BMI result Body Mass Index 36.9 Const Other: General: Comfortable Skin: No lesions seen MSK: Tender to palpate right trochanteric bursa. Tender right groin region. Normal range of motion of bilateral hips. Office Procedures AMB Joint Injection/Aspiration Joint Injection/Aspiration Details: Right trochanteric bursa Prep: site was prepped using aseptic technique Injected: 40 mg of, Kenalog, with 1 mL of and 1% plain lidocaine Procedure: Informed verbal consent was obtained. The patient tolerated the procedure well. Postprocedure protocol was discussed with patient. Coding 07961 - Large joint Procedure code (CPT) selection complete Office Meds lidocaine (PF) 10 mg/mL (1 %) injection solution Performing Provider: Kam Barlow MD Performing Location: [facility] Administered by: Kam Barlow MD on 08/23/25 11:10 Dose Route Admin Location Dispensed Lot Number Expiration Date [facility] Soakers Supervisor 1 mL Infiltration 2 mL [id number] 01/02/27 37577-071-42 [facility] Total Dispensed Waste 2 mL 50 % Kenalog 40 mg/mL suspension for injection Performing Provider: Kam Barlow MD Performing Location: [facility] Administered by: Kam Barlow MD on 08/23/25 11:10 Dose Route Admin Location Dispensed Lot Number Expiration Date [facility] Soakers Supervisor 40 mg intrabursal 1 mL [id number] 04/03/27 [id number] [employer] Total Dispensed Waste 1 mL 0 % Assessment & Plan Assessment & Plan (1) Osteoarthritis of right hip: Comment: Mild bilateral hip osteoarthritis right worse than left on x-ray 12/2024. She was recently told that she has severe osteoarthritis of right hip by orthopedic surgery when x-ray was repeated. She is symptomatic with right groin pain. She had initial benefit with PT. Code(s): M16.11 - Unilateral primary osteoarthritis, right hip Category: Medical Qualifiers: Osteoarthritis type: primary Qualified Code(s): M16.11 - Unilateral primary osteoarthritis, right hip Plan: Follow up with orthopedic surgery. Consider intra-articular hip cortisone injection Encouraged weight loss. She is on Manjaro. Return to clinic in 3 months (2) Trochanteric bursitis, right hip: Comment: Chronic. Recurrent Rheumatology history: She has had partial benefit with physical therapy with persistent symptoms. Right trochanteric bursa cortisone injection 12/2024 provided benefit. Code(s): M70.61 - Trochanteric bursitis, right hip Category: Medical Plan: Patient received right trochanteric bursa cortisone injection this visit Return to clinic in 3 months (3) Right ankle pain: Comment: With ambulation and limited subjective plantar flexion. Due to osteoarthritis. She was referred to PT last visit. Code(s): M25.571 - Pain in right ankle and joints of right foot Category: Medical Qualifiers: Chronicity: chronic Qualified Code(s): M25.571 - Pain in right ankle and joints of right foot; G89.29 - Other chronic pain Plan: Continue home exercise program Orders: Orders AMB Joint Injection/Aspiration Today M70.61 - Trochanteric bursitis, right hip Coding Level of Care Code Est Pt Level 4 (58111) Complex EM visit Add On G2211 Diagnoses Primary osteoarthritis of right hip M16.11 Osteoarthritis type: primary Trochanteric bursitis, right hip M70.61 Chronic pain of right ankle M25.571; G89.29 Chronicity: chronic CPT Codes Coding - 74164 Large joint: 71526 - Large joint ([id number])
[2025-08-23 10:35] VITALS: BP 100/80; PULSE 80; O2SAT 98; BMI 36.9
--- OUTSIDE RECORDS SUMMARY | 2025-08-23 20:01 | XMS_ITS | Data Portability ---
Author Organization [facility], Main Office Address [address] [facility] [address] [place] [id number] Care Team Providers Care Liability Claims Adjuster Name Role Phone LEELA MAHAN Pharmacy Clinical Specialist RANDI GRIER Hospitalist Medical Director LUX HARRIS Primary Care Provider TAHMINA MOROCHO Commodities Clerk YUSEF HENLEY Chief Of Harbor Patrol [phone] GISSELLE GORDON Commercial Coordinator [phone] General Surgeon ASHLEY CESPEDES Administrative Liaison MIGUEL GONZALES Orthopedic Surgeon [phone] Assessment No assessment recorded. Plan of Treatment Reminders Order Date Submit Date Provider Last Modified By Organization Details Last Modified Time Details Appointments BILLING ONLY 2024 10:00A M JUN SCHEDULE Not available Not available Not available Follow Up DM 30 2025 09:30A M Priscila Harris PA-C Not available Not available Not available FOLLOW UP 30MIN 2025 10:00A M Lux [facility]AO-[facility] Not available Not available Not available Lab vitamin D, 25-hydrox y, total, serum 2024 025 LOUISE [facility], [address], [place], [address], 07/10/2025 12:08:43 HbA1c (hemoglob in A1c), blood 2024 025 LOUISE [facility] (Centralized Electronic Ordering - All Locations), Patient Can Go To The Location Of Their Choice, [id number] 07/10/2025 12:08:44 microalbu min/creat inine, mass ratio, urine 2024 026 pmadden [facility] (Centralized Electronic Ordering - All Locations), Patient Can Go To The Location Of Their Choice, [id number] 07/10/2025 12:08:34 lipid panel, serum 2024 025 LOUISE [facility] (Centralized Electronic Ordering - All Locations), Patient Can Go To The Location Of Their Choice, [id number] 07/10/2025 12:08:44 CK (creatine kinase), total, serum 2024 025 LOUISE [facility] (Centralized Electronic Ordering - All Locations), Patient Can Go To The Location Of Their Choice, 07/10/2025 12:08:44 CMP, serum or plasma 2024 025 LOUISE [facility] (Centralized Electronic Ordering - All Locations), Patient Can Go To The Location Of Their Choice, [id number] 07/10/2025 12:08:44 hemoglobi n A1C, fingersti ck 2024 025 In-Office Order, Internal Use Only DO Not Attach Compendium DO Not Attach Compendium, Do Not Delete/merge, [id number] 03/21/2025 11:22:33 microalbu min/creat inine, mass ratio, urine 2024 025 LOUISE [facility] (Centralized Electronic Ordering - All Locations), Patient Can Go To The Location Of Their Choice, [id number] 03/22/2025 20:05:49 Referral nutrition ist/dieti yakelin referral 2024 025 [email or web address] [facility], [address], [place], [address], 07/10/2025 12:19:20 sleep medicine referral - Snoring and apneas, BMI 37.7. 2024 025 [facility], [address] [place], [address], 04/13/2025 13:38:32 Procedures None recorded. Surgeries None recorded. Imaging None recorded. Medication Orders Mounjaro 7.5 mg/0.5 mL subcutane ous pen injector 2024 025 [email or web address]/Pharmacy #[id number], [address] [place], [address], 07/10/2025 11:35:32 Mounjaro 5 mg/0.5 mL subcutane ous pen injector [address]/Pharmacy #[id number], [address] [place], [address], 07/10/2025 11:35:27 Patient Targets Encounter Date Encounter Id Patient Goals Patient Target Last Modified By Organization Details Last Modified Time 07/10/2025 [id number] Ongoing of Microalbumin/Cre atinine Ratio yearly Not available Not available Not available Ongoing of Blood Pressure 130 / 80 Not available Not available Not available Ongoing of Hemoglobin A1C 2 times per yr Not available Not available Not available Ongoing of Hemoglobin A1C <7 Not available Not available Not available 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 Patient preferences and goals incorporated in plan and updated/modified as needed to reflect progress toward goal. Pt advised and agrees to work on self-monitoring behaviors; begin an appropriate diet for weight loss (such as a low carbohydrate diet), to do moderate exercise (such as walking) for approximately 150 minutes per week; and to identify desirable and timely rewards that will reinforce achievement of specific weight loss goals. [email or web address] Not available 07/10/2025 12:08:15 Patient Instructions Encounter Date Encounter Id Patient Instructions Last Modified By Organization Details Last Modified Time 03/21/2025 [id number] learning about type 2 diabetes Not available 03/21/2025 11:22:31 type 2 diabetes: care instructions Not available 03/21/2025 11:22:31 snoring: care instructions Not available 03/21/2025 11:22:32 high blood pressure: care instructions Not available 03/21/2025 11:22:32 learning about high blood pressure Not available 03/21/2025 11:22:32 05/16/2025 [id number] learning about type 2 diabetes Not available 05/16/2025 11:12:46 type 2 diabetes: care instructions Not available 05/16/2025 11:12:46 body mass index: care instructions Not available 05/16/2025 11:12:45 learning about healthy weight Not available 05/16/2025 11:12:46 Medications (OTC, herbal therapies, supplements) reviewed and reconciled with patient and or caregiver, including potential side effects, drug interactions, instructions, and the consequences of not taking medication. Reviewed potential barriers to medication adherence, such as side effects from medication or cost of medication. [email or web address] Not available 05/16/2025 10:53:56 07/10/2025 [id number] Medications (OTC, herbal therapies, supplements) reviewed and reconciled with patient and or caregiver, including potential side effects, drug interactions, instructions, and the consequences of not taking medication. Reviewed potential barriers to medication adherence, such as side effects from medication or cost of medication. pmadden Not available 07/10/2025 11:46:09 Reason for Referral Sleep Medicine Referral for Snoring Snoring and apneas, BMI 37.7. Referring Physician: Priscila Harris, Internal Medicine, Encounter Date: 03/21/2025 Microfilm Operator/dietitian Refer ral for Body mass index 30+ - obesity Referring Physician: Lux Harris, Internal Medicine, Encounter Date: 07/10/2025 Results Created Date Observation Date Name Description Value Unit Range Abnormal Flag Note LastModifiedBy Organization Detail LastModifiedTime 03/21/20 25 03/22/2025 ALBUM IN/CR EAT RATIO , RANDO M UR creatinine, urine 243.8 mg/dL not estab. normal Not Available [facility] ([facility]) [address] [facility], [place], [address], 03/22/2025 20:05:48 03/21/20 25 03/22/2025 ALBUM IN/CR EAT RATIO , KYLER Chavis UR albumin, urine 17.7 ug/mL not estab. Not Available [facility] ([facility]) [address] [facility], [place], [address], 03/22/2025 20:05:48 03/21/20 25 03/22/2025 ALBUM IN/CR EAT RATIO , RANDO Partha UR alb/creat ratio 7 mg/g_ creat 0-29 Sarah l: 0 - 29 Moder ately incre ased: 30 - 300 Sever bethany incre ased: >300 Not Available [facility] ([facility]) [address] [facility], [place], [address], 03/22/2025 20:05:48 03/21/20 25 03/21/2025 hemog lobin A1C, finge rstic k A1C 5.9 % 4-6 normal Not Available In-Office Order Internal Use Only DO Not Attach Compendium DO Not Attach Compendium, Do Not Delete/merge, [id number] 03/21/2025 09:31:38 03/01/20 25 colon oscop y scree elena (PROC ) No observ ation record ed. [facility]S Dept [address] [place], [address], 03/01/2025 13:01:42 03/01/20 25 EGD No observ ation record ed. [email or web address] [facility] [address] [place], [address], 03/01/2025 13:01:41 05/11/20 25 05/11/2025 XR, chest , 2 view No observ [facility]ion [facility] [address] [place] [address], [address], 05/13/2025 21:15:56 Result Notes None recorded. Problems Name Problem SNOMED Code Status Onset Date Resolution Date Notes Provider Name and Address Organization Details Recorded Time Allergic rhinitis 44169959 Active Not Available [facility] 3 12:19:24 Pain of joint 77323785 Active Not Available [facility] 3 12:19:24 Intrinsi c asthma 247635560 Active CLARITA Sharma, [facility] 5 09:41:42 Screenin g for malignan t neoplasm of breast Completed 2018 Sandy carrillo [facility] 8 15:18:50 Elevated level of transami nase and lactic acid dehydrog enase 267151615 Completed 01/01/2021 Priscila Harris PA-C [address], [place], [address] , [facility] 1 10:33:18 Adult health examinat ion Completed 09/16/2016 JUN Hughes, [facility] 6 14:10:36 Gastroes ophageal reflux disease 432537378 Active Not Available [facility] 3 12:19:23 Neck pain 03021043 Active CLARITA Sharma [facility] 5 09:41:42 Difficul ty speaking Completed 01/01/2021 Priscila Harris PA-C [address], [place], [address] , [facility] 1 10:33:14 Respirat ory symptom 690891401 Completed 09/16/2016 JUN Hughes, [facility] 6 14:10:28 Edema 133891185 Completed 2018 Sandy carrillo, [facility] 8 15:18:53 Cough 20410024 Completed 09/16/2016 JUN Hughes, [facility] 6 14:10:53 Acute pharyngi tis 385351992 Completed 09/16/2016 JUN Hughes, [facility] 6 14:10:43 Anemia 552658923 Completed 01/01/2021 Priscila Harris PA-C [address], [place], [address] , [facility] 1 10:33:08 Menorrha anna 942918839 Active Not Available [facility] 3 12:19:24 Acute sinusiti s 58177024 Completed 09/16/2016 JUN Hughes, [facility] 6 14:10:24 Iron deficien cy anemia 33267036 Completed 06/19/2022 Lux Harris PA-C [address], [place], [address] , [facility] 2 13:33:32 Body mass index 30+ - obesity 696616762 Completed 08/30/2019 [facility] 5 09:50:24 Hypergly cemia 90032659 Completed 01/01/2021 Priscila Harris PA-C [address], [place], [address] , [facility] 1 10:33:28 Increase d liver function 80537744 Active Not Available [facility] 3 12:19:24 Dyspnea 948686789 Completed 10/27/2019 [facility] 0 09:33:10 Exposure to SARS-CoV -2 Completed 11/15/2020 Removal Reason: Problem added by user shantel taylor from the COVID-19 watch flag [facility] 1 15:37:10 General examinat ion of patient Completed 200804/25/2014 RECORDED 06/26/20 09 9:11AM BY RUSTY HUGHES ON/ADDEN YVES Yost, [facility] [address], [place], [address] , [facility] 6 13:17:26 Eruption 747942083 Completed 200804/25/2014 RECORDED 06/26/20 09 9:11AM BY RUSTY HUGHES ON/ADDEN YVES Yost, [facility] [address], [place], [address] , [facility] 6 13:17:25 General examinat ion of patient Completed 200805/15/2014 RECORDED 06/26/20 09 9:11AM BY RUSTY HUGHES ON/OSWALD Yost, [facility] [address], [place], [address] , [facility] 6 13:17:26 Eruption 858636015 Completed 200805/15/2014 RECORDED 06/26/20 09 9:11AM BY RUSTY HUGHES ON/OSWALD [facility], [facility] [address] [facility] [address], [place], [address] , [facility] 6 13:17:25 Infectiv e hepatiti s immuniza tion Completed 201004/25/2014 RECORDED 06/17/20 11 8:43AM BY DIOR GONGORA, HISTORIC AL SUMMARY Briseyda Yost, [facility] [address], [place], [address] , [facility] 6 13:17:26 Administ ration of bacteria l and viral vaccine Completed 201004/25/2014 RECORDED 06/17/20 11 8:45AM BY DIOR GONGORA, HISTORIC AL SUMMARY Briseyda Yost, [facility] [address] [facility] [address], [place], [address] , [facility] 6 13:17:26 Administ ration of measles and mumps and rubella vaccine Completed 201004/25/2014 RECORDED 06/17/20 11 8:44AM BY DIOR GONGORA, HISTORIC AL SUMMARY Briseyda Yost, [facility] [address] [facility] [address], [place], [address] , [facility] 6 13:17:26 Varicell a vaccinat ion Completed 201004/25/2014 RECORDED 06/17/20 11 8:44AM BY DIOR GONGORA, HISTORIC AL SUMMARY Briseyda Yost, [facility] [address] [facility] [address], [place], [address] , [facility] 6 13:17:26 Infectiv e hepatiti s immuniza tion Completed 201005/15/2014 RECORDED 06/17/20 11 8:43AM BY DIOR GONGORA, HISTORIC AL SUMMARY Briseyda Yost, [facility] [address] [facility] [address], [place], [address] , [facility] 6 13:17:26 Administ ration of bacteria l and viral vaccine Completed 201005/15/2014 RECORDED 06/17/20 11 8:45AM BY DIOR GONGORA, HISTORIC AL SUMMARY Briseyda Yost, [facility] [address] [facility] [address], [place], [address] , [facility] 6 13:17:26 Administ ration of measles and mumps and rubella vaccine Completed 201005/15/2014 RECORDED 06/17/20 11 8:44AM BY DIOR GONGORA, HISTORIC AL SUMMARY Briseyda Yost, [facility] [address], [place], [address] , [facility] 6 13:17:26 Varicell a vaccinat ion Completed 201005/15/2014 RECORDED 06/17/20 11 8:44AM BY DIOR GONGORA, MURRAYIC AL SUMMARY Briseyda Yost, [facility] [address], [place], [address] , [facility] 6 13:17:26 Allergic urticari a 36684883 Completed 201104/25/2014 RECORDED 09/07/20 12 2:02PM BY ANDRES BANERJEE MA, ANNOTATI ON/ADDEN DUM Briseyda Yost, [facility] [address], [place], [address] , [facility] 6 13:17:25 Bleeding 855065454 Completed 201104/25/2014 RECORDED 09/07/20 12 2:03PM BY ANDRES BANERJEE MA, ANNOTATI ON/ADDEN DUM Briseyda Yost, [facility] [address], [place], [address] , [facility] 6 13:17:25 Screenin g for malignan t neoplasm of breast Completed 201104/25/2014 RECORDED 09/07/20 12 2:01PM BY ANDRES BANERJEE MA, ANNOTATI ON/ADDEN DUM Sandy Hastings MA [facility] 8 15:18:50 Screenin g for malignan t neoplasm of cervix Completed 201104/25/2014 RECORDED 09/07/20 12 2:01PM BY ANDRES BANERJEE MA, ANNOTATI ON/ADDEN DUM Briseyda Yost, [facility] [address], [place], [address] , [facility] 6 13:17:26 Chest pain 54636600 Completed 201104/25/2014 RECORDED 09/07/20 12 2:02PM BY ANDRES BANERJEE MA, RUSTY ON/OSWALD Yost, [facility] [address], [place], [address] , [facility] 6 13:17:26 Contact dermatit is caused by food in contact with skin 20974382 Completed 201104/25/2014 RECORDED 09/07/20 12 2:01PM BY ANDRES BANERJEE MA, RUSTY ON/OSWALD Yost, [facility] [address], [place], [address] , [facility] 6 13:17:25 Risk of exposure to communic able disease 573958284 Completed 201104/25/2014 RECORDED 09/07/20 12 2:03PM BY ANDRES BANERJEE MA, RUSTY ON/OSWALD Yost, [facility] [address], [place], [address] , [facility] 6 13:17:26 Degenera tion of interver tebral disc Completed 201104/25/2014 RECORDED 09/07/20 12 2:03PM BY ANDRES BANERJEE MA, RUSTY JIMENEZ/OSWALD Yost, [facility] [address], [place], [address] , [facility] 6 13:17:26 Disorder of breast 10554614 Completed 201104/25/2014 RECORDED 09/07/20 12 2:02PM BY ANDRES BANERJEE MA, RUSTY ON/OSWALD Yost, [facility] [address], [place], [address] , [facility] 6 13:17:25 Edema 811890151 Completed 201104/25/2014 RECORDED 09/07/20 12 2:01PM BY ANDRES BANERJEE MA, ALEXAATI ON/ADDEN DUM [facility] 8 15:18:53 Pain in limb 22856810 Completed 201104/25/2014 RECORDED 09/07/20 12 2:03PM BY ANDRES BANERJEE MA, ALEXAATI ON/ADDEN DUM Briseyda Yost, [facility] [address], [place], [address] , [facility] 6 13:17:25 Joint pain in ankle and foot Completed 201104/25/2014 IMPRESSI ON: DOES NOT LOOK LIKE GOUT, INFECTIO N NO TRAUMA, WILL GET XRAY AND DO ICE, REST ELEVATIO N. MAY NEED TO MISS WORK; RECORDED 09/07/20 12 2:01PM BY ANDRES BANERJEE MA, RUSTY ON/ADDEN DUM Briseyda Yost, [facility] [address], [place], [address] , [facility] 6 13:17:25 Lesion of ulnar nerve 498750577 Completed 201104/25/2014 RECORDED 09/07/20 12 2:02PM BY ANDRES BANERJEE MA, ALEXAATI ON/ADDEN DUM Briseyda Yost, [facility] [address], [place], [address] , [facility] 6 13:17:25 Lumbar sprain 910784891 Completed 201104/25/2014 IMPRESSI ON: MOSTLY RESOLVED , GIVEN NOTE TO RTC WITH LIMITATI ONS-LIGH T DUTY/NO HEAVY LIFTING UNTIL RELEASED FROM PT, WILL ALSO BE SEEN BY [facility]; RECORDED 09/07/20 12 2:01PM BY ANDRES BANERJEE MA, RUSTY ON/ADDEN DUM Briseyda Yost, [facility] [address], [place], [address] , [facility] 6 13:17:26 Menopaus al and postmeno pausal disorder s 991608710 Completed 201104/25/2014 RECORDED 09/07/20 12 2:03PM BY ANDRES BANERJEE MA, ANNOTATI ON/ADDEN YVES Yost, [facility] [address], [place], [address] , [facility] 6 13:17:25 Migraine 11075559 Completed 201104/25/2014 RECORDED 09/07/20 12 2:03PM BY ANDRES BANERJEE MA, RUSTY ON/ADDEN YVES Yost, [facility] [address], [place], [address] , [facility] 6 13:17:25 Neck pain 79399594 Completed 201104/25/2014 RECORDED 09/07/20 12 2:03PM BY ANDRES BANERJEE MA, ANNOTRITIKA ON/ADDEN DUM Briseyda Yost, [facility] [address], [place], [address] , [facility] 6 13:17:25 Influenz a vaccine needed 55725850982 06 Completed 201104/25/2014 RECORDED 09/07/20 12 2:01PM BY ANDRES BANERJEE MA, RUSTY ON/KALEIGHEN YVES Yost, [facility] [address], [place], [address] , [facility] 6 13:17:26 Shoulder joint pain 363974193 Completed 201104/25/2014 RECORDED 09/07/20 12 2:02PM BY ANDRES BANERJEE MA, ANNOTRITIKA ON/ADDEN YVES Yost, [facility] [address], [place], [address] , [facility] 6 13:17:25 Adult health examinat ion Completed 201104/25/2014 RECORDED 09/07/20 12 2:01PM BY ANDRES BANERJEE MA, ALEXAATI ON/ADDEN DUM Maria Elena Samayoa MA [facility] 6 14:10:36 Inflamma tion of sacroili ac joint 34050372 Completed 201104/25/2014 RECORDED 09/07/20 12 2:02PM BY ANDRES BANERJEE MA, RUSTY ON/ADDEN DUM Briseyda Yost, [facility] [address] [facility] [address], [place], [address] , [facility] 6 13:17:25 Sleep disorder 89481832 Completed 201104/25/2014 STORY: NONRESTO RATIVE SLEEP/MU LTIFACTO RIAL; RECORDED 09/07/20 12 2:02PM BY ANDRES BANERJEE MA, RUSTY ON/ADDEN DUM Briseyda Yost, [facility] [address], [place], [address] , [facility] 6 13:17:25 Urticari a 014449485 Completed 201104/25/2014 RECORDED 09/07/20 12 2:03PM BY ANDRES BANERJEE MA, RUSTY ON/ADDEN DUM Briseyda Yost, [facility] [address], [place], [address] , [facility] 6 13:17:25 Allergic urticari a 85277664 Completed 201105/15/2014 RECORDED 09/07/20 12 2:02PM BY ANDRES BANERJEE MA, RUSTY ON/ADDEN DUM Briseyda Yost, [facility] [address], [place], [address] , [facility] 6 13:17:25 Bleeding 917207421 Completed 201105/15/2014 RECORDED 09/07/20 12 2:03PM BY ANDRES BANERJEE MA, ANNOTATI ON/ADDEN DUM Briseyda Yost, [facility] [address], [place], [address] , [facility] 6 13:17:25 Screenin g for malignan t neoplasm of breast Completed 201105/15/2014 RECORDED 09/07/20 12 2:01PM BY ANDRES BANERJEE MA, ALEXAATI ON/ADDEN DUM [facility] 8 15:18:50 Screenin g for malignan t neoplasm of cervix Completed 201105/15/2014 RECORDED 09/07/20 12 2:01PM BY ANDRES BANERJEE MA, RUSTY ON/ADDEN DUM Briseyda Yost, [facility] [address], [place], [address] , [facility] 6 13:17:26 Chest pain 25145168 Completed 201105/15/2014 RECORDED 09/07/20 12 2:02PM BY ANDRES BANERJEE MA, RUSTY ON/ADDEN DUM Briseyda Yost, [facility] [address], [place], [address] , [facility] 6 13:17:26 Contact dermatit is caused by food in contact with skin 52187234 Completed 201105/15/2014 RECORDED 09/07/20 12 2:01PM BY ANDRES BANERJEE MA, RUSTY ON/ADDEN DUM Briseyda Yost, [facility] [address], [place], [address] , [facility] 6 13:17:25 Risk of exposure to communic able disease 094871293 Completed 201105/15/2014 RECORDED 09/07/20 12 2:03PM BY ANDRES BANERJEE MA, RUSTY ON/ADDEN DUM Br[facility]yda Yost, [facility] [address], [place], [address] , [facility] 6 13:17:26 Degenera tion of interver tebral disc Completed 201105/15/2014 RECORDED 09/07/20 12 2:03PM BY ANDRES BANERJEE MA, RUSTY ON/ADDEN DUM Briseyda Yost, [facility] [address], [place], [address] , [facility] 6 13:17:26 Disorder of breast 66603586 Completed 201105/15/2014 RECORDED 09/07/20 12 2:02PM BY ANDRES BANERJEE MA, RUSTY ON/ADDEN DUM Briseyda Yost, [facility] [address], [place], [address] , [facility] 6 13:17:25 Edema 831385463 Completed 201105/15/2014 RECORDED 09/07/20 12 2:01PM BY ANDRES BANERJEE MA, ALEXAATI ON/ADDEN DUM Sandy Hastings MA [facility] 8 15:18:53 Pain in limb 24876754 Completed 201105/15/2014 RECORDED 09/07/20 12 2:03PM BY ANDRES BANERJEE MA, ANNOTATI ON/ADDEN DUM Briseyda Yost, [facility] [address], [place], [address] , [facility] 6 13:17:25 Joint pain in ankle and foot Completed 201105/15/2014 IMPRESSI ON: DOES NOT LOOK LIKE GOUT, INFECTIO N NO TRAUMA, WILL GET XRAY AND DO ICE, REST ELEVATIO N. MAY NEED TO MISS WORK; RECORDED 09/07/20 12 2:01PM BY ANDRES BANERJEE MA, RUSTY ON/ADDEN DUM Briseyda Yost, [facility] [address], [place], [address] , [facility] 6 13:17:25 Lesion of ulnar nerve 253723363 Completed 201105/15/2014 RECORDED 09/07/20 12 2:02PM BY ANDRES BANERJEE MA, RUSTY ON/ADDEN DUM Briseyda Yost, [facility] [address], [place], [address] , [facility] 6 13:17:25 Lumbar sprain 734818706 Completed 201105/15/2014 IMPRESSI ON: MOSTLY RESOLVED , GIVEN NOTE TO RTC WITH LIMITATI ONS-LIGH T DUTY/NO HEAVY LIFTING UNTIL RELEASED FROM PT, WILL ALSO BE SEEN BY [facility]; RECORDED 09/07/20 12 2:01PM BY ANDRES BANERJEE MA, RUSTY ON/ADDEN DUM Briseyda Yost, [facility] [address], [place], [address] , [facility] 6 13:17:26 Menopaus al and postmeno pausal disorder s [id number] Completed 201105/15/2014 RECORDED 09/07/20 12 2:03PM BY ANDRES BANERJEE MA, RUSTY ON/OSWALD Yost, [facility] [address], [place], [address] , [facility] 6 13:17:25 Migraine [id number] Completed 201105/15/2014 RECORDED 09/07/20 12 2:03PM BY ANDRES BANERJEE MA, RUSTY ON/ADDEN DUM Briseyda Yost, [place] [address], [place], [address] , [facility] 6 13:17:25 Influenz a vaccine needed [id number] 06 Completed 201105/15/2014 RECORDED 09/07/20 12 2:01PM BY ANDRES BANERJEE MA, RUSTY ON/ADDEN DUM Briseyda Yost, [facility] [address] [facility] [address], [place], [address] , [facility] 6 13:17:26 Shoulder joint pain 709189699 Completed 201105/15/2014 RECORDED 09/07/20 12 2:02PM BY ANDRES BANERJEE MA, RUSTY ON/ADDEN DUM Briseyda Yost, [address], [place], [address] , [facility] 6 13:17:25 Adult health examinat ion Completed 201105/15/2014 RECORDED 09/07/20 12 2:01PM BY ANDRES BANERJEE MA, RUSTY ON/ADDEN DUM Maria Elena Samayoa MA [facility] 6 14:10:36 Inflamma tion of sacroili ac joint 76555183 Completed 201105/15/2014 RECORDED 09/07/20 12 2:02PM BY ANDRES BANERJEE MA, RUSTY ON/ADDEN DUM Briseyda Yost, [address] [address], [place], [address] , [facility] 6 13:17:25 Sleep disorder 75336765 Completed 201105/15/2014 STORY: NONRESTO RATIVE SLEEP/MU LTIFACTO RIAL; RECORDED 09/07/20 12 2:02PM BY ANDRES BANERJEE MA, RUSTY ON/ADDEN DUM Briseyda Yost, [place] [place] [address] [facility] [address], [place], [address] , [facility] 6 13:17:25 Urticari a 315640489 Completed 201105/15/2014 RECORDED 09/07/20 12 2:03PM BY ANDRES BANERJEE MA, ANNOTATI ON/KELSEY Vallejo [address], [place], [address] , [facility] 6 13:17:25 Godwin lange hyperten sari 43014573 Completed 201709/18/2022 Priscila Harris PA-C [address], [place], [address] , [facility] 5 11:23:00 Uncontro lled type 2 diabetes mellitus 450954335 Completed 201811/06/2020 Priscila Harris PA-C [address], [place], [address] , [facility] 5 09:55:16 Liver function tests outside referenc e range 613460292 Completed 201806/19/2022 Lux Harris PA-C [address], [place], [address] , [facility] 2 13:34:32 Diarrhea 32525527 Completed 201810/27/2019 Ana Luisa shepard MA null, [facility] 0 09:33:12 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 Not Available [facility] 3 12:19:23 Mixed hyperlip idemia 038800032 Completed 201801/01/2021 1.20 - ascvd risk 6.7% Priscila Harris PA-C [address] [facility] [address], [place], [address] , [facility] 1 10:30:48 Bereavem ent 07720761 Completed 201906/19/2022 Lux Harris PA-C [address] [facility] [address], [place], [address] , [facility] 2 13:37:20 Pain of left shoulder joint 66228580869 123285 Active 2019 Not Available [facility] 3 12:19:23 Liver enzymes level above referenc e range 825412373 Completed 201906/19/2022 Lux Harris PA-C [address], [place], [address] , [facility] 2 13:37:55 Steatoti c liver disease 771046541 Active 2020 Not Available [facility] 3 12:19:23 Vitamin D deficien cy 20021451 Active 2020 Not Available [facility] 3 12:19:23 Hyperlip idemia 86310823 Active 2020 Not Available [facility] 3 12:19:24 Insomnia 331620015 Active 2021 Not Available [facility] 3 12:19:23 Seborrhe ic psoriasi s 99441662 Active 2021 fol by derm Not Available [facility] 3 12:19:23 COVID-19 262711483 Completed 202111/17/2023 Ana Luisa shepard MA null, [facility] 4 14:16:58 Low back pain 476124542 Active 2022 Not Available [facility] 3 12:19:23 Pain of right hip joint 76520526282 9102 Active 2022 Not Available [facility] 3 12:19:23 Gastriti s 4305779 Active 2023 Priscila Harris PA-C [address], [place], [address] , [facility] 4 15:43:07 Body mass index 30+ - obesity 120965044 Active 2024 Nancy Adrian LPN null, [facility] 5 09:41:42 Dysuria 07753978 Active 2024 Briseyda Yost, [facility] [address], [place], [address] , [facility] 5 11:26:28 Snoring 91722761 Active 2024 Priscila THAO-C [address], [place], [address] , [facility] 5 10:19:27 Type 2 diabetes mellitus 35279101 Active 2024 Priscila THAO-C [address], [place], [address] , [facility] 5 10:23:49 Essentia l hyperten sari 52916257 Active 2024 Priscila THAO-C [address], [place], [address] , [facility] 5 11:23:00 Problem Notes None recorded. Procedures Surgical History Date Name Laterality Status Provider Name and Address Organization Details Recorded Time 525 Date of Last Colonoscopy completed Ely Mcdermott [facility] 03/01/2025 13:01:22 025 injection into lumbar epidural space completed Patricia Walker [facility] 05/02/2025 10:49:11 025 Diabetic Foot Exam (Monofilament) completed rPiscila JOSÉC [address], [place], [address], [facility] 03/21/2025 11:21:30 025 Colonoscopy completed Ely Mcdermott [facility] 03/01/2025 12:59:07 025 Endoscopic us exam esoph completed Patricia Walker [facility] 03/01/2025 13:01:37 024 diabetic retinopathy screening completed Patricia Walker [facility] 09/21/2024 08:41:44 024 Diabetic Foot Exam (Monofilament) completed Lux Harris PA-C [address] [facility] [place], [place], [address], [facility] 07/04/2024 11:18:30 023 Hysteroscopy completed Patricia Walker [facility] 09/30/2023 10:46:59 023 excision of uterine polyp completed Patricia Walker [facility] 09/30/2023 10:47:17 023 Dilation and Curettage completed Patricia Walker [facility] 09/30/2023 10:47:26 023 Date of Last Pap Smear completed Patricia Walker [facility] 06/01/2023 12:33:22 022 repair of musculotendinous cuff of shoulder completed Tiffany Gongora [facility] 02/13/2022 14:01:22 022 Orthopedic Surgery completed Ashley Earl [facility] 06/19/2022 09:40:33 021 Diabetic Foot Exam (Monofilament) completed Priscila Harris PA-C [address] [facility] [place] [facility] [place], [place], [address], [facility] 01/01/2021 13:06:23 019 biopsy of liver completed Ana Luisa woods [facility] 10/27/2019 09:36:27 019 Diabetic Foot Exam (Monofilament) completed Lux Harris PA-C [address] [facility] [place] [facility] [place], [place], [address], [facility] 08/29/2019 16:57:47 018 Most Recent Mammogram completed Rhoda Kendrick [facility] 04/20/2018 09:37:45 018 Mammogram screening completed Rhoda Kendrick [facility] 04/20/2018 09:38:27 018 endometrial biopsy completed Ana Luisa woods MA [facility] 12/13/2020 09:29:43 016 Cholecystectomy completed Jrkristenwon Donis [facility] 06/25/2017 10:21:04 015 Most Recent Bone Density completed Sandy Hastings MA [facility] 02/15/2015 09:07:01 011 Breast Biopsy completed Ashley Earl MA [facility] 06/19/2022 09:40:33 007 Egd diagnostic brush wash completed Sandy Hastings MA [facility] 07/07/2017 16:02:55 992 Caesarean Section completed Ashley Earl MA [facility] 06/19/2022 09:40:33 992 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 Procedure Notes None recorded. Medical Equipment None Reported. Allergies Allergen ID Allergen Name Allergen Category Reaction Reaction Severity Criticality Documentation Date Start Date Code Code System Note Provider Name and Address Organization Details Recorded Time 45078 lisinopri l medicatio n cough moderate Not available 05/01/2018 47547 RxNorm Lux Harris PA-C [address], [facility] [place], [address], [facility] 8 22:06:09 06730 morphine medicatio n vomiting Not available Not available 02/13/2022 7052 RxNorm Not Available [facility] 13:14:06 97861 perfume environme nt rash Not available Not available 09/18/[address] derma titis Ana Luisa Ant ascencio MA null, [facility] 2 10:20:00 65669 Rybelsus medicatio n nausea moderate Not available 10/29/2022 73806 45 RxNorm Priscila Tal SHANE [address], [facility], [place], [address], [facility] 3 13:28:09 50814 erythromy stephanie medicatio n Not available Not available Not available 08/18/2025 4053 RxNorm Not Available louise - [employer] - prod 5 08:54:06 94359 Product containin g angiotens in-conver ting enzyme inhibitor (product) medicatio n Not available Not available Not available 08/18/2025 70247 009 SNOMED Not Available louise - [employer] - prod 5 08:54:06 02171 semagluti de medicatio n nausea Not available [facility] 08/18/20252023 04076 02 RxNorm Not Available louise - External Data [employer] - prod 5 08:54:12 80180 latex environme nt,medica tion rash Not available Not available 08/18/20252024 54006 91 RxNorm Not Available louise [employer] External Data Service - prod 5 08:54:19 9774 erythromy stephanie medicatio n nausea Not available Not available 04/18/2014 4053 RxNorm Not Available [facility] 3 12:19:25 Medications Name Sig Start Date [...] Not Available cyclobenz aprine 10 mg tablet TAKE 1 TABLET BY MOUTH ONCE EVERY DAY AT BEDTIME FOR 7 DAYS NEEDED FOR MUSCLE SPASM active Not Available Not Available No t Available fluconazo le 100 mg tablet Take [...] Zyrtec Not Available Not Available Not Available fluconazo le 200 mg tablet TAKE 1 TABLET BY MOUTH EVERY THURSDAY active Not Available Not Available No t Available FreeStyle Lancets 28 gauge 12/12 completed [...] 12 2:04PM BY ANDRES BANERJEE MA, OFFICE VISIT;[place] Not Available Not Available Not Available [...] 06/20 completed RECORDED 06/20/20 10 11:52AM BY RUSTY CHERY ON/OSWALD MARINELLI; Not Available Not Available Not [...] Lyrica Not Available Not Available Not Available doxycycli ne hyclate 100 mg tablet [...] Not Available olmesarta n 20 mg tablet TAKE ONE-HALF (1/2) TABLET DAILY 2024 active Not Available Not Available Not Avai lable glipizide 2.5 mg-metfor min 500 mg tablet [...] 15 MINUTES THEN WASH OFF IN SHOWER 03/21 completed Not Available Not Available Not Available fluocinol one 0.01 % scalp oil and shower cap APPLY THIN LAYER TO SCALP EVERY DAY active Not Available Not Available No t Available pregabali n 75 mg capsule TAKE 2 BY MOUTH TWICE A DAY active Not Available Not Available No t [...] completed Not Available Not Available Not Available [place] 3 1 capsule po daily 01/06 completed [...] Available Not Available Not Available Dexcom G6 Sybase Developer use as directed 09/01 completed Not Available [...] Available Not Available FreeStyle Romeo 14 Day [place] USE DIRECTED . 06/19 completed Not Available [...] Not Available Not Available Not Available Mounjaro 7.5 mg/0.5 mL subcutane ous pen injector INJECT 7.5 MG SUBCUTAN EOUSLY WEEKLY 07/10 completed Not Available Not Available Not Available Mounjaro 5 mg/0.5 mL subcutane ous pen injector INJECT 5 MG SUBCUTAN EOUSLY WEEKLY 07/10 completed Not Available Not Available Not Available Mounjaro 10 mg/0.5 mL subcutane ous pen injector INJECT 10 MG SUBCUTAN EOUSLY WEEKLY active Not Available [...] completed Not Available Not Available Not Available Chemcline 3 Plus Sensor device USE DIRECTED . REPLACE EVERY 15 DAYS active Not Available Not Available No t Available Vitals Date Recorded Body height Body mass index (BMI) Body weight Heart rate Oxygen saturation Oxygen saturation in Arterial blood by Pulse oximetry Body temperature Systolic And Diastolic Provider Name and Address Organization Details Last Updated DateTime 5 163.83 cm 37.7 kg/m2 259101. 2 g 68 /min 97 % 97 % 98 [degF] 100/64 mm[Hg] Nancy Adrian LPN [facility] [place] 5 09:41:09 Date Recorded Body height Body mass index (BMI) Body weight Heart rate Oxygen saturation Oxygen saturation in Arterial blood by Pulse oximetry Body temperature Systolic And Diastolic Provider Name and Address Organization Details Last Updated DateTime 5 163.83 cm 37.2 kg/m2 79203.3 2 g 74 /min 95 % 95 % 98.2 [degF] 111/69 mm[Hg] Ana Luisa ascencio MA [facility] 5 10:55:03 Date Recorded Body height Body mass index (BMI) Body weight Heart rate Oxygen saturation Oxygen saturation in Arterial blood by Pulse oximetry Body temperature Systolic And Diastolic Provider Name and Address Organization Details Last Updated DateTime 5 163.83 cm 37.2 kg/m2 21743.0 4 g 70 /min 96 % 96 % 97 [degF] 116/76 mm[Hg] Layne Maharajlazara [facility] 5 11:34:03 Social History Question Answer Notes LastModified by Organizat ion Details LastModified Time Tobacco Smoking Status [facility] 10/27/2019 09:34:43 Do You Have An [...] 06/19/2022 When Did You Quit Smoking? 16+yearssince [email or web address] Information not available 11/15/2020 How Many Days [...] Date Of Your Most Recent Tobacco Screening? 07/10/2025 [email or web address] Information not available 07/10/2025 Total Number Of Stairs In Home 15 [...] not available 06/19/2022 Are you able to walk independently without assistance or assistive devices? YESWOREST Information not available 06/19/2022 Are you able to care for yourself independently? 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 No Information not available 06/19/2022 Do you [...] Not available 2015 17:05:59 Paternal Grandmother Malignant neoplasm of breast [email or web address] Not available 07/04 10:38:37 Son Attention deficit hyperactivit y disorder [email or web address] Not available 05/22 17:05:59 Mother Obesity [email or web address] Not available 0 05/22/2016 17:05:59 Mother Cirrhosis of liver d/t fatty liver dz [email or web address] Not available 06/19/2022 09:40:04 Mother Liver problem [email or web address] Not available 01/01 09:37:03 Mother Disease of liver [email or web address] Not available 01/01 09:37:03 Mother Chronic obstructive pulmonary disease [email or web address] Not available 01/01 09:37:03 Mother Esophageal varices 83 [email or web address] Not available 07/04 10:38:13 Father Obesity [email or web address] Not available 0 05/22/2016 17:05:59 Father Diabetes mellitus [email or web address] Not available 2015 17:05:59 Father Sleep disorder [email or web address] Not available 01/01 09:37:03 Father Hypertensive disorder [email or web address] Not available 01/01 09:37:03 Father Alzheimer's disease 76 [email or web address] Not available 2022 09:55:31 Maternal Grandfather Diabetes mellitus [email or web address] Not available 09:40:04 Maternal Grandfather Arthritis pmadden Not available 05/05 17:05:59 Sister Malignant neoplasm of breast [email or web address] Not available 09:40:04 Paternal [...] TST-PPD wilson test 5 completed Not Available [facility] 11/20/2023 09:46:52 Influenza, split virus, trivalent, preservative 4 completed Patricia Walker null, [facility] 07/24/2023 12:41:34 Influenza, split virus, quadrivalent, preservative 6 completed Patricia carrillo, [facility] 07/24/2023 12:41:34 COVID-19, mRNA, LNP-S, PF, 100 mcg/0.5mL dose or 50 mcg/0.25mL dose 1 completed J[place] Stewart, [facility] 05/16/2025 10:46:17 zoster recombinant 1 completed Patricia carrillo, [facility] 07/24/2023 12:41:34 Influenza, split virus, quadrivalent, PF 7 completed Patricia carrillo, [facility] 07/24/2023 12:41:34 Influenza, split virus, quadrivalent, PF 8 completed Patricia carrillo [facility] 07/24/2023 12:41:34 COVID-19, mRNA, LNP-S, PF, 100 mcg/0.5mL dose or 50 mcg/0.25mL dose 1 completed J[place] Stewart, [facility] 05/16/2025 10:46:17 Td (adult), 2 Lf tetanus toxoid, preservative free, adsorbed 0 completed Patricia carrillo [facility] 07/24/2023 12:41:34 zoster recombinant 1 completed Patricia carrillo, [facility] 07/24/2023 12:41:34 Influenza, split virus, quadrivalent, PF 1 completed Patricia carrillo [facility] 07/24/2023 12:41:34 Influenza, split virus, quadrivalent, PF 9 completed Patricia carrillo [facility] 07/24/2023 12:41:34 Tdap 1 completed Patricia carrillo [facility] 07/24/2023 12:41:34 COVID-19, mRNA, LNP-S, bivalent, PF, 50 mcg/0.5 mL or 25mcg/0.25 mL dose 2 completed Patricia carrillo, [facility] 07/24/2023 12:41:34 Pneumococcal conjugate PCV20, polysaccharide [id number] conjugate, adjuvant, PF 2 completed Patricia carrillo, [facility] 07/24/2023 12:41:34 Influenza, split virus, quadrivalent, preservative 2 completed Patricia carrillo, [facility] 07/24/2023 12:41:34 Tdap 3 completed Patricia carrillo, [facility] 07/24/2023 12:41:34 COVID-19, mRNA, LNP-S, PF, 50 mcg/0.5 mL 3 completed Patricia carrillo, [facility] 07/24/2023 12:41:34 Influenza, split virus, quadrivalent, PF 3 completed JUN Stewart, [facility] 11/17/2023 14:13:46 RSV, recombinant, protein subunit RSVpreF, adjuvant reconstituted, 0.5 mL, PF 4 completed JUN Stewart, [facility] 12/24/2024 10:54:46 COVID-19, mRNA, LNP-S, PF, 50 mcg/0.5 mL 4 completed JUN Stewart, [facility] 12/24/2024 10:54:46 Influenza, split virus, trivalent, PF 4 completed JUN Stewart, [facility] 12/24/2024 10:54:47 COVID-19, mRNA, LNP-S, PF, 100 mcg/0.5mL dose or 50 mcg/0.25mL dose 1 completed JUN Stewart, [facility] 05/16/2025 10:46:17 MMR 4 completed Patricia Walker null, [facility] 07/24/2023 12:41:34 Td (adult), 2 Lf tetanus toxoid, preservative free, adsorbed 7 completed Patricia Walker null, [facility] 07/24/2023 12:41:34 Influenza, split virus, trivalent, preservative 7 completed Patricia Walker null, [facility] 07/24/2023 12:41:34 Influenza, split virus, trivalent, preservative 0 completed Patricia Walker null, [facility] 07/24/2023 12:41:34 Hep B, adult 3 completed Patricia Edouardnett null, [facility] 07/24/2023 12:41:34 Hep B, adult 3 completed Patricia Walker null, [facility] 07/24/2023 12:41:34 Hep B, adult 3 completed Patriciasamuel Walker null, [facility] 07/24/2023 12:41:34 MMR 1 completed Patricia Walker null, [facility] 07/24/2023 12:41:34 varicella 7 completed Patriciasamuel Edouardnett null, [facility] 07/24/2023 12:41:34 Tdap 1 completed Patricia Walker null, [facility] 07/24/2023 12:41:34 Influenza, split virus, trivalent, preservative 2 completed Patricia Walker null, [facility] 07/24/2023 12:41:34 Influenza, split virus, trivalent, PF 5 completed Layne carrillo [facility] [place] 07/10/2025 11:39:50 Past Encounters Encounter ID Performer Location Encounter Start Date Encounter Closed Date Diagnosis/Indication Diagnosis SNOMED-CT Code Diagnosis ICD10 Code Diagnosis IMO Codes Diagnosis Note [id number] [facility] [address] [facility] [place] [address] 02/11/2007 00:00:00 [id number] autoEComm erce [address] [facility] [place] [address] 05/29/2004 00:00:00 [id number] auto[facility]Comm erce [address] [facility] [place] [address] 03/01/2004 00:00:00 [id number] autoEComm erce [address] [facility] [place] [address] 05/01/2003 00:00:00 [id number] autoEComm erce [address] [facility] [place] [address] 04/16/2007 00:00:00 [id number] auto[facility] erce [address] [facility] [place] [address] 05/04/2007 00:00:00 [id number] autoEComm erce [address] [facility] [place] [address] 06/09/2007 00:00:00 [id number] autoEComm erce [address] [facility] [place] [address] 07/09/2007 00:00:00 [id number] auto[facility]Comm erce [address] [facility] [place] [address] 08/06/2007 00:00:00 [id number] autoEComm erce [address] [facility] [place] [address] 12/08/2008 00:00:00 [id number] auto[facility] erce [address] [facility] [place] [address] 06/26/2009 00:00:00 [id number] autoEComm erce [address] [place] [place] [address] 07/01/2010 00:00:00 [id number] autoEComm erce [address] [place] [address] 10/01/2010 00:00:00 [id number] auto[facility]Comm erce [address] [place], [place] [address] 06/28/2011 00:00:00 [id number] autoEComm erce [address] [place] [place] [address] 10/14/2011 00:00:00 [id number] autoEComm erce [address] [place] [place] [address] 05/17/2012 00:00:00 [id number] autoEComm erce [address] [facility] [place], [place] [address] 05/27/2012 00:00:00 [id number] autoEComm erce [address] [facility] [place], [place] [address] 09/07/2012 00:00:00 [id number] Brise[facility]da Yost [facility] Main Office [address] [facility] [address] [place] [address] 02/15/2015 08:57:33 02/15/2015 10:06:58 Adult health examination 299316056 Will update immunizati on status and screen based on risk factors. Regular dental care, periodic eye examinatio ns, and safety measures advised. Distracted driving discussed. Has colonoscop y scheduled in March with Dr. Henley Gastroesop hageal reflux disease [id number] Followed by Dr. Henley, on omeprazole and reglan. Allergic rhinitis 24290921 treating symptomati bekah as needed. Intrinsic asthma 500188366 Edema 371807785 C/O edema to lower extremitie s, non- pitting, she [...] sitting for long periods. Hyperlipid emia screening 960860952 Anemia screening 581918020 [id number] Hoa marcos MD Main Office [address] [place] [address] 11/01/2015 11:26:44 11/01/2015 13:20:56 Acute pharyngitis 433318246 J02.9 Edema 351484857 R60.9 pt has HCTZ to use from past PE/see record. 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 [id number] KELSEY Kim Main Office [address] [place] [address] 11/08/2015 12:46:32 11/08/2015 13:31:44 Acute sinusitis 08404437 J01.90 Symptomati c treatment- lots of fluids, rest, tea with honey, OTC cough drops/ cough med as needed, humidifier , nasal sinus rinses as needed. Augmentin BID as prescribed , tessalon perles as needed for cough [id number] Lux Harris PA-C Main Office [address] [address] 05/22/2016 15:42:55 05/23/2016 09:29:29 Adult health examination 320769318 Z00.00 sister dx'd c breast ca, pt is overdue for mammogram - next mold technician apptmt not until 09/19 Examinatio n for suspected mental disorder 742163087 Z00.00 Edema 531495556 R60.9 chronic ? CVI vs other (chf) -- cont comp stockings Iron defic iency anemia 45848882 D50.9 no heavy menses - technicall y not anemic but clearly is iron deficient, no use of iron supp, apparently NL egd/colon x gerd -- rec. f/u c GI - ? needs pillcam study Gastroesop hageal reflux disease 119594079 K21.9 pt uses reglan infrequent ly Body mass index 30+ - obesity 856774416 Z68.39 Hyperglycemia 98847862 R 73.9 Increased liver function 21967366 R94.5 ? d/t fatty liver vs other Dyspnea 264418449 R06.00 normal spirometry , no cp/palp - has been chronic, can exercise okay - r/o chf - ? d/t body habitus/en durance [id number] Lux Harris PA-C Main Office [address] [facility] [place] [address] 06/25/2016 09:04:12 06/25/2016 10:23:52 Edema 171675863 R60.9 better lately - chronic ? CVI vs other (chf - less likely) -- cont comp stockings prn Gastroesop hageal reflux disease 424082705 K21.9 pt uses reglan infrequent ly Steatotic liver disease 558402785 K76.0 encouraged continued wt loss, has pending labs to r/o other etiology, encouraged f/u c GI Cholelithi asis without obstruction 59331823 K80.20 Dyspnea 701684201 R06.[address] Mahan on 07.10 -- normal spirometry , no cp/palp - has been chronic, can exercise okay - r/o chf (has pending BNP) - ? d/t body habitus/en durance Iron defic iency anemia 68770916 D50.9 no heavy menses - technicall y not anemic but clearly is iron deficient, no use of iron supp, apparently NL egd/colon x gerd -- rec. f/u c GI - ? needs pillcam study Body mass index 30+ - obesity 771502520 Z68.37 pt has lost 7 lbs and bp is down - congrats! [id number] Priscila Harris PA-C Main Office [address] [facility] [place] [address] 09/16/2016 14:07:15 09/16/2016 14:59:16 Pre-surgery evaluation 657528755 Z01.818 Patient is ASA classifica tion 1 and low risk based on Curry risk calculator from cardiac stand point. Her EKG has no acute changes. I will order basic labs. send clearance forms back to the surgeon. Anemia 839120483 D64.9 Impaired f asting glycemia 368221253 R73.01 Iron defic iency anemia 03063244 D50.9 [id number] Hoa marcos MD Main Office [address] [facility] 207 [place] [address] 06/25/2017 10:03:14 06/25/2017 10:53:50 Adult health examination 431685212 Z00.00 Screening for malignant neoplasm of breast 185398044 Z12.39 Impaired f asting glycemia 918559190 R73.01 Tachycardia 6451831 R00. 0 [id number] Lux Harris PA-C Main Office [address] [place] [address] 01/06/2018 08:41:51 01/06/2018 09:43:44 Essential hypertension 51783225 I10 stable, cont med as dir Type 2 augusta betes mellitus without complication 278629765 E11.9 last a1c 6.6 back in 06.21 - will recheck - strongly encouraged pt to lose more wt and to dramatical ly reduce chocolate intake and stop drinking soda - rather drink more water Body mass index 30+ - obesity 866238696 Z68.38 Gastroesop hageal reflux disease 999724116 K21.9 cont ppi as dir, pt uses reglan infrequent ly -- cont f/u c gi Pruritus of vulva 845116 00 L29.2 cont f/u c derm, cont lyrica as dir [id number] Lux Harris PA-C Main Office [address] [place] [address] 2018 15:12:50 2018 16:08:15 Essential hypertension 22451579 I10 stable, cont med as dir, cr stable in january, recheck again in a few mos does use prn hctz 12.5 if edema gets too much, wears comp stockings, prn elevation has pe in .18 Acute cystitis 16509255 N30.00 finish abx as dir, consider probiotics Prediabetes 786291372 R7 3.03 last A1c 6.0 - rec cont avoid concentrat ed sweets / soda, rec increase aerobic ex to help decrease wt. Edema of l ower extremity 371665953 R60.0 no h/o chf, nl probnp 9.16 does use prn hctz 12.5 if edema gets too much, wears comp stockings, prn elevation Body mass index 30+ - obesity 542982345 Z68.39 [id number] Donell Hanna MD Main Office [address] [facility] 207 [facility] [place] [address] 09/03/2018 10:49:13 09/03/2018 12:01:47 Dysuria 79389224 R30.0 Possible recurrence vs inadequate ly treated. Will use a different abx. Also could be interstiti al cystitis. She was given a urology referral and will make an appointmen t if her culture is negative or if she doesn't improve or gets more symptoms after treatment. [id number] Lux Harris PA-C Main Office [address] [place] [address] 10/20/2018 08:54:19 10/20/2018 09:56:43 Adult health examination 526062636 Z00.00 encouraged pt to call mold technician for pap Body mass index 30+ - obesity 618503941 Z68.39 Intrinsic asthma 3597739 08 J45.20 on no inhalers - seen by pulm in past Gastroesop hageal reflux disease 844760606 K21.9 cont ppi as dir, pt uses reglan infrequent ly -- cont f/u c gi Essential hypertension 47132819 I10 stable, cont med as dir, cr stable in january, recheck again in a few mos does use prn hctz 12.5 if edema gets too much, wears comp stockings, prn elevation Vitamin D deficiency 347 78234 E55.9 Seasonal a llergic rhinitis 387248805 J30.2 Prediabetes 194983303 R7 3.03 last A1c 6.0 - rec cont avoid concentrat ed sweets / soda, rec increase aerobic ex to help decrease wt. [id number] Jv Braga MD Main Office [address] [facility] [address] [place] [address] 03/31/2019 15:46:50 03/31/2019 16:44:44 Lesion of tongue 084032090 K14.9 Low back strain 67082874 1 S39.012A R lower thoracic/u pper lumbar strain - cont nsaids, hep/massag er ball, consider prn mHermila mitcheller Body mass index 30+ - obesity 430737594 Z68.37 pt has lost 8 lbs - congratula flaco pt - encouraged to continue Essential hypertension 33522205 I10 mildly elevated today, but has been having back pain and pt admits to not taking hctz regularly ----- does use prn hctz 12.5 if edema gets too much, wears comp stockings, prn elevation -- wants to avoid daily hctz since dehydrates her too much/dry mouth trial c arb Obesity 813629432 E66.9 [id number] Jv Braga MD Main Office [address] [facility] 207 [place] [address] 05/26/2019 16:00:23 05/27/2019 12:58:08 Hyperglycemia 88221630 R73.9 pt requested recheck of sugars, wonders if had false elevations --- fsbs 301, a1c again 11.8 - confirmed - see below Dysuria 62530884 R30.0 see below Uncontroll ed type 2 diabetes mellitus 530257866 E11.65 new dx - see below rec low carb diet, cont plenty of aerobic ex., and eat less sugar - cookies, soda, juice - which overall does not appear to be a daily occurence c her rec titrate up med as gi zack Liver func tion tests outside reference range 598494840 R94.5 likely d/t fatty liver dz - rec wt loss as above - will check labs, u/s r/o PBC, celiac Diarrhea 50801874 R19.7 rec add citrucel check for celiac and check stool studies no recent abx and not 100% watery Body mass index 30+ - obesity 937458792 Z68.[address] eval Urinary tr act infectious disease 65190656 N39.0 rec probiotic supplement while on abx Obesity 228409752 E66.9 [id number] Randolph Louie MD Main Office [address] [facility] 207 [facility] [address] 06/27/2019 08:56:11 06/27/2019 09:52:43 Uncontrolled type 2 diabetes mellitus 798725383 E11.65 congratula flaco pt a1c down to [...] dir will get glucometer - try for ormeo seen by eye md - had exam - cont f/u c eye md Obesity 907512706 E66.9 pt interested in seeing nutritioni [facility] Body mass index 30+ - obesity 802565312 Z68.34 Liver func tion tests outside reference range 366163779 R94.5 had ruq u/s - likely d/t fatty liver dz - rec wt loss as above r/o PBC, and recheck lft's Essential hypertension 42087112 I10 stable bp today, cont arb as dir - does use prn hctz 12.5 if edema gets too much, wears comp stockings, prn elevation -- wants to avoid daily hctz since dehydrates her too much/dry mouth [id number] Jv Braga MD Main Office [address] [facility] [address] [place] [address] 08/29/2019 16:04:03 08/29/2019 17:11:34 Uncontrolled type 2 diabetes mellitus 076515980 E11.65 see below - under much better control now Essential hypertension 91459506 I10 bp a little low today, but she admits to accidental ly taking 2 tabs today - no orthostasi s - if get dizzy then rec cut 20mg olmesartan in 1/2 Needs infl uenza immunization 964747442 Z23 Type 2 augusta betes mellitus without complication 120584185 E11.9 congratula flaco pt a1c down to 6.0 rec cont low carb diet, cont plenty of aerobic ex. -- pt stopped pepsi!!! 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 - managed ok lately c powder 1-2x/day Body mass index 30+ - obesity 866448458 Z68.32 has lost ~30 lbs eating ~1200 inna diet, walking 10K steps / qd, dances wkly -- continue, consider strength training as well Liver func tion tests outside reference range 468147861 R94.5 had ruq u/s - likely d/t fatty liver dz - rec wt loss as above cont f/u c GI - pending liver bx to r/o PBC Cervical radiculitis 110 80965 M54.12 BUE - C7-C8 distributi on int x yrs, a little worse past few wks - will get cspine - used to take gabapentin & lyrica in past for neuropathi c pruritus as per derm - pt defers at this time, if worse then consider PSSP Chronic low back pain 27 0212006 M54.5 int x yrs - see above rec HEP Obesity 750271954 E66.9 pt interested in seeing nutritioni [facility] [id number] Jv Braga MD Main Office [address] [facility] [address] [place] [address] 09/27/2019 14:00:22 09/27/2019 15:12:05 Type 2 diabetes mellitus 55655543 E11.649 pt has had hypoglycem ia but [...] be covered by her health insurance Hypoglycemia 982393996 E 16.2 fsbs 108 now [id number] Jv Braga MD Main Office [address] [facility] [address] [place] [address] 10/27/2019 09:09:49 10/27/2019 11:03:55 Adult health examination 401204454 Z00.00 Up to date on vaccinatio ns-needs pneumococc al. Essential hypertension 15649573 I10 Stable.con t meds as dir Mixed hyperlipidemia 267 731960 E78.2 Last lipid panel 05/20/19 with elevated triglyceri raj at 168. Will recheck lipid panel. Type 2 augusta betes mellitus without complication 002699686 E11.9 Hemoglobin A1C 5.5% today. Stable - diet / ex control Persistent cough 5835550 02 R05 Question of pneumonia in R lower lobe. Will obtain chest x-ray. Low back pain 034742483 M54.5 F/u with lumbar x-rays as planned. Bilateral tinnitus 09083 25632 102 H93.13 Discussed option of ENT referral. Patient declined. Will continue to monitor if worsens or develops any hearing loss. Pneumonia 161710276 J18. 9 suspect early pna - abx, probiotics , f/u prn Wheezing 56840026 R06.2 Diffuse wheezing-w ill initiate albuterol inhaler 2 puffs Q4 hrs PRN. [id number] Jv Braga MD Telehealt h [address] [facility] [address] [place] [address] 05/15/2020 06:16:15 05/15/2020 12:07:01 Type 2 diabetes mellitus without complication 682283522 E11.9 typically diet / ex control, but has gained wt d/t grief, recent junk food, etc Essential hypertension 05760050 I10 mild bp elevation likely d/t stress/gri ef and that she has forgotten them occ - but had nl bp earlier today - cont meds as dir, check bmp, cont monitor bp's Mixed hyperlipidemia 267 659926 E78.2 Will recheck lipid panel. Bereavement 15676678 Z63 .4 pt declines medication , but somewhat reluctantl y agreed to trial of counsellin g - will arrange n eval Pain of le ft shoulder joint 8911545226 6586503 M25.512 s/p injury 1.20, got better now worse - concerned about possible RTC injury, and affecting sleep too - see above, will get ortho eval Counseling 653427833 Z71 .9 Referral for counseling with N / YAYN Heranndez. Please provide patient with contact info to schedule their appointmen t. 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 check a1c and microalbum in ac pe in 1. Liver enzy mes level above reference range 953173994 R74.8 + FH cirrhosis d/t fatty liver dz, had recent mrcp, cont f/u c gi - ? annual surveillan ce ruq u/s? cont vit e as per gi cc: cmp to gi Mixed hyperlipidemia 267 271434 E78.2 stable [id number] Jv Braga MD [facility] 36[address] [facility] [address] [facility] [place] [address] 11/06/2020 14:01:42 11/07/2020 10:58:20 Counseling 352441724 Z71.9 Health advice, education or counseling done for COVID 19 pt just went for covid test earlier this afternoon - results pending Essential hypertension 36376312 I10 cont arb as dir - bp did come down to wnl earlier today - if bp rises again she does have prn hctz available to help c this (and edema as well) - call if bp persists elevated - consider add ccb Bereavement 59458719 Z63 .4 cont f/u c bhn pt declines meds she had returned to work 3 days /wk (advised her to stay oow pending covid results) Acute sinusitis 56414511 J01.90 recommend probiotics while on abx [id number] Jv Braga MD [facility] h [address] [facility] [address] [facility] [place] [address] 11/15/2020 14:50:41 11/16/2020 11:45:09 Adverse reaction to viral vaccine 627395333 T50.B95Edouard had SEs from 2nd covid vaccine - they have resolved - able to rtw in person tomorrow - see below Muscle pain 68285525 M79 .10 [id number] Donell Hanna MD Telehealt [address] [facility] 207 [place] [address] 12/13/2020 08:20:02 12/13/2020 10:32:18 Prolonged grief disorder 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 Migraine 56239871 G43.90 9 amitriptyl ine daily at bedtime to help with sleep and headaches. take 1 hour before bed. may take 20mg if needed. F/U at PE 01/01. Headache 31126802 R51.9 will rx indomethac in to try to break VERDUZCO. tid x 5 days. [id number] Priscila Harris PA-C Main Office [address] [address] 01/01/2021 09:33:58 01/01/2021 10:50:52 Adult health examination 125779862 Z00.00 update Tdap. refer for mammogram. Essential hypertension 80271738 I10 stable on meds. Screening for malignant neoplasm of breast 295904160 Z12.39 Administra tion of viral vaccine 31425526 Z23 Bereavement 35971450 Z63 .4 continue counseling . Pt. has mild depression by PHQ score. SSRI was offered , but pt. declined trial. Type 2 augusta betes mellitus without complication 348074985 E11.9 Repeat all labs. Continue diabetic diet. Due to sign. weight gain,. pt. might need to be restarted on metformin. Steatotic liver disease 793019137 K76.0 abnormal LFTs. WE will repeat labs . PT. is followed by the GI. Weight gain 4728106 R63. 5 check for hypothyroi d. Pt. is encouraged to lower total calories and carbs, lower processed foods and exercise as tolerated daily. Vitamin D deficiency 347 25427 E55.9 Headache 31204881 R51.9 continue amitripyli ne and f/u with PCP in the next couple of weeks. Hyperlipidemia 86906758 E78.5 recheck lipids Intrinsic asthma 5729122 08 J45.909 Body mass index 30+ - obesity 373610940 E66.01 Z68.35 [id number] Jv Braga MD Telehealt h [address] [facility] 207 [facility] [place] [address] 01/08/2021 09:15:40 01/08/2021 14:27:59 Headache 82429142 R51.9 no sig help c elavil - ? has migraine variant - trial of topamax, may help c wt loss too - if no sig help then consider neuro eval Chronic insomnia 6210704 04 F51.04 pt states has had home sleep study in past - negative result? - but she declines inpt sleep study at this time - will revisit in near future, states is not likely to wear cpap anyways (her wears it) Pain in left knee 782057 2287 81076 M25.562 x one month - walks ~ 2 miles/day - no direct trauma - no sig help c advil, cannot kneel on it, aggrav by going downstairs /bending > slow paced walking, no pain to touch ? PFS - advised pt to consider neoprene sleeve or prn ice, and will get ortho eval [id number] Jv Braga MD Main Office [address] 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 from Eastern poison rishabh L25.5 fol by derm - better lately, cont pred taper as dir, hydroxyzin e prn, consider use prn calamine, trial c zyrtec -- if no better and insomnia persists, then trial of gbn - see below Insomnia 952354051 G47.0 0 gbn hs as dir Hyperlipidemia 95622183 E78.5 Tinea corporis 08939267 B35.4 [id number] Jv Braga MD Main Office [address] [place] [address] 06/19/2022 09:37:34 06/19/2022 11:27:11 Adult health examination 948133174 Z00.00 Up to date on vaccinatio ns-needs pneumococc al, defers for now 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 Cespedes to schedule appt. Essential hypertension 56095153 I10 stable, cont meds as dir (arb qd)pt states she only takes Hydrochlor othiazide prn only for edema (rarely uses) Gastroesop hageal reflux disease 419339845 K21.9 cont ppi as dir, pt uses reglan infrequent ly -- cont f/u c gi Hyperlipidemia 98798602 E78.5 D/t elevated Triglyceri de - recommend patient Statin but she wants to defer it for now. Would like to work on behavioral and life style changes first. She has started walking and eating better since she receive the lab results. when run out of omega 3, consider changing to krill oil to lower trigs Pain of le ft shoulder joint 0589082217 8198168 M25.512 Improved s/p surgery -- Follow up with Ortho at the end of this month. Go to PT twice a week. Type 2 augusta betes mellitus without complication 800457262 E11.9 Patient does not want to see [...] weight Screening for malignant neoplasm of breast 156031926 Z12.39 Mammo- Needs referral to [facility] at [address] [place] [address] rd. in [facility] Insomnia 726812754 G47.0 0 She snores.Wou ld like to consider Sleep Study Screening for malignant neoplasm of cervix 814177183 Z12.4 Body mass index 30+ - obesity 426534936 E66.9 Z68.38 has lost ~30 lbs eating ~1200 inna diet, walking 10K steps / qd, dances wkly -- continue, consider strength training as well Uncontroll ed type 2 diabetes mellitus 961719589 E11.65 see above - cannot change icd-10 p orders put in Steatotic liver disease 360022684 K76.0 cont f/u c GI - had liver bx, rec wt loss, cont vit E as dir, pending surveillan ce mrcp to r/o psc [id number] Trista Brown MD Telehealt h [address] [facility] 207 [facility] [place] [address] 09/01/2022 10:19:05 09/05/2022 11:28:46 COVID-19 746746062 U07.1 Type 2 augusta betes mellitus without complication 220755305 E11.9 Repeat all labs. Continue diabetic diet. Due to sign. weight gain,. pt. might need to be restarted on metformin. Essential hypertension 99691650 I10 stable on meds. [id number] Jv Braga MD Main Office [address] [facility] 207 [facility] [place] [address] 09/18/2022 10:06:30 09/18/2022 11:16:43 Type 2 diabetes mellitus without complication 751012439 E11.9 Eye exam with Edson Morocho - [...] (it's staying on better) - but considerlois castro using mounjaro - f/u c VM Body mass index 30+ - obesity 870230799 E66.01 Z68.35 has lost ~30 lbs eating low inna diet, walking 10K steps / qd, dances wkly -- continue, consider strength training as well Hypertensi ve renal disease 33500010 I12.9 stable, cont meds as dir (arb qd)pt states she only takes Hydrochlor othiazide prn only for edema (rarely uses)asymp tomatic - if get orthostati c, then rec cut arb in 1/2 Hyperlipidemia 63766816 E78.5 D/t elevated Triglyceri de - recommend patient Statin but she wants to defer it for now. Would like to work on behavioral and life style changes first. She has started walking and eating better since she receive the lab results. when run out of omega 3, consider changing to krill oil to lower trigs Pain of le ft shoulder joint 2129937313 6621176 M25.512 Improved s/p surgery -- Follow up with Ortho at the end of this month. finished > 6 months of PT Chronic ki dney disease stage 2 709547908 N18.2 [id number] Trista Brown MD Main Office [address] [place] [address] 10/29/2022 12:40:29 10/29/2022 13:50:43 Type 2 diabetes mellitus without complication 837781068 E11.9 Stable diabetic control but BMI is 0ver 35 and pt. has difficulty loosing weight. WE will try GLP-1 Ozempic at 0.25 mg weekly for 4 weeks. If tolerated well after 4 weeks pt. will increase to 0.5 mg weekly. F/u 2 m. [id number] Trista Brown MD Main Office [address] [place] [address] 12/10/2022 11:51:23 12/10/2022 11:53:43 [id number] Trista Brown MD Main Office [address] [place] [address] 01/06/2023 09:54:31 01/06/2023 10:32:39 Type 2 diabetes mellitus without complication 140783193 E11.9 Excellent diabetic control currently. Recommend to reduce metfromin to 500 mg daily. Continue ozempic 0.5 mg weekly, diet and exercise. Replace omeprazole with pantoprazo le 40. Gastroesop hageal reflux disease 389782066 K21.9 [id number] Jv Braga MD Main Office [address] [place] [address] 01/15/2023 09:33:22 01/15/2023 10:29:20 Hypertensive renal disease 32766460 I12.9 stable, cont meds as dir (arb qd)pt states she only takes Hydrochlor othiazide prn only for edema (rarely uses) - taken off med listasympt omatic - but to prevent orthostasi s - cut arb in 1/2, and rec increase water intake Body mass index 30+ - obesity 794906202 E66.01 Z68.33 has lost ~30 lbs eating low inna diet, walking 10K steps / qd, consider strength training as well and resuming dance lessons again Hyperlipidemia 96453309 E78.5 D/t elevated Triglyceri de - recommend [...] fasting Chronic ki dney disease stage 2 121792437 N18.2 stable Renal diso rder due to type 2 diabetes mellitus 971631462 E11.22 Eye exam with Edson Morocho - [...] c VM prn if a1c sig increases [id number] Trista Brown MD Main Office [address] [facility] [address] [place] [address] 01/21/2023 11:39:26 01/21/2023 11:48:39 [id number] Trista Brown MD Main Office [address] [facility] [address] [place] [address] 03/11/2023 13:14:54 03/11/2023 13:18:01 [id number] Jv Braga MD Main Office [address] [facility] [address] [place] [address] 05/07/2023 13:37:40 05/07/2023 14:30:37 Pain of right hip joint 8674482093 84512 M25.551 believe her hip pain is radiating from her back, but will check xray to r/o advanced djd - consider ortho eval if advanced djd Low back pain 683742082 M54.50 lbp c ? radiculopa thy RLE (L3/L4?) - check xrayis already on gbn for insomnia - 200mg hs, consider slowly uptitrate if need be (see below)cons ider alt ice/heatwi ll get PMR Type 2 augusta betes mellitus without complication 316118054 E11.9 Eye exam with Edson Morocho - yearly - will attempt get last DM eye exam from Dr. Morohco Self check feet regularly 9.22 - see [...] 3 (it's staying on better) - but ximena castro using mounjaro - f/u c VM Hyperlipidemia 63891798 E78.5 D/t elevated Triglyceri de - recommend [...] yesterday weren't fasting - will recheck fasting [id number] Jv Braga MD Main Office [address] [facility] [address] [place] [address] 06/25/2023 09:41:21 06/25/2023 10:42:01 Adult health examination 165281264 Z00.00 Up to date on vaccinatio ns-needs pneumococc al, defers for now Last colonoscop y in 2014 - due in 2024 pap utd Pain of ri ght hip joint [id number] 56072 M25.551 believe her hip pain is radiating from her back, but will check xray to r/o advanced djd - consider ortho eval if advanced djd 9.23 - mild degenerati ve changes R hip - likely referred pain, see below Low back pain 051904222 M54.50 lbp c ? radiculopa thy RLE (L3/L4?) - check xrayis already on gbn for insomnia - 200mg hs, consider slowly uptitrate if need be (see below)cons ider alt ice/heatwi ll get PMR eval 9.23 - rec increase gbn a little, encouraged pt to call PMR, cont yoga (just started recently) Type 2 augusta betes mellitus without complication 756767913 E11.9 Eye exam with Edson Morocho - [...] rec slowly titrate up to 1mg Hyperlipidemia 92970923 E78.5 D/t elevated Triglyceri de - recommend [...] directed Screening for malignant neoplasm of breast 784261611 Z12.39 Mammo- Needs referral to [facility] at [address] [place] [address] rd. in [facility] Body mass index 30+ - obesity 207396427 E66.9 Z68.32 had lost ~30 lbs eating low inna diet, walking 10K steps / qd, consider strength training as well and resuming dance lessons again Seborrheic psoriasis 258 31863 L40.8 stable, cont med, f/u c derm Vitamin D deficiency 347 51913 E55.9 Chronic ki dney disease stage 2 894768995 N18.2 stable Hypertensi ve renal disease 49415102 I12.9 stable, cont meds as dir (arb qd)pt states she only takes Hydrochlor othiazide prn only for edema (rarely uses) - taken off med listasympt omatic - but to prevent orthostasi s - cut arb in 1/2, and rec increase water intake 9.23 - bp stable Steatotic liver disease 140502016 K76.0 cont f/u c GI - had liver bx, rec wt loss, cont vit E as dir, pending surveillan ce liver mri from gi [id number] Trista Brown MD Main Office [address] [place] [address] 07/15/2023 13:31:14 07/15/2023 13:32:51 [id number] Trista Brown MD Main Office [address] [facility] [address] [place] [address] 08/28/2023 08:51:10 08/28/2023 09:05:13 [id number] Trista Brown MD Main Office [address] [facility] [address] [place] [address] 10/09/2023 09:14:11 10/09/2023 09:16:27 [id number] Trista Brown MD Main Office [address] [facility] [address] [place] [address] 11/17/2023 13:53:54 11/17/2023 14:59:05 Type 2 diabetes mellitus without complication 879260538 E11.9 Excellent diabetic control currently. Continue ozempic 1 mg, pt did not want to decrease the dose despite having GERD symptoms. Will stop fluids and food 2 hrs before bed , continue PPI and reduce chocolate. F/u 6 m. Gastritis 5547747 K29.70 continue PPI and Tums Gastroesop hageal reflux disease 270387240 K21.9 [id number] Trista Brown MD Main Office [address] [facility] [address] [place] [address] 11/20/2023 09:45:41 11/20/2023 09:53:31 [id number] ANGEL LUO MD Main Office [address] [facility] [address] [place] [address] 01/01/2024 09:42:29 01/01/2024 09:44:53 [id number] Trista Brown MD Main Office [address] [facility] [address] [place] [address] 02/15/2024 08:48:08 02/15/2024 08:52:40 [id number] Jv Braga MD Main Office [address] [facility] [address] [place] [address] 05/10/2024 08:42:03 05/10/2024 08:48:50 [id number] Jv Braga MD Main Office [address] [address] [place] [address] 05/17/2024 08:49:23 05/17/2024 09:44:28 Type 2 diabetes mellitus without complication 680694144 E11.9 Excellent diabetic control currently, but side effects of constipati on and reflux with 1 mg dose of Ozempic. WE will lower to 0.5 mg weekly and pt agrees to lower calories by eliminatin g sweets and snacking and beginning to exercise. WE will repeat fasting labs. F/u 3 m. Chronic ki dney disease stage 2 296772114 N18.2 continue ARB. repeat microalbum in. Hypertensi ve renal disease 80241871 I12.9 stable hypertensi on control. Continue low sodium diet adn current medication s. Hyperlipidemia 28237775 E78.5 Begin rosuvastat in 20 mg daily and repeat lipids in 6-8 weeks. [id number] Jv Braga MD Main Office [address] [address] 07/04/2024 10:25:14 07/04/2024 11:44:04 Adult health examination 292334906 Z00.00 Up to date on vaccinatio ns-needs pneumococc al, defers for now Last colonoscop y in 2014 - due in 2024 pap, mammo - seeing mold technician next month for both Chronic ki dney disease stage 2 473289420 N18.2 stable Hyperlipidemia 02886316 E78.5 D/t elevated Triglyceri de - recommend [...] med as dir Hypertensi ve renal disease 35679029 I12.9 stable, cont meds as dir (arb qd)pt states she only takes Hydrochlor othiazide prn only for edema (rarely uses) - taken off med listasympt omatic - but to prevent orthostasi s - cut arb in 1/2, and rec increase water intake 9.24 - bp stable Increased liver function 03913437 R94.5 ? d/t fatty liver vs other 9.24 - seen by [facility] in past, has had liver bx, mri - rec f/u c [facility] Type 2 augusta sulema mellitus without complication 451809202 E11.9 Eye exam with Edson Morocho - [...] g using mounjaro - f/u c VM . - pending A1c, but has not been losing wt - so rec increase ozempic - has been on 0.5mg x several months - just got a 3 month shipment, so rec slowly titrate up to 1mg 9.24 - a1c down to 5.7, cont meds, f/u c VM as dir Body mass index 30+ - obesity 321099693 E66.9 Z68.35 had lost ~30 lbs eating low inna diet, walking 10K steps / qd, consider strength training as well and resuming dance lessons again 9.24 - on ozempic - cont as dir Seborrheic psoriasis 258 63099 L40.8 stable, cont med, f/u c derm Gastroesop hageal reflux disease 167510994 K21.9 cont ppi as dir, pt uses reglan infrequent ly -- cont f/u c gi Low back pain 341897866 M54.50 lbp c ? radiculopa thy RLE (L3/L4?) - check xrayis already on gbn for insomnia - 200mg hs, consider slowly uptitrate if need be (see below)cons ider alt ice/heatwi ll get PMR eval 9.23 - rec increase gbn a little, encouraged pt to call PMR, cont yoga (just started recently) 06.28 - better lately, but occ gets RLE radicular sxs - cont gbn as dir - 3 tabs qhs, but consider increasing by day, consider f/u c pmr, cont hep - see above - ? related to psoriasis --- if persists/w orse, then consider rheum eval (pending see them 09.29.24 - set up by derm) [id number] Jv Braga MD Main Office [address] [facility] [address] [place] [address] 09/21/2024 12:51:10 09/21/2024 12:55:12 [id number] Donell Hanna MD Main Office [address] [facility] [address] [place] [address] 11/02/2024 08:56:19 11/02/2024 09:10:23 [id number] Donell Hanna MD Main Office [address] [address] [place] [address] 11/15/2024 08:53:38 11/15/2024 10:09:46 Type 2 diabetes mellitus without complication 565173613 E11.9 Excellent diabetic control currently, but side [...] m. Chronic ki dney disease stage 2 783529667 N18.2 continue ARB. repeat microalbum in. Low back pain 613838878 M54.50 states that she is has been in PT/seeing Ortho for treatment of multiple bulging discs. Had MRI done previously . Body mass index 30+ - obesity 195261675 E66.01 Z68.35 Current BMI 36.7. Patient was educated to decrease her sugar intake and implement healthier snack options to satisfy her cravings. [id number] Donell Hanna MD Main Office [address] [facility] [address] [place] [address] 12/14/2024 09:42:06 12/14/2024 09:45:33 [id number] Donell Hanna MD Main Office [address] [address] [place] [address] 12/24/2024 09:21:23 12/24/2024 11:31:52 Dysuria 95848060 R30.0 SYMPTOMS:b urning with urination? yesfrequen cy? [...] 7 days Urinary tr act infectious disease 19216712 N39.0 Push fluids, wipe front to back, do not hold urine for extended periods of time, urinate before and after intercours e. Pyridium 3 times daily as needed for the next day or so, abx as directed twice daily for 7 days. If sx not better or if any worsening, fever, chills, N/V please call/ return. [id number] Donell Hanna MD Main Office [address] [address] [place] [address] 01/25/2025 14:51:52 01/25/2025 14:52:49 [id number] Donell Hanna MD Main Office [address] [address] [place] [address] 03/08/2025 14:07:56 03/08/2025 14:09:18 [id number] Jv Braga MD Main Office [address] [address] [place] [address] 03/21/2025 09:27:06 03/21/2025 10:42:03 Type 2 diabetes mellitus 64262922 E11.9 31891616 Excellent diabetic control currently, but side effects [...] discussed as well as recent labs. Snoring 32476629 R06.83 27092 recommend referral to sleep medicine. Pt agreed. Essential hypertension 51903561 I10 54624 stable on meds. continue olmesartan 20 mg and DASH diet. F/u 4 m. [id number] Jv Braga MD Main Office [address] [facility] [address] [place] [address] 04/19/2025 08:57:41 04/19/2025 09:01:33 [id number] Jv Braga MD Main Office [address] [place] [address] 05/16/2025 10:40:38 05/16/2025 11:20:16 Body mass index 30+ - obesity 069669111 E66.01 Z68.37 Current BMI 37.2. Pt lost 3 lbs so far on 5 mg dose of mounjaro. Pt exercises daily and eats low calorie non processed foods.Ernst m to increase mounjaro to 7.5 mg for 4 weeks then 10 mg weekly. Continue diet and exercise. CGM data reviewed. Type 2 augusta betes mellitus 63472968 E11.9 29834920 Excellent diabetic control . Last CGM upload on 04/19 was 98% in range. See above. F/u 3 m. [id number] Jv Braga MD Main Office [address] [facility] [address] [place] [address] 07/10/2025 11:05:55 07/10/2025 12:18:58 Adult health examination 469936065 Z00.00 Up to date on vaccinatio ns-needs pneumococc al, defers for now colonoscop y utd - next in 5.35 pap, mammo - utd mold technician ordered bone density Needs infl uenza immunization 745760220 Z23 19 YEARS AND OLDER ONLY Type 2 augusta betes mellitus 87729350 E11.9 52548318 a1c stable at 5.9 - diet controlled , rec increase aerobic ex to help lose recently gained wt. check a1c and microalbum in ac pe in 10.25 10.25 - doing well on mounjaro - cont f/u c VM Body mass index 30+ - obesity 470314076 E66.01 Z68.37 had lost ~30 lbs eating low inna diet, walking 10K steps / qd, consider strength training as well and resuming dance lessons again 9.24 - on ozempic - cont as dir 10.25 - doing well on mounjaro - cont f/u c VM Essential hypertension 77268890 I10 22913 stable, cont meds as dir (arb qd)pt states she only takes Hydrochlor othiazide prn only for edema (rarely uses) Hyperlipidemia 61526840 E78.5 D/t elevated Triglyceri de - recommend [...] ldl on crestor, cont med as dir Low back pain 391843702 M54.50 lbp c ? radiculopa thy RLE [...] them 09.29.24 - set up by derm) 10.25 - better p shauna injxn, cont f/u c pmr Acute ankle pain 3368019 011 9105 M25.571 47527681 s/p fall - seen by [facility] [place] - ? fx, but neos states no fx - cont PT, f/u c neos Pain of hip region 61905 002 M25.552 [id number] believe her hip pain is radiating from her back, but will check xray to r/o advanced djd - consider ortho eval if advanced djd 9.23 - mild degenerati ve changes R hip - likely referred pain, see below 10.25 - s/p fall, cont PT, f/u c neos Pain of ri ght hip joint 1087677785 94616 M25.551 believe her hip pain is radiating from her back, but will check xray to r/o advanced djd - consider ortho eval if advanced djd 9.23 - mild degenerati ve changes R hip - likely referred pain, see below 10.25 - advised has endstage djd - cont PT, f/u c neos Gastroesop hageal reflux disease 420579192 K21.9 had nl egd 5.25 - cont ppi as dir, pt uses reglan infrequent ly -- cont f/u c gi Vitamin D deficiency 347 60865 E55.9 Health Concerns Section Related Observation LastModified by Organization Detai ls LastModified Time None Recorded Concern Status LastModified by Organization Details LastModified Time None Recorded Advance Directives Directive Y: Payers Insurance Date Sequence Insurance Name Policy Number Policy Linn Covered Member ID Linn Member ID Guarantor Name 09/06/2018 1 [id number] Nitin Duarte [id number] Claudia Duarte 08/15/2025 1 [place] [id number] Nitin Duarte [id number] Claudia Duarte 01/05/2018 1 [facility] [id number] Nitin Duarte [id number] Claudia Duarte 02/15/2015 1 [facility] Nitin Duarte [id number] Claudia Duarte Notes Date Note Type Note Provider Name and Address Organization Details Recorded Time 5 text/html Hypertension F/UReported by PatientHPIFor associated symptoms, patient reportslightheadedness (intermittent 2-3x month when turning quickly)but reportsno dizziness,no chest pain,no shortness of breath,no palpitations,no edema, andno calf pain with exertion. For lifestyle, patient reportsnot exercising regularly (musculoskeletal and joint pain)but reportslimiting/avoiding salt. For medications, patient reportstaking medications as directedandno side effects from medication.BP is low in office today; 100/64. Not measuring at home, stable. Taking 0.5 of 20 mg olmesartan. Diabetes F/UReported by PatientHPIFor associated symptoms, patient reportsweight gain (6 lbs)but reportsno dizziness,no sweats,no headaches,no confusion,no increased thirst,no increased appetite,no increased urination,no blurred vision,no numbness of feet, andno calluses on feet.A1c is 5.9%. today.CGM upload on 03/08 showed [...] retinopathyNo neuropathy - does not see a environmental health and safety manager ObesityReported by PatientHPIFor co-morbidities, patient reportsobstructive sleep symptoms(never tested in the past due to refusal. now interested in being tested.). For nutrition, patient reportsdoesn't follow any kind of diet plan. For diagnosis summary, patient reportsdiagnosis: obesityandadditional diagnosis: metabolic syndrome(mash, dm type ii, hyperlipidemia.). For context, patient reportsno inhaled steroidsandno oral steroids. For associated symptoms, patient reportsno depression,no prader-willi syndrome, andno hypothyroidism(chronic r hip arthritis followed by financial coach.). For lifestyle changes, patient reportsfew constitutional symptoms related to diagnosis(snoring, hip pain). For physical activity, patient reportsreported frequency of moderate level of physical activity per week: sedentary. For medication education, patient reportsunderstands potential side effects,understands administration, andunderstands role of diet as primary therapy.Currently on Ozempic at smaller dose of 0.5 mg. 1 mg dose caused worsening of GERD symptoms. Current BMI is 37.7 with 4 lb weight gain in the last 4 m.ROS as noted in the [facility] [address] [facility] [address], [place], [address], [facility] 03/21/2025 11:26:50 text/html Diabetes F/UReported by PatientHPIFor associated symptoms, patient reportsweight loss (3 lbs)but reportsno dizziness,no sweats,no headaches,no confusion,no increased thirst,no increased appetite,no increased urination,no blurred vision,no numbness of feet, andno calluses on feet. For context, patient reportsnormal range of home blood sugars (in the low 100s),seeing eye doctor regularly,checking feet regularly, andnot missing doses of medications.A1c was 5.9% 6 weeks ago. CGM upload on 04/19 was 98% in range.Meds: mounjaro 5 mg weekly, well tolerated. PT is ready for next dose.no microalbuminuria. Last eye exam was normal in september 2024. No symptoms of neuropathy. ObesityReported by PatientHPIFor diagnosis summary, patient reportsdiagnosis: obesityandadditional diagnosis: metabolic syndrome(hypertension, hyperlipidemia). For context, patient reportsno inhaled steroidsandno oral steroids. For associated symptoms, patient reportsno depression,no chronic illness,no prader-willi syndrome, andno hypothyroidism. For co-morbidities, patient reportsno new co-morbidities since last visit. For lifestyle changes, patient reportsno changes in living situation,motivated to continue lifestyle changes,losing weight, andexercising more. For nutrition, patient reportseats mostly healthy diet. For physical activity, patient reportsreported frequency of moderate level of physical activity per week: >4 days.Tolerates mounjaro 5 mg well.ROS [facility] [address] [facility] [address], [place], [address], [facility] 05/16/2025 11:16:00 5 text/html Generic HPI TemplateReported by Patient here for annual pe. Lux Harris PA-C [address] [address], [place], [address], [facility] 07/11/2025 17:55:05 OBGyn Episode No OBEpisode recorded.
--- OUTSIDE RECORDS SUMMARY | 2025-08-23 20:01 | XMS_ITS | Clinical Summary ---
Author Organization [facility] [address] [facility] Address [address] [place] [address] Phone Care Team Providers Care Physician/Internist Name Role Phone Mesfin Parada Primary [facility] [...] mouth 1 (one) time each day. Active zpeapiox-owu-pm on-FA-vit K-lut (Centrum Silver Women) 8 mg [...] by the office 2 tablet 5 Active uzrckxih-zbb-ej on-FA-vit K-lut (Centrum Silver Women) 8 mg [...] 05/09/2023 Type 2 diabetes mellitus without complication Overview (07/05/2025): 07/05/25 Regulatory IMO Update Stage 2 chronic kidney disease 09/18/2022 COVID-19 09/01/2022 Seborrheic psoriasis 08/21/2022 Overview (12/21/2024): fol by derm Mixed hyperlipidemia 10/01/2019 Overview (12/21/2024): 1.20 - ascvd risk 6.7% Essential hypertension 05/01/2018 Neck pain 09/07/2012 Overview (12/21/2024): RECORDED 09/07/2012 2:03PM BY ANDRES ANGELES MA, ANNOTATION/ADDENDUM Migraine 09/07/2012 Overview (12/21/2024): RECORDED 09/07/2012 2:03PM BY ANDRES ANGELES MA, ANNOTATION/ADDENDUM Immunizations Immunization Administration Dates Next Due Moderna SARS-CoV-2 COVID-19, mRNA, LNP-S, preservative free 11/10/2020,10/09/2020 Surgical History Surgery Date Site/Laterality Comments CHOLECYSTECTOMY SECTION, LOW TRANSVERSE ESOPHAGOGASTRODUODENOSCOPY LIVER BIOPSY Medical History Medical History Date Comments Diabetes mellitus ([facility]/HCC V24, CMS/HCC V28) Hypertension Hyperlipidemia GERD (gastroesophageal reflux disease) [...] Years Used Date Smoking Tobacco: Former Cigarettes 2 Q uit: 10/05/1989 Smokeless Tobacco: Never Alcohol Use Standard Drinks/Week Comments Yes 0 (1 standard drink = 0.6 oz pur e alcohol) 2 a month Interpersonal Safety Answer Date Record ed Physical Abuse Unrecognized value 03/01/2025 Verbal Abuse Unrecognized value 03/01/2025 Comments Unknown Sex and Gender Information [...] Sugar Control Test (HGBA1C) 12/21/2024 COVID-19 Vaccine () 06/05/2025 07/01/2024, 07/22/2023, 08/22/2022, Additional history exists Influenza [...] Maintenance Results * COLONOSCOPY Anesthesia - MAC; [facility] ENDOSCOPY (03/01/2025 11:12 AM EDT) Anatomical Region Laterality Modality Endoscopy 03/01/2025 11:0 5 AM EDT Impressions 03/01/2025 11:07 AM EDT - Diverticulosis in the sigmoid colon. - The examination was otherwise normal on direct and retroflexion views. - No specimens collected. Recommendation: - Repeat colonoscopy in 10 years for screening purposes. Narrative 03/01/2025 11:07 AM EDT [facility] GI Patient Name: Claudia Duarte [...] or abscess without bleeding CPT copyright 2020 [employer]. All rights reserved. The codes documented in this report are preliminary and upon imaging analyst review may be revised to meet current compliance requirements. Von Henley MD 03/01/2025 11:07:24 AM This report has been signed electronically.Von Henley MD Number of Addenda: 0 Note Initiated On: 03/01/2025 11:05 AM Endoscopy Department at [facility] - [address] [place] [phone] Procedure Note Von Henley MD - 03/01/2025 [facility] GI Patient Name: Claudia Duarte [...] or abscess without bleeding CPT copyright 2020 [employer]. All rights reserved. The codes documented in this report are preliminary and upon imaging analyst reviewmay be revised to meet current compliance requirements. Von Henley MD 03/01/2025 11:07:24 AM This report has been signed electronically.Von Henley MD Number of Addenda: 0 Note Initiated On: 03/01/2025 11:05 AM Endoscopy Department at [facility] - [address] [place] [phone] IMPRESSION: - Diverticulosis in the sigmoid colon. - The examination was otherwise normal on directand retroflexion views. - No specimens collected. Recommendation: - Repeat colonoscopy in 10 years for screening purposes. Von Henley MD GI~PROCEDURE ORDERABLES Fin al Result * Hepatitis C virus quantitative molecular study (12/21/2024 12:17 PM EDT) [facility] HCV Qual Interp Not Detected Not Detected LAB MOLECULAR DIAGNOSTICS METHOD 12/22/2024 11:00 AM EDT [facility] Comment:HCV RNA not detected , unable to report quantitative results. Blood Venous blood specimen / Unknown Venipuncture / Unknown 12/21/2024 12:17 PM EDT 12/21/2024 1:32 PM EDT Von Henley MD LAB BLOOD ORDERABLES Final Result [facility] [address] [place] [address], [place] [phone] * (ABNORMAL) Comprehensive metabolic panel (12/21/2024 12:17 PM EDT) [facility] Sodium 140 133 - 145 mmol/L LAB CHEMISTRY METHOD 12/21/2024 4:05 PM [facility] Potassium 4.0 3.5 - 5.5 mmol/L LAB CHEMISTRY METHOD 12/21/2024 4:05 PM [facility] Chloride 108 96 - 110 mmol/L LAB CHEMISTRY METHOD 12/21/2024 4:05 PM [facility] CO2 24 21 - 32 mmol/L LAB CHEMISTRY METHOD 12/21/2024 4:05 PM [facility] Anion Gap 8 3 - 11 LAB CHEMISTRY METHOD 12/21/2024 4:05 PM [facility] Glucose 109(H) 70 - 100 mg/dL LAB CHEMISTRY METHOD 12/21/2024 4:05 PM [facility] BUN 17 5 - 25 mg/dL LAB CHEMISTRY METHOD 12/21/2024 4:05 PM [facility] Creatinine 0.72 0.50 - 1.10 mg/dL LAB CHEMISTRY METHOD 12/21/2024 4:05 PM [facility] eGFR 94 >=60 mL/min/1. 73m2 LAB CHEMISTRY METHOD 12/21/2024 4:05 PM [facility] Comment:Calculation based on the Chronic Kidney Disease Epidemiology Collaboration (CKD-EPI) equation refit without adjustment for race. BUN/Creatinine Ratio 23.6 LAB CHEMISTRY METHOD 12/21/2024 4:05 PM [facility] Calcium 9.2 8.5 - 10.5 mg/dL LAB CHEMISTRY METHOD 12/21/2024 4:05 PM [facility] AST (SGOT) 27 10 - 42 unit/L LAB CHEMISTRY METHOD 12/21/2024 4:05 PM [facility] ALT (SGPT) 43 10 - 60 unit/L LAB CHEMISTRY METHOD 12/21/2024 4:05 PM [facility] Alkaline Phosphatase 151(H) 42 - 121 unit/L LAB CHEMISTRY METHOD 12/21/2024 4:05 PM EDT [facility] Total Protein 7.3 6.0 - 8.0 g/dL LAB CHEMISTRY METHOD 12/21/2024 4:05 PM EDT [facility] Albumin 3.9 3.2 - 5.0 g/dL LAB CHEMISTRY METHOD 12/21/2024 4:05 PM EDT [facility] Total Bilirubin 0.5 0.0 - 1.4 mg/dL LAB CHEMISTRY METHOD 12/21/2024 4:05 PM EDT [facility] Blood Venous blood specimen / Unknown Venipuncture / Unknown 12/21/2024 12:17 PM EDT 12/21/2024 1:30 PM EDT us Von Henley MD LAB BLOOD ORDERABLES Final Result [facility] [address] [place] [address], [place] [phone] from Last 3 Months or Most Recently Relevant to Health Maintenance Insurance [facility] Care Teams Physician/Internist Relationship Specialty Start Date End Date Mesfin Parada PA [address] [address] PCP - General Internal Medicine 09/27/24
--- OUTSIDE RECORDS SUMMARY | 2025-08-23 20:02 | XMS_ITS | Clinical Summary ---
Author Organization [facility] Address [address] [place] [address] Care Team Providers Care Atomic Spectroscopist Name Role Phone Mesfin Parada PA-C Primary Care Provider [phone] Immunizations Name Administration Dates Next Due Covid-19 [...] f 2) 2011 COVID-19 Vaccine (3 - 2024-2 6 season) 2025 11/10/2020, 10/09/2020 Influenza Vaccine (#1) 2025 Pneumococcal [...] age to complete this topic Care Teams Atomic Spectroscopist Relationship Specialty Start Date End Date Mesfin Parada PA-C [id number] [id number] PCP - General Medical Services 11/10/20
== END 2025-08-23 11:23 | disposition home or self-care (01) ==
LOC: HO.RHES 10:25
PROVIDERS: PCP Physician Assistant Medical; Visit Provider Internal Medicine Rheumatology
DX: M16.11 Unilateral primary osteoarthritis, right hip (principal); M70.61 Trochanteric bursitis, right hip; M25.571 Pain in right ankle and joints of right foot; G89.29 Other chronic pain
CPT/HCPCS: 20610; 99213

== ENCOUNTER → 2025-08-23 10:24 | Outpatient (BNVA) | payer BC, SELFPAY | PROVIDERS: PCP Physician Assistant Medical; Visit Provider Internal Medicine Rheumatology | DX: M16.11 Unilateral primary osteoarthritis, right hip (principal); M70.61 Trochanteric bursitis, right hip | CPT/HCPCS: 20610; J2003; J3301 ==